=== PATIENT | female | born 1960 | race Hispanic/Latino ===

== ENCOUNTER 2017-04-14 15:58 | Emergency (ER) | payer BC ==
[2017-04-14] MEDS ORDERED: Gabapentin 300 MG CAP PO SCH (17:00)
[2017-04-14] MEDS ORDERED: HYDROcodone/Acetaminophen 10/325 mg Tablet ONE (17:00)
--- NOTE | 2017-04-14 17:23 | ULT ---
RIGHT LOWER EXTREMITY VENOUS DUPLEX SONOGRAM: History: Right leg pain and edema. FINDINGS: The right common femoral vein and greater saphenous junction were evaluated along with the femoral, d eep femoral, popliteal and posterior tibial veins. There is good color and spectral doppler flow, com pression, and augmentation. IMPRESSION: 1. No sonographic evidence of DVT within the right lower extremity. POS: [facility]
--- NOTE | 2017-04-14 17:25 | RAD ---
RIGHT FOOT THREE VIEWS: History: Right foot pain. FINDINGS: Extensive post-operative changes are present including surgical absence of the lateral third of the f oot, including the 4th and 5th rays. Soft tissue ulceration and edema are apparent. No aggressive oss eous destruction is apparent. There are degenerative changes throughout the remainder of the foot. IMPRESSION: Chronic type findings and extensive post-operative changes. Soft tissue ulceration is apparent. No ag gressive osseous destruction is visible. POS: [facility]
== END 2017-04-14 19:35 | disposition home or self-care (01) ==
LOC: ERS 15:58
DX: M79.89 Other specified soft tissue disorders (principal); E78.5 Hyperlipidemia, unspecified; E11.9 Type 2 diabetes mellitus without complications; Z79.4 Long term (current) use of insulin; I10 Essential (primary) hypertension; J45.909 Unspecified asthma, uncomplicated
CPT/HCPCS: 36416

== ENCOUNTER 2017-09-08 09:05 | Emergency (ER) | payer BC, SELFPAY ==
[2017-09-08] MEDS ORDERED: Ketorolac Tromethamine 30 MG/ML VIAL ONE (10:40)
== END 2017-09-08 10:48 | disposition home or self-care (01) ==
LOC: ERS 09:05
DX: H60.91 Unspecified otitis externa, right ear (principal); E78.5 Hyperlipidemia, unspecified; E11.9 Type 2 diabetes mellitus without complications; I10 Essential (primary) hypertension; J45.909 Unspecified asthma, uncomplicated; Z79.4 Long term (current) use of insulin
CPT/HCPCS: 96372; J1885

== ENCOUNTER 2017-10-09 12:53 | Inpatient (IN) | payer OTHER, SELFPAY ==
[~2017-10-09 12:53] MED LIST: ISOVUE-370 76%-LOCM 1 ML ONE
[2017-10-09 13:44] LABS: Bilirubin Negative (Negative); Blood, Urine Trace (Negative); Clarity CLEAR (Clear); Glucose, Urine (Dipstick) >=1000 mg/dL (Negative); Leukocyte Negative (Negative); Nitrite Negative (Negative); Protein, Urine (Dipstick) 100 mg/dL (Neg-Trace); Urobilinogen 0.2 mg/dL (0.2-1.0); pH, Urine 6.5 (5.0-9.0)
[2017-10-09 13:47] LABS: Bacteria/HPF None Seen HPF (None Seen); Hyaline Casts/LPF 0-3 HYALINE CAST LPF (0-3 Hyaline); Pathc Cast-AUWi Flag 0.43 (0-2.49); RBC/HPF 0-3 HPF (0-3); Squamous Epithelial 0-3 HPF (0-3); WBC/HPF 0-3 HPF (0-3)
[2017-10-09 13:50] LABS: Yeast-AUWi Flag 38.8 (0-25.0)
[2017-10-09 13:51] LABS: #Eosinphils 0.4 thou/uL (0.0-0.7); #Lymphocytes 1.3 thou/uL (1.20-3.40); #Monocytes 0.3 thou/uL (0.11-0.59); #Neutrophils 4.7 thou/uL (1.40-6.50); %Basophils 0.4 % (0.0-1.0); %Eosinophils 5.4 % (0.0-10.0); %Lymphocytes 19.2 % (21.0-51.0); %Monocytes 4.6 % (0.0-10.0); %Neutrophils 70.4 % (42.0-75.0); Hemoglobin 8.9 g/dL (12.0-16.0); Mean Corpuscular Hemoglobin 28.2 pg (27.0-31.0); Mean Corpuscular Volume 85.3 fl (81.0-99.0); Platelet Count 234 thou/uL (130-400); RBC Distribution Width 13.8 % (11.5-14.5); Red Blood Cell (RBC) Count 3.17 mill/uL (4.20-5.40); White Blood Cell (WBC) Count 6.7 thou/uL (4.8-10.8)
[2017-10-09 13:59] LABS: Yeast-All Forms 1+ HPF (None Seen)
[2017-10-09 14:12] LABS: ALT (SGPT) 12 U/L (8-55); AST (SGOT) 14 U/L (5-34); Albumin 3.5 g/dL (3.5-5.0); Alkaline Phosphatase 131 U/L (40-150); Anion Gap 10 mmol/L (10-20); BUN (Urea Nitrogen) 15 mg/dL (9.8-20.1); Bilirubin, Total 0.4 mg/dL (0.2-1.2); Calc. Creatinine Clearance 0 mL/min (70-130); Carbon Dioxide 24 mmol/L (22-29); Chloride 104 mmol/L (98-107); Estimated GFR-MDRD 41; Globulin 4.1 g/dL (2.4-3.5); Glucose 491 mg/dL (70-105); Lipase 10 U/L (8-78); Potassium 4.6 mmol/L (3.5-5.1); Protein, Total 7.6 g/dL (6.0-8.3); Sodium 133 mmol/L (136-145)
[2017-10-09] MEDS ORDERED: Morphine 4 MG/ML VIAL ONE (16:03)
[2017-10-09] MEDS ORDERED: Ondansetron ODT 4 MG TAB ONE (16:07)
--- NOTE | 2017-10-09 16:21 | ULT ---
RIGHT LOWER EXTREMITY VENOUS DUPLEX EXAM: Date: 10/09/17 HISTORY: Right lower extremity pain and swelling. FINDINGS: Real-time color Doppler evaluation of the right lower extremity was performed from groin to calf. Thi s includes evaluation of the common femoral, superficial and profunda femoral, saphenous, and poplite al veins. This shows an extensive deep venous thrombosis which is near occlusive in nature. It extends from the common femoral vein to the mid-calf. IMPRESSION: Extensive deep venous thrombosis of the right lower extremity. Findings relayed by the technologist to Dr. Gonzales. CODE CR. POS: [facility]
[2017-10-09 16:42] LABS: CKMB 0.7 ng/mL (0-6.6); Troponin I Less than 0.010 ng/mL (< 0.028)
[2017-10-09] MEDS ORDERED: Enoxaparin Sodium 80 MG/0.8 ML SYRINGE ONE (16:49)
[2017-10-09] MEDS ORDERED: Enoxaparin Sodium 40 MG/0.4 ML SYRINGE ONE (16:49)
--- NOTE | 2017-10-09 17:01 | CT ---
CT OF ABDOMEN AND PELVIS PERFORMED WITH CONTRAST ENHANCEMENT: Date: 10/09/17 HISTORY: Abdominal pain. History of hernia surgery in June. COMPARISON: 07/02/16 exam. FINDINGS: The lung bases are clear. The liver, spleen, and pancreas regions appear unremarkable. The gallbladder has been removed. Right and left adrenal glands are normal in appearance. Parapelvic cysts are again noted involving chin th kidneys. Small periaortic lymph nodes and aortocaval nodes are seen. These were present on the konrad or exam and not definitively changed. There is a single focus of some mesenteric nodes associated wit h some fat stranding. This is associated with the proximal to mid ileal bowel loop. This is seen on c oronal image 89, and axial image 58. I do not see any adjacent bowel wall abnormality. There is a sec ond inflammatory focus involving the mid descending colon. There are also some slightly prominent lym ph nodes along the medial border of the colon in this region. There is suggestion of some slight wall thickening. However, I do not see any definitive diverticular disease and there is no true diverticu lar disease elsewhere within the colon. CT of pelvis was performed with contrast enhancement. Patient has undergone anterior wall hernia repa ir. The appendix region is unremarkable. No free fluid. There is a mild amount of stool present within the colon, particularly the sigmoid region. IMPRESSION: 1. Focal area of slight wall thickening to the mid descending colon with pericolonic inflammatory ch julio and some mildly prominent nodes in this region which are probably inflammatory in nature. I do n ot see definite diverticular disease associated with this, although an isolated diverticulum could ce rtainly explain this as diverticulitis type symptoms, but other type of infectious or inflammatory pr ocess in this region, even neoplasm, would have to be considered as a possibility. I would suggest co lonoscopy for further investigation. 2. Isolated focus of some slightly enlarged mesenteric lymph nodes associated with a mid ileal bowel loop. There is some surrounding slight inflammatory change within the fat adjacent to this area. I d o not see any adjacent bowel abnormality. The significance of this is unclear. Some of these changes could be some type of postoperative sequelae to the hernia repair, although this seems somewhat unlik fei given the time frame of the repair. It would probably be advisable to obtain a follow-up CT for i nvestigation of these slightly enlarged nodes. POS: [facility]
[2017-10-09] MEDS ORDERED: Insulin Regular 300 UNITS/3 ML VIAL SC PRN (17:46)
[2017-10-09] MEDS ORDERED: Senokot 8.6 MG TAB PO PRN (17:46)
[2017-10-09] MEDS ORDERED: Ondansetron HCl/PF 4 MG/2 ML Vial IVP PRN (17:46)
[2017-10-09] MEDS ORDERED: Dextrose 50% Abboject 50 ML SYRINGE SLOW IVP PRN (17:46)
[2017-10-09] MEDS ORDERED: Dextrose 5% in Water 1,000 ML IV PRN (17:46)
[2017-10-09] MEDS: Sodium Chloride 0.9% 1,000 ML IV SCH (18:18)
[2017-10-09] MEDS: cefTRIAXone\\ROCEPHIN 2 GM in Sodium Chloride 0.9% 100 ML IVPB SCH (18:19)
[2017-10-09 19:19] LABS: Troponin I Less than 0.010 ng/mL (< 0.028)
[2017-10-09] MEDS: metroNIDAZOLE 500 MG in Premix Bag 1 BAG IVPB SCH (20:21)
[2017-10-09] MEDS: Enoxaparin Sodium 100 MG/ML SYRINGE SC SCH (20:22)
--- NOTE | 2017-10-09 21:54 | PDOC.PN ---
- Subjective Encounter Start Date: 10/09/17 Encounter Start Time: 18:00 Patient seen and examined. - Objective Resuscitation Status: Resuscitation Status FULL:Full Resuscitation MAR Reviewed: Yes Vital Signs & Weight: Vital Signs (12 hours) Temp Pulse Resp BP Pulse Ox 10/09/17 17:55 98.1 F 74 17 177/77 H 98 Result Diagrams: 10/10/17 04:55 10/10/17 04:55 Additional Labs: Accuchecks 10/09/17 10/09/17 21:40 18:12 POC Glucose 363 H 429 H Radiology Reviewed by me: Yes (CT abd - Colitis) EKG Reviewed by me: Yes (SR) Phys Exam - Physical Examination Constitutional: NAD HEENT: PERRLA, moist MMs Neck: no nodes, no JVD, supple, full ROM Respiratory: no wheezing, no rales, no rhonchi, clear to auscultation bilateral Cardiovascular: RRR, no rub no heaves/pulsations Gastrointestinal: soft, non-tender, no distention, positive bowel sounds Musculoskeletal: pulses present, edema present Neurological: non-focal, normal sensation, moves all 4 limbs Lymphatic: no nodes (neck) Psychiatric: normal affect, A&O x 3 Skin: no rash Dx/Plan - Plan DVT proph w/lovenox * Please see H&P Review of Systems - Review of Systems Respiratory: negative: Cough, Dry, Shortness of Breath, Hemoptysis, SOB with Excertion, Pleuritic Pain, Sputum, Wheezing Cardiovascular: negative: chest pain, palpitations, orthopnea, paroxysmal nocturnal dyspnea, edema, light headedness, other - Medications/Allergies Allergies/Adverse Reactions: Allergies Allergy/AdvReac Type Severity Reaction Status Date / Time acetaminophen [From Tylenol] Allergy Verified 01/23/13 17:16 ibuprofen Allergy Verified 01/23/13 17:16 Medications: Current Medications Dextrose/Water (Dextrose 50%) 25 gm SLOW IVP PRN PRN PRN Reason: Hypoglycemia Enoxaparin Sodium (Lovenox) 100 mg SC 0900,2100 [facility] Last Admin: 10/09/17 20:22 Dose: 100 mg Famotidine (Pepcid) 20 mg PO BID [facility] Glucagon (Glucagon) 1 mg IM PRN PRN PRN Reason: Hypoglycemia Hydralazine HCl (Apresoline) 10 mg SLOW IVP Q4H PRN PRN Reason: SBP Greater Than 180 Dextrose/Water (D5w) 1,000 mls @ 0 mls/hr IV .Q0M PRN; As Directed PRN Reason: Hypoglycemia Insulin Glargine 25 units/ (Miscellaneous Medication) 0.25 mls @ 0 mls/hr SC QAM [facility] Insulin Glargine 25 units/ (Miscellaneous Medication) 0.25 mls @ 0 mls/hr SC HS [facility] Sodium Chloride (Normal Saline 0.9%) 1,000 mls @ 125 mls/hr IV .Q8H [facility] Last Admin: 10/09/17 18:18 Dose: 1,000 mls Ceftriaxone Sodium 2 gm/ (Sodium Chloride) 100 mls @ 200 mls/hr IVPB 1830 [facility] Last Admin: 10/09/17 18:19 Dose: 100 mls Metronidazole 500 mg/ Device 100 mls @ 100 mls/hr IVPB 0400,1200,2000 [facility] Last Admin: 10/09/17 20:21 Dose: 100 mls Insulin Human Regular (Humulin R) 0 units SC .MODERATE SLIDING SC PRN PRN Reason: Moderate Correctional Scale Last Admin: 10/09/17 18:25 Dose: 10 unit Morphine Sulfate (Morphine) 2 mg IV Q4H PRN PRN Reason: Pain Nystatin (Mycostatin Powder) 0 gm TOP BID [facility] Ondansetron HCl (Zofran Odt) 4 mg PO Q6H PRN PRN Reason: Nausea/Vomiting Ondansetron HCl (Zofran) 4 mg IVP Q6H PRN PRN Reason: Nausea/Vomiting Saccharomyces Boulardii (Florastor) 250 mg PO DAILY [facility] Senna (Senokot) 2 tab PO HSPRN PRN PRN Reason: Constipation Sodium Chloride (Flush - Normal Saline) 10 ml IVF Q12HR [facility] Sodium Chloride (Flush - Normal Saline) 10 ml IVF PRN PRN PRN Reason: Saline Flush
[2017-10-09] MEDS: Famotidine 20 MG TAB PO SCH (22:13)
[2017-10-09] MEDS: Insulin Glargine 25 UNITS in Pre-Filled Syringe 1 EACH SC SCH (22:13)
[2017-10-09] MEDS: Nystatin Powder 15 GM BOT TOP SCH (22:21)
[2017-10-09 22:40] LABS: Troponin I Less than 0.010 ng/mL (< 0.028)
[2017-10-10] MEDS: Morphine 4 MG/ML VIAL IV PRN (01:28)
[2017-10-10] MEDS: Sodium Chloride 0.9% 1,000 ML IV SCH ×4 (02:00→23:30)
[2017-10-10] MEDS ORDERED: Insulin Regular 300 UNITS/3 ML VIAL SC SCH (03:45)
[2017-10-10] MEDS ORDERED: Enoxaparin Sodium 40 MG/0.4 ML SYRINGE SC SCH (04:00)
[2017-10-10] MEDS: metroNIDAZOLE 500 MG in Premix Bag 1 BAG IVPB SCH ×3 (04:03→21:10)
[2017-10-10 05:39] LABS: #Eosinphils 0.3 thou/uL (0.0-0.7); #Lymphocytes 1.4 thou/uL (1.20-3.40); #Monocytes 0.3 thou/uL (0.11-0.59); #Neutrophils 3.1 thou/uL (1.40-6.50); %Basophils 0.8 % (0.0-1.0); %Eosinophils 6.4 % (0.0-10.0); %Lymphocytes 26.4 % (21.0-51.0); %Monocytes 6.1 % (0.0-10.0); %Neutrophils 60.3 % (42.0-75.0); Hemoglobin 8.2 g/dL (12.0-16.0); Mean Corpuscular HGB CONC 33.6 g/dL (32.0-36.0); Mean Corpuscular Hemoglobin 28.9 pg (27.0-31.0); Mean Corpuscular Volume 86.1 fl (81.0-99.0); Mean Platelet Volume 8.3 fL (7.4-10.4); Platelet Count 209 thou/uL (130-400); RBC Distribution Width 13.7 % (11.5-14.5); Red Blood Cell (RBC) Count 2.84 mill/uL (4.20-5.40); White Blood Cell (WBC) Count 5.2 thou/uL (4.8-10.8)
[2017-10-10] MEDS: Ondansetron ODT 4 MG TAB PO PRN ×2 (05:57→11:44)
[2017-10-10 06:01] LABS: ALT (SGPT) 45 U/L (8-55); AST (SGOT) 101 U/L (5-34); Alkaline Phosphatase 144 U/L (40-150); Anion Gap 9 mmol/L (10-20); BUN (Urea Nitrogen) 12 mg/dL (9.8-20.1); Bilirubin, Total 0.3 mg/dL (0.2-1.2); Calc. Creatinine Clearance 129 mL/min (70-130); Calcium 8.1 mg/dL (7.8-10.44); Carbon Dioxide 23 mmol/L (22-29); Chloride 105 mmol/L (98-107); Estimated GFR-MDRD 52; Globulin 3.6 g/dL (2.4-3.5); Glucose 355 mg/dL (70-105); Magnesium 1.7 mg/dL (1.6-2.6); Potassium 4.1 mmol/L (3.5-5.1); Protein, Total 6.6 g/dL (6.0-8.3); Sodium 133 mmol/L (136-145)
--- NOTE | 2017-10-10 07:05 | HP ---
DATE OF ADMISSION: 10/09/2017 The patient was seen and examined on 10/09/2017. PRIMARY CARE PHYSICIAN: Dr. Silva CHIEF COMPLAINT: Abdominal discomfort as well as elevated blood sugars. HISTORY OF PRESENT ILLNESS: The patient is a 57-year-old -[place] female with morbid obesity with a BMI 48.6, diabetes mellitus type 2, and ventral hernia repair in 06/2016 by sepideh Veliz nted to the Emergency Room with abdominal discomfort that has been ongoing for a month or so. The ab dominal pain got worse, for which she presented to the emergency room. She felt nauseous without any fever, chills, or vomiting. The pain was more or less generalized, dull to crampy in nature without any aggravating or relieving factor. No diarrhea or constipation reported. Please note that asriah soni is a poor historian. She also was unable to keep her blood sugars down at home per patient report. In the emergency room, initial vital signs showed temperature 98.6, respirations 16, pulse rate of 90 with blood pressure of 173/64, O2 saturation 99% on room air. Due to significant right lower extrem ity swelling, she underwent a Doppler that showed extensive DVT in the right lower extremity. On fur ther questioning, she mentions having shortness of breath on [id number] exertion. No orthopnea , PND, or stroke-like symptoms reported. PAST MEDICAL HISTORY: 1. Diabetes mellitus type 2. 2. Morbid obesity. 3. Hypertension. 4. History of DVT in the left leg in 2011. 5. Chronic venous stasis. 6. Cholecystectomy. PAST SURGICAL HISTORY: 1. 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 2. D&C. 3. . 4. Cholecystectomy. 5. Cardiac catheterization in 2003. CURRENT HOME MEDICATIONS: The patient is unable to recall any of her home medications. ALLERGIES: Patient is allergic to IBUPROFEN and TYLENOL. FAMILY HISTORY: Positive for diabetes and hypertension. SOCIAL HISTORY: Patient currently lives at home. Denies any smoking, alcohol, or drug use. REVIEW OF SYSTEMS, PHYSICAL EXAMINATION, LABORATORY FINDINGS: Please refer to my progress note. IMPRESSION: 1. Abdominal discomfort of unclear etiology. Patient underwent a CT scan of the abdomen with IV con trast that showed focal area of wall thickening in the mild descending colon with some inflammatory c hanges. There was also some slightly enlarged mesenteric lymph node. The patient will be started on clear liquid diet. We will start her on empiric antibiotics for suspected colitis. GI will be cons ulted. Due to history of abdominal surgery last year, we will also consult Dr. Lowe per patient re quest. 2. Uncontrolled diabetes mellitus type 2. The patient will be started on Lantus with sliding scale. We will keep Accu-Cheks a.c. and at bedtime. 3. Morbid obesity with a BMI of 48.6. Lifestyle modification emphasized. 4. Extensive deep venous thrombosis in the right lower extremity. The patient will be started on Lo venox. Pulmonary embolism is a possibility. However, patient is not hypoxic or tachycardic. 5. Hypertension. We will resume her home medications once confirmed. 6. Chronic venous stasis. 7. Chronic kidney disease stage 3. 8. Plan of care was discussed with the patient in detail. She stated understanding.
[2017-10-10] MEDS: Nystatin Powder 15 GM BOT TOP SCH ×2 (09:29→21:10)
[2017-10-10] MEDS: Famotidine 20 MG TAB PO SCH ×2 (09:29→20:52)
[2017-10-10 09:44] LABS: Hemoglobin 8.9 g/dL (12.0-16.0); Platelet Count 238 thou/uL (130-400)
[2017-10-10 09:50] LABS: INR-International Normal Ratio 1.1; Prothrombin Time 14.6 SEC (12.0-14.7)
[2017-10-10] MEDS: Insulin Glargine 25 UNITS in Pre-Filled Syringe 1 EACH SC SCH ×2 (11:39→20:55)
[2017-10-10] MEDS: Enoxaparin Sodium 100 MG/ML SYRINGE SC SCH ×2 (11:40→20:52)
[2017-10-10] MEDS: Saccharomyces boulardii 250 MG CAP PO SCH (11:40)
[2017-10-10] MEDS ORDERED: Warfarin Sodium 7.5 MG TAB PO SCH (17:00)
[2017-10-10] MEDS: hydrALAZINE 20 MG/ML VIAL SLOW IVP PRN (17:18)
[2017-10-10] MEDS: cefTRIAXone\\ROCEPHIN 2 GM in Sodium Chloride 0.9% 100 ML IVPB SCH (17:24)
--- NOTE | 2017-10-10 17:55 | CON ---
DATE OF CONSULTATION: 10/10/2017 HISTORY OF PRESENT ILLNESS: The patient is a 57-year-old female who was in her normal state of health until July of this year when she developed abdominal pain. She reports this abdominal pa in was in the upper abdomen and on the left side of the abdomen and became progressively worse and th en got very bad within the last few days. She has had a hernia repair back in 06/2016 and had no pro blems after the surgery. She reports she recently had Hemoccult positivity to her stools and was ref erred to GI, but however, because of copay she could not afford it and did not go. She has had quite a bit of vomiting, but she denies any weight loss or is unaware of any weight loss. She has had pre vious DVT in the past and has been diagnosed with a DVT on this hospitalization. The patient did und ergo an upper and lower endoscopy by Dr. Rivas for anemia back in 2010, both of which were normal. PAST MEDICAL HISTORY: Significant for diabetes mellitus, morbid obesity, hypertension, history of DV T, cholecystectomy, amputation of the toes, cardiac catheterization. HOME MEDICATIONS: Include quinapril 5 mg p.o. daily, metoprolol 12.5 mg p.o. b.i.d., iron plus folic acid 1 p.o. b.i.d., insulin 50 units subcu q.a.m. and 50 units subcu q.p.m., Lasix 20 mg p.o. b.i.d. , Flexeril 10 mg p.o. b.i.d., Kenalog ointment, ibuprofen 1 p.o. t.i.d. p.r.n., acetaminophen with co deine 1 p.o. q.4 hours p.r.n. ALLERGIES: Include ACETAMINOPHEN and IBUPROFEN. SOCIAL HISTORY: She does not smoke or drink. FAMILY HISTORY: Negative for GI or liver disease. REVIEW OF SYSTEMS: Constitutional: No fever or chills. No weight loss. Eyes: No blurred vision o r double vision. ENT: No sore throat or earaches. Cardiovascular: No chest pain or palpitation. Pulmonary: No shortness of breath, cough or wheezing. Gastrointestinal: See above. Genitourinary: No hematuria or dysuria. Musculoskeletal: No joint pain. Skin: No rashes. Neurologic: No numb ness or seizure activity. PHYSICAL EXAMINATION: GENERAL: Shows a morbidly obese female, in no acute distress. VITAL SIGNS: Temperature 98.0, pulse 70, respiratory rate 20, blood pressure 143/66. HEENT: Unremarkable. NECK: Supple. CHEST: Clear. CARDIOVASCULAR: Regular rate and rhythm. ABDOMEN: Soft, nontender without organomegaly or masses. She has a well healed surgical scar. RECTAL: Deferred. EXTREMITIES: Shows stasis changes. LABORATORY DATA: Shows a white blood cell count of 6.7, hemoglobin 8.9, hematocrit 27.1 with MCV of 85.3. PT is 14.6 with an INR of 1.1. Laboratory shows a sodium of 133, creatinine 1.33, glucose 491 . Urinalysis shows greater than 1000 glucose, trace blood. CT abdomen and pelvis showed a focal are a of slight wall thickening in the mid descending colon with pericolonic inflammatory changes and elvia e mild prominent nodes in this region, which are probably inflammatory in nature. No diverticula wer e seen in this area. There is also an isolated focus of some slightly enlarged mesenteric lymph node , associated with mild ileal bowel loop. There is some surrounding slight inflammatory change within the fat adjacent to this area. There is no present bowel abnormality in this area. ASSESSMENT: 1. Left-sided abdominal pain. 2. Persistent nausea and vomiting. 3. Hemoccult positive stool found as an outpatient. 4. Diabetes mellitus. 5. Abnormal CT of the descending colon. 6. Deep vein thrombosis. 7. Anemia. RECOMMENDATIONS: 1. EGD and colonoscopy in a.m. 2. Hold a.m. Lovenox dose until the time of the procedure and then it can be given then. 3. PPI.
[2017-10-10] MEDS ORDERED: GoLYTELY 4,000 ml Bottle PO SCH (18:00)
--- NOTE | 2017-10-11 00:50 | PDOC.PN ---
- Subjective Encounter Start Date: 10/10/17 Encounter Start Time: 13:00 Patient seen and examined for Abd pain/DVT. Some nausea. No vomiting. No new complaints. No overnight events - Objective Resuscitation Status: Resuscitation Status FULL:Full Resuscitation MAR Reviewed: Yes Vital Signs & Weight: Vital Signs (12 hours) Temp Pulse Resp BP BP BP Pulse Ox 10/11/17 00:00 98.5 F 77 20 146/67 H 98 10/10/17 22:00 73 163/68 H 10/10/17 20:41 98.1 F 78 20 192/92 H 98 10/10/17 17:18 70 182/83 H 10/10/17 16:00 97.9 F 72 20 182/83 H Weight Admit Weight 310 lb 3.2 oz Weight 310 lb 3.2 oz I&O: 10/09/17 10/10/17 10/11/17 06:59 06:59 06:59 Intake Total 1375 2136 Output Total 700 1000 Balance 675 1136 Result Diagrams: 10/10/17 09:33 10/10/17 04:55 Additional Labs: Accuchecks 10/10/17 10/10/17 10/10/17 20:39 17:32 11:57 POC Glucose 335 H 265 H 291 H 10/10/17 02:51 POC Glucose 364 H Phys Exam - Physical Examination Constitutional: NAD Respiratory: no wheezing, no rhonchi Cardiovascular: RRR, no rub Gastrointestinal: soft, non-tender, positive bowel sounds Musculoskeletal: edema present Neurological: moves all 4 limbs Dx/Plan (1) Abdominal pain Code(s): R10.9 - UNSPECIFIED ABDOMINAL PAIN Status: Acute (2) Acute DVT (deep venous thrombosis) Code(s): I82.409 - ACUTE EMBOLISM AND THOMBOS UNSP DEEP VN UNSP LOWER EXTREMITY Status: Acute (3) Uncontrolled type 2 diabetes mellitus Code(s): E11.65 - TYPE 2 DIABETES MELLITUS WITH HYPERGLYCEMIA Status: Chronic Qualifiers: Chronic kidney disease stage: stage 3 (moderate) (4) HTN (hypertension) Code(s): I10 - ESSENTIAL (PRIMARY) HYPERTENSION Status: Chronic - Plan DVT proph w/lovenox Await GI/Surg input -: Cont Lovenox for DVT - Risk discussed - Patient stated understanding -: Cont Atbx -: AM labs Review of Systems - Review of Systems Respiratory: negative: Cough, Dry, Shortness of Breath, Hemoptysis, SOB with Excertion, Pleuritic Pain, Sputum, Wheezing Cardiovascular: negative: chest pain, palpitations, orthopnea, paroxysmal nocturnal dyspnea, edema, light headedness, other Gastrointestinal: negative: Nausea, Vomiting, Abdominal Pain, Diarrhea, Constipation, Melena, Hematochezia, Other - Medications/Allergies Allergies/Adverse Reactions: Allergies Allergy/AdvReac Type Severity Reaction Status Date / Time acetaminophen [From Tylenol] Allergy Verified 01/23/13 17:16 ibuprofen Allergy Verified 01/23/13 17:16 Medications: Current Medications Cyclobenzaprine HCl (Flexeril) 10 mg PO TID PRN PRN Reason: Muscle Spasm Dextrose/Water (Dextrose 50%) 25 gm SLOW IVP PRN PRN PRN Reason: Hypoglycemia Enoxaparin Sodium (Lovenox) 100 mg SC 0900,2100 [facility] Famotidine (Pepcid) 20 mg PO BID [facility] Last Admin: 10/10/17 20:52 Dose: 20 mg Glucagon (Glucagon) 1 mg IM PRN PRN PRN Reason: Hypoglycemia Hydralazine HCl (Apresoline) 10 mg SLOW IVP Q4H PRN PRN Reason: SBP Greater Than 180 Last Admin: 10/10/17 17:18 Dose: 10 mg Dextrose/Water (D5w) 1,000 mls @ 0 mls/hr IV .Q0M PRN; As Directed PRN Reason: Hypoglycemia Insulin Glargine 25 units/ (Miscellaneous Medication) 0.25 mls @ 0 mls/hr SC QAM [facility] Last Admin: 10/10/17 11:39 Dose: 0.25 mls Insulin Glargine 25 units/ (Miscellaneous Medication) 0.25 mls @ 0 mls/hr SC HS [facility] Last Admin: 10/10/17 20:55 Dose: 0.25 mls Sodium Chloride (Normal Saline 0.9%) 1,000 mls @ 125 mls/hr IV .Q8H [facility] Last Admin: 10/10/17 22:34 Dose: 1,000 mls Ceftriaxone Sodium 2 gm/ (Sodium Chloride) 100 mls @ 200 mls/hr IVPB 1830 [facility] Last Admin: 10/10/17 17:24 Dose: 100 mls Metronidazole 500 mg/ Device 100 mls @ 100 mls/hr IVPB 0400,1200,2000 [facility] Last Admin: 10/10/17 21:10 Dose: 100 mls Insulin Human Regular (Humulin R) 0 units SC .AGGRESSIVE SLIDING PRN PRN Reason: Aggressive Sliding Scale Insulin Human Regular (Humulin R) 0 units SC .BEDTIME SLIDING SC PRN PRN Reason: Bedtime Correctional Scale Metoprolol Tartrate (Lopressor) 12.5 mg PO BID [facility] Morphine Sulfate (Morphine) 2 mg IV Q4H PRN PRN Reason: Pain Stop: 10/11/17 07:00 Last Admin: 10/10/17 01:28 Dose: 2 mg Nystatin (Mycostatin Powder) 0 gm TOP BID [facility] Last Admin: 10/10/17 21:10 Dose: 1 applic Ondansetron HCl (Zofran Odt) 4 mg PO Q6H PRN PRN Reason: Nausea/Vomiting Last Admin: 10/10/17 11:44 Dose: 4 mg Ondansetron HCl (Zofran) 4 mg IVP Q6H PRN PRN Reason: Nausea/Vomiting Last Admin: 10/10/17 20:52 Dose: 4 mg Saccharomyces Boulardii (Florastor) 250 mg PO DAILY [facility] Last Admin: 10/10/17 11:40 Dose: Not Given Senna (Senokot) 2 tab PO HSPRN PRN PRN Reason: Constipation Sodium Chloride (Flush - Normal Saline) 10 ml IVF Q12HR [facility] Last Admin: 10/10/17 21:11 Dose: 10 ml Sodium Chloride (Flush - Normal Saline) 10 ml IVF PRN PRN PRN Reason: Saline Flush Warfarin Sodium (Coumadin) 7.5 mg PO 1700 [facility] Last Admin: 10/10/17 17:25 Dose: Not Given
[2017-10-11] MEDS: Morphine 4 MG/ML VIAL IV PRN (01:39)
[2017-10-11] MEDS: Insulin Regular 300 UNITS/3 ML VIAL SC PRN ×2 (03:05→16:36)
[2017-10-11] MEDS: metroNIDAZOLE 500 MG in Premix Bag 1 BAG IVPB SCH ×3 (03:05→22:32)
[2017-10-11] MEDS: Ondansetron ODT 4 MG TAB PO PRN (04:47)
--- NOTE | 2017-10-11 04:49 | HP ---
HISTORY OF PRESENT ILLNESS: Nayana Lockhart is a 57-year-old female who is well known to me. Mandy avilez presented with an incarcerated umbilical hernia incarcerated with fat that repaired using mesh on 0 07/02/2016. She is morbidly obese, 5 feet 7 inches, 310 pounds, 48 BMI. She reports this hospitaliza tion to the emergency room, admitted by the hospitalist service on 10/10/2017 after being evaluated o n 10/09/2017 for complaining of abdominal pain. The patient reports that she has pain in her left pa nnus, left lateral lower, this is bothersome to her. She asked me if this fact can be removed, she i s interested in bariatric surgery. She, on admission, was evaluated with CAT scan demonstrating some thickening of the colonic wall. Dr. Zaidi has seen her and colonoscopy planned for tomorrow. The patient also found to have a deep venous thrombosis, has a history of deep venous thrombosis in t he left leg. She has been admitted for management of that. I have talked to her about bariatric surgery. She states she is interested. I suggest she attend a bariatric seminar in the days can be given her to attend that seminar that is the first step. I am n ot sure if her insurance will cover such a thing. She states she has insurance, but she is listed as uninsured. She denies any pain in her abdomen except for that in her abdominal wall. ALLERGIES: IBUPROFEN, ACETAMINOPHEN. TOBACCO: None. ALCOHOL: None. PAST SURGICAL HISTORY: Amputation of toes that I performed D&C. , cholecystectomy, cardiac catheterization in 2003. Umbilical hernia incarcerated omentum mesh repair earlier this year. PAST MEDICAL HISTORY: Morbid obesity, metabolic syndrome, diabetes mellitus type 2, hypertension. S he has a history of DVT left leg in 2011, current right leg DVT. HOME MEDICATIONS: Quinapril, metoprolol, iron, insulin, furosemide, Flexeril, ibuprofen and acetamin ophen. PHYSICAL EXAMINATION: VITAL SIGNS: Height 5 feet 7 inches, weight 310 pounds, BMI 48, temperature 98.1, pulse 78, blood pr essure 192/92. LUNGS: Clear to auscultation. CARDIAC: Regular rate and rhythm without murmur, rub, or gallop. ABDOMEN: Soft, nontender, obese. She has a large pannus. Umbilical hernia repair intact. No wound problems. She has indurated fat left lateral lower pannus. No cellulitis, no induration, no ulcera tion. ASSESSMENT AND PLAN: 1. Panniculitis. Would recommend symptomatic relief with heating pad, warm compresses. 2. Metabolic syndrome, morbid obesity, insulin-dependent diabetes mellitus and hypertension. She is ambulatory. We would recommend that she attend a bariatric seminar. She is truly inspected and radha t would be the first step and then follow up in our office. 3. Right leg deep venous thrombosis. Therapy per medical. 4. Colonoscopy per Dr. Zaidi.
[2017-10-11 05:22] LABS: Hemoglobin 8.7 g/dL (12.0-16.0); Platelet Count 210 thou/uL (130-400)
[2017-10-11 05:32] LABS: Anion Gap 7 mmol/L (10-20); BUN (Urea Nitrogen) 7 mg/dL (9.8-20.1); Calc. Creatinine Clearance 152 mL/min (70-130); Calcium 7.9 mg/dL (7.8-10.44); Carbon Dioxide 25 mmol/L (22-29); Chloride 108 mmol/L (98-107); Estimated GFR-MDRD 63; Glucose 269 mg/dL (70-105); Magnesium 1.5 mg/dL (1.6-2.6); Potassium 3.8 mmol/L (3.5-5.1); Sodium 136 mmol/L (136-145)
[2017-10-11] MEDS: Saccharomyces boulardii 250 MG CAP PO SCH (10:19)
[2017-10-11] MEDS: Famotidine 20 MG TAB PO SCH ×2 (10:19→22:40)
[2017-10-11] MEDS: Metoprolol Tartrate 25 MG TAB PO SCH ×2 (10:20→22:40)
[2017-10-11] MEDS: Sodium Chloride 0.9% 1,000 ML IV SCH ×2 (10:21→18:39)
[2017-10-11] MEDS: Nystatin Powder 15 GM BOT TOP SCH ×2 (10:22→22:42)
--- NOTE | 2017-10-11 13:52 | PDOC.PN ---
- Subjective Encounter Start Date: 10/11/17 Encounter Start Time: 13:50 Subjective: feels better.could not drink [place] as it makes her throw up -: Otherwise she does not feel nauseated any more. AP is much better -: no fever/chills/diarrhea - Objective Resuscitation Status: Resuscitation Status FULL:Full Resuscitation MAR Reviewed: Yes Vital Signs & Weight: Vital Signs (12 hours) Temp Pulse Resp BP BP Pulse Ox 10/11/17 12:00 97.8 F 65 18 191/74 H 95 10/11/17 08:00 97.4 F L 66 14 150/69 H 97 10/11/17 04:43 98 10/11/17 04:00 98.9 F 66 20 144/65 H 96 Weight Admit Weight 310 lb 3.2 oz Weight 310 lb 11.2 oz I&O: 10/10/17 10/11/17 10/12/17 06:59 06:59 06:59 Intake Total 1375 5492.5 Output Total 700 3300 Balance 675 2192.5 Result Diagrams: 10/11/17 04:32 10/11/17 04:32 Additional Labs: Accuchecks 10/11/17 10/11/17 10/11/17 12:01 06:19 01:59 POC Glucose 250 H 250 H 316 H 10/10/17 10/10/17 20:39 17:32 POC Glucose 335 H 265 H LABS REVIEWED Phys Exam - Physical Examination Constitutional: NAD WEAK LOOKING BUT NON TOXIC HEENT: PERRLA, moist MMs, sclera anicteric, oral pharynx no lesions Neck: no nodes, no JVD, supple, full ROM Respiratory: no wheezing, no rales, no rhonchi, clear to auscultation bilateral Cardiovascular: RRR, no significant murmur, no rub Gastrointestinal: soft, non-tender, no distention, positive bowel sounds obese Musculoskeletal: no edema, pulses present Neurological: non-focal, normal sensation, moves all 4 limbs Psychiatric: normal affect, A&O x 3 Skin: no rash Dx/Plan (1) Abdominal pain Code(s): R10.9 - UNSPECIFIED ABDOMINAL PAIN Status: Acute (2) Acute DVT (deep venous thrombosis) Code(s): I82.409 - ACUTE EMBOLISM AND THOMBOS UNSP DEEP VN UNSP LOWER EXTREMITY Status: Acute Qualifiers: DVT location: lower extremity Laterality: right (3) Colitis presumed infectious Code(s): K52.9 - NONINFECTIVE GASTROENTERITIS AND COLITIS, UNSPECIFIED Status : Acute Comment: Per CT scan-descending colon inlammation (4) Hypomagnesemia Code(s): E83.42 - HYPOMAGNESEMIA Status: Acute (5) HTN (hypertension) Code(s): I10 - ESSENTIAL (PRIMARY) HYPERTENSION Status: Chronic (6) Uncontrolled type 2 diabetes mellitus Code(s): E11.65 - TYPE 2 DIABETES MELLITUS WITH HYPERGLYCEMIA Status: Chronic Qualifiers: Chronic kidney disease stage: stage 3 (moderate) (7) Morbid obesity with BMI of 50.0-59.9, adult Code(s): E66.01 - MORBID (SEVERE) OBESITY DUE TO EXCESS CALORIES; Z68.43 - BODY MASS INDEX (BMI) 50-59.9 , ADULT Status: Chronic (8) Normochromic normocytic anemia Code(s): D64.9 - ANEMIA, UNSPECIFIED Status: Chronic - Plan continue antibiotics, PT/OT, incentive spirometry, out of bed/ambulate, DVT proph w/lovenox, DVT proph w/SCDs cont empiric antibiotic. checo studies pending as no sample yet collected -: GI folowing.Colonoscopy can't be done as prep not complete -: If no colonoscopy,will restart lovenox w Couamdin for DVT R leg -: cont gentle IVF.replace magnesium -: appreciate GI and GS input. * . Review of Systems - Review of Systems Constitutional: weakness, malaise. negative: fever, chills, sweats, other ENT: negative: Ear Pain, Ear Discharge, Nose Pain, Nose Discharge, Nose Congestion, Mouth Pain, Mouth Swelling, Throat Pain, Throat Swelling, Other Respiratory: negative: Cough, Dry, Shortness of Breath, Hemoptysis, SOB with Excertion, Pleuritic Pain, Sputum, Wheezing Cardiovascular: negative: chest pain, palpitations, orthopnea, paroxysmal nocturnal dyspnea, edema, light headedness, other Gastrointestinal: Nausea, Vomiting, Abdominal Pain Genitourinary: negative: Dysuria, Frequency, Incontinence, Hematuria, Retention , Other Musculoskeletal: negative: Neck Pain, Shoulder Pain, Arm Pain, Back Pain, Hand Pain, Leg Pain, Foot Pain, Other Skin: negative: Rash, Lesions, Denny, Bruising, Other Neurological: negative: Weakness, Numbness, Incoordination, Change in Speech, Confusion, Seizures, Other - Medications/Allergies Allergies/Adverse Reactions: Allergies Allergy/AdvReac Type Severity Reaction Status Date / Time acetaminophen [From Tylenol] Allergy Verified 01/23/13 17:16 ibuprofen Allergy Verified 01/23/13 17:16 Medications: Current Medications Cyclobenzaprine HCl (Flexeril) 10 mg PO TID PRN PRN Reason: Muscle Spasm Dextrose/Water (Dextrose 50%) 25 gm SLOW IVP PRN PRN PRN Reason: Hypoglycemia Enoxaparin Sodium (Lovenox) 100 mg SC 0900,2100 [facility] Famotidine (Pepcid) 20 mg PO BID [facility] Last Admin: 10/11/17 10:19 Dose: 20 mg Glucagon (Glucagon) 1 mg IM PRN PRN PRN Reason: Hypoglycemia Hydralazine HCl (Apresoline) 10 mg SLOW IVP Q4H PRN PRN Reason: SBP Greater Than 180 Last Admin: 10/10/17 17:18 Dose: 10 mg Dextrose/Water (D5w) 1,000 mls @ 0 mls/hr IV .Q0M PRN; As Directed PRN Reason: Hypoglycemia Insulin Glargine 25 units/ (Miscellaneous Medication) 0.25 mls @ 0 mls/hr SC QAM [facility] Last Admin: 10/10/17 11:39 Dose: 0.25 mls Insulin Glargine 25 units/ (Miscellaneous Medication) 0.25 mls @ 0 mls/hr SC HS [facility] Last Admin: 10/10/17 20:55 Dose: 0.25 mls Sodium Chloride (Normal Saline 0.9%) 1,000 mls @ 125 mls/hr IV .Q8H [facility] Last Admin: 10/11/17 10:21 Dose: 1,000 mls Ceftriaxone Sodium 2 gm/ (Sodium Chloride) 100 mls @ 200 mls/hr IVPB 1830 [facility] Last Admin: 10/10/17 17:24 Dose: 100 mls Metronidazole 500 mg/ Device 100 mls @ 100 mls/hr IVPB 0400,1200,2000 [facility] Last Admin: 10/11/17 11:28 Dose: 100 mls Insulin Human Regular (Humulin R) 0 units SC .AGGRESSIVE SLIDING PRN PRN Reason: Aggressive Sliding Scale Insulin Human Regular (Humulin R) 0 units SC .BEDTIME SLIDING SC PRN PRN Reason: Bedtime Correctional Scale Last Admin: 10/11/17 03:05 Dose: 4 unit Metoprolol Tartrate (Lopressor) 12.5 mg PO BID [facility] Last Admin: 10/11/17 10:20 Dose: 12.5 mg Nystatin (Mycostatin Powder) 0 gm TOP BID [facility] Last Admin: 10/11/17 10:22 Dose: 1 applic Ondansetron HCl (Zofran Odt) 4 mg PO Q6H PRN PRN Reason: Nausea/Vomiting Last Admin: 10/11/17 04:47 Dose: 4 mg Ondansetron HCl (Zofran) 4 mg IVP Q6H PRN PRN Reason: Nausea/Vomiting Last Admin: 10/10/17 20:52 Dose: 4 mg Promethazine HCl (Phenergan) 12.5 mg IM/IV Q6H PRN PRN Reason: Nausea/Vomiting Quinapril HCl (Accupril) 5 mg PO NOW [facility] Stop: 10/11/17 15:00 Quinapril HCl (Accupril) 5 mg PO DAILY [facility] Saccharomyces Boulardii (Florastor) 250 mg PO DAILY [facility] Last Admin: 10/11/17 10:19 Dose: 250 mg Senna (Senokot) 2 tab PO HSPRN PRN PRN Reason: Constipation Sodium Chloride (Flush - Normal Saline) 10 ml IVF Q12HR [facility] Last Admin: 10/11/17 10:21 Dose: Not Given Sodium Chloride (Flush - Normal Saline) 10 ml IVF PRN PRN PRN Reason: Saline Flush
[2017-10-11] MEDS: Insulin Glargine 25 UNITS in Pre-Filled Syringe 1 EACH SC SCH ×2 (15:09→22:42)
[2017-10-11] MEDS: Promethazine HCl 25 MG/ML VIAL IM/IV PRN (15:11)
--- NOTE | 2017-10-11 17:30 | PRG ---
DATE OF SERVICE: 10/11/2017 SUBJECTIVE: The patient overnight was unable to tolerate the GoLYTELY prep due to increased nausea and vomiting and inability to swallow the GoLYTELY due to taste. She states that she continues to have some mild nausea and vomiting today, but otherwise is doing well other than the left-sided abdominal pain. I spoke with her at length about the procedures planned for her today and the need for adequate colonic preparation prior to these procedures and I gave her the following options: 1. Proceed with the upper endoscopy and hold off on the colonoscopy. 2. Placement of NG tube today with instillation of GoLYTELY prep tonight in preparation for both EGD and colonoscopy tomorrow. 3. She try to drink as much of the GoLYTELY as she could tonight in preparation for the scheduled EGD and colonoscopy tomorrow or for not proceed with any invasive modalities at this time. After talking with her at length, she decided that she would like some additional time to think about these options prior to proceeding with invasive procedures. ASSESSMENT AND PLAN: 1. Persistent nausea and vomiting. 2. Hemoccult positive stool found as an outpatient. 3. Abnormal CT showing thickening of the descending colon. RECOMMENDATIONS: 1. The patient to decide whether or not she wants invasive endoscopic evaluation with both upper and lower endoscopy for evaluation of her nausea and vomiting and abnormal findings on her CT scan respectively. 2. The patient can be placed on a clear liquid diet until such time. 3. We will confer with nursing staff about her decision regarding endoscopic therapy. We will continue to follow. Please call with any questions. JOS
[2017-10-11] MEDS: cefTRIAXone\\ROCEPHIN 2 GM in Sodium Chloride 0.9% 100 ML IVPB SCH (18:39)
[2017-10-11] MEDS: Enoxaparin Sodium 100 MG/ML SYRINGE SC SCH (22:36)
[2017-10-12] MEDS: Sodium Chloride 0.9% 1,000 ML IV SCH ×2 (05:28→12:52)
[2017-10-12] MEDS: metroNIDAZOLE 500 MG in Premix Bag 1 BAG IVPB SCH ×3 (05:28→20:26)
[2017-10-12] MEDS: Famotidine 20 MG TAB PO SCH ×2 (08:50→20:26)
[2017-10-12] MEDS: Enoxaparin Sodium 100 MG/ML SYRINGE SC SCH ×2 (08:50→20:26)
[2017-10-12] MEDS: Saccharomyces boulardii 250 MG CAP PO SCH (08:50)
[2017-10-12] MEDS: Insulin Glargine 25 UNITS in Pre-Filled Syringe 1 EACH SC SCH ×2 (08:51→20:31)
[2017-10-12] MEDS: Metoprolol Tartrate 25 MG TAB PO SCH ×2 (08:51→20:26)
[2017-10-12] MEDS: Nystatin Powder 15 GM BOT TOP SCH ×2 (08:52→20:27)
--- NOTE | 2017-10-12 13:34 | PDOC.PN ---
- Subjective Encounter Start Date: 10/12/17 Encounter Start Time: 13:32 Subjective: no more Ap,nausea or vomiting -: not desiring EGD/Colonoscopy this admission -: small BMs - Objective Resuscitation Status: Resuscitation Status FULL:Full Resuscitation MAR Reviewed: Yes Vital Signs & Weight: Vital Signs (12 hours) Temp Pulse Resp BP BP Pulse Ox 10/12/17 12:00 97.2 F L 67 19 164/68 H 96 10/12/17 08:00 98.2 F 72 18 180/72 H 97 10/12/17 04:00 98.7 F 67 20 134/60 98 Weight Admit Weight 310 lb 3.2 oz Weight 314 lb 12.8 oz I&O: 10/11/17 10/12/17 10/13/17 06:59 06:59 06:59 Intake Total 5492.5 3130 Output Total 3300 2200 Balance 2192.5 930 Result Diagrams: 10/11/17 04:32 10/12/17 03:57 Additional Labs: Accuchecks 10/12/17 10/12/17 10/11/17 11:10 05:40 20:38 POC Glucose 206 H 220 H 249 H 10/11/17 16:33 POC Glucose 261 H Laboratory Tests 04/28/15 07/02/16 07/03/16 16:40 09:50 03:45 Hgb 8.8 L 9.8 L 8.9 L Magnesium 10/09/17 10/10/17 10/10/17 13:43 04:55 09:33 Hgb 8.9 L 8.2 L 8.9 L Magnesium 10/11/17 10/11/17 04:32 04:32 Hgb 8.7 L Magnesium 1.5 L LABS REVIEWED Phys Exam - Physical Examination Constitutional: NAD HEENT: PERRLA, moist MMs, sclera anicteric, oral pharynx no lesions Neck: no nodes, no JVD, supple, full ROM Respiratory: no wheezing, no rales, no rhonchi, wheezing present, clear to auscultation bilateral Cardiovascular: RRR, no significant murmur, no rub Gastrointestinal: soft, non-tender, no distention, positive bowel sounds Musculoskeletal: no edema, pulses present Neurological: non-focal, normal sensation, moves all 4 limbs Psychiatric: normal affect, A&O x 3 Skin: no rash Dx/Plan (1) Abdominal pain Code(s): R10.9 - UNSPECIFIED ABDOMINAL PAIN Status: Acute (2) Acute DVT (deep venous thrombosis) Code(s): I82.409 - ACUTE EMBOLISM AND THOMBOS UNSP DEEP VN UNSP LOWER EXTREMITY Status: Acute Qualifiers: DVT location: lower extremity Laterality: right (3) Colitis presumed infectious Code(s): K52.9 - NONINFECTIVE GASTROENTERITIS AND COLITIS, UNSPECIFIED Status : Acute Comment: Per CT scan-descending colon inlammation (4) Hypomagnesemia Code(s): E83.42 - HYPOMAGNESEMIA Status: Acute (5) HTN (hypertension) Code(s): I10 - ESSENTIAL (PRIMARY) HYPERTENSION Status: Chronic (6) Uncontrolled type 2 diabetes mellitus Code(s): E11.65 - TYPE 2 DIABETES MELLITUS WITH HYPERGLYCEMIA Status: Chronic Qualifiers: Chronic kidney disease stage: stage 3 (moderate) (7) Morbid obesity with BMI of 50.0-59.9, adult Code(s): E66.01 - MORBID (SEVERE) OBESITY DUE TO EXCESS CALORIES; Z68.43 - BODY MASS INDEX (BMI) 50-59.9 , ADULT Status: Chronic (8) Normochromic normocytic anemia Code(s): D64.9 - ANEMIA, UNSPECIFIED Status: Chronic - Plan continue antibiotics, PT/OT, respiratory therapy, incentive spirometry, out of bed/ambulate, DVT proph w/SCDs cont antibiotics .cancel egd/colonoscopy.advance diet as tolerated -: restart lovenox BID for DVT. -: OK to transfer to medical. -: start Coumadin tonight an dmonitor INR. -: cont home meds as below.HD stable * . Review of Systems - Review of Systems Constitutional: weakness Respiratory: negative: Cough, Dry, Shortness of Breath, Hemoptysis, SOB with Excertion, Pleuritic Pain, Sputum, Wheezing Cardiovascular: negative: chest pain, palpitations, orthopnea, paroxysmal nocturnal dyspnea, edema, light headedness, other Gastrointestinal: negative: Nausea, Vomiting, Abdominal Pain, Diarrhea, Constipation, Melena, Hematochezia, Other Genitourinary: negative: Dysuria, Frequency, Incontinence, Hematuria, Retention , Other Musculoskeletal: negative: Neck Pain, Shoulder Pain, Arm Pain, Back Pain, Hand Pain, Leg Pain, Foot Pain, Other Skin: negative: Rash, Lesions, Denny, Bruising, Other Neurological: negative: Weakness, Numbness, Incoordination, Change in Speech, Confusion, Seizures, Other - Medications/Allergies Allergies/Adverse Reactions: Allergies Allergy/AdvReac Type Severity Reaction Status Date / Time acetaminophen [From Tylenol] Allergy Verified 01/23/13 17:16 ibuprofen Allergy Verified 01/23/13 17:16 Medications: Current Medications Cyclobenzaprine HCl (Flexeril) 10 mg PO TID PRN PRN Reason: Muscle Spasm Dextrose/Water (Dextrose 50%) 25 gm SLOW IVP PRN PRN PRN Reason: Hypoglycemia Enoxaparin Sodium (Lovenox) 100 mg SC 0900,2100 [facility] Last Admin: 10/12/17 08:50 Dose: 100 mg Famotidine (Pepcid) 20 mg PO BID [facility] Last Admin: 10/12/17 08:50 Dose: 20 mg Glucagon (Glucagon) 1 mg IM PRN PRN PRN Reason: Hypoglycemia Hydralazine HCl (Apresoline) 10 mg SLOW IVP Q4H PRN PRN Reason: SBP Greater Than 180 Last Admin: 10/10/17 17:18 Dose: 10 mg Dextrose/Water (D5w) 1,000 mls @ 0 mls/hr IV .Q0M PRN; As Directed PRN Reason: Hypoglycemia Insulin Glargine 25 units/ (Miscellaneous Medication) 0.25 mls @ 0 mls/hr SC QAM [facility] Last Admin: 10/12/17 08:51 Dose: Not Given Insulin Glargine 25 units/ (Miscellaneous Medication) 0.25 mls @ 0 mls/hr SC HS [facility] Last Admin: 10/11/17 22:42 Dose: 0.25 mls Sodium Chloride (Normal Saline 0.9%) 1,000 mls @ 125 mls/hr IV .Q8H [facility] Last Admin: 10/12/17 12:52 Dose: 1,000 mls Ceftriaxone Sodium 2 gm/ (Sodium Chloride) 100 mls @ 200 mls/hr IVPB 1830 [facility] Last Admin: 10/11/17 18:39 Dose: 100 mls Metronidazole 500 mg/ Device 100 mls @ 100 mls/hr IVPB 0400,1200,2000 [facility] Last Admin: 10/12/17 12:52 Dose: 100 mls Insulin Human Regular (Humulin R) 0 units SC .AGGRESSIVE SLIDING PRN PRN Reason: Aggressive Sliding Scale Last Admin: 10/11/17 16:36 Dose: 9 unit Insulin Human Regular (Humulin R) 0 units SC .BEDTIME SLIDING SC PRN PRN Reason: Bedtime Correctional Scale Last Admin: 10/11/17 03:05 Dose: 4 unit Metoprolol Tartrate (Lopressor) 12.5 mg PO BID [facility] Last Admin: 10/12/17 08:51 Dose: 12.5 mg Nystatin (Mycostatin Powder) 0 gm TOP BID [facility] Last Admin: 10/12/17 08:52 Dose: 1 applic Ondansetron HCl (Zofran Odt) 4 mg PO Q6H PRN PRN Reason: Nausea/Vomiting Last Admin: 10/11/17 04:47 Dose: 4 mg Ondansetron HCl (Zofran) 4 mg IVP Q6H PRN PRN Reason: Nausea/Vomiting Last Admin: 10/10/17 20:52 Dose: 4 mg Promethazine HCl (Phenergan) 12.5 mg IM/IV Q6H PRN PRN Reason: Nausea/Vomiting Last Admin: 10/11/17 15:11 Dose: 12.5 mg Quinapril HCl (Accupril) 5 mg PO DAILY [facility] Last Admin: 10/12/17 08:59 Dose: 5 mg Saccharomyces Boulardii (Florastor) 250 mg PO DAILY [facility] Last Admin: 10/12/17 08:50 Dose: 250 mg Senna (Senokot) 2 tab PO HSPRN PRN PRN Reason: Constipation Sodium Chloride (Flush - Normal Saline) 10 ml IVF Q12HR [facility] Last Admin: 10/12/17 08:52 Dose: 10 ml Sodium Chloride (Flush - Normal Saline) 10 ml IVF PRN PRN PRN Reason: Saline Flush
[2017-10-12] MEDS: cefTRIAXone\\ROCEPHIN 2 GM in Sodium Chloride 0.9% 100 ML IVPB SCH (17:23)
[2017-10-12] MEDS: Insulin Regular 300 UNITS/3 ML VIAL SC PRN (17:26)
[2017-10-13] MEDS: metroNIDAZOLE 500 MG in Premix Bag 1 BAG IVPB SCH (05:23)
[2017-10-13] MEDS: Cyclobenzaprine 10 MG TAB PO PRN ×2 (05:23→21:08)
[2017-10-13] MEDS: hydrALAZINE 20 MG/ML VIAL SLOW IVP PRN (05:24)
[2017-10-13 05:44] LABS: Hemoglobin 8.8 g/dL (12.0-16.0); Platelet Count 230 thou/uL (130-400)
[2017-10-13] MEDS: Insulin Regular 300 UNITS/3 ML VIAL SC PRN ×4 (05:59→21:22)
[2017-10-13] MEDS ORDERED: Cipro 250 MG TAB PO SCH (08:15)
[2017-10-13] MEDS: Insulin Glargine 25 UNITS in Pre-Filled Syringe 1 EACH SC SCH ×2 (09:26→21:21)
[2017-10-13] MEDS: Metoprolol Tartrate 25 MG TAB PO SCH ×2 (09:27→21:08)
[2017-10-13] MEDS: metroNIDAZOLE 500 MG TAB PO SCH ×3 (09:27→21:09)
[2017-10-13] MEDS: Saccharomyces boulardii 250 MG CAP PO SCH (09:27)
[2017-10-13] MEDS: Famotidine 20 MG TAB PO SCH ×2 (09:27→21:09)
[2017-10-13] MEDS: Nystatin Powder 15 GM BOT TOP SCH ×2 (09:30→21:09)
[2017-10-13] MEDS: Morphine 4 MG/ML VIAL SLOW IVP PRN ×3 (11:34→21:07)
--- NOTE | 2017-10-13 13:28 | PDOC.PN ---
- Subjective Encounter Start Date: 10/13/17 Encounter Start Time: 13:26 Subjective: reports that her AP is more today.BM have stopped -: no vomiting but some nausea - Objective Resuscitation Status: Resuscitation Status FULL:Full Resuscitation MAR Reviewed: Yes Vital Signs & Weight: Vital Signs (12 hours) Temp Pulse Resp BP BP BP Pulse Ox 10/13/17 11:01 98.4 F 67 20 125/61 95 10/13/17 08:43 98.0 F 83 20 154/73 H 98 10/13/17 08:00 98.0 F 83 20 98 10/13/17 05:24 78 181/76 H 10/13/17 05:12 98.3 F 78 18 181/76 H 99 Weight Admit Weight 310 lb 3.2 oz Weight 314 lb 12.8 oz I&O: 10/12/17 10/13/17 10/14/17 06:59 06:59 06:59 Intake Total 3130 2140 Output Total 2200 1500 Balance 930 640 Result Diagrams: 10/13/17 05:31 10/12/17 03:57 Additional Labs: Accuchecks 10/13/17 10/13/17 10/12/17 11:07 05:12 20:32 POC Glucose 248 H 232 H 282 H 10/12/17 16:38 POC Glucose 266 H labs reviewed Phys Exam - Physical Examination Constitutional: NAD HEENT: PERRLA, moist MMs, sclera anicteric, oral pharynx no lesions Neck: no nodes, no JVD, supple, full ROM Respiratory: no wheezing, no rales, no rhonchi, clear to auscultation bilateral Cardiovascular: RRR, no significant murmur, no rub Gastrointestinal: soft, no distention, positive bowel sounds morbidly obese,mild TTP lower pannus Musculoskeletal: no edema, pulses present Neurological: non-focal, normal sensation, moves all 4 limbs Psychiatric: normal affect, A&O x 3 Dx/Plan (1) Abdominal pain Code(s): R10.9 - UNSPECIFIED ABDOMINAL PAIN Status: Acute (2) Acute DVT (deep venous thrombosis) Code(s): I82.409 - ACUTE EMBOLISM AND THOMBOS UNSP DEEP VN UNSP LOWER EXTREMITY Status: Acute Qualifiers: DVT location: lower extremity Laterality: right (3) Colitis presumed infectious Code(s): K52.9 - NONINFECTIVE GASTROENTERITIS AND COLITIS, UNSPECIFIED Status : Acute Comment: Per CT scan-descending colon inlammation (4) HTN (hypertension) Code(s): I10 - ESSENTIAL (PRIMARY) HYPERTENSION Status: Chronic (5) Uncontrolled type 2 diabetes mellitus Code(s): E11.65 - TYPE 2 DIABETES MELLITUS WITH HYPERGLYCEMIA Status: Chronic Qualifiers: Chronic kidney disease stage: stage 3 (moderate) (6) Morbid obesity with BMI of 50.0-59.9, adult Code(s): E66.01 - MORBID (SEVERE) OBESITY DUE TO EXCESS CALORIES; Z68.43 - BODY MASS INDEX (BMI) 50-59.9 , ADULT Status: Chronic (7) Normochromic normocytic anemia Code(s): D64.9 - ANEMIA, UNSPECIFIED Status: Chronic (8) Hypomagnesemia Code(s): E83.42 - HYPOMAGNESEMIA Status: Resolved - Plan continue antibiotics, DVT proph w/SCDs no plans for EGD/Colonoscopy,so will start oral AC.DC Lovenox BID. -: will start eliquis 10 BID X7 then 5 po bid -: change IV abx to PO.no stool sample obtained so no Cx results. -: will reconsult GI as symptoms are persistant. -: ivf stopped yesterday as pt is on advanced diet * . am labs. home meds as below. BP controlled. prn pain meds Review of Systems - Review of Systems Constitutional: weakness, malaise. negative: fever, chills, sweats, other Respiratory: negative: Cough, Dry, Shortness of Breath, Hemoptysis, SOB with Excertion, Pleuritic Pain, Sputum, Wheezing Cardiovascular: negative: chest pain, palpitations, orthopnea, paroxysmal nocturnal dyspnea, edema, light headedness, other Gastrointestinal: Nausea, Abdominal Pain. negative: Vomiting, Diarrhea, Constipation, Melena, Hematochezia, Other Genitourinary: negative: Dysuria, Frequency, Incontinence, Hematuria, Retention , Other Musculoskeletal: negative: Neck Pain, Shoulder Pain, Arm Pain, Back Pain, Hand Pain, Leg Pain, Foot Pain, Other Skin: negative: Rash, Lesions, Denny, Bruising, Other Neurological: negative: Weakness, Numbness, Incoordination, Change in Speech, Confusion, Seizures, Other - Medications/Allergies Allergies/Adverse Reactions: Allergies Allergy/AdvReac Type Severity Reaction Status Date / Time acetaminophen [From Tylenol] Allergy Verified 01/23/13 17:16 ibuprofen Allergy Verified 01/23/13 17:16 Medications: Current Medications Apixaban (Eliquis) 5 mg PO BID [facility] Cyclobenzaprine HCl (Flexeril) 10 mg PO TID PRN PRN Reason: Muscle Spasm Last Admin: 10/13/17 05:23 Dose: 10 mg Dextrose/Water (Dextrose 50%) 25 gm SLOW IVP PRN PRN PRN Reason: Hypoglycemia Famotidine (Pepcid) 20 mg PO BID [facility] Last Admin: 10/13/17 09:27 Dose: 20 mg Glucagon (Glucagon) 1 mg IM PRN PRN PRN Reason: Hypoglycemia Hydralazine HCl (Apresoline) 10 mg SLOW IVP Q4H PRN PRN Reason: SBP Greater Than 180 Last Admin: 10/13/17 05:24 Dose: 10 mg Dextrose/Water (D5w) 1,000 mls @ 0 mls/hr IV .Q0M PRN; As Directed PRN Reason: Hypoglycemia Insulin Glargine 25 units/ (Miscellaneous Medication) 0.25 mls @ 0 mls/[facility] [place] Last Admin: 10/13/17 09:26 Dose: 0.25 mls Insulin Glargine 25 units/ (Miscellaneous Medication) 0.25 mls @ 0 mls/hr SC [facility] Last Admin: 10/12/17 20:31 Dose: 0.25 mls Insulin Human Regular (Humulin R) 0 units SC .AGGRESSIVE SLIDING PRN PRN Reason: Aggressive Sliding Scale Last Admin: 10/13/17 11:34 Dose: 6 unit Insulin Human Regular (Humulin R) 0 units SC .BEDTIME SLIDING SC PRN PRN Reason: Bedtime Correctional Scale Last Admin: 10/11/17 03:05 Dose: 4 unit Metoprolol Tartrate (Lopressor) 12.5 mg PO BID [facility] Last Admin: 10/13/17 09:27 Dose: 12.5 mg Metronidazole (Flagyl) 500 mg PO TID [facility] Last Admin: 10/13/17 09:27 Dose: 500 mg Morphine Sulfate (Morphine) 2 mg SLOW IVP Q4H PRN PRN Reason: Severe Pain (7-10) Last Admin: 10/13/17 11:34 Dose: 2 mg Nystatin (Mycostatin Powder) 0 gm TOP BID [facility] Last Admin: 10/13/17 09:30 Dose: 1 applic Ondansetron HCl (Zofran Odt) 4 mg PO Q6H PRN PRN Reason: Nausea/Vomiting Last Admin: 10/11/17 04:47 Dose: 4 mg Ondansetron HCl (Zofran) 4 mg IVP Q6H PRN PRN Reason: Nausea/Vomiting Last Admin: 10/10/17 20:52 Dose: 4 mg Promethazine HCl (Phenergan) 12.5 mg IM/IV Q6H PRN PRN Reason: Nausea/Vomiting Last Admin: 10/11/17 15:11 Dose: 12.5 mg Quinapril HCl (Accupril) 5 mg PO DAILY [facility] Last Admin: 10/13/17 09:26 Dose: 5 mg Saccharomyces Boulardii (Florastor) 250 mg PO DAILY [facility] Last Admin: 10/13/17 09:27 Dose: 250 mg Senna (Senokot) 2 tab PO HSPRN PRN PRN Reason: Constipation Sodium Chloride (Flush - Normal Saline) 10 ml IVF Q12HR [facility] Last Admin: 10/13/17 09:27 Dose: 10 ml Sodium Chloride (Flush - Normal Saline) 10 ml IVF PRN PRN PRN Reason: Saline Flush
[2017-10-13] MEDS ORDERED: Warfarin Sodium 10 MG TAB PO SCH (17:00)
--- NOTE | 2017-10-13 20:59 | PRG ---
DATE OF SERVICE: 10/14/2017 SUBJECTIVE: Patient reports she is still having abdominal pain without any other new complaints. Mandy avilez is eating okay. She is still having bowel movements. OBJECTIVE: VITAL SIGNS: Temperature 97.7, pulse 71, respirations 20, blood pressure 167/74. CHEST: Clear. CARDIOVASCULAR: Regular rate and rhythm. ABDOMEN: Soft, nontender without organomegaly or masses. Obese. EXTREMITIES: Unchanged. LABORATORY DATA: Shows hemoglobin 8.8, hematocrit 26.9. No new chemistries except for glucose 199. ASSESSMENT: 1. Left-sided abdominal pain - patient could not tolerate prep. 2. Persistent nausea and vomiting. 3. Abnormal CT scan. RECOMMENDATIONS: 1. We will try again for EGD, colonoscopy on Tuesday. 2. Clear liquids tomorrow. 3. We will use MiraLax and Gatorade prep.
[2017-10-14] MEDS: Morphine 4 MG/ML VIAL SLOW IVP PRN ×2 (04:34→12:27)
[2017-10-14 05:58] LABS: Anion Gap 6 mmol/L (10-20); BUN (Urea Nitrogen) 8 mg/dL (9.8-20.1); Calc. Creatinine Clearance 142 mL/min (70-130); Calcium 8.6 mg/dL (7.8-10.44); Carbon Dioxide 27 mmol/L (22-29); Chloride 109 mmol/L (98-107); Estimated GFR-MDRD 57; Glucose 265 mg/dL (70-105); Potassium 3.9 mmol/L (3.5-5.1); Sodium 138 mmol/L (136-145)
[2017-10-14] MEDS: Insulin Regular 300 UNITS/3 ML VIAL SC PRN ×2 (06:21→12:27)
[2017-10-14] MEDS: metroNIDAZOLE 500 MG TAB PO SCH ×3 (08:28→20:10)
[2017-10-14] MEDS: Famotidine 20 MG TAB PO SCH ×2 (08:28→20:10)
[2017-10-14] MEDS: Saccharomyces boulardii 250 MG CAP PO SCH (08:28)
[2017-10-14] MEDS: Metoprolol Tartrate 25 MG TAB PO SCH ×2 (08:28→20:10)
[2017-10-14] MEDS: Nystatin Powder 15 GM BOT TOP SCH ×2 (08:29→20:13)
--- NOTE | 2017-10-14 08:39 | PDOC.PN ---
- Subjective Encounter Start Date: 10/14/17 Encounter Start Time: 11:30 Subjective: Patient reports some upset stomach. Right leg pain improved. States -: she is not certain if she can do the prep tonight but will try. - Objective Resuscitation Status: Resuscitation Status FULL:Full Resuscitation MAR Reviewed: Yes Vital Signs & Weight: Vital Signs (12 hours) Temp Pulse Resp BP Pulse Ox 10/14/17 08:30 204/85 H 10/14/17 08:00 98.1 F 73 18 98 10/14/17 05:37 98.1 F 70 18 157/64 H 97 10/14/17 00:00 98.2 F 66 18 154/65 H 100 Weight Admit Weight 310 lb 3.2 oz Weight 314 lb 12.8 oz I&O: 10/13/17 10/14/17 10/15/17 06:59 06:59 06:59 Intake Total 2140 350 Output Total 1500 Balance 640 350 Result Diagrams: 10/13/17 05:31 10/14/17 04:57 Additional Labs: Accuchecks 10/14/17 10/13/17 10/13/17 05:40 21:21 16:32 POC Glucose 264 H 269 H 199 H 10/13/17 11:07 POC Glucose 248 H Phys Exam - Physical Examination Constitutional: NAD morbid obesity HEENT: moist MMs Respiratory: no wheezing, no rales, no rhonchi Cardiovascular: RRR, no significant murmur Gastrointestinal: soft, non-tender, positive bowel sounds obese Neurological: non-focal Psychiatric: normal affect, A&O x 3 Dx/Plan (1) Abdominal pain Code(s): R10.9 - UNSPECIFIED ABDOMINAL PAIN Status: Acute (2) Acute DVT (deep venous thrombosis) Code(s): I82.409 - ACUTE EMBOLISM AND THOMBOS UNSP DEEP VN UNSP LOWER EXTREMITY Status: Acute Qualifiers: DVT location: lower extremity Laterality: right Comment: transitioning to oral anticoagulant (3) Colitis presumed infectious Code(s): K52.9 - NONINFECTIVE GASTROENTERITIS AND COLITIS, UNSPECIFIED Status : Acute Comment: Per CT scan-descending colon inlammation, plan for reattempt EGD/Colonoscopy tomorrow (4) HTN (hypertension) Code(s): I10 - ESSENTIAL (PRIMARY) HYPERTENSION Status: Chronic (5) Normochromic normocytic anemia Code(s): D64.9 - ANEMIA, UNSPECIFIED Status: Chronic (6) Uncontrolled type 2 diabetes mellitus Code(s): E11.65 - TYPE 2 DIABETES MELLITUS WITH HYPERGLYCEMIA Status: Chronic Qualifiers: Chronic kidney disease stage: stage 3 (moderate) (7) Hypomagnesemia Code(s): E83.42 - HYPOMAGNESEMIA Status: Resolved - Plan cont current plan of care, continue antibiotics, out of bed/ambulate * . - Discharge Day Encounter end time: 11:45
[2017-10-14] MEDS: Insulin Glargine 25 UNITS in Pre-Filled Syringe 1 EACH SC SCH ×2 (09:30→20:17)
[2017-10-14] MEDS ORDERED: Bisacodyl 5 MG TAB PO SCH (12:00)
--- NOTE | 2017-10-14 16:44 | PRG ---
DATE OF SERVICE: 10/14/2017 SUBJECTIVE: The patient complains of some nausea and abdominal pain, unchanged from previous. OBJECTIVE: VITAL SIGNS: Temperature 98.2, pulse 70, respiratory rate 16, and blood pressure 174/70. HEENT: Unremarkable. NECK: Supple. CHEST: Clear. CARDIOVASCULAR: Regular rate and rhythm. ABDOMEN: Soft, tender in the left side. No organomegaly or masses are noted. Her abdomen is obese. LABORATORY DATA: Significant for chloride 109, BUN 8, and glucose 265. ASSESSMENT: 1. Left-sided abdominal pain. 2. Abnormal CT scan, descending colon. 3. Persistent nausea, vomiting. RECOMMENDATIONS: 1. EGD and colonoscopy tomorrow. 2. MiraLax and Gatorade prep. 3. The patient started on Eliquis and we may have to stopped canceled the procedure because of this, I will check with nursing personnel.
[2017-10-14] MEDS ORDERED: Enoxaparin Sodium 100 MG/ML SYRINGE SC SCH (17:00)
[2017-10-14] MEDS ORDERED: Enoxaparin Sodium 40 MG/0.4 ML SYRINGE SC SCH (17:15)
[2017-10-14] MEDS ORDERED: GoLYTELY 4,000 ml Bottle PO SCH (18:00)
[2017-10-14] MEDS ORDERED: Polyethylene Glycol 3350 17 GM Packet PO SCH (18:00)
[2017-10-15] MEDS: Metoprolol Tartrate 25 MG TAB PO SCH ×2 (06:52→21:23)
[2017-10-15 07:10] LABS: Hemoglobin 9.8 g/dL (12.0-16.0); Platelet Count 293 thou/uL (130-400)
--- NOTE | 2017-10-15 07:40 | PDOC.PN ---
- Subjective Encounter Start Date: 10/15/17 Encounter Start Time: 14:10 Subjective: Patient had colonoscopy today, found large colonic mass likely cancer. -: Mild upset stomach right now without pain. - Objective Resuscitation Status: Resuscitation Status FULL:Full Resuscitation MAR Reviewed: Yes Vital Signs & Weight: Vital Signs (12 hours) Temp Pulse Resp BP BP Pulse Ox 10/15/17 07:17 98.3 F 75 18 196/90 H 95 10/15/17 03:28 98 F 70 17 159/75 H 96 10/15/17 00:28 97.5 F L 68 16 150/76 H 99 10/14/17 20:48 97.6 F 80 16 161/90 H 100 10/14/17 19:51 98.2 F 70 16 98 Weight Admit Weight 310 lb 3.2 oz Weight 314 lb 12.8 oz I&O: 10/14/17 10/15/17 10/16/17 06:59 06:59 06:59 Intake Total 350 1999 Balance 350 1999 Result Diagrams: 10/15/17 06:44 10/14/17 04:57 Additional Labs: Accuchecks 10/15/17 10/14/17 10/14/17 05:36 20:18 15:25 POC Glucose 211 H 266 H 143 H 10/14/17 12:13 POC Glucose 178 H Phys Exam - Physical Examination Constitutional: NAD Obese HEENT: moist MMs Respiratory: no wheezing, no rales, no rhonchi Cardiovascular: RRR, no significant murmur Gastrointestinal: soft, non-tender, positive bowel sounds Neurological: non-focal, moves all 4 limbs Psychiatric: normal affect, A&O x 3 Dx/Plan (1) Colonic mass Code(s): K63.9 - DISEASE OF INTESTINE, UNSPECIFIED Status: Acute Comment: Likely colon cancer, surgery consultation. Will hold on Elliquis for now. Continue Lovenox. (2) Acute DVT (deep venous thrombosis) Code(s): I82.409 - ACUTE EMBOLISM AND THOMBOS UNSP DEEP VN UNSP LOWER EXTREMITY Status: Acute Qualifiers: DVT location: lower extremity Laterality: right Comment: transitioning to oral anticoagulant after all surgeries complete (3) Colitis presumed infectious Code(s): K52.9 - NONINFECTIVE GASTROENTERITIS AND COLITIS, UNSPECIFIED Status : Acute Comment: Per CT scan-descending colon inlammation, likely related to colonic mass (4) HTN (hypertension) Code(s): I10 - ESSENTIAL (PRIMARY) HYPERTENSION Status: Chronic (5) Normochromic normocytic anemia Code(s): D64.9 - ANEMIA, UNSPECIFIED Status: Chronic (6) Uncontrolled type 2 diabetes mellitus Code(s): E11.65 - TYPE 2 DIABETES MELLITUS WITH HYPERGLYCEMIA Status: Chronic Qualifiers: Chronic kidney disease stage: stage 3 (moderate) (7) Hypomagnesemia Code(s): E83.42 - HYPOMAGNESEMIA Status: Resolved - Plan cont current plan of care, continue antibiotics, out of bed/ambulate, DVT proph w/SCDs General surgery consultation, will likely need resection * . - Discharge Day Encounter end time: 14:20
[2017-10-15] MEDS ORDERED: Promethazine HCl 25 MG/ML VIAL SLOW IVP PRN (11:51)
[2017-10-15] MEDS ORDERED: Ondansetron HCl/PF 4 MG/2 ML Vial IVP PRN (11:51)
[2017-10-15] MEDS: Famotidine 20 MG TAB PO SCH ×2 (11:51→21:24)
[2017-10-15] MEDS: Nystatin Powder 15 GM BOT TOP SCH ×2 (11:52→21:31)
[2017-10-15] MEDS: metroNIDAZOLE 500 MG TAB PO SCH ×3 (11:52→21:23)
[2017-10-15] MEDS: Insulin Glargine 25 UNITS in Pre-Filled Syringe 1 EACH SC SCH ×2 (12:54→21:24)
[2017-10-15] MEDS: Ondansetron ODT 4 MG TAB PO PRN (12:55)
[2017-10-15] MEDS: Saccharomyces boulardii 250 MG CAP PO SCH (12:57)
[2017-10-15] MEDS: hydrALAZINE 20 MG/ML VIAL SLOW IVP PRN (13:00)
[2017-10-15] MEDS ORDERED: Lidocaine 1% PF 5 ML VIAL ONE (14:01)
[2017-10-15] MEDS ORDERED: PROPOFOL 200 MG/20 ML VIAL ONE (14:01)
[2017-10-15] MEDS: Promethazine HCl 25 MG/ML VIAL IM/IV PRN (15:02)
--- NOTE | 2017-10-15 16:36 | OP ---
PREOPERATIVE DIAGNOSES: 1. Persistent nausea and vomiting. 2. Abnormal CT scan of the colon. ENDOSCOPY: PROCEDURE IN DETAIL: After informed consent was obtained, the patient placed in the left lateral dec ubitus position. Anesthesia was administered per the Anesthesia Department. Forward-viewing endosco pe was inserted into esophagus under direct visualization with ease and passed to the second portion of the duodenum with ease. Second portion of the duodenum and duodenal bulb were normal. The pyloru s, antrum, body, fundus, and cardia were normal. Retroflexion in the stomach was normal. Esophagus was normal throughout. ASSESSMENT: Normal esophagogastroduodenoscopy. RECOMMENDATIONS: Proceed with colonoscopy. COLONOSCOPY: PROCEDURE: After informed consent was obtained, the patient placed in the left lateral decubitus pos ition. Anesthesia was administered per the Anesthesia Department. Forward-viewing endoscope was ins erted into the rectum after perianal inspection and rectal exam were normal and passed to the cecum w ith ease. The cecum, ileocecal valve, and appendiceal orifice were normal. The prep was excellent. In the ascending colon, a small polyp was seen and removed with snare electrocautery. Also, in the transverse, a small polyp was seen and removed with snare electrocautery. In the descending colon, t here was a circumferential mass. These biopsies were taken from several areas of the mass. The mass was very hard. It extended approximately 4 cm and was circumferential remainder of the descending, sigmoid, and rectum was normal. Retroflexion in rectum was normal. ASSESSMENT: 1. Descending colon mass - likely malignant; status post biopsy. 2. Two small colon polyps - status post hot polypectomy snare. 3. Otherwise, normal colonoscopy. RECOMMENDATIONS: 1. CEA. 2. Surgical consult.
[2017-10-15] MEDS: Insulin Regular 300 UNITS/3 ML VIAL SC PRN (17:53)
--- NOTE | 2017-10-15 20:24 | PDOC.GSPN ---
Surgery Progress Note: Subj - Subjective Narrative: Patient nauseated after scope. Left sided abd pain persists. Abd soft, obese, TTP LLQ and left mid abdomen. 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 Patient of Dr. Lowe, who plans left colectomy Tuesday. Diagnosis and recommended treatment d/w pt, who wants to proceed. Will re-prep Tuesday. Surgery Progress Note: Obj - Vital signs Vital signs: Vital Signs - Most Recent Temp Pulse Resp BP Pulse Ox 97.9 F 76 20 137/73 98 10/15/17 16:43 10/15/17 16:43 10/15/17 16:43 10/15/17 16:43 10/15/17 16:43 Surgery Progress Note: Results - Labs Result Diagrams: 10/15/17 06:44 10/14/17 04:57 Lab results: Laboratory Results - last 24 hr 10/15/17 10/15/17 12:53 16:30 POC Glucose 165 H 186 H
[2017-10-15] MEDS ORDERED: Apixaban 5 MG TAB PO SCH (21:00)
[2017-10-15] MEDS: Enoxaparin Sodium 100 MG/ML SYRINGE SC SCH (21:24)
[2017-10-15] MEDS: Morphine 4 MG/ML VIAL SLOW IVP PRN (21:26)
[2017-10-16] MEDS: metroNIDAZOLE 500 MG TAB PO SCH ×3 (08:09→21:43)
[2017-10-16] MEDS: Metoprolol Tartrate 25 MG TAB PO SCH ×2 (08:09→21:43)
[2017-10-16] MEDS: Famotidine 20 MG TAB PO SCH ×2 (08:09→21:44)
[2017-10-16] MEDS: Saccharomyces boulardii 250 MG CAP PO SCH (08:09)
[2017-10-16] MEDS: Nystatin Powder 15 GM BOT TOP SCH ×2 (08:10→21:47)
[2017-10-16] MEDS: Enoxaparin Sodium 100 MG/ML SYRINGE SC SCH ×2 (08:10→21:47)
[2017-10-16] MEDS: Insulin Glargine 25 UNITS in Pre-Filled Syringe 1 EACH SC SCH ×2 (08:17→21:46)
--- NOTE | 2017-10-16 11:26 | PDOC.PN ---
- Subjective Encounter Start Date: 10/16/17 Encounter Start Time: 08:30 -: old records requested/rev Patient seen and examined for colon mass. No new complaints. No overnight events - Objective Resuscitation Status: Resuscitation Status FULL:Full Resuscitation MAR Reviewed: Yes Vital Signs & Weight: Vital Signs (12 hours) Temp Pulse Resp BP Pulse Ox 10/16/17 08:00 98.1 F 89 20 98 10/16/17 07:29 98.1 F 89 20 153/75 H 96 10/16/17 05:00 98.4 F 67 18 118/67 96 10/16/17 00:00 98.6 F 80 18 114/67 97 Weight Admit Weight 310 lb 3.2 oz Weight 314 lb 12.8 oz I&O: 10/15/17 10/16/17 10/17/17 06:59 06:59 06:59 Intake Total 1999 480 360 Balance 1999 480 360 Result Diagrams: 10/15/17 06:44 10/16/17 04:09 Additional Labs: Accuchecks 10/16/17 10/15/17 10/15/17 05:35 21:14 16:30 POC Glucose 174 H 166 H 186 H 10/15/17 12:53 POC Glucose 165 H Phys Exam - Physical Examination Constitutional: NAD HEENT: PERRLA, moist MMs, sclera anicteric Neck: no JVD, supple Respiratory: no wheezing, no rales, no rhonchi Cardiovascular: RRR, no significant murmur, no rub Gastrointestinal: soft, non-tender, no distention, positive bowel sounds Musculoskeletal: no edema, pulses present Neurological: non-focal, normal sensation, moves all 4 limbs Lymphatic: no nodes Psychiatric: normal affect, A&O x 3 Skin: no rash, normal turgor Dx/Plan (1) Abdominal pain Code(s): R10.9 - UNSPECIFIED ABDOMINAL PAIN Status: Resolved (2) Acute DVT (deep venous thrombosis) Code(s): I82.409 - ACUTE EMBOLISM AND THOMBOS UNSP DEEP VN UNSP LOWER EXTREMITY Status: Acute Qualifiers: DVT location: lower extremity Laterality: right Comment: transitioning to oral anticoagulant after all surgeries complete (3) Colonic mass Code(s): K63.9 - DISEASE OF INTESTINE, UNSPECIFIED Status: Acute Comment: Likely colon cancer, surgery consultation. Will hold on Elliquis for now. Continue Lovenox. (4) Diabetes type 2, controlled Code(s): E11.9 - TYPE 2 DIABETES MELLITUS WITHOUT COMPLICATIONS Status: Chronic (5) HTN (hypertension) Code(s): I10 - ESSENTIAL (PRIMARY) HYPERTENSION Status: Chronic (6) Hypertension Code(s): I10 - ESSENTIAL (PRIMARY) HYPERTENSION Status: Chronic (7) Morbid obesity with BMI of 45.0-49.9, adult Code(s): E66.01 - MORBID (SEVERE) OBESITY DUE TO EXCESS CALORIES; Z68.42 - BODY MASS INDEX (BMI) 45.0-49.9, ADULT Status: Chronic (8) Normochromic normocytic anemia Code(s): D64.9 - ANEMIA, UNSPECIFIED Status: Chronic (9) Hypomagnesemia Code(s): E83.42 - HYPOMAGNESEMIA Status: Resolved - Plan cont current plan of care, continue antibiotics * plan for surgery early next week * medication reviewed as below * symptomatic treatment * overall stable medically for now * continue lovenox until surgery done. Review of Systems - Review of Systems Eyes: negative: Pain, Vision Change, Conjunctivae Inflammation, Eyelid Inflammation, Redness, Other ENT: negative: Ear Pain, Ear Discharge, Nose Pain, Nose Discharge, Nose Congestion, Mouth Pain, Mouth Swelling, Throat Pain, Throat Swelling, Other Respiratory: negative: Cough, Dry, Shortness of Breath, Hemoptysis, SOB with Excertion, Pleuritic Pain, Sputum, Wheezing Cardiovascular: negative: chest pain, palpitations, orthopnea, paroxysmal nocturnal dyspnea, edema, light headedness, other Gastrointestinal: negative: Nausea, Vomiting, Abdominal Pain, Diarrhea, Constipation, Melena, Hematochezia, Other Genitourinary: negative: Dysuria, Frequency, Incontinence, Hematuria, Retention , Other Musculoskeletal: negative: Neck Pain, Shoulder Pain, Arm Pain, Back Pain, Hand Pain, Leg Pain, Foot Pain, Other Skin: negative: Rash, Lesions, Denny, Bruising, Other - Medications/Allergies Allergies/Adverse Reactions: Allergies Allergy/AdvReac Type Severity Reaction Status Date / Time acetaminophen [From Tylenol] Allergy Verified 01/23/13 17:16 ibuprofen Allergy Verified 01/23/13 17:16 Medications: Current Medications Cyclobenzaprine HCl (Flexeril) 10 mg PO TID PRN PRN Reason: Muscle Spasm Last Admin: 05/24/18 21:08 Dose: 10 mg Dextrose/Water (Dextrose 50%) 25 gm SLOW IVP PRN PRN PRN Reason: Hypoglycemia Enoxaparin Sodium (Lovenox) 100 mg SC 0900,2100 [facility] Stop: 10/17/17 08:00 Last Admin: 10/16/17 08:10 Dose: 100 mg Erythromycin (Erythromycin Base) 250 mg PO Q12H DEVAN Famotidine (Pepcid) 20 mg PO BID [facility] Last Admin: 10/16/17 08:09 Dose: 20 mg Glucagon (Glucagon) 1 mg IM PRN PRN PRN Reason: Hypoglycemia Hydralazine HCl (Apresoline) 10 mg SLOW IVP Q4H PRN PRN Reason: SBP Greater Than 180 Last Admin: 10/15/17 13:00 Dose: 10 mg Dextrose/Water (D5w) 1,000 mls @ 0 mls/hr IV .Q0M PRN; As Directed PRN Reason: Hypoglycemia Insulin Glargine 25 units/ (Miscellaneous Medication) 0.25 mls @ 0 mls/hr SC QAM [facility] Last Admin: 10/16/17 08:17 Dose: 0.25 mls Insulin Glargine 25 units/ (Miscellaneous Medication) 0.25 mls @ 0 mls/hr SC HS [facility] Last Admin: 10/15/17 21:24 Dose: 0.25 mls Cefoxitin Sodium 2 gm/ Sodium (Chloride) 100 mls @ 100 mls/hr IVPB ONCALL-OR ONE Stop: 10/18/17 09:08 Insulin Human Regular (Humulin R) 0 units SC .AGGRESSIVE SLIDING PRN PRN Reason: Aggressive Sliding Scale Last Admin: 10/15/17 17:53 Dose: 3 unit Insulin Human Regular (Humulin R) 0 units SC .BEDTIME SLIDING SC PRN PRN Reason: Bedtime Correctional Scale Last Admin: 10/13/17 21:22 Dose: 3 unit Metoprolol Tartrate (Lopressor) 12.5 mg PO BID [facility] Last Admin: 10/16/17 08:09 Dose: 12.5 mg Metronidazole (Flagyl) 500 mg PO TID [facility] Last Admin: 10/16/17 08:09 Dose: 500 mg Morphine Sulfate (Morphine) 2 mg SLOW IVP Q4H PRN PRN Reason: Severe Pain (7-10) Last Admin: 10/15/17 21:26 Dose: 2 mg Nystatin (Mycostatin Powder) 0 gm TOP BID [facility] Last Admin: 10/16/17 08:10 Dose: 1 applic Ondansetron HCl (Zofran Odt) 4 mg PO Q6H PRN PRN Reason: Nausea/Vomiting Last Admin: 10/15/17 12:55 Dose: 4 mg Ondansetron HCl (Zofran) 4 mg IVP Q6H PRN PRN Reason: Nausea/Vomiting Last Admin: 10/10/17 20:52 Dose: 4 mg Polyethylene Glycol/Electrolytes (Golytely) 4,000 ml PO ONE [facility] Stop: 10/17/17 21:00 Promethazine HCl (Phenergan) 12.5 mg IM/IV Q6H PRN PRN Reason: Nausea/Vomiting Last Admin: 10/15/17 15:02 Dose: 12.5 mg Quinapril HCl (Accupril) 5 mg PO DAILY [facility] Last Admin: 10/16/17 08:09 Dose: 5 mg Saccharomyces Boulardii (Florastor) 250 mg PO DAILY [facility] Last Admin: 10/16/17 08:09 Dose: 250 mg Senna (Senokot) 2 tab PO HSPRN PRN PRN Reason: Constipation Sodium Chloride (Flush - Normal Saline) 10 ml IVF Q12HR [facility] Last Admin: 10/16/17 08:10 Dose: 10 ml Sodium Chloride (Flush - Normal Saline) 10 ml IVF PRN PRN PRN Reason: Saline Flush
--- NOTE | 2017-10-16 11:37 | PRG ---
DATE OF SERVICE: 10/16/2017 SUBJECTIVE: The patient is without complaints. OBJECTIVE: VITAL SIGNS: Temperature 98.1, pulse 89, respiratory rate 20, blood pressure 153/75. CHEST: Clear. CARDIOVASCULAR: Regular rate and rhythm. ABDOMEN: Benign. LABORATORY DATA: Her CEA was 1.56 and hemoglobin of 9.8. ASSESSMENT: Descending colon cancer. RECOMMENDATIONS: Patient is to have a colon resection on Tuesday according to the General Surgery co nsultation.
[2017-10-16] MEDS: Insulin Regular 300 UNITS/3 ML VIAL SC PRN ×2 (16:52→21:46)
[2017-10-16] MEDS ORDERED: Scopolamine 1.5 mg/72 hour Patch TOP SCH (18:00)
[2017-10-16] MEDS: Morphine 4 MG/ML VIAL SLOW IVP PRN (19:08)
--- NOTE | 2017-10-16 21:38 | PDOC.GSPN ---
Surgery Progress Note: Subj - Subjective Narrative: Patient is feeling better today. Her nausea resolved as anticipated. This was likely due to anesthetic. She is still having some discomfort in her left side but it is not severe. Assessment/plan: Descending colon cancer scheduled for left colectomy by Dr. Lowe on Tuesday. She'll go on a clear liquid diet and do a bowel prep tomorrow and then be nothing by mouth at midnight. I discussed her anticoagulation for DVT with Dr. Montano and he feels that this can be safely held for 24 hours before her operation and resumed the following day. He feels that DVT is chronic and that IV heparin bridging is not necessary. Surgery Progress Note: Obj - Vital signs Vital signs: Vital Signs - Most Recent Temp Pulse Resp BP Pulse Ox 98.1 F 89 20 153/75 H 98 10/16/17 08:00 10/16/17 08:00 10/16/17 08:00 10/16/17 07:29 10/16/17 08:00 Surgery Progress Note: Results - Labs Result Diagrams: 10/15/17 06:44 10/16/17 04:09 Lab results: Laboratory Results - last 24 hr 10/16/17 10/16/17 09:00 11:11 POC Glucose 208 H Blood Type O POSITIVE Antibody Screen NEGATIVE Crossmatch See Detail
[2017-10-17 05:10] LABS: Hemoglobin 8.5 g/dL (12.0-16.0); Platelet Count 225 thou/uL (130-400)
[2017-10-17 05:14] LABS: #Eosinphils 0.4 thou/uL (0.0-0.7); #Lymphocytes 2.1 thou/uL (1.20-3.40); #Monocytes 0.5 thou/uL (0.11-0.59); #Neutrophils 3.3 thou/uL (1.40-6.50); %Basophils 0.4 % (0.0-1.0); %Eosinophils 7.1 % (0.0-10.0); %Lymphocytes 33.4 % (21.0-51.0); %Monocytes 7.4 % (0.0-10.0); %Neutrophils 51.7 % (42.0-75.0); Hemoglobin 8.5 g/dL (12.0-16.0); Mean Corpuscular HGB CONC 32.6 g/dL (32.0-36.0); Mean Corpuscular Hemoglobin 28.9 pg (27.0-31.0); Mean Corpuscular Volume 88.6 fl (81.0-99.0); Mean Platelet Volume 8.2 fL (7.4-10.4); Platelet Count 222 thou/uL (130-400); RBC Distribution Width 14.5 % (11.5-14.5); Red Blood Cell (RBC) Count 2.95 mill/uL (4.20-5.40); White Blood Cell (WBC) Count 6.3 thou/uL (4.8-10.8)
[2017-10-17 05:31] LABS: Anion Gap 8 mmol/L (10-20); BUN (Urea Nitrogen) 11 mg/dL (9.8-20.1); Calc. Creatinine Clearance 151 mL/min (70-130); Calcium 8.4 mg/dL (7.8-10.44); Carbon Dioxide 27 mmol/L (22-29); Chloride 109 mmol/L (98-107); Estimated GFR-MDRD 62; Glucose 136 mg/dL (70-105); Potassium 3.7 mmol/L (3.5-5.1); Sodium 140 mmol/L (136-145)
[2017-10-17] MEDS: Metoprolol Tartrate 25 MG TAB PO SCH ×2 (07:41→21:15)
[2017-10-17] MEDS: Famotidine 20 MG TAB PO SCH ×2 (07:41→21:14)
[2017-10-17] MEDS: metroNIDAZOLE 500 MG TAB PO SCH ×3 (07:41→21:15)
[2017-10-17] MEDS: Erythromycin Base 250 MG TAB PO SCH ×2 (07:41→21:14)
[2017-10-17] MEDS: Saccharomyces boulardii 250 MG CAP PO SCH (07:41)
[2017-10-17] MEDS: Nystatin Powder 15 GM BOT TOP SCH ×2 (07:42→21:17)
--- NOTE | 2017-10-17 08:43 | PRG ---
DATE OF SERVICE: 10/17/2017 SUBJECTIVE: The patient is doing well, no new complaints. OBJECTIVE: VITAL SIGNS: Temperature 97.5, pulse 98, respiratory rate 20, blood pressure 113/76. CHEST: Clear. CARDIOVASCULAR: Regular rate and rhythm. ABDOMEN: Benign. LABORATORY DATA: Hemoglobin 8.5, hematocrit 26.1. ASSESSMENT: Descending colon cancer. RECOMMENDATIONS: The patient to have resection tomorrow.
[2017-10-17] MEDS: Insulin Glargine 25 UNITS in Pre-Filled Syringe 1 EACH SC SCH ×2 (08:48→21:18)
--- NOTE | 2017-10-17 10:14 | PDOC.PN ---
- Subjective Encounter Start Date: 10/17/17 Encounter Start Time: 09:00 Patient seen and examined for DVT and colon mass. No new complaints. No overnight events - Objective Resuscitation Status: Resuscitation Status FULL:Full Resuscitation MAR Reviewed: Yes Vital Signs & Weight: Vital Signs (12 hours) Temp Pulse Resp BP Pulse Ox 10/17/17 08:08 97.5 F L 98 20 113/76 97 Weight Admit Weight 310 lb 3.2 oz Weight 314 lb 12.8 oz I&O: 10/16/17 10/17/17 10/18/17 06:59 06:59 06:59 Intake Total 480 1080 Output Total 1100 Balance 480 -20 Result Diagrams: 10/17/17 03:36 10/17/17 03:36 Additional Labs: Accuchecks 10/17/17 10/16/17 10/16/17 04:41 21:45 11:11 POC Glucose 166 H 225 H 208 H Phys Exam - Physical Examination Constitutional: NAD HEENT: PERRLA, moist MMs, sclera anicteric Neck: no JVD, supple Respiratory: no wheezing, no rales, no rhonchi Cardiovascular: RRR, no significant murmur, no rub Gastrointestinal: soft, non-tender, no distention, positive bowel sounds morbid obesity Musculoskeletal: no edema, pulses present Neurological: non-focal, normal sensation, moves all 4 limbs Psychiatric: normal affect, A&O x 3 Skin: no rash, normal turgor Dx/Plan (1) Abdominal pain Code(s): R10.9 - UNSPECIFIED ABDOMINAL PAIN Status: Resolved (2) Acute DVT (deep venous thrombosis) Code(s): I82.409 - ACUTE EMBOLISM AND THOMBOS UNSP DEEP VN UNSP LOWER EXTREMITY Status: Acute Qualifiers: DVT location: lower extremity Laterality: right Comment: transitioning to oral anticoagulant after all surgeries complete (3) Colonic mass Code(s): K63.9 - DISEASE OF INTESTINE, UNSPECIFIED Status: Acute Comment: Likely colon cancer, surgery consultation. Will hold on Elliquis for now. Continue Lovenox. (4) Diabetes type 2, controlled Code(s): E11.9 - TYPE 2 DIABETES MELLITUS WITHOUT COMPLICATIONS Status: Chronic (5) HTN (hypertension) Code(s): I10 - ESSENTIAL (PRIMARY) HYPERTENSION Status: Chronic (6) Hypertension Code(s): I10 - ESSENTIAL (PRIMARY) HYPERTENSION Status: Chronic (7) Morbid obesity with BMI of 45.0-49.9, adult Code(s): E66.01 - MORBID (SEVERE) OBESITY DUE TO EXCESS CALORIES; Z68.42 - BODY MASS INDEX (BMI) 45.0-49.9, ADULT Status: Chronic (8) Normochromic normocytic anemia Code(s): D64.9 - ANEMIA, UNSPECIFIED Status: Chronic (9) Hypomagnesemia Code(s): E83.42 - HYPOMAGNESEMIA Status: Resolved - Plan cont current plan of care * will hold lovenox tonight and tomorrow morning, as she is planned for surgery tomorrow * will resume lovenox after surgery * today clear liquid and tonight colon preparation. * medication reviewed as below * symptomatic treatment * stable for now Review of Systems - Review of Systems Constitutional: negative: fever, chills, sweats, weakness, malaise, other Eyes: negative: Pain, Vision Change, Conjunctivae Inflammation, Eyelid Inflammation, Redness, Other ENT: negative: Ear Pain, Ear Discharge, Nose Pain, Nose Discharge, Nose Congestion, Mouth Pain, Mouth Swelling, Throat Pain, Throat Swelling, Other Respiratory: negative: Cough, Dry, Shortness of Breath, Hemoptysis, SOB with Excertion, Pleuritic Pain, Sputum, Wheezing Cardiovascular: negative: chest pain, palpitations, orthopnea, paroxysmal nocturnal dyspnea, edema, light headedness, other Gastrointestinal: Abdominal Pain. negative: Nausea, Vomiting, Diarrhea, Constipation, Melena, Hematochezia, Other Genitourinary: negative: Dysuria, Frequency, Incontinence, Hematuria, Retention , Other Musculoskeletal: negative: Neck Pain, Shoulder Pain, Arm Pain, Back Pain, Hand Pain, Leg Pain, Foot Pain, Other Skin: negative: Rash, Lesions, Denny, Bruising, Other - Medications/Allergies Allergies/Adverse Reactions: Allergies Allergy/AdvReac Type Severity Reaction Status Date / Time acetaminophen [From Tylenol] Allergy Verified 01/23/13 17:16 ibuprofen Allergy Verified 01/23/13 17:16 Medications: Current Medications Cyclobenzaprine HCl (Flexeril) 10 mg PO TID PRN PRN Reason: Muscle Spasm Last Admin: 10/13/17 21:08 Dose: 10 mg Dextrose/Water (Dextrose 50%) 25 gm SLOW IVP PRN PRN PRN Reason: Hypoglycemia Erythromycin (Erythromycin Base) 250 mg PO Q12H [facility] Last Admin: 10/17/17 07:41 Dose: 250 mg Famotidine (Pepcid) 20 mg PO BID [facility] Last Admin: 10/17/17 07:41 Dose: 20 mg Glucagon (Glucagon) 1 mg IM PRN PRN PRN Reason: Hypoglycemia Hydralazine HCl (Apresoline) 10 mg SLOW IVP Q4H PRN PRN Reason: SBP Greater Than 180 Last Admin: 10/15/17 13:00 Dose: 10 mg Dextrose/Water (D5w) 1,000 mls @ 0 mls/hr IV .Q0M PRN; As Directed PRN Reason: Hypoglycemia Insulin Glargine 25 units/ (Miscellaneous Medication) 0.25 mls @ 0 mls/hr SC QAM [facility] Last Admin: 10/17/17 08:48 Dose: 0.25 mls Insulin Glargine 25 units/ (Miscellaneous Medication) 0.25 mls @ 0 mls/hr SC [facility] Last Admin: 10/16/17 21:46 Dose: 0.25 mls Cefoxitin Sodium 2 gm/ Sodium (Chloride) 100 mls @ 100 mls/hr IVPB ONCALL-OR ONE Stop: 10/18/17 09:08 Insulin Human Regular (Humulin R) 0 units SC .AGGRESSIVE SLIDING PRN PRN Reason: Aggressive Sliding Scale Last Admin: 10/16/17 21:46 Dose: 6 unit Insulin Human Regular (Humulin R) 0 units SC .BEDTIME SLIDING SC PRN PRN Reason: Bedtime Correctional Scale Last Admin: 10/13/17 21:22 Dose: 3 unit Metoprolol Tartrate (Lopressor) 12.5 mg PO BID [facility] Last Admin: 10/17/17 07:41 Dose: 12.5 mg Metronidazole (Flagyl) 500 mg PO TID [facility] Last Admin: 10/17/17 07:41 Dose: 500 mg Morphine Sulfate (Morphine) 2 mg SLOW IVP Q4H PRN PRN Reason: Severe Pain (7-10) Last Admin: 10/16/17 19:08 Dose: 2 mg Nystatin (Mycostatin Powder) 0 gm TOP BID [facility] Last Admin: 10/17/17 07:42 Dose: 1 applic Ondansetron HCl (Zofran Odt) 4 mg PO Q6H PRN PRN Reason: Nausea/Vomiting Last Admin: 10/15/17 12:55 Dose: 4 mg Ondansetron HCl (Zofran) 4 mg IVP Q6H PRN PRN Reason: Nausea/Vomiting Last Admin: 10/10/17 20:52 Dose: 4 mg Polyethylene Glycol/Electrolytes (Golytely) 4,000 ml PO ONE [facility] Stop: 10/17/17 21:00 Promethazine HCl (Phenergan) 12.5 mg IM/IV Q6H PRN PRN Reason: Nausea/Vomiting Last Admin: 10/15/17 15:02 Dose: 12.5 mg Quinapril HCl (Accupril) 5 mg PO DAILY [facility] Last Admin: 10/17/17 07:41 Dose: 5 mg Saccharomyces Boulardii (Florastor) 250 mg PO DAILY [facility] Last Admin: 10/17/17 07:41 Dose: 250 mg Scopolamine (Transderm Scop) 1.5 mg TOP Q3D [facility] Stop: 10/20/17 18:01 Senna (Senokot) 2 tab PO HSPRN PRN PRN Reason: Constipation Sodium Chloride (Flush - Normal Saline) 10 ml IVF Q12HR [facility] Last Admin: 10/17/17 07:42 Dose: 10 ml Sodium Chloride (Flush - Normal Saline) 10 ml IVF PRN PRN PRN Reason: Saline Flush
--- NOTE | 2017-10-17 10:58 | PDOC.GSPN ---
Surgery Progress Note: Subj - Subjective Narrative: Feel that he still having left-sided abdominal pain but no different. No nausea or vomiting. Clear liquids and bowel prep today for left colectomy tomorrow. All questions answered. Surgery Progress Note: Obj - Vital signs Vital signs: Vital Signs - Most Recent Temp Pulse Resp BP Pulse Ox 97.5 F L 98 20 113/76 97 10/17/17 08:08 10/17/17 08:08 10/17/17 08:08 10/17/17 08:08 10/17/17 08:08 Surgery Progress Note: Results - Labs Result Diagrams: 10/17/17 03:36 10/17/17 03:36 Lab results: Laboratory Results - last 24 hr 10/17/17 10/17/17 10/17/17 03:36 03:36 03:36 WBC 6.3 RBC 2.95 L Hgb 8.5 L 8.5 L Hct 26.9 L 26.1 L MCV 88.6 MCH 28.9 MCHC 32.6 RDW 14.5 Plt Count 225 222 MPV 8.2 Neutrophils % 51.7 Lymphocytes % 33.4 Monocytes % 7.4 Eosinophils % 7.1 Basophils % 0.4 Neutrophils # 3.3 Lymphocytes # 2.1 Monocytes # 0.5 Eosinophils # 0.4 Basophils # 0.0 Sodium 140 Potassium 3.7 Chloride 109 H Carbon Dioxide 27 Anion Gap 8 L BUN 11 Creatinine 0.94 Estimated GFR (MDRD) 62 Glucose 136 H POC Glucose Calcium 8.4 10/17/17 04:41 WBC RBC Hgb Hct MCV MCH MCHC RDW Plt Count MPV Neutrophils % Lymphocytes % Monocytes % Eosinophils % Basophils % Neutrophils # Lymphocytes # Monocytes # Eosinophils # Basophils # Sodium Potassium Chloride Carbon Dioxide Anion Gap BUN Creatinine Estimated GFR (MDRD) Glucose POC Glucose 166 H Calcium
[2017-10-17] MEDS: Morphine 4 MG/ML VIAL SLOW IVP PRN (11:06)
[2017-10-17] MEDS ORDERED: GoLYTELY 4,000 ml Bottle PO SCH (14:00)
[2017-10-17] MEDS: Scopolamine 1.5 mg/72 hour Patch TOP SCH (16:53)
[2017-10-18 05:41] LABS: #Eosinphils 0.5 thou/uL (0.0-0.7); #Lymphocytes 1.7 thou/uL (1.20-3.40); #Monocytes 0.5 thou/uL (0.11-0.59); #Neutrophils 3.9 thou/uL (1.40-6.50); %Basophils 0.5 % (0.0-1.0); %Lymphocytes 26.1 % (21.0-51.0); %Monocytes 7.3 % (0.0-10.0); %Neutrophils 58.1 % (42.0-75.0); Hemoglobin 8.7 g/dL (12.0-16.0); Mean Corpuscular HGB CONC 32.5 g/dL (32.0-36.0); Mean Corpuscular Hemoglobin 28.6 pg (27.0-31.0); Platelet Count 241 thou/uL (130-400); RBC Distribution Width 14.5 % (11.5-14.5); Red Blood Cell (RBC) Count 3.05 mill/uL (4.20-5.40); White Blood Cell (WBC) Count 6.7 thou/uL (4.8-10.8)
[2017-10-18 05:54] LABS: Anion Gap 11 mmol/L (10-20); BUN (Urea Nitrogen) 9 mg/dL (9.8-20.1); Calc. Creatinine Clearance 156 mL/min (70-130); Calcium 8.1 mg/dL (7.8-10.44); Carbon Dioxide 26 mmol/L (22-29); Chloride 106 mmol/L (98-107); Estimated GFR-MDRD 64; Glucose 152 mg/dL (70-105); Potassium 4.2 mmol/L (3.5-5.1); Sodium 139 mmol/L (136-145)
[2017-10-18] MEDS ORDERED: cefOXitin 2 GM in Sodium Chloride 0.9% 100 ML IVPB ONE ×2 (08:09→11:15)
[2017-10-18] MEDS: metroNIDAZOLE 500 MG TAB PO SCH ×2 (09:11→15:39)
[2017-10-18] MEDS: Erythromycin Base 250 MG TAB PO SCH (09:11)
[2017-10-18] MEDS: Metoprolol Tartrate 25 MG TAB PO SCH ×2 (09:11→21:01)
[2017-10-18] MEDS: Saccharomyces boulardii 250 MG CAP PO SCH (09:11)
[2017-10-18] MEDS: Famotidine 20 MG TAB PO SCH (09:11)
[2017-10-18] MEDS: Insulin Glargine 25 UNITS in Pre-Filled Syringe 1 EACH SC SCH ×2 (09:15→21:34)
[2017-10-18] MEDS: Sodium Chloride 0.9% 1,000 ML IV SCH ×2 (09:16→17:31)
[2017-10-18] MEDS: Nystatin Powder 15 GM BOT TOP SCH ×2 (09:16→21:25)
--- NOTE | 2017-10-18 09:45 | PDOC.PN ---
- Subjective Encounter Start Date: 10/18/17 Encounter Start Time: 08:50 -: old records requested/rev Patient seen and examined for colon mass. No new complaints. No overnight events - Objective Resuscitation Status: Resuscitation Status FULL:Full Resuscitation MAR Reviewed: Yes Vital Signs & Weight: Vital Signs (12 hours) Temp Pulse Resp BP BP Pulse Ox 10/18/17 07:42 98.1 F 77 16 148/60 H 98 10/18/17 04:00 98.2 F 69 20 120/68 99 10/18/17 00:00 98.0 F 77 20 166/79 H 97 Weight Admit Weight 310 lb 3.2 oz Weight 314 lb 12.8 oz I&O: 10/17/17 10/18/17 10/19/17 06:59 06:59 06:59 Intake Total 1080 3200 Output Total 1100 1200 Balance -20 1999 Result Diagrams: 10/18/17 05:15 10/18/17 05:15 Additional Labs: Accuchecks 10/18/17 10/18/17 10/17/17 06:39 02:23 20:42 POC Glucose 142 H 207 H 153 H 10/17/17 10/17/17 10/16/17 17:21 11:24 16:45 POC Glucose 150 H 191 H 242 H Phys Exam - Physical Examination Constitutional: NAD HEENT: PERRLA, moist MMs, sclera anicteric Neck: no JVD, supple Respiratory: no wheezing, no rales, no rhonchi Cardiovascular: RRR, no significant murmur, no rub Gastrointestinal: soft, non-tender, no distention, positive bowel sounds Musculoskeletal: no edema, pulses present Neurological: non-focal, normal sensation, moves all 4 limbs Psychiatric: normal affect, A&O x 3 Skin: no rash, normal turgor Dx/Plan (1) Abdominal pain Code(s): R10.9 - UNSPECIFIED ABDOMINAL PAIN Status: Resolved (2) Acute DVT (deep venous thrombosis) Code(s): I82.409 - ACUTE EMBOLISM AND THOMBOS UNSP DEEP VN UNSP LOWER EXTREMITY Status: Acute Qualifiers: DVT location: lower extremity Laterality: right Comment: transitioning to oral anticoagulant after all surgeries complete (3) Colonic mass Code(s): K63.9 - DISEASE OF INTESTINE, UNSPECIFIED Status: Acute Comment: Likely colon cancer, surgery consultation. Will hold on Elliquis for now. Continue Lovenox. (4) Diabetes type 2, controlled Code(s): E11.9 - TYPE 2 DIABETES MELLITUS WITHOUT COMPLICATIONS Status: Chronic (5) HTN (hypertension) Code(s): I10 - ESSENTIAL (PRIMARY) HYPERTENSION Status: Chronic (6) Hypertension Code(s): I10 - ESSENTIAL (PRIMARY) HYPERTENSION Status: Chronic (7) Morbid obesity with BMI of 45.0-49.9, adult Code(s): E66.01 - MORBID (SEVERE) OBESITY DUE TO EXCESS CALORIES; Z68.42 - BODY MASS INDEX (BMI) 45.0-49.9, ADULT Status: Chronic (8) Normochromic normocytic anemia Code(s): D64.9 - ANEMIA, UNSPECIFIED Status: Chronic (9) Hypomagnesemia Code(s): E83.42 - HYPOMAGNESEMIA Status: Resolved - Plan cont current plan of care * today plan for surgery * after surgery will resume lovenox * medication reviewed as below * symptomatic treatment * post surgery, management as per surgeon. Review of Systems - Review of Systems Eyes: negative: Pain, Vision Change, Conjunctivae Inflammation, Eyelid Inflammation, Redness, Other ENT: negative: Ear Pain, Ear Discharge, Nose Pain, Nose Discharge, Nose Congestion, Mouth Pain, Mouth Swelling, Throat Pain, Throat Swelling, Other Respiratory: negative: Cough, Dry, Shortness of Breath, Hemoptysis, SOB with Excertion, Pleuritic Pain, Sputum, Wheezing Cardiovascular: negative: chest pain, palpitations, orthopnea, paroxysmal nocturnal dyspnea, edema, light headedness, other Gastrointestinal: negative: Nausea, Vomiting, Abdominal Pain, Diarrhea, Constipation, Melena, Hematochezia, Other Genitourinary: negative: Dysuria, Frequency, Incontinence, Hematuria, Retention , Other Musculoskeletal: negative: Neck Pain, Shoulder Pain, Arm Pain, Back Pain, Hand Pain, Leg Pain, Foot Pain, Other Skin: negative: Rash, Lesions, Denny, Bruising, Other - Medications/Allergies Allergies/Adverse Reactions: Allergies Allergy/AdvReac Type Severity Reaction Status Date / Time acetaminophen [From Tylenol] Allergy Verified 01/23/13 17:16 ibuprofen Allergy Verified 01/23/13 17:16 Medications: Current Medications Cyclobenzaprine HCl (Flexeril) 10 mg PO TID PRN PRN Reason: Muscle Spasm Last Admin: 10/13/17 21:08 Dose: 10 mg Dextrose/Water (Dextrose 50%) 25 gm SLOW IVP PRN PRN PRN Reason: Hypoglycemia Erythromycin (Erythromycin Base) 250 mg PO Q12H [facility] Last Admin: 10/17/17 21:14 Dose: 250 mg Famotidine (Pepcid) 20 mg PO BID [facility] Last Admin: 10/17/17 21:14 Dose: 20 mg Glucagon (Glucagon) 1 mg IM PRN PRN PRN Reason: Hypoglycemia Hydralazine HCl (Apresoline) 10 mg SLOW IVP Q4H PRN PRN Reason: SBP Greater Than 180 Last Admin: 10/15/17 13:00 Dose: 10 mg Dextrose/Water (D5w) 1,000 mls @ 0 mls/hr IV .Q0M PRN; As Directed PRN Reason: Hypoglycemia Insulin Glargine 25 units/ (Miscellaneous Medication) 0.25 mls @ 0 mls/hr SC QAM [facility] Last Admin: 10/17/17 08:48 Dose: 0.25 mls Insulin Glargine 25 units/ (Miscellaneous Medication) 0.25 mls @ 0 mls/hr SC HS [facility] Last Admin: 10/17/17 21:18 Dose: Not Given Sodium Chloride (Normal Saline 0.9%) 1,000 mls @ 100 mls/hr IV .Q10H [facility] Insulin Human Regular (Humulin R) 0 units SC .AGGRESSIVE SLIDING PRN PRN Reason: Aggressive Sliding Scale Last Admin: 10/16/17 21:46 Dose: 6 unit Insulin Human Regular (Humulin R) 0 units SC .BEDTIME SLIDING SC PRN PRN Reason: Bedtime Correctional Scale Last Admin: 10/13/17 21:22 Dose: 3 unit Metoprolol Tartrate (Lopressor) 12.5 mg PO BID [facility] Last Admin: 10/17/17 21:15 Dose: 12.5 mg Metronidazole (Flagyl) 500 mg PO TID [facility] Last Admin: 10/17/17 21:15 Dose: 500 mg Morphine Sulfate (Morphine) 2 mg SLOW IVP Q4H PRN PRN Reason: Severe Pain (7-10) Last Admin: 10/17/17 11:06 Dose: 2 mg Nystatin (Mycostatin Powder) 0 gm TOP BID [facility] Last Admin: 10/17/17 21:17 Dose: 1 applic Ondansetron HCl (Zofran Odt) 4 mg PO Q6H PRN PRN Reason: Nausea/Vomiting Last Admin: 10/15/17 12:55 Dose: 4 mg Ondansetron HCl (Zofran) 4 mg IVP Q6H PRN PRN Reason: Nausea/Vomiting Last Admin: 10/10/17 20:52 Dose: 4 mg Promethazine HCl (Phenergan) 12.5 mg IM/IV Q6H PRN PRN Reason: Nausea/Vomiting Last Admin: 10/15/17 15:02 Dose: 12.5 mg Quinapril HCl (Accupril) 5 mg PO DAILY [facility] Last Admin: 10/17/17 07:41 Dose: 5 mg Saccharomyces Boulardii (Florastor) 250 mg PO DAILY [facility] Last Admin: 10/17/17 07:41 Dose: 250 mg Scopolamine (Transderm Scop) 1.5 mg TOP Q3D [facility] Stop: 10/20/17 18:01 Last Admin: 10/17/17 16:53 Dose: 1.5 mg Senna (Senokot) 2 tab PO HSPRN PRN PRN Reason: Constipation Sodium Chloride (Flush - Normal Saline) 10 ml IVF Q12HR [facility] Last Admin: 10/17/17 21:17 Dose: 10 ml Sodium Chloride (Flush - Normal Saline) 10 ml IVF PRN PRN PRN Reason: Saline Flush
--- NOTE | 2017-10-18 10:27 | PRG ---
DATE OF SERVICE: 10/18/2017 Mr. Lockhart over the weekend underwent a colonoscopy, found to have a descending colon circumferentia l cancer, biopsy pending. CEA level is normal. CT scan of the abdomen is normal without signs of me tastasis. The patient has anemia, hemoglobin 8.5. She has been typed and crossed for 2 units of blo od. She resumed her diet and underwent a bowel prep yesterday and plan is for a laparoscopic left co greg resection. General anesthesia and tap block is planned. She understands risks of infection, ble eding, reoperation, anastomotic leakage, etc., and consents. Of note is that she underwent 01/2013 c ardiac stress test, nuclear, negative for ischemia with normal cardiac ejection fraction. She is asy mptomatic from a cardiac standpoint. PHYSICAL EXAMINATION: GENERAL: Height 5 feet 7, 314 pounds, 49 BMI. LUNGS: Clear to auscultation. CARDIAC: Regular rate and rhythm without murmur or gallop. ABDOMEN: Soft, obese, nontender. She has a dependent pannus and has some inflammatory changes in he r left lower quadrant pannus, but no abdominal tenderness. ASSESSMENT AND PLAN: Left colon cancer without signs of metastasis, normal CEA level, normal cardiac nuclear stress test 2012. PLAN: Laparoscopic left colon resection.
--- NOTE | 2017-10-18 10:48 | PRG ---
DATE OF SERVICE: 10/18/2017 SUBJECTIVE: The patient is without change. OBJECTIVE: VITAL SIGNS: Temperature 98.1, pulse 77, respiratory rate 16, blood pressure 148/60. CHEST: Clear. CARDIOVASCULAR: Regular rate and rhythm. ABDOMEN: Benign. LABORATORY DATA: Shows hemoglobin 8.7, hematocrit is 26.8. ASSESSMENT: Descending colon cancer. RECOMMENDATIONS: For surgery today.
[2017-10-18] MEDS ORDERED: Fentanyl 100 MCG/2 ML VIAL ONE ×3 (11:44→19:01)
[2017-10-18] MEDS ORDERED: Midazolam HCl 2 mg/2 ml Vial ONE (11:44)
[2017-10-18] MEDS ORDERED: Bupivacaine HCl 0.5%/Epinephrine 1:200,000/PF 30 ml Vial ONE (11:53)
[2017-10-18] MEDS ORDERED: Scopolamine 1.5 mg/72 hour Patch ONE (12:05)
[2017-10-18] MEDS ORDERED: Fentanyl 250 MCG/5 ML VIAL ONE ×2 (12:06→16:41)
[2017-10-18] MEDS ORDERED: Bupivacaine/Epinephrine 0.25% 30 ML VIAL ONE (12:22)
[2017-10-18] MEDS ORDERED: Glycopyrrolate 0.2 MG/ML 5 ML SYRINGE ONE (13:26)
[2017-10-18] MEDS ORDERED: PROPOFOL 200 MG/20 ML VIAL ONE (13:26)
[2017-10-18] MEDS ORDERED: diphenhydrAMINE 50 MG/ML VIAL ONE (13:26)
[2017-10-18] MEDS ORDERED: PHENYLEPHRINE-NS 100 MCG/ML 10 ML SYRINGE ONE (13:26)
[2017-10-18] MEDS ORDERED: ePHEDrine/0.9% NaCl/PF SYRINGE 50 mg/10 ml ONE (13:26)
[2017-10-18] MEDS ORDERED: Lidocaine 1% PF 5 ML VIAL ONE (13:26)
[2017-10-18] MEDS ORDERED: Dexamethasone 20 MG/5 ML VIAL ONE (13:26)
[2017-10-18] MEDS ORDERED: Ondansetron HCl/PF 4 MG/2 ML Vial ONE (13:26)
[2017-10-18] MEDS ORDERED: Sodium Chloride 0.9% 20 ML ONE (13:37)
[2017-10-18] MEDS ORDERED: Metoclopramide HCl 10 MG/2 ML VIAL IVP PRN (18:06)
[2017-10-18] MEDS ORDERED: Ondansetron ORAL SOLN. 4 MG/5 ML UDCUP PO PRN ×2 (18:06)
[2017-10-18] MEDS ORDERED: Ondansetron ODT 8 MG TAB PO PRN (18:06)
[2017-10-18] MEDS ORDERED: Ondansetron ODT 8 MG TAB SL PRN (18:06)
[2017-10-18] MEDS ORDERED: SUGAMMADEX SODIUM 500 MG/5 ML VIAL ONE (18:08)
[2017-10-18] MEDS ORDERED: Promethazine HCl 25 MG/ML VIAL IM PRN (18:18)
[2017-10-18] MEDS ORDERED: Ondansetron HCl/PF 4 MG/2 ML Vial IVP PRN (18:18)
[2017-10-18] MEDS ORDERED: Promethazine HCl 25 MG/ML VIAL SLOW IVP PRN (18:18)
[2017-10-18] MEDS: Morphine 4 MG/ML VIAL SLOW IVP PRN (20:18)
--- NOTE | 2017-10-18 20:19 | RAD ---
SINGLE VIEW OF THE CHEST: 10/18/17 COMPARISON: 07/02/16 HISTORY: Central line placement in PACU. FINDINGS: Single view of the chest shows a normal sized cardiomediastinal silhouette. There is a left subclavia n central venous catheter with its tip in the superior vena cava. No pneumothorax is seen. There is a telectasis in the left lung base. IMPRESSION: Status post central line placement without evidence of complication. POS: YASSINE
[2017-10-18 20:34] LABS: #Eosinphils 0.1 thou/uL (0.0-0.7); #Monocytes 0.3 thou/uL (0.11-0.59); #Neutrophils 8.2 thou/uL (1.40-6.50); %Basophils 0.2 % (0.0-1.0); %Eosinophils 0.7 % (0.0-10.0); %Lymphocytes 10.1 % (21.0-51.0); %Monocytes 3.5 % (0.0-10.0); %Neutrophils 85.6 % (42.0-75.0); Hemoglobin 9.8 g/dL (12.0-16.0); Mean Corpuscular HGB CONC 32.6 g/dL (32.0-36.0); Mean Corpuscular Hemoglobin 28.4 pg (27.0-31.0); Mean Platelet Volume 7.2 fL (7.4-10.4); Platelet Count 223 thou/uL (130-400); RBC Distribution Width 14.6 % (11.5-14.5); Red Blood Cell (RBC) Count 3.44 mill/uL (4.20-5.40); White Blood Cell (WBC) Count 9.5 thou/uL (4.8-10.8)
[2017-10-18] MEDS: Acetaminophen 1,000 MG in Premix Bag 1 BAG IVPB SCH (20:51)
[2017-10-18] MEDS: Ketorolac Tromethamine 30 MG/ML VIAL IVP SCH (20:51)
[2017-10-18] MEDS: Lactated Ringer's 1,000 ML IV SCH (20:56)
[2017-10-18] MEDS: Enoxaparin Sodium 40 MG/0.4 ML SYRINGE SC SCH (21:00)
[2017-10-18] MEDS: Insulin Regular 300 UNITS/3 ML VIAL SC PRN (21:39)
--- NOTE | 2017-10-18 23:54 | EKG ---
Test Reason : PREOP Blood Pressure : / mmHG Vent. Rate : 070 BPM Atrial Rate : 070 BPM P-R Int : 146 ms QRS Dur : 096 ms QT Int : 438 ms P-R-T Axes : 037 -17 026 degrees QTc Int : 473 ms Normal sinus rhythm Normal ECG When compared with ECG of 09-OCT-2017 13:43, (Unconfirmed) No significant change was found Confirmed by Franklin ANDERSON ([id number]) on 10/18/2017 11:53:29 PM Referred By: GUERA Confirmed By:Franklin ANDERSON
[2017-10-18] MEDS ORDERED: Ketorolac Tromethamine 30 MG/ML VIAL IVP SCH (23:59)
[2017-10-18] MEDS ORDERED: Acetaminophen 1,000 MG in Premix Bag 1 BAG IVPB SCH (23:59)
--- NOTE | 2017-10-19 00:14 | OP ---
DATE OF PROCEDURE: 10/18/2017 PREOPERATIVE DIAGNOSES: Mid descending colon cancer, morbid obesity. POSTOPERATIVE DIAGNOSIS: Mid descending colon cancer, morbid obesity. PROCEDURE PERFORMED: Laparoscopic mobilization of splenic flexure, transverse colon and descending c olon. Conversion to open operation due to extreme obesity with midline incision supraumbilical to th e pubis and the ascending and sigmoid colon resection with primary anastomosis, colorectal, distal tr ansverse colon to the rectum with 33 EEA stapler. SURGEON: William Lowe M.D. ANESTHESIA: General, TAP block. ESTIMATED BLOOD LOSS: 400 mL. BLOOD TRANSFUSED: One unit of blood. Note, preoperative hemoglobin 8.7. PROCEDURE IN DETAIL: The patient was taken to the operating room where in the dorsal lithotomy posit ion under general anesthesia and TAP block, Saul catheter was placed and the abdomen, perineum, and buttocks prepared with ChloraPrep and Betadine. Right lateral subcostal incision made. Pneumoperito neum to 15 mmHg obtained with the Veress needle, replacing it with a 5-port and laparoscope inserted. . There were adhesions to the previously placed mesh in the midline from previous incarcerated herni a. This was carefully taken out laparoscopically after placing another port in the right lateral abd omen, 5-port. These adhesions taken down from the mesh taking about an hour and a half. Once these were taken down, the omentum mobilized from the mid transverse colon distally to the splenic flexure using the LigaSure and avascular plane adjacent to the transverse colon. Descending colon mobilized, the colon cancer identified. The patient extreme obesity despite made it very difficult and impossi ble to visualize the sigmoid mesentery. For this reason, incision was made in the lower abdomen and carried down through the skin and subcutaneous tissue, midline fascia. Careful dissection mobilized the colon. The mesentery divided between clamps and ligated with 2-0 silk ties. The iliac artery wa s so deep and covered by fat. Search was made for the ureter, but it was so deep, it was impossible to see and dissection carried out more superficially above the ovarian pedicles, which were visualize d. The splenic flexure divided with a CISCO blue load stapler. The lower sigmoid divided with CISCO sta pler and a pursestring suture of 2-[address] a 33-mm anvil in the proximal colon and it was closed around the anvil. The anus and rectum dilated and EEA stapler placed and colorectal anas tomosis formed, removing the stapler after proper firing and an anastomosis checked under water and t here was no leak. Good hemostasis noted. Both ends of the colon were viable. Anastomosis reinforce d with interrupted Lembert suture of 2-0 silk in several areas and good hemostasis noted. The sponge , needle and instrument counts were correct. Seprafilm was placed. Irrigant evacuated. Midline fas layne closed with continuous suture of #1 PDS. Skin and subcutaneous tissues irrigated. Subcutaneous tissues loosely approximated with interrupted suture of 2-0 Prolene and skin approximated with staple s and Prevena dressing applied. At the beginning of the procedure, Seldinger technique was used to place a left subclavian triple lum en catheter. The patient tolerated the procedure well.
[2017-10-19] MEDS: Acetaminophen 1,000 MG in Premix Bag 1 BAG IVPB SCH ×4 (02:34→22:04)
[2017-10-19] MEDS: Lactated Ringer's 1,000 ML IV SCH ×4 (02:35→23:44)
[2017-10-19] MEDS: Ketorolac Tromethamine 30 MG/ML VIAL IVP SCH ×4 (02:35→22:01)
[2017-10-19 04:19] LABS: #Lymphocytes 0.6 thou/uL (1.20-3.40); #Monocytes 0.4 thou/uL (0.11-0.59); #Neutrophils 5.4 thou/uL (1.40-6.50); %Basophils 0.1 % (0.0-1.0); %Eosinophils 0.3 % (0.0-10.0); %Lymphocytes 9.1 % (21.0-51.0); %Monocytes 5.6 % (0.0-10.0); %Neutrophils 84.9 % (42.0-75.0); Hemoglobin 8.6 g/dL (12.0-16.0); Mean Corpuscular HGB CONC 32.8 g/dL (32.0-36.0); Mean Corpuscular Hemoglobin 28.5 pg (27.0-31.0); Mean Corpuscular Volume 86.8 fl (81.0-99.0); Platelet Count 222 thou/uL (130-400); RBC Distribution Width 14.4 % (11.5-14.5); Red Blood Cell (RBC) Count 3.01 mill/uL (4.20-5.40); White Blood Cell (WBC) Count 6.4 thou/uL (4.8-10.8)
[2017-10-19 04:37] LABS: Anion Gap 7 mmol/L (10-20); BUN (Urea Nitrogen) 10 mg/dL (9.8-20.1); Calc. Creatinine Clearance 161 mL/min (70-130); Calcium 7.9 mg/dL (7.8-10.44); Carbon Dioxide 28 mmol/L (22-29); Chloride 107 mmol/L (98-107); Estimated GFR-MDRD 66; Glucose 246 mg/dL (70-105); Potassium 4.4 mmol/L (3.5-5.1); Sodium 138 mmol/L (136-145)
[2017-10-19] MEDS: Insulin Regular 300 UNITS/3 ML VIAL SC PRN ×2 (06:08→12:29)
[2017-10-19] MEDS ORDERED: Apixaban 5 MG TAB PO SCH (09:00)
[2017-10-19] MEDS: Enoxaparin Sodium 40 MG/0.4 ML SYRINGE SC SCH ×2 (09:53→22:04)
[2017-10-19] MEDS: Insulin Glargine 25 UNITS in Pre-Filled Syringe 1 EACH SC SCH ×2 (09:54→22:54)
[2017-10-19] MEDS: Metoprolol Tartrate 25 MG TAB PO SCH ×2 (09:59→22:03)
[2017-10-19] MEDS: Pantoprazole 40 MG VIAL IVP SCH (10:00)
[2017-10-19] MEDS: Nystatin Powder 15 GM BOT TOP SCH ×2 (10:00→22:58)
[2017-10-19] MEDS: Saccharomyces boulardii 250 MG CAP PO SCH (10:01)
--- NOTE | 2017-10-19 10:03 | PRG ---
DATE OF SERVICE: 10/19/2017 SUBJECTIVE: Nayana Lockhart is postop day 1 left colon resection for descending colon cancer. The patient was managed in the ICU overnight, because of her obesity. Postoperatively, she has done well this morning. She is sitting up in a chair. She is conversive, mentating normally. OBJECTIVE: VITAL SIGNS: Heart rate 71-83, blood pressure 150/52, respiratory rate 18. GENERAL: She reports adequate pain control with nonnarcotic analgesic, namely Toradol and Ofirmev IV . LUNGS: Clear to auscultation. CARDIAC: Regular rate and rhythm. ABDOMEN: Soft, occasional bowel sounds heard. EXTREMITIES: Unremarkable. Incisional VAC (Prevena) intact. LABORATORY DATA: Morning white count 6.4, hemoglobin 8.6. Basic metabolic profile was normal. Accu -Cheks 230-226. Urine output adequate overnight, recorded in a Saul catheter 645 mL, approximately 12-14 hours postoperative. ASSESSMENT AND PLAN: 1. Chronic anemia, hemoglobin stable. We will check that again on Tuesday. 2. Status post left colon resection. Pathology pending. I suspect that she will need oncology cons ultation, but we will defer that until an outpatient and we have definitive pathology report back, as there is nothing to be assessed at this time until that pathology report is available. 3. Diabetes mellitus. Accu-Chek and diabetes control. 4. Starting clear liquids today. If she tolerates this well, we will start full liquids later today . We will discontinue her Saul catheter. 5. Deep venous thrombosis, right leg. Continue Lovenox twice a day. Monitor hemoglobin daily. 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 Anticipate discharge home on Tuesday. 6. Mobility. Up in a chair and ambulate in the hallways as frequent as possible.
--- NOTE | 2017-10-19 11:11 | PDOC.PN ---
- Subjective Encounter Start Date: 10/19/17 Encounter Start Time: 09:30 -: old records requested/rev Patient seen and examined. No new complaints. No overnight events s/p surgery, currently seated in chair, has nugent, has wound vac in place - Objective Resuscitation Status: Resuscitation Status FULL:Full Resuscitation MAR Reviewed: Yes Vital Signs & Weight: Vital Signs (12 hours) Temp Pulse Ox 10/19/17 04:00 96.7 F L 10/19/17 00:00 100 Weight Admit Weight 310 lb 3.2 oz Weight 314 lb 12.8 oz Most Recent Monitor Data Heart Rate from ECG 82 NIBP 118/48 NIBP BP-Mean 81 Respiration from ECG 25 SpO2 98 I&O: 10/18/17 10/19/17 10/20/17 06:59 06:59 06:59 Intake Total 3200 1366 600 Output Total 1200 645 Balance 2000 721 600 Result Diagrams: 10/19/17 03:30 10/19/17 03:30 Additional Labs: Accuchecks 10/19/17 10/18/17 10/18/17 06:08 21:36 18:50 POC Glucose 226 H 233 H 170 H 10/18/17 12:00 POC Glucose 110 EKG Reviewed by me: Yes (nsr) Phys Exam - Physical Examination Constitutional: NAD HEENT: PERRLA, moist MMs, sclera anicteric Neck: no JVD, supple Respiratory: no wheezing, no rales, no rhonchi Cardiovascular: RRR, no significant murmur, no rub Gastrointestinal: soft, no distention wound vac in place Musculoskeletal: no edema, pulses present Neurological: non-focal, normal sensation, moves all 4 limbs Psychiatric: normal affect, A&O x 3 Skin: no rash, normal turgor Dx/Plan (1) Abdominal pain Code(s): R10.9 - UNSPECIFIED ABDOMINAL PAIN Status: Resolved (2) Acute DVT (deep venous thrombosis) Code(s): I82.409 - ACUTE EMBOLISM AND THOMBOS UNSP DEEP VN UNSP LOWER EXTREMITY Status: Acute Qualifiers: DVT location: lower extremity Laterality: right Comment: transitioning to oral anticoagulant after all surgeries complete (3) Colonic mass Code(s): K63.9 - DISEASE OF INTESTINE, UNSPECIFIED Status: Acute Comment: Likely colon cancer, surgery consultation. Will hold on Elliquis for now. Continue Lovenox. (4) Diabetes type 2, controlled Code(s): E11.9 - TYPE 2 DIABETES MELLITUS WITHOUT COMPLICATIONS Status: Chronic (5) HTN (hypertension) Code(s): I10 - ESSENTIAL (PRIMARY) HYPERTENSION Status: Chronic (6) Hypertension Code(s): I10 - ESSENTIAL (PRIMARY) HYPERTENSION Status: Chronic (7) Morbid obesity with BMI of 45.0-49.9, adult Code(s): E66.01 - MORBID (SEVERE) OBESITY DUE TO EXCESS CALORIES; Z68.42 - BODY MASS INDEX (BMI) 45.0-49.9, ADULT Status: Chronic (8) Normochromic normocytic anemia Code(s): D64.9 - ANEMIA, UNSPECIFIED Status: Chronic (9) Hypomagnesemia Code(s): E83.42 - HYPOMAGNESEMIA Status: Resolved (10) S/P colon resection Status: Acute - Plan cont current plan of care * will resume lovenox if surgeon OK * continue wound vac at surgical site * diet advancement will defer to surgeon * medication reviewed as below * symptomatic treatment. * if stable next day or tow, then will start oral elliquis for anticoagulation Review of Systems - Review of Systems Eyes: negative: Pain, Vision Change, Conjunctivae Inflammation, Eyelid Inflammation, Redness, Other ENT: negative: Ear Pain, Ear Discharge, Nose Pain, Nose Discharge, Nose Congestion, Mouth Pain, Mouth Swelling, Throat Pain, Throat Swelling, Other Respiratory: negative: Cough, Dry, Shortness of Breath, Hemoptysis, SOB with Excertion, Pleuritic Pain, Sputum, Wheezing Cardiovascular: negative: chest pain, palpitations, orthopnea, paroxysmal nocturnal dyspnea, edema, light headedness, other Gastrointestinal: negative: Nausea, Vomiting, Abdominal Pain, Diarrhea, Constipation, Melena, Hematochezia, Other Genitourinary: negative: Dysuria, Frequency, Incontinence, Hematuria, Retention , Other Musculoskeletal: negative: Neck Pain, Shoulder Pain, Arm Pain, Back Pain, Hand Pain, Leg Pain, Foot Pain, Other Skin: negative: Rash, Lesions, Denny, Bruising, Other - Medications/Allergies Allergies/Adverse Reactions: Allergies Allergy/AdvReac Type Severity Reaction Status Date / Time acetaminophen [From Tylenol] Allergy Verified 01/23/13 17:16 ibuprofen Allergy Verified 01/23/13 17:16 Medications: Current Medications Dextrose/Water (Dextrose 50%) 25 gm SLOW IVP PRN PRN PRN Reason: Hypoglycemia Enoxaparin Sodium (Lovenox) 40 mg SC 0900,2100 [facility] Last Admin: 10/19/17 09:53 Dose: 40 mg Glucagon (Glucagon) 1 mg IM PRN PRN PRN Reason: Hypoglycemia Hydralazine HCl (Apresoline) 10 mg SLOW IVP Q4H PRN PRN Reason: SBP Greater Than 180 Last Admin: 10/15/17 13:00 Dose: 10 mg Dextrose/Water (D5w) 1,000 mls @ 0 mls/hr IV .Q0M PRN; As Directed PRN Reason: Hypoglycemia Insulin Glargine 25 units/ (Miscellaneous Medication) 0.25 mls @ 0 mls/hr SC QAM [facility] Last Admin: 10/19/17 09:54 Dose: 0.25 mls Insulin Glargine 25 units/ (Miscellaneous Medication) 0.25 mls @ 0 mls/hr SC [facility] Last Admin: 10/18/17 21:34 Dose: 0.25 mls Acetaminophen 1,000 mg/ Device 100 mls @ 400 mls/hr IVPB 0300,0900,1500,2100 [facility] Stop: 10/19/17 21:01 Last Admin: 10/19/17 09:51 Dose: 100 mls Lactated Ringer's (Lactated Ringer's) 1,000 mls @ 100 mls/hr IV .Q10H [facility] Last Admin: 10/19/17 09:53 Dose: Not Given Insulin Human Regular (Humulin R) 0 units SC .AGGRESSIVE SLIDING PRN PRN Reason: Aggressive Sliding Scale Last Admin: 10/19/17 06:08 Dose: 6 unit Insulin Human Regular (Humulin R) 0 units SC .BEDTIME SLIDING SC PRN PRN Reason: Bedtime Correctional Scale Last Admin: 10/18/17 21:39 Dose: 2 unit Ketorolac Tromethamine (Toradol) 30 mg IVP 0300,0900,1500,2100 [facility] Stop: 10/23/17 21:01 Last Admin: 10/19/17 09:56 Dose: 30 mg Metoclopramide HCl (Reglan) 10 mg IVP Q6H PRN PRN Reason: Nausea/Vomiting Metoprolol Tartrate (Lopressor) 12.5 mg PO BID [facility] Last Admin: 10/19/17 09:59 Dose: 12.5 mg Morphine Sulfate (Morphine) 2 mg SLOW IVP Q4H PRN PRN Reason: Severe Pain (7-10) Last Admin: 10/18/17 20:18 Dose: 2 mg Nystatin (Mycostatin Powder) 0 gm TOP BID [facility] Last Admin: 10/19/17 10:00 Dose: 1 applic Ondansetron HCl (Zofran Odt) 4 mg PO Q6H PRN PRN Reason: Nausea/Vomiting Last Admin: 10/15/17 12:55 Dose: 4 mg Ondansetron HCl (Zofran) 4 mg IVP Q6H PRN PRN Reason: Nausea/Vomiting Last Admin: 10/10/17 20:52 Dose: 4 mg Ondansetron HCl (Zofran Odt) 8 mg SL BIDPRN PRN PRN Reason: Nausea/Vomiting Pantoprazole Sodium (Protonix) 40 mg IVP DAILY [facility] Last Admin: 10/19/17 10:00 Dose: 40 mg Quinapril HCl (Accupril) 5 mg PO DAILY [facility] Last Admin: 10/19/17 10:02 Dose: 5 mg Saccharomyces Boulardii (Florastor) 250 mg PO DAILY [facility] Last Admin: 10/19/17 10:01 Dose: 250 mg Scopolamine (Transderm Scop) 1.5 mg TOP Q3D [facility] Stop: 10/20/17 18:01 Last Admin: 10/17/17 16:53 Dose: 1.5 mg Sodium Chloride (Flush - Normal Saline) 10 ml IVF Q12HR [facility] Last Admin: 10/19/17 10:02 Dose: 10 ml Sodium Chloride (Flush - Normal Saline) 10 ml IVF PRN PRN PRN Reason: Saline Flush Sodium Chloride (Flush - Normal Saline) 10 ml IV DAILY [facility] Last Admin: 10/19/17 10:02 Dose: 10 ml
[2017-10-19 18:29] LABS: Bilirubin Small (Negative); Blood, Urine Trace (Negative); Clarity CLOUDY (Clear); Glucose, Urine (Dipstick) Negative (Negative); Leukocyte Trace (Negative); Nitrite Negative (Negative); Protein, Urine (Dipstick) Negative (Neg-Trace); Specific Gravity, Urine 1.027 (1.002-1.036); Urobilinogen 0.2 mg/dL (0.2-1.0)
[2017-10-19] MEDS ORDERED: Sodium Chloride 0.9% 500 ML IV SCH (18:30)
[2017-10-19 18:32] LABS: Bacteria/HPF None Seen HPF (None Seen); RBC/HPF 0-3 HPF (0-3)
[2017-10-19 18:33] LABS: Pathc Cast-AUWi Flag 5.96 (0-2.49); Yeast-AUWi Flag 49.7 (0-25.0)
[2017-10-19 18:39] LABS: Crystals/HPF 2+ AMORPH URATES HPF (Negative); Hyaline Casts/LPF 0-3 HYALINE CAST LPF (0-3 Hyaline); Other Casts/LPF None Seen LPF (0-3 Hyaline); Yeast-All Forms None Seen HPF (None Seen)
[2017-10-20] MEDS: Ketorolac Tromethamine 30 MG/ML VIAL IVP SCH ×2 (02:31→23:18)
[2017-10-20 06:00] LABS: #Eosinphils 0.5 thou/uL (0.0-0.7); #Lymphocytes 1.9 thou/uL (1.20-3.40); #Monocytes 0.4 thou/uL (0.11-0.59); %Eosinophils 4.7 % (0.0-10.0); %Lymphocytes 19.2 % (21.0-51.0); %Neutrophils 72.2 % (42.0-75.0); Hemoglobin 8.2 g/dL (12.0-16.0); Mean Corpuscular HGB CONC 32.3 g/dL (32.0-36.0); Mean Corpuscular Hemoglobin 28.3 pg (27.0-31.0); Mean Corpuscular Volume 87.7 fl (81.0-99.0); Mean Platelet Volume 7.6 fL (7.4-10.4); Platelet Count 249 thou/uL (130-400); RBC Distribution Width 14.8 % (11.5-14.5); Red Blood Cell (RBC) Count 2.89 mill/uL (4.20-5.40); White Blood Cell (WBC) Count 9.7 thou/uL (4.8-10.8)
[2017-10-20 06:21] LABS: Anion Gap 11 mmol/L (10-20); BUN (Urea Nitrogen) 14 mg/dL (9.8-20.1); Calc. Creatinine Clearance 86 mL/min (70-130); Calcium 7.5 mg/dL (7.8-10.44); Carbon Dioxide 26 mmol/L (22-29); Chloride 107 mmol/L (98-107); Estimated GFR-MDRD 32; Glucose 136 mg/dL (70-105); Potassium 3.9 mmol/L (3.5-5.1); Sodium 140 mmol/L (136-145)
[2017-10-20] MEDS: Morphine 4 MG/ML VIAL SLOW IVP PRN (06:58)
[2017-10-20] MEDS: Lactated Ringer's 1,000 ML IV SCH ×2 (08:47→18:30)
[2017-10-20] MEDS: Enoxaparin Sodium 40 MG/0.4 ML SYRINGE SC SCH (08:48)
[2017-10-20] MEDS: Saccharomyces boulardii 250 MG CAP PO SCH (08:48)
[2017-10-20] MEDS: Pantoprazole 40 MG VIAL IVP SCH (08:48)
[2017-10-20] MEDS: Metoprolol Tartrate 25 MG TAB PO SCH ×2 (08:48→23:10)
[2017-10-20] MEDS: Insulin Glargine 25 UNITS in Pre-Filled Syringe 1 EACH SC SCH ×2 (08:49→22:05)
[2017-10-20] MEDS: Nystatin Powder 15 GM BOT TOP SCH ×2 (08:49→23:10)
--- NOTE | 2017-10-20 10:34 | PDOC.PN ---
- Subjective Encounter Start Date: 10/20/17 Encounter Start Time: 08:20 Patient seen and examined. No new complaints. No overnight events - Objective Resuscitation Status: Resuscitation Status FULL:Full Resuscitation MAR Reviewed: Yes Vital Signs & Weight: Vital Signs (12 hours) Temp Pulse Resp BP Pulse Ox 10/20/17 07:20 97.7 F 75 18 143/68 H 98 10/20/17 04:09 97.9 F 79 20 98/54 L 91 L 10/20/17 00:00 97.6 F 73 20 151/77 H 98 Weight Admit Weight 310 lb 3.2 oz Weight 314 lb 12.8 oz Most Recent Monitor Data Heart Rate from ECG 82 NIBP 118/48 NIBP BP-Mean 81 Respiration from ECG 25 SpO2 98 I&O: 10/19/17 10/20/17 10/21/17 06:59 06:59 06:59 Intake Total 1366 4912 Output Total 645 725 Balance 721 4187 Result Diagrams: 10/20/17 05:46 10/20/17 05:46 Additional Labs: Accuchecks 10/20/17 10/19/17 10/19/17 06:16 20:35 16:05 POC Glucose 144 H 95 142 H 10/19/17 12:24 POC Glucose 211 H Phys Exam - Physical Examination Constitutional: NAD HEENT: PERRLA, moist MMs, sclera anicteric Neck: no JVD, supple Respiratory: no wheezing, no rales, no rhonchi Cardiovascular: RRR, no significant murmur, no rub Gastrointestinal: soft, non-tender, no distention, positive bowel sounds wound vac in place Musculoskeletal: no edema, pulses present Neurological: non-focal, normal sensation, moves all 4 limbs Lymphatic: no nodes Psychiatric: normal affect, A&O x 3 Skin: no rash, normal turgor Dx/Plan (1) Abdominal pain Code(s): R10.9 - UNSPECIFIED ABDOMINAL PAIN Status: Resolved (2) Acute DVT (deep venous thrombosis) Code(s): I82.409 - ACUTE EMBOLISM AND THOMBOS UNSP DEEP VN UNSP LOWER EXTREMITY Status: Acute Qualifiers: DVT location: lower extremity Laterality: right Comment: transitioning to oral anticoagulant after all surgeries complete (3) Colonic mass Code(s): K63.9 - DISEASE OF INTESTINE, UNSPECIFIED Status: Acute Comment: Likely colon cancer, surgery consultation. Will hold on Elliquis for now. Continue Lovenox. (4) Diabetes type 2, controlled Code(s): E11.9 - TYPE 2 DIABETES MELLITUS WITHOUT COMPLICATIONS Status: Chronic (5) HTN (hypertension) Code(s): I10 - ESSENTIAL (PRIMARY) HYPERTENSION Status: Chronic (6) Hypertension Code(s): I10 - ESSENTIAL (PRIMARY) HYPERTENSION Status: Chronic (7) Morbid obesity with BMI of 45.0-49.9, adult Code(s): E66.01 - MORBID (SEVERE) OBESITY DUE TO EXCESS CALORIES; Z68.42 - BODY MASS INDEX (BMI) 45.0-49.9, ADULT Status: Chronic (8) Normochromic normocytic anemia Code(s): D64.9 - ANEMIA, UNSPECIFIED Status: Chronic (9) Hypomagnesemia Code(s): E83.42 - HYPOMAGNESEMIA Status: Resolved (10) S/P colon resection Status: Acute (11) Acute kidney injury Code(s): N17.9 - ACUTE KIDNEY FAILURE, UNSPECIFIED Status: Acute - Plan cont current plan of care, social work coordinator * DC toradol * continue lovenox * will add warfarin * monitor INR daily * tolerating full liquid diet and had BM today * wound care with wound vac * ambulate as tolerated * will consider discharge when surgeon clear and INR therapeutic * medication reviewed as below * symptomatic treatment * pain controlled. Review of Systems - Review of Systems Eyes: negative: Pain, Vision Change, Conjunctivae Inflammation, Eyelid Inflammation, Redness, Other ENT: negative: Ear Pain, Ear Discharge, Nose Pain, Nose Discharge, Nose Congestion, Mouth Pain, Mouth Swelling, Throat Pain, Throat Swelling, Other Respiratory: negative: Cough, Dry, Shortness of Breath, Hemoptysis, SOB with Excertion, Pleuritic Pain, Sputum, Wheezing Cardiovascular: negative: chest pain, palpitations, orthopnea, paroxysmal nocturnal dyspnea, edema, light headedness, other Gastrointestinal: negative: Nausea, Vomiting, Abdominal Pain, Diarrhea, Constipation, Melena, Hematochezia, Other Genitourinary: negative: Dysuria, Frequency, Incontinence, Hematuria, Retention , Other Musculoskeletal: negative: Neck Pain, Shoulder Pain, Arm Pain, Back Pain, Hand Pain, Leg Pain, Foot Pain, Other Skin: negative: Rash, Lesions, Denny, Bruising, Other - Medications/Allergies Allergies/Adverse Reactions: Allergies Allergy/AdvReac Type Severity Reaction Status Date / Time No Known Allergies Allergy Unverified 10/19/17 11:18 Medications: Current Medications Dextrose/Water (Dextrose 50%) 25 gm SLOW IVP PRN PRN PRN Reason: Hypoglycemia Enoxaparin Sodium (Lovenox) 40 mg SC 0900,2100 [facility] Last Admin: 10/20/17 08:48 Dose: 40 mg Glucagon (Glucagon) 1 mg IM PRN PRN PRN Reason: Hypoglycemia Hydralazine HCl (Apresoline) 10 mg SLOW IVP Q4H PRN PRN Reason: SBP Greater Than 180 Last Admin: 10/15/17 13:00 Dose: 10 mg Dextrose/Water (D5w) 1,000 mls @ 0 mls/hr IV .Q0M PRN; As Directed PRN Reason: Hypoglycemia Insulin Glargine 25 units/ (Miscellaneous Medication) 0.25 mls @ 0 mls/hr SC [facility] Last Admin: 10/20/17 08:49 Dose: 0.25 mls Insulin Glargine 25 units/ (Miscellaneous Medication) 0.25 mls @ 0 mls/hr SC HS [facility] Last Admin: 10/19/17 22:54 Dose: Not Given Lactated Ringer's (Lactated Ringer's) 1,000 mls @ 125 mls/hr IV .Q8H [facility] Last Admin: 10/20/17 08:47 Dose: 1,000 mls Insulin Human Regular (Humulin R) 0 units SC .AGGRESSIVE SLIDING PRN PRN Reason: Aggressive Sliding Scale Last Admin: 10/19/17 12:29 Dose: 6 unit Insulin Human Regular (Humulin R) 0 units SC .BEDTIME SLIDING SC PRN PRN Reason: Bedtime Correctional Scale Last Admin: 10/18/17 21:39 Dose: 2 unit Metoclopramide HCl (Reglan) 10 mg IVP Q6H PRN PRN Reason: Nausea/Vomiting Metoprolol Tartrate (Lopressor) 12.5 mg PO BID [facility] Last Admin: 10/20/17 08:48 Dose: 12.5 mg Morphine Sulfate (Morphine) 2 mg SLOW IVP Q4H PRN PRN Reason: Severe Pain (7-10) Last Admin: 10/20/17 06:58 Dose: 2 mg Nystatin (Mycostatin Powder) 0 gm TOP BID [facility] Last Admin: 10/20/17 08:49 Dose: 1 applic Ondansetron HCl (Zofran Odt) 4 mg PO Q6H PRN PRN Reason: Nausea/Vomiting Last Admin: 10/15/17 12:55 Dose: 4 mg Ondansetron HCl (Zofran) 4 mg IVP Q6H PRN PRN Reason: Nausea/Vomiting Last Admin: 10/10/17 20:52 Dose: 4 mg Ondansetron HCl (Zofran Odt) 8 mg SL BIDPRN PRN PRN Reason: Nausea/Vomiting Pantoprazole Sodium (Protonix) 40 mg IVP DAILY [facility] Last Admin: 10/20/17 08:48 Dose: 40 mg Saccharomyces Boulardii (Florastor) 250 mg PO DAILY [facility] Last Admin: 10/20/17 08:48 Dose: 250 mg Scopolamine (Transderm Scop) 1.5 mg TOP Q3D [facility] Stop: 10/20/17 18:01 Last Admin: 10/17/17 16:53 Dose: 1.5 mg Sodium Chloride (Flush - Normal Saline) 10 ml IVF Q12HR [facility] Last Admin: 10/20/17 08:48 Dose: 10 ml Sodium Chloride (Flush - Normal Saline) 10 ml IVF PRN PRN PRN Reason: Saline Flush Sodium Chloride (Flush - Normal Saline) 10 ml IV DAILY [facility] Last Admin: 10/20/17 08:50 Dose: 10 ml Warfarin Sodium (Coumadin) 5 mg PO 1700 [facility]
[2017-10-20] MEDS ORDERED: Ibuprofen 600 MG TAB PO PRN (10:35)
[2017-10-20] MEDS ORDERED: Acetaminophen 500 MG TAB PO PRN (10:35)
[2017-10-20] MEDS ORDERED: traMADol HCl 50 MG TAB PO PRN ×2 (10:35)
[2017-10-20] MEDS ORDERED: Ketorolac Tromethamine 30 MG/ML VIAL IVP PRN (10:35)
[2017-10-20] MEDS ORDERED: Ibuprofen 800 MG TAB PO PRN (10:39)
[2017-10-20] MEDS: Insulin Regular 300 UNITS/3 ML VIAL SC PRN ×2 (12:30→18:31)
--- NOTE | 2017-10-20 13:01 | PRG ---
DATE OF SERVICE: 10/20/2017 Nayana Lockhart is doing well today. She is tolerating her diet. She has had a bowel movement. Sh e is not having any nausea or vomiting. PHYSICAL EXAMINATION: VITAL SIGNS: Temperature 97.8 degrees, 74, 18, 168/63. LUNGS: Clear to auscultation. CARDIAC: Regular rate and rhythm without murmur or gallop. ABDOMEN: Soft, nontender, obese. Wound VAC incisional in place. Skin closed with snow. This morning her white count is 9.7, hemoglobin 8.2, which is stable. Her basic metabolic profile re veals a creatinine of 1.64, sodium 140, potassium 3.9. Accu-Cheks are 95-144. The patient overall assessed and doing well status post colon cancer resection, pathology pending. A wait results. 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 pylo ri. CA level normal. Preoperative CAT scan images negative for metastasis. Chest x-ray normal. ASSESSMENT AND PLAN: 1. Overall, the patient is doing well, increase her to a diabetic diet. I have discussed with Dr. Ashkan copeland and it is safe to resume her anticoagulation tonight. We will change her Coumadin to Eliquis. 2. Deep venous thrombosis right leg. Initiate Eliquis anticoagulation tonight, discontinue Lovenox tonight. 3. Obesity. 4. Colon cancer. Pathology pending. We will plan outpatient Oncology consultation, but not inpatient. Anticipate discharge home tomorrow .
[2017-10-20] MEDS ORDERED: Warfarin Sodium 5 MG TAB PO SCH (17:00)
[2017-10-20] MEDS: Scopolamine 1.5 mg/72 hour Patch TOP SCH (18:30)
[2017-10-20] MEDS ORDERED: Triamcinolone 0.5 % Ointment 15 Gram Tube TOP SCH (21:00)
[2017-10-20] MEDS ORDERED: Insulin NPH/Reg Insulin Hm 300 UNITS/3 ML VIAL SC SCH (21:00)
[2017-10-20] MEDS: Apixaban 5 MG TAB PO SCH (23:08)
[2017-10-20] MEDS: Betamethasone Val 0.1% OINT 15 GM TUBE TOP SCH (23:08)
[2017-10-21] MEDS: Lactated Ringer's 1,000 ML IV SCH ×2 (02:50→10:38)
[2017-10-21 06:10] LABS: #Eosinphils 0.5 thou/uL (0.0-0.7); #Lymphocytes 1.6 thou/uL (1.20-3.40); #Monocytes 0.4 thou/uL (0.11-0.59); #Neutrophils 5.4 thou/uL (1.40-6.50); %Eosinophils 6.7 % (0.0-10.0); %Lymphocytes 19.9 % (21.0-51.0); %Monocytes 5.1 % (0.0-10.0); %Neutrophils 68.3 % (42.0-75.0); Mean Corpuscular HGB CONC 32.4 g/dL (32.0-36.0); Mean Corpuscular Hemoglobin 28.6 pg (27.0-31.0); Mean Corpuscular Volume 88.1 fl (81.0-99.0); Mean Platelet Volume 7.9 fL (7.4-10.4); Platelet Count 201 thou/uL (130-400); RBC Distribution Width 14.7 % (11.5-14.5); Red Blood Cell (RBC) Count 2.45 mill/uL (4.20-5.40); White Blood Cell (WBC) Count 7.9 thou/uL (4.8-10.8)
[2017-10-21 06:22] LABS: Anion Gap 9 mmol/L (10-20); BUN (Urea Nitrogen) 14 mg/dL (9.8-20.1); Calc. Creatinine Clearance 110 mL/min (70-130); Calcium 7.3 mg/dL (7.8-10.44); Carbon Dioxide 27 mmol/L (22-29); Chloride 108 mmol/L (98-107); Estimated GFR-MDRD 43; Glucose 87 mg/dL (70-105); Magnesium 1.3 mg/dL (1.6-2.6); Phosphorus 2.8 mg/dL (2.3-4.7); Potassium 3.6 mmol/L (3.5-5.1); Sodium 140 mmol/L (136-145)
[2017-10-21 06:45] LABS: INR-International Normal Ratio 1.2; Prothrombin Time 15.8 SEC (12.0-14.7)
[2017-10-21] MEDS ORDERED: Magnesium Sulfate 3 GM in Sodium Chloride 0.9% 100 ML IVPB SCH (07:45)
[2017-10-21] MEDS ORDERED: Insulin NPH/Reg Insulin Hm 300 UNITS/3 ML VIAL SC SCH (09:00)
[2017-10-21] MEDS ORDERED: Multivitamin W/ Minerals 1 TAB PO SCH (09:00)
[2017-10-21] MEDS ORDERED: Polyethylene Glycol 3350 17 GM Packet PO SCH (09:00)
[2017-10-21] MEDS: Betamethasone Val 0.1% OINT 15 GM TUBE TOP SCH (09:37)
[2017-10-21] MEDS: Apixaban 5 MG TAB PO SCH (09:37)
[2017-10-21] MEDS: Metoprolol Tartrate 25 MG TAB PO SCH (09:37)
[2017-10-21] MEDS: Saccharomyces boulardii 250 MG CAP PO SCH (09:37)
[2017-10-21] MEDS: Insulin Glargine 25 UNITS in Pre-Filled Syringe 1 EACH SC SCH (09:38)
[2017-10-21] MEDS: Nystatin Powder 15 GM BOT TOP SCH (09:38)
[2017-10-21] MEDS: Pantoprazole 40 MG VIAL IVP SCH (09:38)
[2017-10-21 10:00] VITALS: TEMP 97.9
--- NOTE | 2017-10-21 10:50 | PRG ---
DATE OF SERVICE: 10/21/2017 Nayana Lockhart is doing well postoperatively. PHYSICAL EXAMINATION: VITAL SIGNS: Temperature 97.9, 18, 171/76. She has tolerated her diet. She is having bowel movements. She has good pain control with Tylenol, Motrin and Ultram. A Prevena wound VAC was removed and her wound looks good today. LUNGS: Clear to auscultation. CARDIAC: Regular rate and rhythm without murmur or gallop. ABDOMEN: Soft, nontender. LABORATORY: This morning her white count is 7, hemoglobin 7. Basic metabolic profile was normal ex cept for chronic kidney disease, creatinine 1.28, improved from yesterday 1.64 with hydration. At this point the plan is to discharge her home. She should follow up in my office in about 10 days and an appointment was left on the discharge plan. Pathology is pending. I will review this in the office. We will plan on Oncology consultation as an outpatient. I will arrange that as an outpatient. The patient is ready to be discharged home today . She can resume her Eliquis 5 mg b.i.d.
--- NOTE | 2017-10-21 11:00 | DIS ---
PRIMARY CARE PHYSICIAN: Dr. Josy Silva DATE OF ADMISSION: 10/09/2017 DATE OF DISCHARGE 10/21/2017 DISCHARGE DISPOSITION: Home. PRIMARY DISCHARGE DIAGNOSES: 1. Acute deep vein thrombosis. 2. Acute kidney failure, resolved. 3. Colon mass, status post colon resection. 4. Hypomagnesemia, replaced. 5. Abdominal pain, resolved. 6. Anemia due to blood loss, status post transfusion. SECONDARY DISCHARGE DIAGNOSES: Chronic normocytic normochromic anemia, morbid obesity with BMI 49, h ypertension, dyslipidemia, diabetes type 2. PRIMARY PROCEDURE/OPERATION: Colonoscopy was performed by Dr. Zaidi, laparotomy and colon resection w as performed by Dr. Lowe. RADIOLOGICAL INVESTIGATION: Abdomen and pelvis CT scan, ultrasound of the lower extremity was positi ve for DVT. Chest x-ray. SIGNIFICANT LABORATORY DATA: WBC 7.9, hemoglobin 7.0, platelet 201. INR 1.2, sodium 140, potassium 3.6, BUN 14, creatinine 1.28, calcium 7.3, phosphorus 2.8, magnesium 1.3. Urinalysis unremarkable. Urine culture is negative. DISCHARGE MEDICATIONS: Tylenol #3 one tablet q.4 hours p.r.n., Eliquis 5 mg p.o. b.i.d., Flexeril 10 mg t.i.d. p.r.n., ferrous sulfate 325 mg p.o. daily, Lasix 20 mg p.o. b.i.d., insulin 70/30 50 units in evening and 50 units in morning, multivitamin 1 tablet p.o. b.i.d., metoprolol tartrate 12.5 mg p .o. b.i.d., quinapril 5 mg p.o. daily. CONTRAINDICATIONS: None. CODE STATUS: FULL CODE. INPATIENT CONSULTANTS: Dr. Archibald and Dr. Lowe was consulted while in hospital for colon mass. Soraya Zaidi was consulted for finding suggestive of colitis and he did colonoscopy. TEST RESULTS PENDING ON DISCHARGE: None. ALLERGIES: No known drug allergy. DISCHARGE PLAN: Post hospital, the patient will follow up with Dr. Lowe, Dr. Zaidi and Dr. Josy mercer as instructed. HOSPITAL COURSE: The patient is a 57-year-old female who was admitted by Dr. Aj Rich on 10/11/19 18. Please see his H&P for further detail. The patient mainly presented to emergency room with abdo mechelle pain and she was having hyperglycemia. In the emergency room, CT of the abdomen and pelvis showed some findings suggestive of colitis. The patient was started on empirically antibiotic therapy. GI was consulted. GI did a colonoscopy and p atient was found with a colon mass. Subsequently, General Surgery was consulted. In the emergency room, the patient also had a right lower extremity deep vein thrombosis which was in itially treated with Lovenox. Subsequently after colon surgery, we changed to Eliquis therapy. The patient is given medication assistance for Eliquis upon discharge. While in hospital, after surgery, she had blood loss to hemoglobin 7.0 and we transfused 1 unit of blood before discharge. Her electr olytes were also corrected before discharge. Initially after surgery the patient's wound at surgical site was treated with a wound VAC, but subseq uently it was sutured. I have seen this patient personally at bedside and examined as well as plan of care discussed with th e patient and discharge medication discussed with the patient. Dr. Lowe cleared her for discharge as well. exchange floor manager assisted her with the Eliquis therapy. After blood transfusion later on today we will consider discharging her home.
[2017-10-21] MEDS: hydrALAZINE 20 MG/ML VIAL SLOW IVP PRN (13:09)
[2017-10-21 13:32] VITALS: BMI 49.1
[2017-10-21 14:28] LABS: Hemoglobin 8.8 g/dL (12.0-16.0)
[2017-10-21 14:32] VITALS: BP 188/73
[2017-10-23] MEDS ORDERED: Apixaban 5 MG TAB PO SCH (09:00)
== END 2017-10-21 16:00 | disposition home or self-care (01) | DRG 264 ==
LOC: ERS 12:53 → 2NO 15:43 → T4-B 10-12 22:33 → CCU 10-18 19:07 → SURG B 10-19 11:40
PROVIDERS: ADMIT Internal Medicine; ATTEND Internal Medicine
PROC: 0DBK8ZX Excision of Ascending Colon, Via Natural or Artificial Opening Endoscopic, Diagnostic (ICD-10-PCS; 2017-10-15)
PROC: 0DBL8ZX Excision of Transverse Colon, Via Natural or Artificial Opening Endoscopic, Diagnostic (ICD-10-PCS; 2017-10-15)
PROC: 0DBM8ZX Excision of Descending Colon, Via Natural or Artificial Opening Endoscopic, Diagnostic (ICD-10-PCS; 2017-10-15)
PROC: 0DJ08ZZ Inspection of Upper Intestinal Tract, Via Natural or Artificial Opening Endoscopic (ICD-10-PCS; principal; 2017-10-18)
PROC: 30233N1 Transfusion of Nonautologous Red Blood Cells into Peripheral Vein, Percutaneous Approach (ICD-10-PCS; 2017-10-18)
PROC: 0DBL0ZZ Excision of Transverse Colon, Open Approach (ICD-10-PCS; 2017-10-18)
PROC: 0DBM0ZZ Excision of Descending Colon, Open Approach (ICD-10-PCS; 2017-10-18)
DX: I82.4Z1 Acute embolism and thrombosis of unspecified deep veins of right distal lower extremity (principal); N17.9 Acute kidney failure, unspecified; C18.6 Malignant neoplasm of descending colon; Z68.42 Body mass index [BMI] 45.0-49.9, adult; E66.01 Morbid (severe) obesity due to excess calories; K63.9 Disease of intestine, unspecified; E83.42 Hypomagnesemia; K52.9 Noninfective gastroenteritis and colitis, unspecified; I12.9 Hypertensive chronic kidney disease with stage 1 through stage 4 chronic kidney disease, or unspecified chronic kidney disease; E11.22 Type 2 diabetes mellitus with diabetic chronic kidney disease; E11.65 Type 2 diabetes mellitus with hyperglycemia; N18.3 Chronic kidney disease, stage 3 (moderate); D63.1 Anemia in chronic kidney disease; Z86.718 Personal history of other venous thrombosis and embolism; E78.5 Hyperlipidemia, unspecified; Z79.4 Long term (current) use of insulin; Z89.421 Acquired absence of other right toe(s); Z90.49 Acquired absence of other specified parts of digestive tract; Z98.51 Tubal ligation status; M79.3 Panniculitis, unspecified; E88.81 Metabolic syndrome and other insulin resistance; I87.8 Other specified disorders of veins; D12.2 Benign neoplasm of ascending colon; D13.1 Benign neoplasm of stomach; D50.0 Iron deficiency anemia secondary to blood loss (chronic)
CPT/HCPCS: 36415; 36416; 36430; 71045; 74177; 80048; 80053; 81003; 81015; 82378; 82553; 82565; 83690; 83735; 83880; 84100; 84484; 85014; 85018; 85025; 85049; 85610; 86850; 86900; 86901; 87077; 87086; 87186; 88305; 88309; 88312; 93005; 93010; 96372; 96374; A4216; C9113; J0131; J0360; J0670; J0694; J0696; J1100; J1200; J1650; J1815; J1885; J2001; J2250; J2270; J2405; J2550; J2704; J3010; J3475; J7050; P9016; Q0162

== ENCOUNTER 2017-10-25 12:50 | Inpatient (IN) | payer OTHER ==
[2017-10-25 14:24] LABS: #Eosinphils 1.1 thou/uL (0.0-0.7); #Lymphocytes 1.3 thou/uL (1.20-3.40); #Monocytes 0.7 thou/uL (0.11-0.59); #Neutrophils 5.5 thou/uL (1.40-6.50); %Basophils 0.5 % (0.0-1.0); %Eosinophils 12.4 % (0.0-10.0); %Lymphocytes 15.7 % (21.0-51.0); %Monocytes 7.7 % (0.0-10.0); %Neutrophils 63.7 % (42.0-75.0); Hemoglobin 7.5 g/dL (12.0-16.0); Mean Corpuscular HGB CONC 32.2 g/dL (32.0-36.0); Mean Corpuscular Hemoglobin 28.4 pg (27.0-31.0); Mean Corpuscular Volume 88.3 fl (81.0-99.0); Mean Platelet Volume 7.4 fL (7.4-10.4); Platelet Count 329 thou/uL (130-400); RBC Distribution Width 14.2 % (11.5-14.5); Red Blood Cell (RBC) Count 2.64 mill/uL (4.20-5.40); White Blood Cell (WBC) Count 8.6 thou/uL (4.8-10.8)
[2017-10-25] MEDS ORDERED: Enoxaparin Sodium 100 MG/ML SYRINGE ONE (14:24)
[2017-10-25] MEDS ORDERED: Enoxaparin Sodium 60 MG/0.6 ML SYRINGE ONE ×2 (14:24→14:26)
[2017-10-25 14:31] LABS: INR-International Normal Ratio 1.2; PTT 34.1 SEC (22.9-36.1); Prothrombin Time 15.7 SEC (12.0-14.7)
[2017-10-25] MEDS ORDERED: Nitroglycerin 2% Ointment 1 INCH/1 GM Packet ONE (14:41)
[2017-10-25 14:49] LABS: ALT (SGPT) Less than 7 U/L (8-55); AST (SGOT) 11 U/L (5-34); Albumin 2.7 g/dL (3.5-5.0); Alkaline Phosphatase 94 U/L (40-150); Anion Gap 10 mmol/L (10-20); BUN (Urea Nitrogen) 18 mg/dL (9.8-20.1); Bilirubin, Total 0.4 mg/dL (0.2-1.2); Calc. Creatinine Clearance 0 mL/min (70-130); Calcium 7.8 mg/dL (7.8-10.44); Carbon Dioxide 25 mmol/L (22-29); Chloride 105 mmol/L (98-107); Estimated GFR-MDRD 36; Globulin 3.4 g/dL (2.4-3.5); Glucose 283 mg/dL (70-105); Potassium 3.8 mmol/L (3.5-5.1); Protein, Total 6.1 g/dL (6.0-8.3); Sodium 136 mmol/L (136-145)
--- NOTE | 2017-10-25 15:20 | ULT ---
RIGHT LOWER EXTREMITY VENOUS DOPPLER: 10/25/2017 HISTORY: Pain. Swelling. Edema. Assess for DVT. COMPARISON: 10/09/2017 TECHNIQUE: Multiplanar langston-scale sonographic imaging of the venous structures of the right lower extremity obta ined with color-flow and spectral analysis. FINDINGS: There is a nonspecific enlarged right inguinal node, measuring 1.7 cm in short axis dimension. The common femoral vein on the right is noncompressible. The right greater saphenous vein is patent. The right profunda femoral vein appears patent. The entirety of the femoral vein is noncompressible. No blood flow could be documented within the mi d and distal aspects of the femoral vein, while there is slow blood flow in the proximal aspect of th e right femoral vein. The popliteal vein is noncompressible, as is the posterior tibial vein. IMPRESSION: Extensive deep venous thrombosis of the right lower extremity, including the right common femoral vei n, femoral vein, and popliteal vein, with extension into the posterior tibial vein. This extensive r ight-sided deep venous thrombosis is not significantly changed when compared to the 10/09/2017 exam. The deep venous thrombosis within the femoral vein in the mid and distal thigh appears occlusive. The results were called to Dr. Gonzalez at 2:05 p.m. on 10/25/2017. CODE CR POS: YASSINE
[2017-10-25 17:16] VITALS: BMI 50.9
[2017-10-25] MEDS ORDERED: Dextrose 5% in Water 1,000 ML IV PRN (18:02)
[2017-10-25] MEDS ORDERED: Milk Of Magnesia 30 ML UDCUP PO PRN (18:02)
[2017-10-25] MEDS ORDERED: traMADol HCl 50 MG TAB PO PRN (18:02)
[2017-10-25] MEDS ORDERED: Cyclobenzaprine 10 MG TAB PO PRN (18:02)
[2017-10-25] MEDS ORDERED: Mag-Al 1200 mg/1200 mg/30 ML UDCUP PO PRN (18:02)
[2017-10-25] MEDS ORDERED: HYDROcodone/Acetaminophen 5/325 mg Tablet PO PRN (18:02)
[2017-10-25] MEDS ORDERED: Dextrose 50% Abboject 50 ML SYRINGE SLOW IVP PRN (18:02)
[2017-10-25] MEDS ORDERED: Acetaminophen/Codeine 30-300mg Tablet PO PRN (18:02)
[2017-10-25] MEDS ORDERED: Warfarin Sodium 5 MG TAB PO SCH (18:30)
[2017-10-25] MEDS ORDERED: Famotidine 20 MG TAB PO SCH (21:00)
[2017-10-25 21:23] LABS: Hemoglobin 7.8 g/dL (12.0-16.0); Platelet Count 295 thou/uL (130-400)
[2017-10-25] MEDS: Docusate 100 MG CAP PO SCH (21:43)
[2017-10-25] MEDS: Furosemide 20 MG TAB PO SCH (21:43)
[2017-10-25] MEDS: Metoprolol Tartrate 25 MG TAB PO SCH (21:43)
[2017-10-25] MEDS: Insulin NPH/Reg Insulin Hm 300 UNITS/3 ML VIAL SC SCH (21:44)
--- NOTE | 2017-10-26 00:21 | HP ---
PRIMARY CARE PHYSICIAN: Dr. Silva. CHIEF COMPLAINT: Right lower extremity swelling. HISTORY OF PRESENT ILLNESS: Ms. Lockhart is a pleasant 57-year-old female that has a history of diabe jose mellitus and also history of previous DVT. She was also recently evaluated for microcytic anemia and found to have a right colon mass. This was discovered to be a poorly differentiated adenocarcin marbin and she has had a partial colectomy about 2 weeks ago due to this. The patient was treated for a deep vein thrombosis and was discharged on Eliquis. However, the medication was over 400 dollars pe r the month, and she was unable to afford this. She does have medical insurance, but it did not cove r this medication and therefore she never got the Eliquis. Overnight, she developed some swelling in the right lower extremity, which was more intense than it had been before and she was instructed to come to the hospital for evaluation in which it was found that she had more extensive deep vein throm bosis, this time it was extending into the posterior tibial vein and she is being admitted for treatm ent with Coumadin, which she will likely be able to afford. She denies having any chest pain or shor tness of breath, no palpitations, no dizziness, or feeling lightheaded. REVIEW OF SYSTEMS: Constitutional: No fevers, chills, no night sweats, no weight loss. HEENT: No headaches, no dizziness, no visual changes, no sore throat, rhinorrhea, neck pain, no adenopathy. Pu lmonary: No hemoptysis, no cough, no wheezing. Cardiovascular: She denies any chest pain. There i s no shortness of breath, no PND, no orthopnea. Gastrointestinal: No abdominal pain except for what is expected postoperatively. No nausea, no vomiting, no change in bowels. Genitourinary: No urina ry frequency, hematuria, no hesitancy. Neurologic: No focal weakness, numbness, no seizures. Psych iatric: No symptoms of anxiety or depression. Skin and Integument: No skin changes. No rash. She did notice the lower extremity edema in the right leg as previously mentioned. She also has a chron ic ulcer on the right foot. PAST MEDICAL HISTORY: Significant for diabetes mellitus type 2, hypertension, previous DVT x2, colon cancer. PAST SURGICAL HISTORY: She has had a partial colectomy, hernia repair as well as cholecystectomy. ALLERGIES: She says no known drug allergies. SOCIAL HISTORY: She is a nonsmoker, nondrinker. She is , has two sons. She wishes to be a [employer]. FAMILY HISTORY: Unknown. She thinks it could be heart disease. CURRENT MEDICATIONS: Include metoprolol 12.5 mg twice a day, Eliquis 5 mg twice daily, Tylenol 1000 mg every 6 hours, quinapril 5 mg daily, Flexeril 10 mg t.i.d. as needed, Tylenol No. 3 every 4 hours as needed, tramadol 50 mg q.6, Lasix 20 mg twice daily, MiraLax 17 grams daily, insulin 70/30 of 50 u nits twice a day, and iron sulfate 325 mg daily. PHYSICAL EXAMINATION: GENERAL: She is alert and oriented. She appears to be in no acute distress. VITAL SIGNS: Blood pressure was 193/86, heart rate 87, respiratory rate of 18, temperature is 98.1, O2 sat was 99% on room air. HEENT: Pupils are equal, round, and reactive. Extraocular muscles are intact. Her sclerae anicteri c. Throat: There is no erythema, no exudates. NECK: No adenopathy, no bruits. LUNGS: Clear. She did have some mild expiratory wheezing, but no rhonchi or rales. CARDIOVASCULAR: She has a normal S1, S2. There is no S3 or S4. No murmurs, clicks, no rubs. ABDOMEN: Obese, it is soft. She has several snow in place. There was some mild induration in th e mid upper abdomen. She did have a very large pannus and some macerations in the skin folds. Her l ower extremities, she has got significant swelling in the right lower extremity as well as chronic ve nous stasis changes. She has got toe amputations on the right with only two remaining toes, the firs t and second toe, has got hammer toe deformities, and decreasing dorsalis pedis pulses but they are p alpable. NEUROLOGICALLY: The exam is nonfocal. LABORATORY RESULTS: Sodium is 136, potassium 3.8, chloride is 105, CO2 is 25, BUN of 18, creatinine 1.5, glucose is 283. White blood cell count is 8.6, hemoglobin 7.5, hematocrit is 23.3, platelet cou nt is 329. INR is 1.2. ASSESSMENT AND PLAN: This is a pleasant 57-year-old female who has failed outpatient treatment for d eep venous thrombosis primarily due to noncompliance due to inability to afford the medications. She will be admitted and started on Lovenox as well as Coumadin. The pros and cons were discussed with the patient in detail and Coumadin does appear to be the best choice for her. She had an appointment scheduled. 1. Colon cancer. The patient had an appointment scheduled to see Dr. Jeong in the cancer center. Therefore, we will consult Dr. Jeong to see if any additional workup is needed regarding her col on cancer. 2. Diabetes mellitus, type 2. We will continue her usual home medications as well as sliding scale insulin. 3. Hypertension. Again, we will continue her home medications as well as a sliding scale.
[2017-10-26 05:34] LABS: INR-International Normal Ratio 1.2; Prothrombin Time 15.6 SEC (12.0-14.7)
[2017-10-26 05:51] LABS: Anion Gap 12 mmol/L (10-20); BUN (Urea Nitrogen) 17 mg/dL (9.8-20.1); Calc. Creatinine Clearance 118 mL/min (70-130); Calcium 7.8 mg/dL (7.8-10.44); Carbon Dioxide 23 mmol/L (22-29); Chloride 106 mmol/L (98-107); Estimated GFR-MDRD 45; Glucose 191 mg/dL (70-105); Potassium 3.7 mmol/L (3.5-5.1); Sodium 137 mmol/L (136-145)
[2017-10-26 06:20] LABS: #Eosinphils 1.1 thou/uL (0.0-0.7); #Lymphocytes 1.3 thou/uL (1.20-3.40); #Monocytes 0.7 thou/uL (0.11-0.59); #Neutrophils 6.2 thou/uL (1.40-6.50); %Basophils 0.4 % (0.0-1.0); %Eosinophils 11.8 % (0.0-10.0); %Lymphocytes 13.8 % (21.0-51.0); %Monocytes 7.2 % (0.0-10.0); %Neutrophils 66.8 % (42.0-75.0); Hemoglobin 7.5 g/dL (12.0-16.0); Mean Corpuscular HGB CONC 32.1 g/dL (32.0-36.0); Mean Corpuscular Hemoglobin 28.5 pg (27.0-31.0); Mean Corpuscular Volume 88.7 fl (81.0-99.0); Platelet Count 335 thou/uL (130-400); RBC Distribution Width 14.3 % (11.5-14.5); Red Blood Cell (RBC) Count 2.62 mill/uL (4.20-5.40); White Blood Cell (WBC) Count 9.2 thou/uL (4.8-10.8)
[2017-10-26] MEDS: Furosemide 20 MG TAB PO SCH ×2 (08:54→22:32)
[2017-10-26] MEDS: Famotidine 20 MG TAB PO SCH (08:55)
[2017-10-26] MEDS: Metoprolol Tartrate 25 MG TAB PO SCH ×2 (08:55→22:32)
[2017-10-26] MEDS: Insulin NPH/Reg Insulin Hm 300 UNITS/3 ML VIAL SC SCH ×2 (08:55→22:35)
[2017-10-26] MEDS: Docusate 100 MG CAP PO SCH ×2 (08:59→22:31)
[2017-10-26] MEDS: Polyethylene Glycol 3350 17 GM Packet PO SCH (08:59)
[2017-10-26] MEDS ORDERED: Ferrous Sulfate 325 MG TAB PO SCH (09:00)
--- NOTE | 2017-10-26 11:26 | PDOC.PN ---
- Subjective Encounter Start Date: 10/26/17 Encounter Start Time: 11:24 Ms. Lockhart was seen today in follow-up of DVT. She does not have complaints except for some abdominal discomfort. She denies any chest pain or shortness of breath. - Objective Resuscitation Status: Resuscitation Status FULL:Full Resuscitation MAR Reviewed: Yes Vital Signs & Weight: Vital Signs (12 hours) Temp Pulse Resp BP Pulse Ox 10/26/17 08:55 98.4 F 79 20 129/61 98 10/26/17 04:00 98 F 75 16 122/60 95 Weight Admit Weight 325 lb 0.087 oz Weight 325 lb 0.087 oz Result Diagrams: 10/26/17 04:55 10/26/17 04:55 Additional Labs: Accuchecks 10/26/17 10/25/17 06:01 20:23 POC Glucose 197 H 275 H Phys Exam - Physical Examination HEENT: PERRLA Respiratory: no wheezing, no rales, no rhonchi, clear to auscultation bilateral Cardiovascular: RRR, no significant murmur, no rub Gastrointestinal: soft, positive bowel sounds Musculoskeletal: no edema Dx/Plan (1) Acute DVT (deep venous thrombosis) Code(s): I82.409 - ACUTE EMBOLISM AND THOMBOS UNSP DEEP VN UNSP LOWER EXTREMITY Status: Acute Qualifiers: DVT location: lower extremity Laterality: right Comment: transitioning to oral anticoagulant after all surgeries complete (2) Colonic mass Code(s): K63.9 - DISEASE OF INTESTINE, UNSPECIFIED Status: Acute Comment: Likely colon cancer, surgery consultation. Will hold on Elliquis for now. Continue Lovenox. (3) S/P colon resection Status: Acute (4) Diabetes type 2, controlled Code(s): E11.9 - TYPE 2 DIABETES MELLITUS WITHOUT COMPLICATIONS Status: Chronic (5) Hypertension Code(s): I10 - ESSENTIAL (PRIMARY) HYPERTENSION Status: Chronic (6) Morbid obesity with BMI of 45.0-49.9, adult Code(s): E66.01 - MORBID (SEVERE) OBESITY DUE TO EXCESS CALORIES; Z68.42 - BODY MASS INDEX (BMI) 45.0-49.9, ADULT Status: Chronic - Plan * DVT- she has been started of coumadin and Lovenox- monitor PT/INR * Recent colon cancer surgery- clinically stable * DM- blood glucose is slightly elevated- will continue the current regimen, and monitor the trend * Chronic anemia- will continue iron therapy, and monitor * She can be moved off Telemetry.
[2017-10-26] MEDS ORDERED: Ibuprofen 600 MG TAB PO PRN (13:26)
[2017-10-26] MEDS ORDERED: Acetaminophen 500 MG TAB PO PRN (13:26)
--- NOTE | 2017-10-26 13:44 | CON ---
DATE OF CONSULTATION: 10/26/2017 HISTORY OF PRESENT ILLNESS: Nayana Lockhart is a 57-year-old female recently discharged from the hospital after undergoing 10/18/2017 laparoscopic conversion to open left colon resection, 33 mm EEA stapler for colon cancer. Pathology revealed an invasive moderately to poorly differentiated adenoc arcinoma with mucinous features with transmural invasion with 6 out of 17 lymph nodes involved, yenny ns free, tumor 6 cm in diameter T3 N2A M0. Preoperative CEA level negative. Chest x-ray negative an d CT scan of abdomen and pelvis negative for hepatic metastasis. The patient had an appointment to [facility] [place] [facility] in the near future. She presented to the hospital because she was discharged with Sparkle rojas and she did not acquire this as she could not afford it. During her hospitalization recently she w as diagnosed with a right leg DVT. She is now being readmitted and started on Coumadin. She has had some drainage from her lower wound. She has had good bowel function and tolerating her diet otherwi se. Hemoglobin is 7. PHYSICAL EXAMINATION: LUNGS: Clear to auscultation. CARDIAC: Regular rate and rhythm without murmur or gallop. ABDOMEN: Soft, obese. Well healed incisions except dependently her pannus has some drainage, the lo wer snow removed. Subcutaneous sutures removed and gauze dressings packed the wound. ASSESSMENT AND PLAN: Morbid obesity, metabolic syndrome with wound healing problems. There is no in fection. Antibiotics are not necessary. I did not culture the wound as there was no purulent draina ge. This is a wound breakdown due to her obesity. I will ask Wound Care to see her regarding abdomi nal wound VAC. We will ask continuous pillowcase cutter to arrange outpatient wound VAC care 2-3 times a week. Home Health nursing versus outpatient appointments with [facility] depending on her transportation ab danya. She should follow up in my office in approximately 3 weeks. She is currently on Coumadin. W ould recommend Lovenox therapy to be started until Coumadin is therapeutic. Patient has a T3 N2 M0 c olon cancer and Oncology has been consulted. At this point, there is no oncology treatment to be akil dered at this time. The patient will probably need a MediPort in the future for chemotherapy. I wou ld recommend continuing with anticoagulation and in the next eight weeks or so plan a MediPort with a Coumadin window. At this point, I would leave her snow and she should see me in the office next week for staple removal. Her wound broke down despite using an incisional wound VAC. I would reliev e the remainder of her snow present until I see her next week.
[2017-10-26] MEDS ORDERED: Warfarin Sodium 5 MG TAB PO SCH (17:00)
[2017-10-26] MEDS: traMADol HCl 50 MG TAB PO PRN (17:16)
[2017-10-26] MEDS: Acetaminophen 325 MG TAB PO PRN (17:17)
[2017-10-26] MEDS: Ferrous Sulfate 325 MG TAB PO SCH (21:00)
--- NOTE | 2017-10-27 | CON ---
DATE OF CONSULTATION: 10/26/2017 REASON FOR CONSULTATION: Colon cancer. HISTORY: This patient apparently presented with microcytic anemia and was found to have right colon carcinoma. She underwent laparoscopic mobilization of a splenic flexure, transverse colon, and desce nding colon and had to be converted to open operation due to extreme obesity. She underwent colon re section on 10/18/2017. The tumor measured 6 cm in size. Histologically, it was invasive moderately to poorly differentiated adenocarcinoma with mucinous features invading through muscularis propria in to the pericolonic tissue. Lymphovascular invasion was noted. Resection margins were free of tumor. However, 6 out of 17 lymph nodes showed metastasis, 7 tumor deposits were identified. The patient had at least 2 DVTs in the past. She was discharged home on Eliquis, which she could not afford. Mandy avilez was readmitted on 10/25 and was found to have DVT of the right lower extremity and is currently on Lovenox, transitioning to Coumadin. Earlier she had DVT, extensive of left lower extremity in 2. The patient also has a history of chronic right foot ulcer, I believe on the basis of peripheral vascular disease. The patient has gross obesity. She has been using a walker for quite some time at home. Following discharge, the patient suffered a wound dehiscence and is currently on wound VAC. PAST MEDICAL HISTORY: Positive for type 2 diabetes, hypertension, and DVT. PAST SURGICAL HISTORY: Include hernia repair and cholecystectomy. DRUGS WITH ADVERSE EFFECT: None. PERSONAL FAMILY AND SOCIAL HISTORY: The patient is . She lives with two sons. She does not smoke and does not drink. REVIEW OF SYSTEMS: As above. She does admit of pain in the abdomen. She denies headache, diplopia, and blood in urine. PHYSICAL EXAMINATION: GENERAL: The patient is morbidly obese. VITAL SIGNS: Height 5 feet 7 inches, weight 325 pounds, body surface area 2.64. HEENT: Unremarkable. LYMPHATIC: Grossly there is no peripheral lymphadenopathy. CHEST: Clear to percussion and auscultation. HEART: Regular rhythm. S1 and S2. ABDOMEN: Bowel sounds present. Wound VAC in place. EXTREMITIES: No gross pedal edema. LABORATORY AND DIAGNOSTIC DATA: CBC shows WBC of 9200, hemoglobin 7.5, MCV 88.7, platelet 335,000. Differential shows 66.8% neutrophils, 13.8% lymphocytes, and 11.8% eosinophils. Chemistry profile re markable for serum creatinine, today is 1.24; glucose 191. AST, ALT and alkaline phosphatase are nor mal. Albumin 2.7, globulin 3.4. CEA on 10/16/2017 was 1.56. This was the preoperative CEA, B12 of 524. CT scan of the abdomen and pelvis on 10/09/2017, showed focal area of slight wall thickening in the mid-descending colon. Liver was normal. Chest x-ray on 10/18/2017 is reported normal. ASSESSMENT AND RECOMMENDATIONS: This patient has [id number] invasive to poorly differentiated descend ing colon carcinoma, status post left hemicolectomy. She should receive adjuvant chemotherapy with F OLFOX regimen. The patient has number of comorbidities including diabetes, gross obesity, DVT, and a lso has social issues and rather a questionable family support. Currently, she has a wound dehiscenc e, which needs to heal before she could be started on chemotherapy. I am also concerned about the ch ronic ulcer in her right foot. A family friend was present in the office. I have asked them to see me in about 4 weeks. Chemotherapy will not start until the abdominal wound has closed completely. I am not sure how the anticoagulation will be handled. It is possible that she might have to be treat ed with a different chemotherapy regimen such as Xeloda alone, Xeloda with oxaliplatin. If she is go ing to get oxaliplatin, she will need venous access also. I would like to see her back in about 4 we eks and at that time, I will be able to make a more definitive recommendation regarding adjuvant chem otherapy. Thanks very much for asking me to participate in this patient's care.
[2017-10-27 05:32] LABS: INR-International Normal Ratio 1.2; Prothrombin Time 15.3 SEC (12.0-14.7)
[2017-10-27] MEDS ORDERED: CEFAZOLIN/Water 2 GM/20 ML SYRINGE SLOW IVP SCH (07:45)
[2017-10-27] MEDS ORDERED: Acetaminophen/Codeine 30-300mg Tablet PO PRN (08:00)
[2017-10-27] MEDS: Furosemide 20 MG TAB PO SCH ×2 (08:42→20:52)
[2017-10-27] MEDS: Ferrous Sulfate 325 MG TAB PO SCH ×3 (08:42→20:52)
[2017-10-27] MEDS: Docusate 100 MG CAP PO SCH ×2 (08:42→20:52)
[2017-10-27] MEDS: Metoprolol Tartrate 25 MG TAB PO SCH ×2 (08:43→20:52)
[2017-10-27] MEDS: Famotidine 20 MG TAB PO SCH (08:43)
[2017-10-27] MEDS: Multivit, Therapeutic 1 TAB PO SCH (08:44)
[2017-10-27] MEDS: Polyethylene Glycol 3350 17 GM Packet PO SCH (08:45)
[2017-10-27] MEDS: Insulin NPH/Reg Insulin Hm 300 UNITS/3 ML VIAL SC SCH ×2 (08:48→20:53)
[2017-10-27] MEDS ORDERED: Enoxaparin Sodium 120 MG/0.8 ML SYRINGE SC SCH (09:00)
[2017-10-27] MEDS: Zinc Sulfate 220 MG CAP PO SCH (10:50)
[2017-10-27] MEDS: Enoxaparin Sodium 100 MG/ML SYRINGE SC SCH ×2 (11:48→20:55)
[2017-10-27] MEDS: Enoxaparin Sodium 40 MG/0.4 ML SYRINGE SC SCH ×2 (11:49→20:55)
--- NOTE | 2017-10-27 12:23 | PDOC.PN ---
- Subjective Encounter Start Date: 10/27/17 Encounter Start Time: 12:21 Ms. Lockhart was seen today in follow-up of DVT. She is a bit concerned about treatment for cancer. - Objective Resuscitation Status: Resuscitation Status FULL:Full Resuscitation MAR Reviewed: Yes Vital Signs & Weight: Vital Signs (12 hours) Temp Pulse Resp BP Pulse Ox 10/27/17 08:15 98.1 F 83 16 162/94 H 100 10/27/17 08:00 98.1 F 83 16 Weight Admit Weight 325 lb 0.087 oz Weight 325 lb 0.087 oz Result Diagrams: 10/26/17 04:55 10/26/17 04:55 Additional Labs: Accuchecks 10/27/17 10/27/17 10/26/17 11:34 04:56 20:21 POC Glucose 234 H 125 H 96 10/26/17 10/26/17 16:25 12:29 POC Glucose 99 83 Phys Exam - Physical Examination HEENT: PERRLA Respiratory: no wheezing, no rales, no rhonchi, clear to auscultation bilateral Cardiovascular: RRR, no significant murmur, no rub Gastrointestinal: soft, non-tender, positive bowel sounds Musculoskeletal: edema present + tense edema of the right lower extremity Neurological: non-focal Dx/Plan (1) Acute DVT (deep venous thrombosis) Code(s): I82.409 - ACUTE EMBOLISM AND THOMBOS UNSP DEEP VN UNSP LOWER EXTREMITY Status: Acute Qualifiers: DVT location: lower extremity Laterality: right Comment: transitioning to oral anticoagulant after all surgeries complete (2) Colonic mass Code(s): K63.9 - DISEASE OF INTESTINE, UNSPECIFIED Status: Acute Comment: Likely colon cancer, surgery consultation. Will hold on Elliquis for now. Continue Lovenox. (3) S/P colon resection Status: Acute (4) Diabetes type 2, controlled Code(s): E11.9 - TYPE 2 DIABETES MELLITUS WITHOUT COMPLICATIONS Status: Chronic (5) Hypertension Code(s): I10 - ESSENTIAL (PRIMARY) HYPERTENSION Status: Chronic (6) Morbid obesity with BMI of 45.0-49.9, adult Code(s): E66.01 - MORBID (SEVERE) OBESITY DUE TO EXCESS CALORIES; Z68.42 - BODY MASS INDEX (BMI) 45.0-49.9, ADULT Status: Chronic - Plan * DVT- continue Coumadin and Lovenox * Colon cancer- poorly differentiated adenocarcinoma- Oncology recommendations noted- she will require chemotherapy, but after her abdominal wound has healed * DM- blood glucose is stable * HTN- blood pressure was a bit elevated this morning- will monitor and add medication as needed * Agree with proceeding with Mediport placement.
[2017-10-27] MEDS ORDERED: hydrALAZINE 20 MG/ML VIAL SLOW IVP PRN (12:24)
[2017-10-27] MEDS ORDERED: hydrALAZINE 25 MG TAB PO PRN (12:24)
--- NOTE | 2017-10-27 21:45 | PRG ---
DATE OF SERVICE: 10/27/2017 Nayana Lockhart has a wound VAC on her lower incision. It is not infected. She has just separation of obese pannus, skin and fatty tissue. She will be sent home with a wound VAC and I will follow he r as an outpatient. She has a T3 N2 M0 left colon cancer, seen by Dr. Jeong. In the future, she will need chemotherapy. She has a right leg DVT. She is on anticoagulation. She could not afford t he Eliquis and thus returned to the emergency room, was admitted for Coumadin. We will plan placement of a MediPort tomorrow before she is anticoagulated. She is on therapeutic Lo venox today and that will be held tomorrow. She will have her MediPort tomorrow and then can resume Coumadin after that, and then continue therapeutic Lovenox over the weekend. In fact, could be disch arged home with therapeutic Lovenox, oral Coumadin. Follow up in the Coumadin Clinic next week.
[2017-10-28 04:29] LABS: INR-International Normal Ratio 1.3; Prothrombin Time 16.3 SEC (12.0-14.7)
[2017-10-28] MEDS: Metoprolol Tartrate 25 MG TAB PO SCH ×2 (05:50→21:00)
[2017-10-28] MEDS: Famotidine 20 MG TAB PO SCH (08:02)
[2017-10-28] MEDS: Docusate 100 MG CAP PO SCH ×2 (08:02→21:00)
[2017-10-28] MEDS ORDERED: Propofol 500 MG/50 ML VIAL ONE (10:12)
[2017-10-28] MEDS ORDERED: Fentanyl 100 MCG/2 ML VIAL ONE (10:12)
[2017-10-28] MEDS ORDERED: Midazolam HCl 2 mg/2 ml Vial ONE (10:12)
[2017-10-28] MEDS ORDERED: Bupivacaine HCl 0.5%/Epinephrine 1:200,000/PF 30 ml Vial ONE (10:16)
[2017-10-28] MEDS ORDERED: Lidocaine 2% 10 ML INJ ONE (10:16)
[2017-10-28] MEDS ORDERED: CEFAZOLIN/Water 2 GM/20 ML SYRINGE ONE (10:19)
--- NOTE | 2017-10-28 11:57 | OP ---
DATE OF PROCEDURE: 10/28/2017 PREOPERATIVE DIAGNOSES: T3 N2 M0 left colon cancer in need of antineoplastic chemotherapy access and poor IV access, morbid obesity. POSTOPERATIVE DIAGNOSIS: T3 N2 M0 left colon cancer in need of antineoplastic chemotherapy access an d poor IV access, morbid obesity. PROCEDURE: Left subclavian vein MediPort standard. Fluoroscopy used. SURGEON: Dr. William Lowe ANESTHESIA: Intravenous sedation, local 0.5% Marcaine with epinephrine, 30 mL, mixed with 2% Xylocai ne, 10 mL. PROCEDURE: The patient was taken to the operating room where under intravenous sedation, her neck an d chest were prepared with ChloraPrep, draped in routine fashion. Local anesthetic mixture infiltrat ing in skin and subcutaneous tissue about the operative site. Infraclavicular approach used and troc ar catheter directed infraclavicular into the subclavian vein. J-wire threaded. Trocar catheter rem asael. Skin incised and sharply, carried down through the skin, subcutaneous tissue, creating a pocke t to accommodate the MediPort. Dilator and pull-away sheath placed over the J-wire in superior vena cava verified fluoroscopically removing the J wire and dilator placed within the pull-away sheath. P ull-away sheath removed and under fluoroscopic visualization, the catheter tip placed in optimal posi tion in the superior vena cava and catheter tailored to length and connected to the MediPort. MediPo rt placed in subcutaneous pocket and secured with 2 interrupted sutures of 3-0 Prolene. Subcutaneous tissues approximated with 3-0 Monocryl, skin with subdermal 4-0 Monocryl and DermaGlue applied. Med iPort was then accessed with a Del Angel needle and aspirated blood and flushed with heparinized saline s olution and final fluoroscopic images revealed good line placement.
[2017-10-28] MEDS: Ferrous Sulfate 325 MG TAB PO SCH ×3 (12:00→21:01)
[2017-10-28] MEDS: Zinc Sulfate 220 MG CAP PO SCH (12:01)
[2017-10-28] MEDS: Multivit, Therapeutic 1 TAB PO SCH (12:01)
[2017-10-28] MEDS: Polyethylene Glycol 3350 17 GM Packet PO SCH (12:01)
--- NOTE | 2017-10-28 12:31 | PDOC.PN ---
- Subjective Encounter Start Date: 10/28/17 Encounter Start Time: 12:29 Ms. Lockhart was seen today in follow-up. She notes some soreness on the left upper chest where she had the Mediport. No other new complaints. - Objective Resuscitation Status: Resuscitation Status FULL:Full Resuscitation MAR Reviewed: Yes Vital Signs & Weight: Vital Signs (12 hours) Temp Pulse Resp BP Pulse Ox 10/28/17 08:30 98.6 F 80 22 H 126/73 95 10/28/17 08:00 98.6 F 80 22 H 10/28/17 05:35 98.1 F 83 20 153/69 H 96 Weight Admit Weight 325 lb 0.087 oz Weight 325 lb 0.087 oz I&O: 10/27/17 10/28/17 10/29/17 06:59 06:59 06:59 Intake Total 2360 50 Balance 2360 50 Result Diagrams: 10/26/17 04:55 10/26/17 04:55 Additional Labs: Accuchecks 10/28/17 10/28/17 10/27/17 12:21 04:45 20:28 POC Glucose 237 H 206 H 260 H 10/27/17 16:31 POC Glucose 189 H Phys Exam - Physical Examination HEENT: PERRLA Respiratory: no wheezing, no rales, no rhonchi, clear to auscultation bilateral Cardiovascular: RRR, no significant murmur, no rub Gastrointestinal: soft, positive bowel sounds Musculoskeletal: edema present + tense edema of both legs, R>L Dx/Plan (1) Acute DVT (deep venous thrombosis) Code(s): I82.409 - ACUTE EMBOLISM AND THOMBOS UNSP DEEP VN UNSP LOWER EXTREMITY Status: Acute Qualifiers: DVT location: lower extremity Laterality: right Comment: transitioning to oral anticoagulant after all surgeries complete (2) Colonic mass Code(s): K63.9 - DISEASE OF INTESTINE, UNSPECIFIED Status: Acute Comment: Likely colon cancer, surgery consultation. Will hold on Elliquis for now. Continue Lovenox. (3) S/P colon resection Status: Acute (4) Diabetes type 2, controlled Code(s): E11.9 - TYPE 2 DIABETES MELLITUS WITHOUT COMPLICATIONS Status: Chronic (5) Hypertension Code(s): I10 - ESSENTIAL (PRIMARY) HYPERTENSION Status: Chronic (6) Morbid obesity with BMI of 45.0-49.9, adult Code(s): E66.01 - MORBID (SEVERE) OBESITY DUE TO EXCESS CALORIES; Z68.42 - BODY MASS INDEX (BMI) 45.0-49.9, ADULT Status: Chronic - Plan * DVT- continue coumadin and Lovenox, until PT/INR therapeutic * Colon cancer- treatment with chemotherapy will have to be delayed until her wound heals from surgery * DM- blood glucose is slightly elevated- will monitor trend and continue SSI * HTN- blood pressure is better today.
--- NOTE | 2017-10-28 13:40 | RAD ---
PORTABLE AP CHEST: Date: 10/28/17 HISTORY: Central line placement. COMPARISON: 10/17/17. FINDINGS: There has been interval placement of a left subclavian MediPort catheter with tip overlying the SVC. No pneumothorax is seen. There is bibasilar atelectasis. Cardiac silhouette and pulmonary vasculature are magnified by projection. There is an area of increased density overlying the right mid lung zone . This could be related to overlying artifact. IMPRESSION: 1. Interval placement of a left subclavian MediPort catheter without evidence of a pneumothorax. 2. Bibasilar atelectasis. 3. Band-like area of increased density overlying the right mid lung zone, which is thought to be art ifactual. However, parenchymal air space opacity cannot be entirely excluded, and follow-up chest x-r ay is recommended. POS: YASSINE
[2017-10-28] MEDS: HumaLOG 300 UNITS/3 ML VIAL SC PRN (14:31)
[2017-10-28] MEDS: Furosemide 20 MG TAB PO SCH ×2 (14:36→21:01)
[2017-10-28] MEDS: Insulin NPH/Reg Insulin Hm 300 UNITS/3 ML VIAL SC SCH ×2 (14:38→21:02)
[2017-10-28] MEDS: Warfarin Sodium 10 MG TAB PO SCH (16:38)
[2017-10-28] MEDS ORDERED: Lidocaine 1% PF 5 ML VIAL ONE (18:00)
[2017-10-28] MEDS ORDERED: PROPOFOL 200 MG/20 ML VIAL ONE (18:00)
[2017-10-28] MEDS: Acetaminophen 325 MG TAB PO PRN (21:19)
[2017-10-29 04:44] LABS: INR-International Normal Ratio 1.3; Prothrombin Time 16.1 SEC (12.0-14.7)
[2017-10-29 04:46] LABS: Hemoglobin 7.2 g/dL (12.0-16.0); Platelet Count 375 thou/uL (130-400)
[2017-10-29] MEDS: Famotidine 20 MG TAB PO SCH (09:12)
[2017-10-29] MEDS: Metoprolol Tartrate 25 MG TAB PO SCH ×2 (09:13→20:08)
[2017-10-29] MEDS: Furosemide 20 MG TAB PO SCH ×2 (09:13→20:08)
[2017-10-29] MEDS: Zinc Sulfate 220 MG CAP PO SCH (09:13)
[2017-10-29] MEDS: Ferrous Sulfate 325 MG TAB PO SCH ×3 (09:13→20:07)
[2017-10-29] MEDS: Multivit, Therapeutic 1 TAB PO SCH (09:13)
[2017-10-29] MEDS: Docusate 100 MG CAP PO SCH ×2 (09:14→20:07)
[2017-10-29] MEDS: Polyethylene Glycol 3350 17 GM Packet PO SCH (09:14)
[2017-10-29] MEDS: Insulin NPH/Reg Insulin Hm 300 UNITS/3 ML VIAL SC SCH ×2 (09:15→20:09)
[2017-10-29] MEDS: traMADol HCl 50 MG TAB PO PRN ×2 (11:20→23:41)
--- NOTE | 2017-10-29 12:53 | PDOC.PN ---
- Subjective Encounter Start Date: 10/29/17 Encounter Start Time: 12:49 Ms. Lockhart was seen today in follow-up. She complains of pain in the left abdomen, on the "fatty tissue". - Objective Resuscitation Status: Resuscitation Status FULL:Full Resuscitation MAR Reviewed: Yes Vital Signs & Weight: Vital Signs (12 hours) Temp Pulse Resp BP Pulse Ox 10/29/17 11:00 97.6 F 67 18 138/77 98 10/29/17 08:00 97.9 F 68 16 98 10/29/17 07:56 97.9 F 68 16 142/78 H 98 10/29/17 04:00 97.9 F 69 20 126/74 97 Weight Admit Weight 325 lb 0.087 oz Weight 325 lb 0.087 oz I&O: 10/28/17 10/29/17 10/30/17 06:59 06:59 06:59 Intake Total 2360 1400 Balance 2360 1400 Result Diagrams: 10/29/17 03:39 10/26/17 04:55 Additional Labs: Accuchecks 10/29/17 10/29/17 10/28/17 11:22 05:19 20:17 POC Glucose 123 H 154 H 310 H 10/28/17 16:46 POC Glucose 247 H Phys Exam - Physical Examination HEENT: PERRLA Respiratory: no wheezing, no rales, no rhonchi, clear to auscultation bilateral Cardiovascular: RRR, no significant murmur, no rub Gastrointestinal: soft, non-tender, positive bowel sounds Musculoskeletal: edema present Mediport site looks good, no drainage Dx/Plan (1) Acute DVT (deep venous thrombosis) Code(s): I82.409 - ACUTE EMBOLISM AND THOMBOS UNSP DEEP VN UNSP LOWER EXTREMITY Status: Acute Qualifiers: DVT location: lower extremity Laterality: right Comment: transitioning to oral anticoagulant after all surgeries complete (2) Colonic mass Code(s): K63.9 - DISEASE OF INTESTINE, UNSPECIFIED Status: Acute Comment: Likely colon cancer, surgery consultation. Will hold on Elliquis for now. Continue Lovenox. (3) S/P colon resection Status: Acute (4) Diabetes type 2, controlled Code(s): E11.9 - TYPE 2 DIABETES MELLITUS WITHOUT COMPLICATIONS Status: Chronic (5) Hypertension Code(s): I10 - ESSENTIAL (PRIMARY) HYPERTENSION Status: Chronic (6) Morbid obesity with BMI of 45.0-49.9, adult Code(s): E66.01 - MORBID (SEVERE) OBESITY DUE TO EXCESS CALORIES; Z68.42 - BODY MASS INDEX (BMI) 45.0-49.9, ADULT Status: Chronic - Plan * DVT- continue Lovenox until INR therapeutic- continue coumadin * Colon cancer- chemotherapy to be deferred until wound from hemicolectomy has healed * Patient had wound dehiscence- she now has a wound vac in place- she may need to go home with home health, and have a wound vac arranged * DM- blood glucose is stable * Abdominal pain- this is likely due to stretching pressure from the large abdominal pannus- will try to find an abdominal binder, or girdle for support * HTN- blood pressure is stable.
--- NOTE | 2017-10-29 13:00 | PDOC.EVN ---
Event Note - Event Note Event Note: I spoke with the patient two son's over the phone, ([phone]) with the patient in the room. They put the phone on speaker so I could talk with both Justin - the oldest, and Matt the youngest simultaneously. I discussed the patient's current medical condition. I explained to them she will need frequent office visits for the care of her DVT- initially weekly and then possibly bi- monthly after that, for monitoring of the PT/INR. I also explained that she will need surgery follow-up as well, and that chemotherapy for colon cancer will be delayed until after the wound has completely healed. I told them the names of her doctors and what they will be treating. I also discussed considering designating an official surrogate decision maker, and they can discuss who this should be among the three of them. She is to continue as FULL code. ACP time 20 minutes outside the regular encounter.
[2017-10-29] MEDS: Warfarin Sodium 10 MG TAB PO SCH (17:01)
[2017-10-29] MEDS: Enoxaparin Sodium 40 MG/0.4 ML SYRINGE SC SCH (20:11)
[2017-10-29] MEDS: Enoxaparin Sodium 100 MG/ML SYRINGE SC SCH (20:13)
[2017-10-30 04:50] LABS: INR-International Normal Ratio 1.8; Prothrombin Time 21.2 SEC (12.0-14.7)
[2017-10-30] MEDS: Enoxaparin Sodium 100 MG/ML SYRINGE SC SCH ×2 (09:53→21:33)
[2017-10-30] MEDS: Enoxaparin Sodium 40 MG/0.4 ML SYRINGE SC SCH ×2 (09:53→21:33)
[2017-10-30] MEDS: Famotidine 20 MG TAB PO SCH (09:53)
[2017-10-30] MEDS: Ferrous Sulfate 325 MG TAB PO SCH ×3 (09:55→21:32)
[2017-10-30] MEDS: Metoprolol Tartrate 25 MG TAB PO SCH ×2 (09:55→21:32)
[2017-10-30] MEDS: Multivit, Therapeutic 1 TAB PO SCH (09:56)
[2017-10-30] MEDS: Furosemide 20 MG TAB PO SCH ×2 (09:56→21:32)
[2017-10-30] MEDS: Polyethylene Glycol 3350 17 GM Packet PO SCH (09:57)
[2017-10-30] MEDS: Docusate 100 MG CAP PO SCH ×2 (09:57→21:32)
[2017-10-30] MEDS: Zinc Sulfate 220 MG CAP PO SCH (10:02)
[2017-10-30] MEDS: Insulin NPH/Reg Insulin Hm 300 UNITS/3 ML VIAL SC SCH ×2 (10:06→21:55)
[2017-10-30] MEDS: HumaLOG 300 UNITS/3 ML VIAL SC PRN (13:14)
[2017-10-30] MEDS: Warfarin Sodium 10 MG TAB PO SCH (16:34)
--- NOTE | 2017-10-31 06:29 | PDOC.PN ---
- Subjective Encounter Start Date: 10/30/17 Encounter Start Time: 11:00 Subjective: pt up in chair no complains - Objective Resuscitation Status: Resuscitation Status FULL:Full Resuscitation Vital Signs & Weight: Vital Signs (12 hours) Temp Pulse Resp BP Pulse Ox 10/30/17 20:23 97.9 F 91 20 130/70 94 L 10/30/17 20:00 97.9 F 91 20 94 L Weight Admit Weight 325 lb 0.087 oz Weight 325 lb 0.087 oz I&O: 10/29/17 10/30/17 10/31/17 06:59 06:59 06:59 Intake Total 1400 400 Balance 1400 400 Result Diagrams: 10/31/17 09:37 10/31/17 09:37 Additional Labs: Accuchecks 10/31/17 10/30/17 10/30/17 04:44 19:54 16:10 POC Glucose 291 H 159 H 77 10/30/17 10/30/17 11:23 10:07 POC Glucose 212 H 312 H Phys Exam - Physical Examination HEENT: PERRLA, moist MMs, sclera anicteric, TM's clear, oral pharynx no lesions , 2+ tonsils Neck: no nodes, no JVD, supple, full ROM Respiratory: no wheezing, no rales, no rhonchi, wheezing present, clear to auscultation bilateral Cardiovascular: RRR, no significant murmur, no rub, gallop, irregular Gastrointestinal: soft pt has a wound vac Dx/Plan (1) Acute DVT (deep venous thrombosis) Code(s): I82.409 - ACUTE EMBOLISM AND THOMBOS UNSP DEEP VN UNSP LOWER EXTREMITY Status: Acute Qualifiers: DVT location: lower extremity Laterality: right Comment: transitioning to oral anticoagulant after all surgeries complete (2) Acute kidney injury Code(s): N17.9 - ACUTE KIDNEY FAILURE, UNSPECIFIED Status: Acute (3) Diabetes type 2, controlled Code(s): E11.9 - TYPE 2 DIABETES MELLITUS WITHOUT COMPLICATIONS Status: Chronic (4) Morbid obesity with BMI of 45.0-49.9, adult Code(s): E66.01 - MORBID (SEVERE) OBESITY DUE TO EXCESS CALORIES; Z68.42 - BODY MASS INDEX (BMI) 45.0-49.9, ADULT Status: Chronic (5) Colonic mass Code(s): K63.9 - DISEASE OF INTESTINE, UNSPECIFIED Status: Acute Comment: Likely colon cancer, surgery consultation. Will hold on Elliquis for now. Continue Lovenox. (6) S/P colon resection Status: Acute - Plan * . continue lovonox since inr is subtheraputic. possible discharge in the next 24- 48hr. HH low stable. Review of Systems - Review of Systems ENT: negative: Ear Pain, Ear Discharge, Nose Pain, Nose Discharge, Nose Congestion, Mouth Pain, Mouth Swelling, Throat Pain, Throat Swelling, Other Respiratory: negative: Cough, Dry, Shortness of Breath, Hemoptysis, SOB with Excertion, Pleuritic Pain, Sputum, Wheezing Cardiovascular: negative: chest pain, palpitations, orthopnea, paroxysmal nocturnal dyspnea, edema, light headedness, other Gastrointestinal: negative: Nausea, Vomiting, Abdominal Pain, Diarrhea, Constipation, Melena, Hematochezia, Other Genitourinary: negative: Dysuria, Frequency, Incontinence, Hematuria, Retention , Other - Medications/Allergies Allergies/Adverse Reactions: Allergies Allergy/AdvReac Type Severity Reaction Status Date / Time No Known Allergies Allergy Unverified 10/19/17 11:18 Medications: Current Medications Acetaminophen (Tylenol) 650 mg PO Q4H PRN PRN Reason: Headache/Fever or MILD Pain Last Admin: 10/28/17 21:19 Dose: 650 mg Acetaminophen/Codeine Phosphate (Tylenol #3) 1 tab PO Q4H PRN PRN Reason: Moderate Pain (6-7) Hydrocodone Bitart/Acetaminophen ([place] 5/325) 1 tab PO Q4H PRN PRN Reason: BREAKTHRU Severe Pain (8-10) Last Admin: 10/26/17 14:20 Dose: 1 tab Al Hydroxide/Mg Hydroxide (Maalox) 30 ml PO Q6H PRN PRN Reason: Heartburn or Indigestion Cefazolin Sodium (Ancef) 2 gm SLOW IVP ONCALL-OR DEVAN Citalopram Hydrobromide (Celexa) 20 mg PO DAILY [facility] Cyclobenzaprine HCl (Flexeril) 10 mg PO TID PRN PRN Reason: Muscle Spasm Dextrose/Water (Dextrose 50%) 25 gm SLOW IVP PRN PRN PRN Reason: Hypoglycemia Docusate Sodium (Colace) 100 mg PO BID [facility] Last Admin: 10/31/17 08:28 Dose: Not Given Famotidine (Pepcid) 20 mg PO DAILY [facility] Last Admin: 10/31/17 08:26 Dose: 20 mg Ferrous Sulfate (Feosol) 325 mg PO TID [facility] Last Admin: 10/31/17 14:18 Dose: 325 mg Furosemide (Lasix) 20 mg PO BID [facility] Last Admin: 10/31/17 08:28 Dose: 20 mg Glucagon (Glucagon) 1 mg IM PRN PRN PRN Reason: Hypoglycemia Hydralazine HCl (Apresoline) 10 mg SLOW IVP Q4H PRN PRN Reason: Systolic BP > 180 Hydralazine HCl (Apresoline) 25 mg PO TID PRN PRN Reason: SBP Greater Than 170 Dextrose/Water (D5w) 1,000 mls @ 0 mls/hr IV .Q0M PRN; As Directed PRN Reason: Hypoglycemia Ibuprofen (Motrin) 600 mg PO Q6H PRN PRN Reason: Pain 1-5 Last Admin: 10/29/17 02:40 Dose: 600 mg Insulin Human Isoph/Insulin Regular (Humulin 70/30) 50 units SC BID [facility] Last Admin: 10/31/17 09:38 Dose: 50 unit Insulin Human Lispro (Humalog) 0 units SC .MODERATE SLIDING SC PRN PRN Reason: Moderate Correctional Scale Last Admin: 10/31/17 14:14 Dose: 2 unit Magnesium Hydroxide (Milk Of Magnesium) 30 ml PO DAILYPRN PRN PRN Reason: Constipation Metoprolol Tartrate (Lopressor) 12.5 mg PO BID [facility] Last Admin: 10/31/17 08:26 Dose: 12.5 mg Miscellaneous Medication (Pharmacy To Dose) 1 each PO PRN PRN PRN Reason: Pharmacy to dose Multivitamins (Theragran) 1 tab PO DAILY [facility] Last Admin: 10/31/17 08:26 Dose: 1 tab Polyethylene Glycol (Miralax) 17 gm PO DAILY [facility] Last Admin: 10/31/17 08:29 Dose: Not Given Quinapril HCl (Accupril) 5 mg PO DAILY [facility] Last Admin: 10/31/17 08:29 Dose: 5 mg Tramadol HCl (Ultram) 100 mg PO Q6H PRN PRN Reason: SEVERE Pain Last Admin: 06/11/18 10:06 Dose: 100 mg Warfarin Sodium (Coumadin) 10 mg PO 1700 [facility] Last Admin: 10/30/17 16:34 Dose: 10 mg Zinc Sulfate (Zinc Sulfate) 220 mg PO DAILY [facility] Last Admin: 10/31/17 08:29 Dose: 220 mg
[2017-10-31] MEDS: Metoprolol Tartrate 25 MG TAB PO SCH ×2 (08:26→21:51)
[2017-10-31] MEDS: Multivit, Therapeutic 1 TAB PO SCH (08:26)
[2017-10-31] MEDS: Famotidine 20 MG TAB PO SCH (08:26)
[2017-10-31] MEDS: Furosemide 20 MG TAB PO SCH ×2 (08:28→21:51)
[2017-10-31] MEDS: Ferrous Sulfate 325 MG TAB PO SCH ×3 (08:28→21:51)
[2017-10-31] MEDS: Docusate 100 MG CAP PO SCH ×2 (08:28→21:52)
[2017-10-31] MEDS: Zinc Sulfate 220 MG CAP PO SCH (08:29)
[2017-10-31] MEDS: Polyethylene Glycol 3350 17 GM Packet PO SCH (08:29)
[2017-10-31] MEDS: Enoxaparin Sodium 100 MG/ML SYRINGE SC SCH (08:30)
[2017-10-31] MEDS: Enoxaparin Sodium 40 MG/0.4 ML SYRINGE SC SCH (08:30)
[2017-10-31] MEDS: Insulin NPH/Reg Insulin Hm 300 UNITS/3 ML VIAL SC SCH ×2 (09:38→21:52)
[2017-10-31] MEDS: traMADol HCl 50 MG TAB PO PRN (10:06)
[2017-10-31 10:07] LABS: INR-International Normal Ratio 2.6; Prothrombin Time 29.2 SEC (12.0-14.7)
[2017-10-31 10:12] LABS: Anion Gap 12 mmol/L (10-20); BUN (Urea Nitrogen) 9 mg/dL (9.8-20.1); Calc. Creatinine Clearance 156 mL/min (70-130); Calcium 7.7 mg/dL (7.8-10.44); Carbon Dioxide 27 mmol/L (22-29); Chloride 105 mmol/L (98-107); Estimated GFR-MDRD 62; Glucose 138 mg/dL (70-105); Potassium 3.2 mmol/L (3.5-5.1); Sodium 141 mmol/L (136-145)
[2017-10-31 11:28] LABS: Band 11 % (5-11); Eosinophils 6 % (0-10); Hemoglobin 7.4 g/dL (12.0-16.0); Hypochromia SLIGHT = 6-15 cells (100X) (0-5/hpf); Lymphocytes 24 % (21-51); MDiff Complete? YES; Mean Corpuscular HGB CONC 32.4 g/dL (32.0-36.0); Mean Corpuscular Hemoglobin 28.2 pg (27.0-31.0); Mean Corpuscular Volume 86.9 fl (81.0-99.0); Mean Platelet Volume 7.4 fL (7.4-10.4); Monocytes 7 % (0-10); Neutrophil 52 % (42-75); Nucleated RBC 1 % (0); Ovalocytes SLIGHT = 2-5 cells (100X) (0-1/hpf); PLT Morphology Comment Appears Adequate; Platelet Count 376 thou/uL (130-400); Polychromasia SLIGHT = 2-3 cells (100X) (0-2/hpf); RBC Distribution Width 14.1 % (11.5-14.5); Red Blood Cell (RBC) Count 2.62 mill/uL (4.20-5.40)
[2017-10-31] MEDS: HumaLOG 300 UNITS/3 ML VIAL SC PRN (14:14)
--- NOTE | 2017-10-31 14:34 | PDOC.PN ---
- Subjective Encounter Start Date: 10/31/17 Encounter Start Time: 09:30 Subjective: pt up in bed appears depressed. - Objective Resuscitation Status: Resuscitation Status FULL:Full Resuscitation Vital Signs & Weight: Vital Signs (12 hours) Temp Pulse Resp BP Pulse Ox 10/31/17 08:20 98.5 F 79 20 79 L 10/31/17 07:55 98.5 F 79 20 119/66 97 Weight Admit Weight 325 lb 0.087 oz Weight 325 lb 0.087 oz I&O: 10/30/17 10/31/17 11/01/17 06:59 06:59 06:59 Intake Total 400 Balance 400 Result Diagrams: 10/31/17 09:37 10/31/17 09:37 Additional Labs: Accuchecks 10/31/17 10/30/17 10/30/17 04:44 19:54 16:10 POC Glucose 291 H 159 H 77 Phys Exam - Physical Examination HEENT: PERRLA, moist MMs, sclera anicteric, TM's clear, oral pharynx no lesions , 2+ tonsils Neck: no nodes, no JVD, supple, full ROM Respiratory: no wheezing, no rales, no rhonchi, wheezing present, clear to auscultation bilateral Cardiovascular: RRR, no significant murmur, no rub, gallop, irregular Gastrointestinal: soft wound vac intact Dx/Plan (1) Acute DVT (deep venous thrombosis) Code(s): I82.409 - ACUTE EMBOLISM AND THOMBOS UNSP DEEP VN UNSP LOWER EXTREMITY Status: Acute Qualifiers: DVT location: lower extremity Laterality: right Comment: transitioning to oral anticoagulant after all surgeries complete (2) Acute kidney injury Code(s): N17.9 - ACUTE KIDNEY FAILURE, UNSPECIFIED Status: Acute (3) Diabetes type 2, controlled Code(s): E11.9 - TYPE 2 DIABETES MELLITUS WITHOUT COMPLICATIONS Status: Chronic (4) Morbid obesity with BMI of 45.0-49.9, adult Code(s): E66.01 - MORBID (SEVERE) OBESITY DUE TO EXCESS CALORIES; Z68.42 - BODY MASS INDEX (BMI) 45.0-49.9, ADULT Status: Chronic (5) Colonic mass Code(s): K63.9 - DISEASE OF INTESTINE, UNSPECIFIED Status: Acute Comment: Likely colon cancer, surgery consultation. Will hold on Elliquis for now. Continue Lovenox. (6) S/P colon resection Status: Acute - Plan * . pt's inr is therapeutic. will discontinue lovonox and continue couamdin. will get pharmacy to help with dosing. Spoke with case management in regards to getting wound vac upon discharge. Pt's hh is low stable. will start her on citalopram since she is currently depressed and was crying. Review of Systems - Review of Systems ENT: negative: Ear Pain, Ear Discharge, Nose Pain, Nose Discharge, Nose Congestion, Mouth Pain, Mouth Swelling, Throat Pain, Throat Swelling, Other Respiratory: negative: Cough, Dry, Shortness of Breath, Hemoptysis, SOB with Excertion, Pleuritic Pain, Sputum, Wheezing Cardiovascular: negative: chest pain, palpitations, orthopnea, paroxysmal nocturnal dyspnea, edema, light headedness, other Gastrointestinal: negative: Nausea, Vomiting, Abdominal Pain, Diarrhea, Constipation, Melena, Hematochezia, Other - Medications/Allergies Allergies/Adverse Reactions: Allergies Allergy/AdvReac Type Severity Reaction Status Date / Time No Known Allergies Allergy Unverified 10/19/17 11:18 Medications: Current Medications Acetaminophen (Tylenol) 650 mg PO Q4H PRN PRN Reason: Headache/Fever or MILD Pain Last Admin: 10/28/17 21:19 Dose: 650 mg Acetaminophen/Codeine Phosphate (Tylenol #3) 1 tab PO Q4H PRN PRN Reason: Moderate Pain (6-7) Hydrocodone Bitart/Acetaminophen ([place] 5/325) 1 tab PO Q4H PRN PRN Reason: BREAKTHRU Severe Pain (8-10) Last Admin: 10/26/17 14:20 Dose: 1 tab Al Hydroxide/Mg Hydroxide (Maalox) 30 ml PO Q6H PRN PRN Reason: Heartburn or Indigestion Cefazolin Sodium (Ancef) 2 gm SLOW IVP ONCALL-OR DEVAN Cyclobenzaprine HCl (Flexeril) 10 mg PO TID PRN PRN Reason: Muscle Spasm Dextrose/Water (Dextrose 50%) 25 gm SLOW IVP PRN PRN PRN Reason: Hypoglycemia Docusate Sodium (Colace) 100 mg PO BID [facility] Last Admin: 10/31/17 08:28 Dose: Not Given Enoxaparin Sodium (Lovenox) 100 mg SC 0900,2099 [facility] Last Admin: 10/31/17 08:30 Dose: 100 mg Enoxaparin Sodium (Lovenox) 40 mg SC 899,2099 [facility] Last Admin: 10/31/17 08:30 Dose: 40 mg Famotidine (Pepcid) 20 mg PO DAILY [facility] Last Admin: 10/31/17 08:26 Dose: 20 mg Ferrous Sulfate (Feosol) 325 mg PO TID [facility] Last Admin: 10/31/17 14:18 Dose: 325 mg Furosemide (Lasix) 20 mg PO BID [facility] Last Admin: 10/31/17 08:28 Dose: 20 mg Glucagon (Glucagon) 1 mg IM PRN PRN PRN Reason: Hypoglycemia Hydralazine HCl (Apresoline) 10 mg SLOW IVP Q4H PRN PRN Reason: Systolic BP > 180 Hydralazine HCl (Apresoline) 25 mg PO TID PRN PRN Reason: SBP Greater Than 170 Dextrose/Water (D5w) 1,000 mls @ 0 mls/hr IV .Q0M PRN; As Directed PRN Reason: Hypoglycemia Ibuprofen (Motrin) 600 mg PO Q6H PRN PRN Reason: Pain 1-5 Last Admin: 10/29/17 02:40 Dose: 600 mg Insulin Human Isoph/Insulin Regular (Humulin 70/30) 50 units SC BID [facility] Last Admin: 10/31/17 09:38 Dose: 50 unit Insulin Human Lispro (Humalog) 0 units SC .MODERATE SLIDING SC PRN PRN Reason: Moderate Correctional Scale Last Admin: 10/31/17 14:14 Dose: 2 unit Magnesium Hydroxide (Milk Of Magnesium) 30 ml PO DAILYPRN PRN PRN Reason: Constipation Metoprolol Tartrate (Lopressor) 12.5 mg PO BID [facility] Last Admin: 10/31/17 08:26 Dose: 12.5 mg Multivitamins (Theragran) 1 tab PO DAILY [facility] Last Admin: 10/31/17 08:26 Dose: 1 tab Polyethylene Glycol (Miralax) 17 gm PO DAILY [facility] Last Admin: 10/31/17 08:29 Dose: Not Given Quinapril HCl (Accupril) 5 mg PO DAILY [facility] Last Admin: 10/31/17 08:29 Dose: 5 mg Tramadol HCl (Ultram) 100 mg PO Q6H PRN PRN Reason: SEVERE Pain Last Admin: 10/31/17 10:06 Dose: 100 mg Warfarin Sodium (Coumadin) 10 mg PO 1700 [facility] Last Admin: 10/30/17 16:34 Dose: 10 mg Zinc Sulfate (Zinc Sulfate) 220 mg PO DAILY [facility] Last Admin: 10/31/17 08:29 Dose: 220 mg
[2017-10-31] MEDS ORDERED: Citalopram 20 MG TAB PO SCH (14:45)
[2017-10-31] MEDS: Warfarin Sodium 5 MG TAB PO SCH (17:06)
[2017-11-01 08:30] LABS: Hemoglobin 8.1 g/dL (12.0-16.0)
[2017-11-01] MEDS: Citalopram 20 MG TAB PO SCH (08:33)
[2017-11-01] MEDS: Ferrous Sulfate 325 MG TAB PO SCH ×3 (08:33→22:28)
[2017-11-01] MEDS: Multivit, Therapeutic 1 TAB PO SCH (08:33)
[2017-11-01] MEDS: Metoprolol Tartrate 25 MG TAB PO SCH ×2 (08:33→22:28)
[2017-11-01] MEDS: Famotidine 20 MG TAB PO SCH (08:33)
[2017-11-01] MEDS: Docusate 100 MG CAP PO SCH ×2 (08:34→22:29)
[2017-11-01] MEDS: Zinc Sulfate 220 MG CAP PO SCH (08:35)
[2017-11-01] MEDS: Furosemide 20 MG TAB PO SCH ×2 (08:35→22:28)
[2017-11-01] MEDS: Polyethylene Glycol 3350 17 GM Packet PO SCH (08:35)
[2017-11-01 08:36] LABS: INR-International Normal Ratio 3.1; Prothrombin Time 33.6 SEC (12.0-14.7)
[2017-11-01] MEDS: Insulin NPH/Reg Insulin Hm 300 UNITS/3 ML VIAL SC SCH ×3 (08:36→22:37)
[2017-11-01] MEDS ORDERED: Ondansetron HCl/PF 4 MG/2 ML Vial IVP PRN (12:38)
[2017-11-01] MEDS: Warfarin Sodium 5 MG TAB PO SCH (16:53)
[2017-11-01] MEDS: HumaLOG 300 UNITS/3 ML VIAL SC PRN (16:54)
[2017-11-02] MEDS: traMADol HCl 50 MG TAB PO PRN ×2 (04:13→10:45)
[2017-11-02 05:37] LABS: INR-International Normal Ratio 3.5; Prothrombin Time 37.1 SEC (12.0-14.7)
--- NOTE | 2017-11-02 07:11 | PDOC.PN ---
- Subjective Encounter Start Date: 11/01/17 Encounter Start Time: 11:30 Subjective: pt up in bed no complains - Objective Resuscitation Status: Resuscitation Status FULL:Full Resuscitation Vital Signs & Weight: Vital Signs (12 hours) Temp Pulse Resp BP Pulse Ox 11/01/17 20:00 98.0 F 67 18 94 L 11/01/17 19:20 98.0 F 67 18 118/69 94 L Weight Admit Weight 325 lb 0.087 oz Weight 325 lb 0.087 oz I&O: 11/01/17 11/02/17 11/03/17 06:59 06:59 06:59 Intake Total 1680 1300 Output Total 1200 Balance 1680 100 Result Diagrams: 11/01/17 08:18 10/31/17 09:37 Additional Labs: Accuchecks 11/02/17 11/01/17 11/01/17 05:23 22:38 16:52 POC Glucose 219 H 111 H 202 H 11/01/17 11/01/17 11/01/17 12:43 11:11 08:32 POC Glucose 81 78 118 H Phys Exam - Physical Examination HEENT: PERRLA, moist MMs, sclera anicteric, TM's clear, oral pharynx no lesions , 2+ tonsils Neck: no nodes, no JVD, supple, full ROM Respiratory: no wheezing, no rales, no rhonchi, wheezing present, clear to auscultation bilateral Cardiovascular: RRR, no significant murmur, no rub, gallop, irregular Gastrointestinal: soft, positive bowel sounds wound vac intact Musculoskeletal: edema present lower ext Neurological: non-focal, normal sensation, moves all 4 limbs Dx/Plan (1) Acute DVT (deep venous thrombosis) Code(s): I82.409 - ACUTE EMBOLISM AND THOMBOS UNSP DEEP VN UNSP LOWER EXTREMITY Status: Acute Qualifiers: DVT location: lower extremity Laterality: right Comment: transitioning to oral anticoagulant after all surgeries complete (2) Acute kidney injury Code(s): N17.9 - ACUTE KIDNEY FAILURE, UNSPECIFIED Status: Acute (3) Diabetes type 2, controlled Code(s): E11.9 - TYPE 2 DIABETES MELLITUS WITHOUT COMPLICATIONS Status: Chronic (4) Morbid obesity with BMI of 45.0-49.9, adult Code(s): E66.01 - MORBID (SEVERE) OBESITY DUE TO EXCESS CALORIES; Z68.42 - BODY MASS INDEX (BMI) 45.0-49.9, ADULT Status: Chronic (5) Colonic mass Code(s): K63.9 - DISEASE OF INTESTINE, UNSPECIFIED Status: Acute Comment: Likely colon cancer, surgery consultation. Will hold on Elliquis for now. Continue Lovenox. (6) S/P colon resection Status: Acute - Plan * possible discharge in am * INR theraputic * HH is low stable * working on getting wound vac Review of Systems - Review of Systems ENT: negative: Ear Pain, Ear Discharge, Nose Pain, Nose Discharge, Nose Congestion, Mouth Pain, Mouth Swelling, Throat Pain, Throat Swelling, Other Respiratory: negative: Cough, Dry, Shortness of Breath, Hemoptysis, SOB with Excertion, Pleuritic Pain, Sputum, Wheezing Gastrointestinal: Nausea Genitourinary: negative: Dysuria, Frequency, Incontinence, Hematuria, Retention , Other - Medications/Allergies Allergies/Adverse Reactions: Allergies Allergy/AdvReac Type Severity Reaction Status Date / Time No Known Allergies Allergy Unverified 10/19/17 11:18 Medications: Current Medications Acetaminophen (Tylenol) 650 mg PO Q4H PRN PRN Reason: Headache/Fever or MILD Pain Last Admin: 10/28/17 21:19 Dose: 650 mg Acetaminophen/Codeine Phosphate (Tylenol #3) 1 tab PO Q4H PRN PRN Reason: Moderate Pain (6-7) Hydrocodone Bitart/Acetaminophen ([place] 5/325) 1 tab PO Q4H PRN PRN Reason: BREAKTHRU Severe Pain (8-10) Last Admin: 10/26/17 14:20 Dose: 1 tab Al Hydroxide/Mg Hydroxide (Maalox) 30 ml PO Q6H PRN PRN Reason: Heartburn or Indigestion Cefazolin Sodium (Ancef) 2 gm SLOW IVP ONCALL-OR DEVAN Citalopram Hydrobromide (Celexa) 20 mg PO DAILY [facility] Last Admin: 11/01/17 08:33 Dose: 20 mg Cyclobenzaprine HCl (Flexeril) 10 mg PO TID PRN PRN Reason: Muscle Spasm Dextrose/Water (Dextrose 50%) 25 gm SLOW IVP PRN PRN PRN Reason: Hypoglycemia Docusate Sodium (Colace) 100 mg PO BID [facility] Last Admin: 11/01/17 22:29 Dose: Not Given Famotidine (Pepcid) 20 mg PO DAILY [facility] Last Admin: 11/01/17 08:33 Dose: 20 mg Ferrous Sulfate (Feosol) 325 mg PO TID [facility] Last Admin: 11/01/17 22:28 Dose: 325 mg Furosemide (Lasix) 20 mg PO BID [facility] Last Admin: 11/01/17 22:28 Dose: 20 mg Glucagon (Glucagon) 1 mg IM PRN PRN PRN Reason: Hypoglycemia Hydralazine HCl (Apresoline) 10 mg SLOW IVP Q4H PRN PRN Reason: Systolic BP > 180 Hydralazine HCl (Apresoline) 25 mg PO TID PRN PRN Reason: SBP Greater Than 170 Dextrose/Water (D5w) 1,000 mls @ 0 mls/hr IV .Q0M PRN; As Directed PRN Reason: Hypoglycemia Ibuprofen (Motrin) 600 mg PO Q6H PRN PRN Reason: Pain 1-5 Last Admin: 10/29/17 02:40 Dose: 600 mg Insulin Human Isoph/Insulin Regular (Humulin 70/30) 50 units SC BID [facility] Last Admin: 11/01/17 22:37 Dose: Not Given Insulin Human Lispro (Humalog) 0 units SC .MODERATE SLIDING SC PRN PRN Reason: Moderate Correctional Scale Last Admin: 11/01/17 16:54 Dose: 4 unit Magnesium Hydroxide (Milk Of Magnesium) 30 ml PO DAILYPRN PRN PRN Reason: Constipation Metoprolol Tartrate (Lopressor) 12.5 mg PO BID [facility] Last Admin: 11/01/17 22:28 Dose: 12.5 mg Miscellaneous Medication (Pharmacy To Dose) 1 each PO PRN PRN PRN Reason: Pharmacy to dose Multivitamins (Theragran) 1 tab PO DAILY [facility] Last Admin: 11/01/17 08:33 Dose: 1 tab Ondansetron HCl (Zofran) 4 mg IVP Q6H PRN PRN Reason: Nausea/Vomiting Last Admin: 11/01/17 13:29 Dose: 4 mg Polyethylene Glycol (Miralax) 17 gm PO DAILY [facility] Last Admin: 11/01/17 08:35 Dose: Not Given Quinapril HCl (Accupril) 5 mg PO DAILY [facility] Last Admin: 11/01/17 08:35 Dose: 5 mg Sodium Chloride (Flush - Normal Saline) 10 ml IVF Q12HR [facility] Last Admin: 11/01/17 22:29 Dose: 10 ml Sodium Chloride (Flush - Normal Saline) 10 ml IVF PRN PRN PRN Reason: Saline Flush Last Admin: 11/01/17 13:30 Dose: 10 ml Tramadol HCl (Ultram) 100 mg PO Q6H PRN PRN Reason: SEVERE Pain Last Admin: 11/02/17 04:13 Dose: 100 mg Warfarin Sodium (Coumadin) 5 mg PO 1700 [facility] Last Admin: 11/01/17 16:53 Dose: 5 mg Zinc Sulfate (Zinc Sulfate) 220 mg PO DAILY [facility] Last Admin: 11/01/17 08:35 Dose: 220 mg
[2017-11-02] MEDS: Metoprolol Tartrate 25 MG TAB PO SCH (08:58)
[2017-11-02] MEDS: Docusate 100 MG CAP PO SCH (08:59)
[2017-11-02] MEDS: Citalopram 20 MG TAB PO SCH (08:59)
[2017-11-02] MEDS: Ferrous Sulfate 325 MG TAB PO SCH ×2 (08:59→14:46)
[2017-11-02] MEDS: Famotidine 20 MG TAB PO SCH (09:00)
[2017-11-02] MEDS: Multivit, Therapeutic 1 TAB PO SCH (09:00)
[2017-11-02] MEDS: Furosemide 20 MG TAB PO SCH (09:00)
[2017-11-02] MEDS: Insulin NPH/Reg Insulin Hm 300 UNITS/3 ML VIAL SC SCH (09:00)
[2017-11-02] MEDS: HumaLOG 300 UNITS/3 ML VIAL SC PRN ×2 (09:02→12:43)
[2017-11-02] MEDS: Zinc Sulfate 220 MG CAP PO SCH (09:02)
[2017-11-02] MEDS: Polyethylene Glycol 3350 17 GM Packet PO SCH (09:05)
[2017-11-02] MEDS ORDERED: Warfarin Sodium 2.5 MG TAB PO SCH (17:00)
[2017-11-02 17:02] VITALS: BP 123/71; TEMP 97.6
--- NOTE | 2017-11-03 01:09 | DIS ---
DATE OF ADMISSION: 10/25/2017 DATE OF DISCHARGE: 11/02/2017 DISCHARGE DIAGNOSES: 1. Acute deep venous thrombosis. 2. Acute kidney injury. 3. Diabetes. 4. Morbid obesity. 5. Status post colon resection after colon mass with wound dehiscence. HOSPITAL COURSE: Patient is a very pleasant 57-year-old female who initially presented to the hospit al on 10/25/2017 with complaints of right lower extremity swelling. Patient had recently been diagno sed with a right colon mass after being evaluated for microcytic anemia. She has poorly differentiat ed adenocarcinoma and underwent a partial colectomy 2 weeks prior to her current presentation. Charan mooney at that time was discharged on Eliquis; however, since medication cost over $400, patient could no t afford it and did not take her medication. She came to the hospital with worsening right lower ext remity swelling. She was found to have extensive DVT at that time. She was at that time started on Lovenox and also transitioned to Coumadin, which would be more affordable. Patient was seen by aruna on and she had a wound VAC placed on her abdomen area since there were concerns for some dehiscence a nd due to her obese abdomen. Wound care has been seeing patient's routinely on this. Patient also h as been transitioned from Lovenox to Coumadin. Her INR has been therapeutic. She has been off of Lo venox. Patient during the hospital stay was very depressed. She was started on some antidepressant. I have talked with patient's sister in regards to overall medical issues and what she needs to foll ow up with and also patient's sons have been notified also. I feel patient has little bit cognitive impairment. HOME MEDICATIONS: The patient's home medications are as the following. She does tell me that she do es have some [place] at home, so I will not prescribe her any pain medications. She will take metoprol ol 12.5 twice a day, quinapril 5 mg daily, Flexeril 10 mg t.i.d. p.r.n. She has Tylenol #3 with code ine at home, Lasix 20 mg b.i.d., ferrous sulfate 325 daily, zinc 220 mg daily, warfarin 5 mg daily, m ultivitamin 1 daily, Colace 100 mg b.i.d. and Celexa 20 mg daily. Patient has been educated that if there is any issues with her unable to take her medications for her blood thinner, she needs to come into the hospital right away or call us. Patient's INR on discharge was 3.5. Patient also was start ed on some potassium 20 mEq, since she is on Lasix. PHYSICAL EXAMINATION: VITAL SIGNS: Temperature 98.8, pulse 67, respirations 18, pulse ox 97% on room air, blood pressure 1 28/70. GENERAL: She is awake, alert, oriented x3, does not appear in distress; however, appears a little de pressed today. ABDOMEN: Soft, nontender, obese. She has got a mid abdomen wound VAC. Dressing is intact. LUNGS: No rhonchi or wheezes noted. Clear to auscultation. EXTREMITIES: Mild lower extremity edema. HISTORY OF PRESENT ILLNESS AND HOSPITAL COURSE: I asked patient if she had any suicidal thoughts or ideations, she stated no. She just feels all went, but all the disease process has been going on. I did talk with her sister in regards to patient's medical issues and also that patient has been feeli ng a little bit depressed. The patient will again follow up with Surgery, Dr. Lowe also with Dayanara rogers and her primary care doctor. We will check an INR on her on Tuesday and her primary care doctor w ill be titrating or watching her INR.
== END 2017-11-02 17:10 | disposition home health service (06) | DRG 300 ==
LOC: ERS 12:50 → 2NO 16:41 → T4-A 10-26 13:32
PROVIDERS: ADMIT Internal Medicine; ATTEND Internal Medicine
PROC: 0JH63WZ Insertion of Totally Implantable Vascular Access Device into Chest Subcutaneous Tissue and Fascia, Percutaneous Approach (ICD-10-PCS; principal; 2017-10-28)
PROC: 02HV33Z Insertion of Infusion Device into Superior Vena Cava, Percutaneous Approach (ICD-10-PCS; 2017-10-28)
DX: I82.441 Acute embolism and thrombosis of right tibial vein (principal); C18.6 Malignant neoplasm of descending colon; Z68.43 Body mass index [BMI] 50.0-59.9, adult; N17.9 Acute kidney failure, unspecified; T81.31XA Disruption of external operation (surgical) wound, not elsewhere classified, initial encounter; C77.5 Secondary and unspecified malignant neoplasm of intrapelvic lymph nodes; E11.9 Type 2 diabetes mellitus without complications; I10 Essential (primary) hypertension; Z91.14 Patient's other noncompliance with medication regimen; E66.01 Morbid (severe) obesity due to excess calories; F32.9 Major depressive disorder, single episode, unspecified; Z86.718 Personal history of other venous thrombosis and embolism; Z79.899 Other long term (current) drug therapy; Z90.49 Acquired absence of other specified parts of digestive tract; Z89.421 Acquired absence of other right toe(s); Y83.6 Removal of other organ (partial) (total) as the cause of abnormal reaction of the patient, or of later complication, without mention of misadventure at the time of the procedure
CPT/HCPCS: 36415; 36416; 71045; 80048; 80053; 85007; 85014; 85018; 85025; 85027; 85049; 85610; 85730; 96372; A4216; C1788; G8978-GP-CI; G8979-GP-CI; G8980-GP-CI; J0670; J1642; J1650; J2001; J2250; J2405; J2704; J3010

== ENCOUNTER 2017-11-11 17:45 | Emergency (ER) | payer OTHER ==
[2017-11-11 18:46] LABS: INR-International Normal Ratio 3.3; PTT 54.3 SEC (22.9-36.1); Prothrombin Time 34.8 SEC (12.0-14.7)
[2017-11-11 18:49] LABS: #Eosinphils 0.9 thou/uL (0.0-0.7); #Lymphocytes 1.9 thou/uL (1.20-3.40); #Monocytes 0.6 thou/uL (0.11-0.59); #Neutrophils 4.2 thou/uL (1.40-6.50); %Basophils 0.1 % (0.0-1.0); %Eosinophils 11.4 % (0.0-10.0); %Lymphocytes 24.8 % (21.0-51.0); %Monocytes 7.5 % (0.0-10.0); %Neutrophils 56.1 % (42.0-75.0); Hemoglobin 7.7 g/dL (12.0-16.0); Mean Corpuscular HGB CONC 32.5 g/dL (32.0-36.0); Mean Corpuscular Volume 86.1 fL (78.0-98.0); Mean Platelet Volume 7.2 fL (7.4-10.4); Platelet Count 293 thou/uL (130-400); RBC Distribution Width 14.7 % (11.5-14.5); Red Blood Cell (RBC) Count 2.76 mill/uL (4.20-5.40); White Blood Cell (WBC) Count 7.5 thou/uL (4.8-10.8)
== END 2017-11-11 19:12 | disposition home or self-care (01) ==
LOC: ERS 17:45
DX: D64.9 Anemia, unspecified (principal); E78.5 Hyperlipidemia, unspecified; E11.9 Type 2 diabetes mellitus without complications; I10 Essential (primary) hypertension; J45.909 Unspecified asthma, uncomplicated; Z79.4 Long term (current) use of insulin; Z79.01 Long term (current) use of anticoagulants; Z79.899 Other long term (current) drug therapy
CPT/HCPCS: 36415; 85025; 85610; 85730; 99283

== ENCOUNTER 2017-12-28 12:08 | Day surgery (SDC) | payer OTHER, SELFPAY ==
[2017-12-28] MEDS ORDERED: Sodium Chloride 0.9% 20 ML ONE (12:26)
[2017-12-28] MEDS ORDERED: WATER IVPB SCH (12:45)
[2017-12-28] MEDS ORDERED: DEXTROSE 5% IVPB SCH (12:45)
[2017-12-28] MEDS ORDERED: Leucovorin Calcium 50 MG in Dextrose 5% in Water 50 ML IVPB SCH (12:45)
[2017-12-28] MEDS ORDERED: Oxaliplatin 200 MG in Dextrose 5% in Water 500 ML IVPB SCH (12:45)
[2017-12-28] MEDS ORDERED: Dexamethasone 10 MG, Ondansetron 2MG/ML MDV 10 MG in Sodium Chloride 0.9% 50 ML IVPB SCH (12:45)
[2017-12-28] MEDS ORDERED: FLUOROURACIL IVPB SCH (12:45)
[2017-12-28 13:25] VITALS: BP 133/61; TEMP 98.4
== END 2017-12-28 16:12 | disposition home or self-care (01) ==
LOC: ONC/OP 12:08
PROVIDERS: ATTEND Internal Medicine Medical Oncology
DX: Z51.11 Encounter for antineoplastic chemotherapy (principal); C18.6 Malignant neoplasm of descending colon; E11.9 Type 2 diabetes mellitus without complications; E66.01 Morbid (severe) obesity due to excess calories; I10 Essential (primary) hypertension; J45.909 Unspecified asthma, uncomplicated; F41.9 Anxiety disorder, unspecified; F32.9 Major depressive disorder, single episode, unspecified; D64.9 Anemia, unspecified; D69.6 Thrombocytopenia, unspecified; Z98.890 Other specified postprocedural states; Z79.899 Other long term (current) drug therapy; Z68.42 Body mass index [BMI] 45.0-49.9, adult
CPT/HCPCS: 36415; 80053; 82248; 82378; 83615; 84100; 84550; 86850; 86900; 86901; 96367; 96413; 96415; 96416; 96417; J0640; J1100; J1642; J2405; J7050; J7070; J9190; J9263

== ENCOUNTER 2017-12-30 13:12 | Day surgery (SDC) | payer SELFPAY ==
[2017-12-30] MEDS ORDERED: Sodium Chloride 0.9% 40 ML ONE (13:31)
[2017-12-30] MEDS ORDERED: diphenhydrAMINE 25 MG CAP PO SCH (14:00)
[2017-12-30] MEDS ORDERED: Acetaminophen 500 MG TAB PO SCH (14:00)
[2017-12-30] MEDS ORDERED: Sodium Chloride 0.9% 20 ML ONE (14:45)
[2017-12-30 16:55] VITALS: BP 159/67; TEMP 97.6
== END 2017-12-30 16:59 | disposition home or self-care (01) ==
LOC: ONC/OP 13:12
PROVIDERS: ATTEND Internal Medicine Medical Oncology
DX: D64.9 Anemia, unspecified (principal); D69.6 Thrombocytopenia, unspecified
CPT/HCPCS: 36430; 86850; 86900; 86901; A4216; J1642; P9016

== ENCOUNTER 2018-01-11 10:56 | Day surgery (SDC) | payer OTHER, SELFPAY ==
[2018-01-11] MEDS ORDERED: Sodium Chloride 0.9% 20 ML ONE (11:14)
[2018-01-11] MEDS ORDERED: Oxaliplatin 200 MG in Dextrose 5% in Water 500 ML IVPB SCH (11:30)
[2018-01-11] MEDS ORDERED: WATER IVPB SCH (11:30)
[2018-01-11] MEDS ORDERED: Leucovorin Calcium 50 MG in Dextrose 5% in Water 50 ML IVPB SCH (11:30)
[2018-01-11] MEDS ORDERED: Dexamethasone 10 MG, Ondansetron 2MG/ML MDV 10 MG in Sodium Chloride 0.9% 50 ML IVPB SCH (11:30)
[2018-01-11] MEDS ORDERED: DEXTROSE 5% IVPB SCH (11:30)
[2018-01-11] MEDS ORDERED: FLUOROURACIL IVPB SCH (11:30)
[2018-01-11 12:24] VITALS: BP 138/63; TEMP 98
== END 2018-01-11 16:28 | disposition home or self-care (01) ==
LOC: ONC/OP 10:56
PROVIDERS: ATTEND Internal Medicine Medical Oncology
DX: Z51.11 Encounter for antineoplastic chemotherapy (principal); C18.6 Malignant neoplasm of descending colon; E11.9 Type 2 diabetes mellitus without complications; E66.9 Obesity, unspecified; D64.9 Anemia, unspecified; Z79.4 Long term (current) use of insulin; Z79.899 Other long term (current) drug therapy
CPT/HCPCS: 96367; 96413; 96415; 96416; 96417; A4216; J0640; J1100; J2405; J7050; J7070; J9190; J9263

== ENCOUNTER 2018-01-25 10:27 | Day surgery (SDC) | payer OTHER, SELFPAY ==
[2018-01-25] MEDS ORDERED: Sodium Chloride 0.9% 20 ML ONE (10:37)
[2018-01-25 10:55] VITALS: BP 145/91; TEMP 98
[2018-01-25] MEDS ORDERED: WATER IVPB SCH (11:00)
[2018-01-25] MEDS ORDERED: Oxaliplatin 200 MG in Dextrose 5% in Water 500 ML IVPB SCH (11:00)
[2018-01-25] MEDS ORDERED: Leucovorin Calcium 50 MG in Dextrose 5% in Water 50 ML IVPB SCH (11:00)
[2018-01-25] MEDS ORDERED: FLUOROURACIL IVPB SCH (11:00)
[2018-01-25] MEDS ORDERED: [UNRECOGNIZED DRUG - OTHER] IVPB SCH (11:00)
[2018-01-25] MEDS ORDERED: DEXAMETHASONE IVPB SCH (11:00)
[2018-01-25] MEDS ORDERED: DEXTROSE 5% IVPB SCH (11:00)
[2018-01-25] MEDS ORDERED: ONDANSETRON IVPB SCH (11:00)
[2018-01-25] MEDS ORDERED: ADMIXTURE FEE IVPB SCH (11:00)
== END 2018-01-25 15:41 | disposition home or self-care (01) ==
LOC: ONC/OP 10:27
PROVIDERS: ATTEND Internal Medicine Medical Oncology
DX: Z51.11 Encounter for antineoplastic chemotherapy (principal); C18.6 Malignant neoplasm of descending colon; E66.9 Obesity, unspecified; E11.9 Type 2 diabetes mellitus without complications; I10 Essential (primary) hypertension; D64.9 Anemia, unspecified; Z79.4 Long term (current) use of insulin; Z79.899 Other long term (current) drug therapy; Z68.42 Body mass index [BMI] 45.0-49.9, adult
CPT/HCPCS: 96367; 96375; 96413; 96415; 96416; 96417; A4216; J0640; J1100; J2405; J7070; J9190; J9263

== ENCOUNTER 2018-02-08 10:41 | Day surgery (SDC) | payer OTHER ==
[2018-02-08] MEDS ORDERED: WATER IVPB SCH (11:15)
[2018-02-08] MEDS ORDERED: FLUOROURACIL IVPB SCH (11:15)
[2018-02-08] MEDS ORDERED: Oxaliplatin 200 MG in Dextrose 5% in Water 500 ML IVPB SCH (11:15)
[2018-02-08] MEDS ORDERED: Dexamethasone 10 MG, Ondansetron 2MG/ML MDV 10 MG, Admixture Fee 1 EACH in Sodium Chlor... IVPB SCH (11:15)
[2018-02-08] MEDS ORDERED: Leucovorin Calcium 50 MG, Admixture Fee 1 EACH in Dextrose 5% in Water 50 ML IVPB SCH (11:15)
[2018-02-08] MEDS ORDERED: DEXTROSE 5% IVPB SCH (11:15)
[2018-02-08 14:27] VITALS: BP 150/67; TEMP 98.1
== END 2018-02-08 14:59 | disposition home or self-care (01) ==
LOC: ONC/OP 10:41
PROVIDERS: ATTEND Internal Medicine Medical Oncology
DX: Z51.11 Encounter for antineoplastic chemotherapy (principal); C18.6 Malignant neoplasm of descending colon; E11.9 Type 2 diabetes mellitus without complications; E66.9 Obesity, unspecified; I10 Essential (primary) hypertension; J45.909 Unspecified asthma, uncomplicated; D64.9 Anemia, unspecified; Z79.01 Long term (current) use of anticoagulants; Z79.899 Other long term (current) drug therapy
CPT/HCPCS: 96367; 96375; 96413; 96415; 96416; 96417; J0640; J1100; J2405; J7050; J7070; J9190; J9263

== ENCOUNTER 2018-02-18 22:03 | Inpatient (IN) | payer OTHER, SELFPAY ==
[2018-02-18 22:52] LABS: #Eosinphils 0.1 thou/uL (0.0-0.7); #Lymphocytes 0.8 thou/uL (1.20-3.40); #Monocytes 0.5 thou/uL (0.11-0.59); #Neutrophils 6.6 thou/uL (1.40-6.50); %Basophils 0.3 % (0.0-1.0); %Eosinophils 1.7 % (0.0-10.0); %Lymphocytes 9.8 % (21.0-51.0); %Monocytes 6.5 % (0.0-10.0); %Neutrophils 81.7 % (42.0-75.0); Hemoglobin 8.2 g/dL (12.0-16.0); Mean Corpuscular Hemoglobin 27.9 pg (27.0-31.0); Mean Corpuscular Volume 84.5 fL (78.0-98.0); Mean Platelet Volume 7.8 fL (7.4-10.4); Platelet Count 212 thou/uL (130-400); Red Blood Cell (RBC) Count 2.93 mill/uL (4.20-5.40)
[2018-02-18 23:14] LABS: Bilirubin Negative (Negative); Blood, Urine Large (Negative); Clarity CLOUDY (Clear); Glucose, Urine (Dipstick) Negative (Negative); Leukocyte Moderate (Negative); Nitrite Positive (Negative); Protein, Urine (Dipstick) 300 mg/dL (Neg-Trace); Specific Gravity, Urine 1.018 (1.002-1.036); Urobilinogen 0.2 mg/dL (0.2-1.0); pH, Urine 5.5 (5.0-9.0)
[2018-02-18 23:15] LABS: ALT (SGPT) 9 U/L (8-55); AST (SGOT) 18 U/L (5-34); Albumin 3.3 g/dL (3.5-5.0); Alkaline Phosphatase 137 U/L (40-150); Anion Gap 11 mmol/L (10-20); BUN (Urea Nitrogen) 22 mg/dL (9.8-20.1); Bilirubin, Total 0.4 mg/dL (0.2-1.2); Calc. Creatinine Clearance 0 mL/min (70-130); Carbon Dioxide 23 mmol/L (22-29); Chloride 106 mmol/L (98-107); Estimated GFR-MDRD 40; Globulin 4.3 g/dL (2.4-3.5); Glucose 74 mg/dL (70-105); Magnesium 1.5 mg/dL (1.6-2.6); Potassium 3.4 mmol/L (3.5-5.1); Protein, Total 7.6 g/dL (6.0-8.3); Sodium 137 mmol/L (136-145)
--- NOTE | 2018-02-18 23:15 | RAD ---
RADIOGRAPH CHEST 1 VIEW: 02/18/18 HISTORY: 57-year-old female with fever. FINDINGS: There are no air space densities, pulmonary edema, pneumothorax, or cardiomegaly. The lateral costop hrenic angles are sharp. There is a left subclavian vascular access port with distal tip overlying th e region of the SVC. IMPRESSION: 1. No acute cardiopulmonary findings. 2. Left sided implantable vascular access port. arash [] POS: YASSINE
[2018-02-18 23:16] LABS: Bacteria/HPF Rare-Few HPF (None Seen); Pathc Cast-AUWi Flag 1.74 (0-2.49); Squamous Epithelial 0-3 HPF (0-3)
[2018-02-18 23:21] LABS: WBC/HPF 21-50 HPF (0-3)
[2018-02-18 23:22] LABS: Hyaline Casts/LPF 0-3 HYALINE CAST LPF (0-3 Hyaline); Other Casts/LPF 7-10 COARSE GRAN LPF (0-3 Hyaline)
[2018-02-18] MEDS ORDERED: Cefepime 2 GM in Sodium Chloride 0.9% 100 ML IVPB SCH (23:30)
[2018-02-19] MEDS ORDERED: Ondansetron HCl/PF 4 MG/2 ML Vial IVP PRN (03:19)
[2018-02-19] MEDS ORDERED: Acetaminophen 325 MG TAB PO PRN (03:19)
[2018-02-19 04:37] LABS: #Eosinphils 0.1 thou/uL (0.0-0.7); #Lymphocytes 1.3 thou/uL (1.20-3.40); #Monocytes 0.7 thou/uL (0.11-0.59); #Neutrophils 6.8 thou/uL (1.40-6.50); %Basophils 0.4 % (0.0-1.0); %Eosinophils 1.2 % (0.0-10.0); %Monocytes 7.6 % (0.0-10.0); %Neutrophils 75.7 % (42.0-75.0); Hemoglobin 8.1 g/dL (12.0-16.0); Mean Corpuscular HGB CONC 32.7 g/dL (32.0-36.0); Mean Corpuscular Hemoglobin 27.9 pg (27.0-31.0); Mean Corpuscular Volume 85.4 fL (78.0-98.0); Mean Platelet Volume 8.2 fL (7.4-10.4); Platelet Count 230 thou/uL (130-400); RBC Distribution Width 17.3 % (11.5-14.5); Red Blood Cell (RBC) Count 2.89 mill/uL (4.20-5.40); White Blood Cell (WBC) Count 8.9 thou/uL (4.8-10.8)
[2018-02-19 04:53] LABS: Prothrombin Time 91.9 SEC (12.0-14.7)
[2018-02-19 04:55] LABS: INR-International Normal Ratio 12.1
[2018-02-19] MEDS ORDERED: Magnesium 2 GM/NS 0.9% 100 ML 2 GM in Premix Bag 1 BAG IVPB SCH (05:00)
[2018-02-19 05:01] LABS: Anion Gap 10 mmol/L (10-20); BUN (Urea Nitrogen) 21 mg/dL (9.8-20.1); Calc. Creatinine Clearance 0 mL/min (70-130); Calcium 8.1 mg/dL (7.8-10.44); Carbon Dioxide 21 mmol/L (22-29); Chloride 109 mmol/L (98-107); Estimated GFR-MDRD 48; Glucose 72 mg/dL (70-105); Potassium 3.6 mmol/L (3.5-5.1); Sodium 136 mmol/L (136-145)
[2018-02-19 06:26] LABS: Prothrombin Time 96.3 SEC (12.0-14.7)
[2018-02-19 06:40] LABS: INR-International Normal Ratio 12.9
[2018-02-19] MEDS ORDERED: Prevnar 13-Val Conj/PF 0.5 ML SYRINGE IM ONE (07:30)
[2018-02-19] MEDS ORDERED: Phytonadione 5 MG in Sodium Chloride 0.9% 50 ML IVPB SCH (08:00)
--- NOTE | 2018-02-19 08:18 | CT ---
PRELIMINARY REPORT/[facility]/EMERGENCY AFTER HOURS PROCEDURE: EXAM: CT Abdomen and Pelvis With Intravenous Contrast CLINICAL HISTORY: 57 years old, female; Pain; Abdominal pain; Patient HX: F57 presents to ed with fever, 101.4. Pt has colon cancer, gets chemo every tuesday and has 4 months to go. Pt had blood clot in r leg earlier t his year and takes medication for it. Pt complaining of a rash under belly area. Pt has diabetes and high BP. Pt's last chemo was on and next chemo is 02/22. Pt denies: Cough, congestion, diarrhea, belly pain, dysuria. TECHNIQUE: Axial computed tomography images of the abdomen and pelvis with intravenous contrast. Coronal reforma tted images were created and reviewed. COMPARISON: No relevant prior studies available. FINDINGS: Lung bases: Unremarkable. No mass. No consolidation. ABDOMEN: Liver: There is mild hepatomegaly. Gallbladder and bile ducts: There are postoperative changes of cholecystectomy. No ductal dilation. Pancreas: Unremarkable. No mass. No ductal dilation. Spleen: Unremarkable. No splenomegaly. Adrenals: Unremarkable. No mass. Kidneys and ureters: There may be right renal peripelvic cysts. No hydronephrosis. Stomach and bowel: There are postoperative changes at the level of the sigmoid colon. No obstruction. No mucosal thickening. PELVIS: Appendix: No findings to suggest acute appendicitis. Bladder: Unremarkable. No mass. Reproductive: Unremarkable as visualized. ABDOMEN and PELVIS: Intraperitoneal space: Unremarkable. No free air. No significant fluid collection. Bones/joints: There is diffuse osteopenia and there are degenerative changes of the spine. No acute f racture. No dislocation. Soft tissues: There is fat stranding in the umbilical region in the subcutaneous fat layer. Likely ce llulitis with no visible discrete abscess. There are nodular soft tissue densities in the subcutaneou s fat layer of the ventral abdomen and pelvis, possibly the site of prior subcutaneous injections. Vasculature: Unremarkable. No abdominal aortic aneurysm. Lymph nodes: There is retroperitoneal lymphadenopathy with the largest left periaortic lymph node beatris suring 2.9 cm in short axis. Other findings: There are surgical clips in the left upper quadrant. IMPRESSION: 1. There is retroperitoneal lymphadenopathy with the largest left periaortic lymph node measuring 2.9 cm in short axis. 2. There is fat stranding in the umbilical region in the subcutaneous fat layer. Likely cellulitis wi th no visible discrete abscess. Thank you for allowing us to participate in the care of your patient. Dictated and Authenticated by: Manpreet Fuentes MD 02/19/2018 1:45 AM Central Time ([place] & [place]) FINAL REPORT CT ABDOMEN AND PELVIS WITH IV CONTRAST: Date: 02/18/18 FINDINGS/IMPRESSION: I agree with the preliminary report given by Verena. The retroperitoneal lymphadenopathy is new since 10/09/17. POS: YASSINE
[2018-02-19 10:26] LABS: Hemoglobin 7.7 g/dL (12.0-16.0); Platelet Count 176 thou/uL (130-400)
--- NOTE | 2018-02-19 10:28 | PDOC.PN ---
- Subjective Encounter Start Date: 02/19/18 Encounter Start Time: 07:40 Pt seen for followup re: sepsis. Denies fevers or chills. No nausea or vomiting. - Objective MAR Reviewed: Yes Vital Signs & Weight: Vital Signs (12 hours) Temp Pulse Resp BP Pulse Ox 02/19/18 07:48 97.5 F L 61 18 136/63 100 02/19/18 03:30 98.2 F 76 20 138/60 99 Weight Weight 291 lb 9.6 oz I&O: 02/18/18 02/19/18 02/20/18 06:59 06:59 06:59 Intake Total 340 Output Total 500 Balance -160 Result Diagrams: 02/19/18 04:15 02/19/18 04:15 Additional Labs: Accuchecks 02/19/18 05:49 POC Glucose 103 EKG Reviewed by me: Yes (Tele: NSR) Phys Exam - Physical Examination Morbid obesity HEENT: moist MMs, sclera anicteric, oral pharynx no lesions, 2+ tonsils Neck: no nodes, no JVD, supple, full ROM Respiratory: no wheezing, no rales, no rhonchi, clear to auscultation bilateral Cardiovascular: RRR, no rub S1, S2 Gastrointestinal: soft, non-tender, positive bowel sounds distention, abdominal dressing Neurological: moves all 4 limbs Psychiatric: normal affect, A&O x 3 Dx/Plan (1) Sepsis Code(s): A41.9 - SEPSIS, UNSPECIFIED ORGANISM Status: Acute Comment: due to UTI (2) UTI (urinary tract infection) Status: Acute Comment: continue cefepime, follow urine and blood cultures (3) Supratherapeutic INR Code(s): R79.1 - ABNORMAL COAGULATION PROFILE Status: Acute Comment: administer vit k 5 mg IV, follow INR (12.9 today) (4) Hypertension Code(s): I10 - ESSENTIAL (PRIMARY) HYPERTENSION Status: Chronic Comment: controlled (5) Morbid obesity with BMI of 45.0-49.9, adult Code(s): E66.01 - MORBID (SEVERE) OBESITY DUE TO EXCESS CALORIES; Z68.42 - BODY MASS INDEX (BMI) 45.0-49.9, ADULT Status: Chronic Comment: stable (6) Stage 3 chronic kidney disease Code(s): N18.3 - CHRONIC KIDNEY DISEASE, STAGE 3 (MODERATE) Status: Chronic Comment: creatinine improving - Plan * . Review of Systems - Review of Systems Constitutional: negative: fever, chills, sweats, weakness, malaise Respiratory: negative: Cough, Shortness of Breath, SOB with Excertion, Pleuritic Pain, Wheezing Cardiovascular: negative: chest pain, palpitations, orthopnea, paroxysmal nocturnal dyspnea, edema, light headedness Gastrointestinal: negative: Nausea, Vomiting, Abdominal Pain, Diarrhea, Constipation, Melena, Hematochezia Genitourinary: negative: Dysuria, Frequency, Incontinence, Hematuria, Retention Skin: negative: Rash, Lesions, Denny, Bruising - Medications/Allergies Allergies/Adverse Reactions: Allergies Allergy/AdvReac Type Severity Reaction Status Date / Time No Known Allergies Allergy Verified 02/19/18 06:43 Medications: Current Medications Acetaminophen (Tylenol) 650 mg PO Q4H PRN PRN Reason: Headache/Fever or Pain Cefepime HCl 1 gm/ Sodium (Chloride) 100 mls @ 200 mls/hr IVPB 1100,2300 [facility] Miscellaneous Medication (Pharmacy To Dose) 0 each PO ONE PRN PRN Reason: WARFARIN Stop: 03/21/18 03:31 Ondansetron HCl (Zofran) 4 mg IVP Q6H PRN PRN Reason: Nausea/Vomiting Sodium Chloride (Flush - Normal Saline) 10 ml IVF PRN PRN PRN Reason: Saline Flush
[2018-02-19] MEDS: Cefepime 1 GM in Sodium Chloride 0.9% 100 ML IVPB SCH ×2 (11:28→23:00)
[2018-02-19] MEDS ORDERED: Dextrose 5% in Water 1,000 ML IV PRN (12:09)
[2018-02-19] MEDS ORDERED: Dextrose 50% Abboject 50 ML SYRINGE SLOW IVP PRN (12:09)
[2018-02-19] MEDS: HumaLOG 300 UNITS/3 ML VIAL SC PRN ×2 (17:41→20:33)
[2018-02-19] MEDS ORDERED: VANCOMYCIN IVPB PRN (22:26)
[2018-02-20 05:32] LABS: INR-International Normal Ratio 1.7
[2018-02-20 05:37] LABS: #Eosinphils 0.2 thou/uL (0.0-0.7); #Lymphocytes 1.5 thou/uL (1.20-3.40); #Monocytes 0.6 thou/uL (0.11-0.59); %Basophils 0.5 % (0.0-1.0); %Eosinophils 4.2 % (0.0-10.0); %Monocytes 10.5 % (0.0-10.0); %Neutrophils 55.7 % (42.0-75.0); Hemoglobin 7.4 g/dL (12.0-16.0); Mean Corpuscular Hemoglobin 28.7 pg (27.0-31.0); Mean Corpuscular Volume 86.9 fL (78.0-98.0); Mean Platelet Volume 8.9 fL (7.4-10.4); Platelet Count 197 thou/uL (130-400); RBC Distribution Width 17.2 % (11.5-14.5); Red Blood Cell (RBC) Count 2.58 mill/uL (4.20-5.40); White Blood Cell (WBC) Count 5.3 thou/uL (4.8-10.8)
[2018-02-20 05:49] LABS: Anion Gap 8 mmol/L (10-20); BUN (Urea Nitrogen) 14 mg/dL (9.8-20.1); Calc. Creatinine Clearance 117 mL/min (70-130); Carbon Dioxide 21 mmol/L (22-29); Chloride 110 mmol/L (98-107); Estimated GFR-MDRD 50; Glucose 230 mg/dL (70-105); Potassium 3.9 mmol/L (3.5-5.1); Sodium 135 mmol/L (136-145)
[2018-02-20] MEDS: HumaLOG 300 UNITS/3 ML VIAL SC PRN ×3 (08:21→17:44)
[2018-02-20] MEDS ORDERED: Cyclobenzaprine 10 MG TAB PO PRN (10:37)
[2018-02-20] MEDS ORDERED: Nitroglycerin 0.4 MG TAB (25 Tab Bottle) SL PRN (10:37)
--- NOTE | 2018-02-20 10:49 | HP ---
PRIMARY CARE DOCTOR FOR THIS PATIENT: None reported. CODE STATUS: FULL CODE. TIME OF EVALUATION: 2:20 a.m. CHIEF COMPLAINT: Fever. HISTORY OF PRESENT ILLNESS: This is a 57-year-old female patient with past medical history of hyperl ipidemia, diabetes, hypertension, hypertension, VTE, colon cancer stage III. The patient has receive d chemo. The last one was on 02/08/2018, came to the hospital after having fever, associated with ch ills, 3 years, no alleviating factors. The patient's symptoms were moderate. She was found to have urinary tract infection. REVIEW OF SYSTEMS: Constitutional: The patient had fever, chills, generalized weakness. Respirator y: No cough, sputum production or shortness of breath. Cardiovascular: No chest pain, palpitation. Gastrointestinal: No nausea, vomiting, diarrhea or abdominal pain. Central Nervous System: No di zziness, headache or feeling lightheaded. Genitourinary: No burning with urination. Extremities: The patient has bilateral lower extremities, chronic changes. The patient also has abdominal wall fi stula that has been improving. All other systems were reviewed and are negative except for the findi ngs mentioned above. PAST MEDICAL HISTORY: Was mentioned in the HPI. PAST SURGICAL HISTORY: Cholecystectomy, tubal ligation, x2, amputation in the last two dig its of the right foot, hernia surgery, hemicolectomy. PSYCHIATRIC HISTORY: No previous history. SOCIAL HISTORY: Lives at home with family. No alcohol. FAMILY HISTORY: Coronary artery disease, malignancy. KNOWN ALLERGIES: No known drug allergies. REPORTED MEDICATIONS: Ferrous sulfate, Proventil, ondansetron, insulin 70/30, metoprolol, cyclobenza beti, tramadol, albuterol, hydrocodone, acetaminophen, nitroglycerin, Lasix. PHYSICAL EXAMINATION: VITAL SIGNS: Blood pressure 154/77 with heart rate 107, respiratory rate was 20, temperature 99.6. Pain 0/10, oxygen saturation 95 on room air. GENERAL APPEARANCE: The patient is alert, oriented, in mild distress due to symptoms. HEENT: Eyes, normal conjunctivae. Moist oral mucosa. Anicteric. NECK: No JVD. RESPIRATORY: Bilateral air entry. No rales, no wheezing. Symmetric expansion. CARDIOVASCULAR: Normal rate, regular rhythm. No murmurs, no gallop. No edema. ABDOMEN: Soft, normal bowel sounds. The patient does have an abdominal wall fistula that seems to b e healing. MUSCULOSKELETAL: Baseline range of motion and strength. No tenderness. SKIN: Warm and intact. No pallor, no rash, no redness. The patient has bilateral lower extremity c hronic changes. Peripheral pulses are present. Capillary refill seems to be intact. NEUROLOGIC: Baseline sensorium. No evidence of any new focal weakness. Baseline speech. Cranial n erves seem to be intact. PSYCHIATRIC: The patient is in a good mood. No anxiety, oriented, optimal judgment. IMAGING: EKG was reviewed. The patient has normal sinus rhythm, ventricular rate 98, KS 114, QRS 90 , QT corrected 459. RADIOLOGY: The patient has retroperitoneal lymphadenopathy on the CAT scan with largest left periaor tic lymph node measuring 2.9 in short axis. There is fat stranding in the umbilical region, subcutan eous fat layer, likely cellulitis with no visible discrete abscess. LABORATORY DATA: Labs were reviewed. The patient's white count 8.0, hemoglobin 8.2, MCV 84, platele t count 212. Chemistry: Sodium 137, potassium 3.4, chloride 106, carbon dioxide 23, anion gap 11, B UN 22. Creatinine 1.36, in previous admission was 1.42 that is about the same level. GFR is 40, glu cose 74. Magnesium 1.5, which is low. Urine was positive for white count 21 to 50. ASSESSMENT AND PLAN: The patient will be placed in the hospital with following medical problems: 1. Urinary tract infection. Urinalysis is positive. The patient has fever, also tachycardia, . 2. For sepsis, we will place the patient on antibiotic. We will reconcile as per culture results. 3. Normocytic anemia, this is chronic, likely secondary to underlying chronic kidney disease. 4. Chronic kidney disease stage 3. The patient has GFR of 40, creatinine 1.36 about the same level that she had before. 5. I will monitor levels of kidney function. We will consult Nephrology if needed. 6. Hypomagnesemia. The patient has magnesium 1.5. We will give magnesium. 7. Colon cancer stage III, patient follows with her oncologist as outpatient. Last chemo was in as per patient report. Therefore, the patient may be immunosuppressed and this makes her wea k to fight infection and puts her at high risk of complications from infection. 8. History of diabetes, controlled. Reconcile home medications, sliding scale for optimal control. 9. Uncontrolled hypertension on presentation with systolic blood pressure 154. We will reconcile ho ma medications. We will not treat very aggressively since patient is septic. 10. Deep venous thrombosis prophylaxis.
[2018-02-20] MEDS: Simethicone Chewable 80 MG TAB PO PRN (11:08)
[2018-02-20] MEDS: Cefepime 1 GM in Sodium Chloride 0.9% 100 ML IVPB SCH ×2 (11:08→23:24)
[2018-02-20 12:19] LABS: Hemoglobin 7.9 g/dL (12.0-16.0)
--- NOTE | 2018-02-20 14:05 | PDOC.PN ---
- Subjective Encounter Start Date: 02/20/18 Encounter Start Time: 07:20 Pt seen for followup re: sepsis. Feels better. No nausea or vomiting. c/o abdo bloating. - Objective MAR Reviewed: Yes Vital Signs & Weight: Vital Signs (12 hours) Temp Pulse Resp BP Pulse Ox 02/20/18 11:07 97.8 F 73 20 148/63 H 02/20/18 07:35 97.7 F 65 20 158/67 H 02/20/18 04:00 99.0 F 61 18 124/56 L 94 L Weight Admit Weight 291 lb 9.6 oz Weight 291 lb I&O: 02/19/18 02/20/18 02/21/18 06:59 06:59 06:59 Intake Total 340 1980 Output Total 500 2250 Balance -160 -270 Result Diagrams: 02/20/18 12:04 02/20/18 04:46 Additional Labs: Accuchecks 02/20/18 02/20/18 02/20/18 10:57 05:33 00:11 POC Glucose 330 H 263 H 253 H 02/19/18 02/19/18 20:20 17:08 POC Glucose 315 H 282 H EKG Reviewed by me: Yes (Tele: NSR) Phys Exam - Physical Examination Morbid obesity HEENT: moist MMs, sclera anicteric, oral pharynx no lesions, 2+ tonsils Neck: no nodes, no JVD, supple, full ROM Respiratory: no wheezing, no rales, no rhonchi, clear to auscultation bilateral Cardiovascular: RRR, no rub S1, S2 Gastrointestinal: soft, non-tender, no distention, positive bowel sounds Neurological: moves all 4 limbs Psychiatric: normal affect, A&O x 3 Dx/Plan (1) Sepsis Code(s): A41.9 - SEPSIS, UNSPECIFIED ORGANISM Status: Acute Comment: Improving, due to UTI (2) UTI (urinary tract infection) Status: Acute Comment: continue cefepime (3) Hypertension Code(s): I10 - ESSENTIAL (PRIMARY) HYPERTENSION Status: Chronic Comment: stable (4) Stage 3 chronic kidney disease Code(s): N18.3 - CHRONIC KIDNEY DISEASE, STAGE 3 (MODERATE) Status: Chronic Comment: creatinine improving (5) Morbid obesity with BMI of 45.0-49.9, adult Code(s): E66.01 - MORBID (SEVERE) OBESITY DUE TO EXCESS CALORIES; Z68.42 - BODY MASS INDEX (BMI) 45.0-49.9, ADULT Status: Chronic Comment: stable (6) Supratherapeutic INR Code(s): R79.1 - ABNORMAL COAGULATION PROFILE Status: Resolved Comment: INR improved today (1.7) - Plan * . Review of Systems - Review of Systems Respiratory: negative: Cough, Shortness of Breath, SOB with Excertion, Pleuritic Pain, Wheezing Cardiovascular: negative: chest pain, palpitations, orthopnea, paroxysmal nocturnal dyspnea, edema, light headedness Gastrointestinal: Other (bloating). negative: Nausea, Vomiting, Abdominal Pain , Diarrhea, Constipation, Melena, Hematochezia Genitourinary: negative: Dysuria, Frequency, Incontinence, Hematuria, Retention Skin: negative: Rash, Lesions, Denny, Bruising - Medications/Allergies Allergies/Adverse Reactions: Allergies Allergy/AdvReac Type Severity Reaction Status Date / Time No Known Allergies Allergy Verified 02/19/18 06:43 Medications: Current Medications Acetaminophen (Tylenol) 650 mg PO Q4H PRN PRN Reason: Headache/Fever or Pain Cholecalciferol (Vitamin D3) 10,000 units PO DAILY [facility] Cyclobenzaprine HCl (Flexeril) 10 mg PO TID PRN PRN Reason: Muscle Spasm Dextrose/Water (Dextrose 50%) 25 gm SLOW IVP PRN PRN PRN Reason: Hypoglycemia Famotidine (Pepcid) 20 mg PO DAILY [facility] Ferrous Sulfate (Feosol) 325 mg PO DAILY [facility] Furosemide (Lasix) 20 mg PO DAILY [facility] Glucagon (Glucagon) 1 mg IM PRN PRN PRN Reason: Hypoglycemia Cefepime HCl 1 gm/ Sodium (Chloride) 100 mls @ 200 mls/hr IVPB 1100,2300 [facility] Last Admin: 02/20/18 11:08 Dose: 100 mls Dextrose/Water (D5w) 1,000 mls @ 0 mls/hr IV .Q0M PRN PRN Reason: Hypoglycemia Vancomycin HCl 2 gm/ Sodium (Chloride) 500 mls @ 250 mls/hr IVPB 2300 [facility] Last Admin: 02/19/18 23:08 Dose: 500 mls Insulin Human Isoph/Insulin Regular (Humulin 70/30) 50 units SC BID [facility] Insulin Human Lispro (Humalog) 0 units SC .MILD SLIDING SCALE PRN PRN Reason: Mild Correctional Scale Last Admin: 02/20/18 11:08 Dose: 5 unit Metoprolol Tartrate (Lopressor) 12.5 mg PO BID [facility] Miscellaneous Medication (Pharmacy To Dose) 0 each PO ONE PRN PRN Reason: WARFARIN Stop: 03/21/18 03:31 Miscellaneous Medication (Pharmacy To Dose) 1 each IVPB PRN PRN PRN Reason: BACTEREMIA Nitroglycerin (Nitrostat) 0.4 mg SL PRN PRN PRN Reason: Chest Pain Ondansetron HCl (Zofran) 4 mg IVP Q6H PRN PRN Reason: Nausea/Vomiting Quinapril HCl (Accupril) 5 mg PO DAILY [facility] Simethicone (Mylicon Chewable) 80 mg PO BID PRN PRN Reason: Gas Pain Last Admin: 02/20/18 11:08 Dose: 80 mg Sodium Chloride (Flush - Normal Saline) 10 ml IVF PRN PRN PRN Reason: Saline Flush Last Admin: 02/20/18 08:21 Dose: 10 ml Tramadol HCl (Ultram) 50 mg PO Q6H PRN PRN Reason: Pain 4-6 Warfarin Sodium (Coumadin) 2.5 mg PO 1700 [facility]AN
[2018-02-20] MEDS: Warfarin Sodium 2.5 MG TAB PO SCH (17:45)
[2018-02-20] MEDS: Insulin NPH/Reg Insulin Hm 300 UNITS/3 ML VIAL SC SCH (21:09)
[2018-02-20] MEDS: Metoprolol Tartrate 25 MG TAB PO SCH (21:16)
--- NOTE | 2018-02-21 00:52 | CON ---
DATE OF CONSULTATION: 02/20/2018 REASON FOR CONSULTATION: Colon cancer. HISTORY OF PRESENT ILLNESS: Ms. 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 Her last treatment was 02/08/2018 . She also has a history of DVT, morbid obesity, and diabetes. She presented to the emergency room with complaints of fever and was diagnosed with a urinary tract infection. In the emergency room, a PT and INR rechecked, INR was 12.1. The patient has been on Coumadin. She was being [facility], but lost her insurance and has not had an INR apparently in several weeks. We were attempting to obtain Xarelto from the side splitter for her. Her Coumadin was stopped and she was ad mitted for further treatment. She was started on IV antibiotics and remains afebrile. She is due fo r her fifth cycle of FOLFOX on Tuesday. PAST MEDICAL HISTORY: 1. Stage IIIB adenocarcinoma of the colon. 2. DVT. 3. Chronic kidney disease. 4. Diabetes mellitus. 5. Obesity. 6. Hypertension. 7. Anxiety and depression. 8. Chronic anemia. PAST SURGICAL HISTORY: 1. x2. 2. Tubal ligation. 3. Laparoscopic cholecystectomy. 4. Hernia repair. 5. Toe amputation. ALLERGIES: No known drug allergies. HOME MEDICATIONS: 1. Citalopram 20 mg daily. 2. Compazine p.r.n. 3. Flexeril 10 mg p.r.n. 4. Docusate sodium 100 mg b.i.d. 5. Ferrous sulfate 325 daily. 6. Lasix 20 mg b.i.d. 7. Insulin b.i.d. 8. Metoprolol tartrate 12.5 mg b.i.d. 9. MiraLax daily. 10. Zofran p.r.n., 11. Quinapril 5 mg daily. 12. Tramadol p.r.n. 13. Coumadin 5 mg daily. FAMILY HISTORY: Noncontributory. SOCIAL HISTORY: . Has 2 children, lives with her child. No alcohol, tobacco or illicit drug use. REVIEW OF SYSTEMS: Constitutional: Denies fever, chills, night sweats. Eyes: No blurred or double vision. ENT: No pain, hoarseness, sore throat, or dysphagia. Cardiovascular: No chest pain, palp itations, or syncope. Respiratory: No shortness breath, dyspnea on exertion or orthopnea. Gastroin testinal: No nausea, vomiting, diarrhea, or constipation. Positive for abdominal pain. Genitourina ry: No dysuria or hematuria. Musculoskeletal: No joint or back pain. Skin: Positive for rash. H ematologic: No bleeding, bruising or clotting. Neurologic: Denies weakness, headache, numbness, ti ngling or seizure activity. PHYSICAL EXAMINATION: VITAL SIGNS: Temperature is 97.8, pulse is 73, respiratory rate 20, blood pressure is 148/63. GENERAL: This is an obese female, in no acute distress. HEENT: Normocephalic, atraumatic. Pupils are equal and reactive to light. NECK: Supple. CARDIOVASCULAR: Regular rate and rhythm. LUNGS: Clear anterior. ABDOMEN: Obese. Bowel sounds are positive. EXTREMITIES: She has 1+ bilateral lower extremity edema. SKIN: No rash. HEMATOLOGIC: No petechia or purpura. NEUROLOGIC: Nonfocal. PSYCHIATRIC: The patient is alert and oriented and appropriate. PERTINENT LABORATORY AND X-RAYS: Current WBCs 5.3, hemoglobin 7.9, hematocrit 24.3, platelet count 1 97,000, 55% neutrophils, 29% lymphocytes. PT is 20, INR is 1.7. Sodium is 135, potassium 3.9, chlor ivan 110, CO2 is 21, BUN is 14, creatinine 1.12, calcium is 8, magnesium is 1.5, total bilirubin is 0. 4, AST is 18, ALT is 9, alkaline phosphatase is 137, serum total protein is 7.6, albumin 3.3, globuli n 4.3. Urine was positive for leukocyte esterase and nitrites, rare bacteria. CT scan of the abdome n and pelvis showed retroperitoneal lymphadenopathy. ASSESSMENT: 1. Stage IIIB colon cancer with recent chemotherapy. 2. History of deep venous thrombosis with a supratherapeutic INR. 3. Urinary tract infection. 4. Anemia of chronic disease. DISCUSSION: The patient's Coumadin has been held, but is being resumed today as her INR is 1.7. Our office is attempting to obtain Xarelto for the patient from the side splitter. She is having difficu lty monitoring her INR and has no primary care physician, nor insurance. She will have to remain on Coumadin until Xarelto has been obtained. Her hemoglobin has stabilized and is now trending upwards, no transfusion at this time. She is due for chemotherapy on Tuesday. She received her chemothera py in this facility. I would assuming that she remains afebrile. We would plan to give the cycle pr ior to her discharge. Thank you for the consult. We will follow along closely.
[2018-02-21 05:18] LABS: #Basophils 0.1 thou/uL (0.0-0.2); #Eosinphils 0.3 thou/uL (0.0-0.7); #Lymphocytes 1.7 thou/uL (1.20-3.40); #Monocytes 0.4 thou/uL (0.11-0.59); #Neutrophils 2.4 thou/uL (1.40-6.50); %Basophils 1.3 % (0.0-1.0); %Eosinophils 6.3 % (0.0-10.0); %Lymphocytes 34.9 % (21.0-51.0); %Monocytes 7.8 % (0.0-10.0); %Neutrophils 49.7 % (42.0-75.0); Hemoglobin 7.6 g/dL (12.0-16.0); Mean Corpuscular HGB CONC 32.3 g/dL (32.0-36.0); Mean Corpuscular Volume 86.6 fL (78.0-98.0); Mean Platelet Volume 8.5 fL (7.4-10.4); Platelet Count 195 thou/uL (130-400); RBC Distribution Width 17.2 % (11.5-14.5); Red Blood Cell (RBC) Count 2.72 mill/uL (4.20-5.40); White Blood Cell (WBC) Count 4.9 thou/uL (4.8-10.8)
[2018-02-21 05:36] LABS: INR-International Normal Ratio 1.4; Prothrombin Time 17.2 SEC (12.0-14.7)
[2018-02-21 05:40] LABS: Anion Gap 10 mmol/L (10-20); BUN (Urea Nitrogen) 11 mg/dL (9.8-20.1); Calc. Creatinine Clearance 130 mL/min (70-130); Calcium 8.6 mg/dL (7.8-10.44); Carbon Dioxide 22 mmol/L (22-29); Chloride 110 mmol/L (98-107); Estimated GFR-MDRD 57; Glucose 177 mg/dL (70-105); Potassium 3.8 mmol/L (3.5-5.1); Sodium 138 mmol/L (136-145)
[2018-02-21] MEDS: Ferrous Sulfate 325 MG TAB PO SCH (09:51)
[2018-02-21] MEDS: Metoprolol Tartrate 25 MG TAB PO SCH ×2 (09:51→20:31)
[2018-02-21] MEDS: Famotidine 20 MG TAB PO SCH (09:51)
[2018-02-21] MEDS: Furosemide 20 MG TAB PO SCH (09:51)
[2018-02-21] MEDS: traMADol HCl 50 MG TAB PO PRN (09:53)
[2018-02-21] MEDS: HumaLOG 300 UNITS/3 ML VIAL SC PRN (09:54)
[2018-02-21] MEDS: Insulin NPH/Reg Insulin Hm 300 UNITS/3 ML VIAL SC SCH ×3 (09:56→20:32)
[2018-02-21] MEDS: Cefepime 1 GM in Sodium Chloride 0.9% 100 ML IVPB SCH (12:35)
--- NOTE | 2018-02-21 14:36 | PDOC.PN ---
- Subjective Encounter Start Date: 02/21/18 Encounter Start Time: 09:40 Pt seen for followup re; UTI. Denies chest pain, shortness of breath, fevers or chills. - Objective MAR Reviewed: Yes Vital Signs & Weight: Vital Signs (12 hours) Temp Pulse Resp BP Pulse Ox 02/21/18 12:00 97.8 F 69 20 169/70 H 100 02/21/18 07:22 97.8 F 64 16 162/72 H 98 02/21/18 03:20 98.3 F 62 18 123/60 98 Weight Admit Weight 291 lb 9.6 oz Weight 285 lb I&O: 02/20/18 02/21/18 02/22/18 06:59 06:59 06:59 Intake Total 1979 1930 Output Total 2250 3450 600 Balance -270 -1520 -600 Result Diagrams: 02/21/18 05:08 02/21/18 05:08 Additional Labs: Accuchecks 02/21/18 02/21/18 02/21/18 12:18 11:23 05:30 POC Glucose 162 H 187 H 188 H 02/20/18 02/20/18 21:09 16:47 POC Glucose 347 H 373 H EKG Reviewed by me: Yes (Tele: NSR) Phys Exam - Physical Examination morbid obesity HEENT: moist MMs, sclera anicteric, oral pharynx no lesions, 2+ tonsils Neck: no nodes, no JVD, supple, full ROM Respiratory: no wheezing, no rales, no rhonchi, clear to auscultation bilateral Cardiovascular: RRR, no rub S1, S2 Gastrointestinal: soft, non-tender, positive bowel sounds distention Neurological: moves all 4 limbs Psychiatric: normal affect, A&O x 3 Dx/Plan (1) UTI (urinary tract infection) Status: Acute Comment: discontinue cefepime, start nitrofurantoin for E. coli UTI. (2) Hypertension Code(s): I10 - ESSENTIAL (PRIMARY) HYPERTENSION Status: Chronic Comment: monitor vital signs, titrate antihypertensives as needed (3) Stage 3 chronic kidney disease Code(s): N18.3 - CHRONIC KIDNEY DISEASE, STAGE 3 (MODERATE) Status: Chronic Comment: stable (4) Morbid obesity with BMI of 45.0-49.9, adult Code(s): E66.01 - MORBID (SEVERE) OBESITY DUE TO EXCESS CALORIES; Z68.42 - BODY MASS INDEX (BMI) 45.0-49.9, ADULT Status: Chronic Comment: stable (5) Supratherapeutic INR Code(s): R79.1 - ABNORMAL COAGULATION PROFILE Status: Resolved Comment: INR 1.4 today (6) Sepsis Code(s): A41.9 - SEPSIS, UNSPECIFIED ORGANISM Status: Resolved - Plan * . Review of Systems - Review of Systems Constitutional: negative: fever, chills, sweats, weakness, malaise Respiratory: negative: Cough, Shortness of Breath, SOB with Excertion, Pleuritic Pain, Wheezing Cardiovascular: negative: chest pain, palpitations, orthopnea, paroxysmal nocturnal dyspnea, edema, light headedness Gastrointestinal: negative: Nausea, Vomiting, Abdominal Pain, Diarrhea, Constipation, Melena, Hematochezia Genitourinary: negative: Dysuria, Frequency, Incontinence, Hematuria, Retention Skin: negative: Rash, Lesions, Denny, Bruising - Medications/Allergies Allergies/Adverse Reactions: Allergies Allergy/AdvReac Type Severity Reaction Status Date / Time No Known Allergies Allergy Verified 02/19/18 06:43 Medications: Current Medications Acetaminophen (Tylenol) 650 mg PO Q4H PRN PRN Reason: Headache/Fever or Pain Cholecalciferol (Vitamin D3) 10,000 units PO DAILY [facility] Last Admin: 02/21/18 10:01 Dose: Not Given Cyclobenzaprine HCl (Flexeril) 10 mg PO TID PRN PRN Reason: Muscle Spasm Dextrose/Water (Dextrose 50%) 25 gm SLOW IVP PRN PRN PRN Reason: Hypoglycemia Famotidine (Pepcid) 20 mg PO DAILY [facility] Last Admin: 02/21/18 09:51 Dose: 20 mg Ferrous Sulfate (Feosol) 325 mg PO DAILY [facility] Last Admin: 02/21/18 09:51 Dose: 325 mg Furosemide (Lasix) 20 mg PO DAILY [facility] Last Admin: 02/21/18 09:51 Dose: 20 mg Glucagon (Glucagon) 1 mg IM PRN PRN PRN Reason: Hypoglycemia Cefepime HCl 1 gm/ Sodium (Chloride) 100 mls @ 200 mls/hr IVPB 1100,2300 [facility] Last Admin: 02/21/18 12:35 Dose: 100 mls Dextrose/Water (D5w) 1,000 mls @ 0 mls/hr IV .Q0M PRN PRN Reason: Hypoglycemia Vancomycin HCl 2 gm/ Sodium (Chloride) 500 mls @ 250 mls/hr IVPB 2300 [facility] Last Admin: 02/20/18 23:24 Dose: 500 mls Insulin Human Isoph/Insulin Regular (Humulin 70/30) 50 units SC BID [facility] Last Admin: 02/21/18 10:52 Dose: 50 unit Insulin Human Lispro (Humalog) 0 units SC .MILD SLIDING SCALE PRN PRN Reason: Mild Correctional Scale Last Admin: 02/21/18 09:54 Dose: 2 unit Metoprolol Tartrate (Lopressor) 12.5 mg PO BID [facility] Last Admin: 02/21/18 09:51 Dose: 12.5 mg Miscellaneous Medication (Pharmacy To Dose) 0 each PO ONE PRN PRN Reason: WARFARIN Stop: 03/21/18 03:31 Miscellaneous Medication (Pharmacy To Dose) 1 each IVPB PRN PRN PRN Reason: BACTEREMIA Nitroglycerin (Nitrostat) 0.4 mg SL PRN PRN PRN Reason: Chest Pain Ondansetron HCl (Zofran) 4 mg IVP Q6H PRN PRN Reason: Nausea/Vomiting Quinapril HCl (Accupril) 5 mg PO DAILY [facility] Last Admin: 02/21/18 09:54 Dose: 5 mg Simethicone (Mylicon Chewable) 80 mg PO BID PRN PRN Reason: Gas Pain Last Admin: 02/20/18 11:08 Dose: 80 mg Sodium Chloride (Flush - Normal Saline) 10 ml IVF PRN PRN PRN Reason: Saline Flush Last Admin: 02/21/18 09:56 Dose: 10 ml Tramadol HCl (Ultram) 50 mg PO Q6H PRN PRN Reason: Pain 4-6 Last Admin: 02/21/18 09:53 Dose: 50 mg Warfarin Sodium (Coumadin) 2.5 mg PO 1700 [facility] Last Admin: 02/20/18 17:45 Dose: 2.5 mg
[2018-02-21] MEDS ORDERED: hydrALAZINE 20 MG/ML VIAL SLOW IVP PRN (14:48)
[2018-02-21] MEDS: Warfarin Sodium 2.5 MG TAB PO SCH (18:12)
[2018-02-21] MEDS: Nitrofurantoin Monohyd/M-Cryst 100 MG CAP PO SCH (20:31)
[2018-02-22 04:19] LABS: #Eosinphils 0.3 thou/uL (0.0-0.7); #Lymphocytes 1.7 thou/uL (1.20-3.40); #Monocytes 0.5 thou/uL (0.11-0.59); #Neutrophils 2.9 thou/uL (1.40-6.50); %Basophils 0.7 % (0.0-1.0); %Eosinophils 5.3 % (0.0-10.0); %Lymphocytes 31.9 % (21.0-51.0); %Monocytes 8.9 % (0.0-10.0); %Neutrophils 53.1 % (42.0-75.0); Hemoglobin 7.6 g/dL (12.0-16.0); Mean Corpuscular HGB CONC 32.5 g/dL (32.0-36.0); Mean Corpuscular Hemoglobin 28.1 pg (27.0-31.0); Mean Corpuscular Volume 86.5 fL (78.0-98.0); Mean Platelet Volume 8.6 fL (7.4-10.4); Platelet Count 195 thou/uL (130-400); RBC Distribution Width 17.1 % (11.5-14.5); Red Blood Cell (RBC) Count 2.69 mill/uL (4.20-5.40); White Blood Cell (WBC) Count 5.4 thou/uL (4.8-10.8)
[2018-02-22 04:23] LABS: Anion Gap 9 mmol/L (10-20); BUN (Urea Nitrogen) 14 mg/dL (9.8-20.1); Calc. Creatinine Clearance 121 mL/min (70-130); Calcium 8.7 mg/dL (7.8-10.44); Carbon Dioxide 26 mmol/L (22-29); Chloride 109 mmol/L (98-107); Estimated GFR-MDRD 54; Glucose 117 mg/dL (70-105); Potassium 3.7 mmol/L (3.5-5.1); Sodium 140 mmol/L (136-145)
[2018-02-22 05:08] LABS: INR-International Normal Ratio 1.3; Prothrombin Time 16.5 SEC (12.0-14.7)
[2018-02-22] MEDS: Insulin NPH/Reg Insulin Hm 300 UNITS/3 ML VIAL SC SCH ×2 (09:21→20:42)
[2018-02-22] MEDS: Furosemide 20 MG TAB PO SCH (09:22)
[2018-02-22] MEDS: Metoprolol Tartrate 25 MG TAB PO SCH ×2 (09:22→20:46)
[2018-02-22] MEDS: Nitrofurantoin Monohyd/M-Cryst 100 MG CAP PO SCH ×2 (09:22→20:46)
[2018-02-22] MEDS: Ferrous Sulfate 325 MG TAB PO SCH (09:22)
[2018-02-22] MEDS: Famotidine 20 MG TAB PO SCH (09:23)
[2018-02-22] MEDS ORDERED: Nystatin Cream 30 GM TUBE TOP SCH (11:00)
[2018-02-22] MEDS ORDERED: Dexamethasone 10 MG, Ondansetron 2MG/ML MDV 10 MG in Sodium Chloride 0.9% 50 ML IVPB SCH (13:15)
[2018-02-22] MEDS ORDERED: FLUOROURACIL IVPB SCH (13:30)
[2018-02-22] MEDS ORDERED: Oxaliplatin 200 MG in Dextrose 5% in Water 500 ML IVPB SCH (13:30)
[2018-02-22] MEDS ORDERED: DEXTROSE 5% IVPB SCH (13:30)
[2018-02-22] MEDS ORDERED: Leucovorin Calcium 50 MG in Dextrose 5% in Water 50 ML IVPB SCH (13:30)
[2018-02-22] MEDS ORDERED: WATER IVPB SCH (13:30)
[2018-02-22] MEDS ORDERED: Dexamethasone Sod Phosphate 10 MG, Ondansetron 2MG/ML MDV 10 MG in Sodium Chloride 0.9%... IVPB SCH (13:45)
[2018-02-22] MEDS ORDERED: Warfarin Sodium 5 MG TAB PO SCH (17:00)
[2018-02-22] MEDS: Simethicone Chewable 80 MG TAB PO PRN (17:14)
--- NOTE | 2018-02-22 18:19 | PDOC.PN ---
- Subjective Encounter Start Date: 02/22/18 Encounter Start Time: 07:20 Pt seen for followup re: UTI. feels better. No fevers or chills. - Objective Vital Signs & Weight: Vital Signs (12 hours) Temp Pulse Resp BP BP Pulse Ox 02/22/18 15:30 97.8 F 64 20 125/57 L 97 02/22/18 08:00 98.2 F 74 20 144/65 H 98 Weight Admit Weight 291 lb 9.6 oz Weight 293 lb I&O: 02/21/18 02/22/18 02/23/18 06:59 06:59 06:59 Intake Total 1930 900 Output Total 3450 600 Balance -1520 300 Result Diagrams: 02/22/18 03:50 02/22/18 03:50 Additional Labs: Accuchecks 02/22/18 02/22/18 02/22/18 16:01 12:40 06:08 POC Glucose 146 H 109 122 H 02/21/18 20:31 POC Glucose 165 H Phys Exam - Physical Examination Morbid obesity HEENT: moist MMs, sclera anicteric, oral pharynx no lesions, 2+ tonsils Neck: no nodes, no JVD, supple, full ROM Respiratory: clear to auscultation bilateral Cardiovascular: RRR, no rub S1, s2 Gastrointestinal: soft, non-tender, positive bowel sounds distention Neurological: moves all 4 limbs Psychiatric: normal affect, A&O x 3 Dx/Plan (1) UTI (urinary tract infection) Status: Acute Comment: continue nitrofurantoin for E. coli UTI. (2) Hypertension Code(s): I10 - ESSENTIAL (PRIMARY) HYPERTENSION Status: Chronic Comment: controlled (3) Stage 3 chronic kidney disease Code(s): N18.3 - CHRONIC KIDNEY DISEASE, STAGE 3 (MODERATE) Status: Chronic Comment: stable (4) Morbid obesity with BMI of 45.0-49.9, adult Code(s): E66.01 - MORBID (SEVERE) OBESITY DUE TO EXCESS CALORIES; Z68.42 - BODY MASS INDEX (BMI) 45.0-49.9, ADULT Status: Chronic Comment: stable (5) Supratherapeutic INR Code(s): R79.1 - ABNORMAL COAGULATION PROFILE Status: Resolved (6) Sepsis Code(s): A41.9 - SEPSIS, UNSPECIFIED ORGANISM Status: Resolved Comment: INR 1.3 today, start Lovenox bridge - Plan * . Review of Systems - Review of Systems Respiratory: negative: Cough, Shortness of Breath, SOB with Excertion, Pleuritic Pain, Wheezing Cardiovascular: negative: chest pain, palpitations, orthopnea, paroxysmal nocturnal dyspnea, edema, light headedness Gastrointestinal: negative: Nausea, Vomiting, Abdominal Pain, Diarrhea, Constipation, Melena, Hematochezia Genitourinary: negative: Dysuria, Frequency, Incontinence, Hematuria, Retention Skin: negative: Rash, Lesions, Denny, Bruising Neurological: negative: Weakness, Numbness, Incoordination, Change in Speech, Confusion, Seizures - Medications/Allergies Allergies/Adverse Reactions: Allergies Allergy/AdvReac Type Severity Reaction Status Date / Time No Known Allergies Allergy Verified 02/19/18 06:43 Medications: Current Medications Acetaminophen (Tylenol) 650 mg PO Q4H PRN PRN Reason: Headache/Fever or Pain Cholecalciferol (Vitamin D3) 10,000 units PO DAILY [facility] Last Admin: 02/22/18 12:41 Dose: 10,000 units Cyclobenzaprine HCl (Flexeril) 10 mg PO TID PRN PRN Reason: Muscle Spasm Dextrose/Water (Dextrose 50%) 25 gm SLOW IVP PRN PRN PRN Reason: Hypoglycemia Enoxaparin Sodium (Lovenox) 100 mg SC 0900,2100 [facility] Enoxaparin Sodium (Lovenox) 30 mg SC 0900,2100 [facility] Famotidine (Pepcid) 20 mg PO DAILY [facility] Last Admin: 02/22/18 09:23 Dose: 20 mg Ferrous Sulfate (Feosol) 325 mg PO DAILY [facility] Last Admin: 02/22/18 09:22 Dose: 325 mg Furosemide (Lasix) 20 mg PO DAILY [facility] Last Admin: 02/22/18 09:22 Dose: 20 mg Glucagon (Glucagon) 1 mg IM PRN PRN PRN Reason: Hypoglycemia Hydralazine HCl (Apresoline) 10 mg SLOW IVP Q6H PRN PRN Reason: SBP Greater Than 170 Dextrose/Water (D5w) 1,000 mls @ 0 mls/hr IV .Q0M PRN PRN Reason: Hypoglycemia Oxaliplatin 200 mg/ Dextrose/ (Water) 540 mls @ 270 mls/hr IVPB WILLCALL [facility] Stop: 02/22/18 20:00 Last Admin: 02/22/18 15:26 Dose: 540 mls Fluorouracil 950 mg/ Dextrose/ (Water) 69 mls @ 138 mls/hr IVPB [facility] Stop: 02/22/18 20:00 Last Admin: 02/22/18 17:38 Dose: 69 mls Leucovorin Calcium 50 mg/ (Dextrose/Water) 50 mls @ 100 mls/hr IVPB [facility] Stop: 02/22/18 20:00 Last Admin: 02/22/18 17:38 Dose: 50 mls Dexamethasone Sodium Phosphate 10 mg/ Ondansetron HCl 10 mg/Sodium Chloride 56 mls @ 112 mls/hr IVPB [facility]CALL [facility] Stop: 02/22/18 23:59 Last Admin: 02/22/18 14:28 Dose: 56 mls Insulin Human Isoph/Insulin Regular (Humulin 70/30) 50 units SC BID [facility] Last Admin: 02/22/18 09:21 Dose: 50 unit Insulin Human Lispro (Humalog) 0 units SC .MILD SLIDING SCALE PRN PRN Reason: Mild Correctional Scale Last Admin: 02/21/18 09:54 Dose: 2 unit Metoprolol Tartrate (Lopressor) 12.5 mg PO BID [facility] Last Admin: 02/22/18 09:22 Dose: 12.5 mg Miscellaneous Medication (Pharmacy To Dose) 0 each PO ONE PRN PRN Reason: WARFARIN Stop: 03/21/18 03:31 Miscellaneous Medication (Pharmacy To Dose) 1 each IVPB PRN PRN PRN Reason: BACTEREMIA Nitrofurantoin Macrocrystals (Macrobid) 100 mg PO BID [facility] Last Admin: 02/22/18 09:22 Dose: 100 mg Nitroglycerin (Nitrostat) 0.4 mg SL PRN PRN PRN Reason: Chest Pain Nystatin (Mycostatin Cream) 0 gm TOP BID [facility] Ondansetron HCl (Zofran) 4 mg IVP Q6H PRN PRN Reason: Nausea/Vomiting Quinapril HCl (Accupril) 5 mg PO DAILY [facility] Last Admin: 02/22/18 09:22 Dose: 5 mg Simethicone (Mylicon Chewable) 80 mg PO BID PRN PRN Reason: Gas Pain Last Admin: 02/22/18 17:14 Dose: 80 mg Sodium Chloride (Flush - Normal Saline) 10 ml IVF PRN PRN PRN Reason: Saline Flush Last Admin: 02/22/18 09:21 Dose: 10 ml Tramadol HCl (Ultram) 50 mg PO Q6H PRN PRN Reason: Pain 4-6 Last Admin: 02/21/18 09:53 Dose: 50 mg Warfarin Sodium (Coumadin) 5 mg PO 1700 [facility] Last Admin: 02/22/18 17:13 Dose: 5 mg
[2018-02-22] MEDS: Enoxaparin Sodium 30 MG/0.3 ML SYRINGE SC SCH (20:43)
[2018-02-22] MEDS: Enoxaparin Sodium 100 MG/ML SYRINGE SC SCH (20:43)
[2018-02-22] MEDS: Nystatin Cream 30 GM TUBE TOP SCH (20:47)
[2018-02-22] MEDS: HumaLOG 300 UNITS/3 ML VIAL SC PRN (20:51)
[2018-02-23] MEDS: HumaLOG 300 UNITS/3 ML VIAL SC PRN ×4 (05:33→20:07)
[2018-02-23 05:38] LABS: INR-International Normal Ratio 1.3
[2018-02-23] MEDS: Insulin NPH/Reg Insulin Hm 300 UNITS/3 ML VIAL SC SCH ×2 (08:37→20:07)
[2018-02-23] MEDS: Nitrofurantoin Monohyd/M-Cryst 100 MG CAP PO SCH ×2 (08:38→20:08)
[2018-02-23] MEDS: Furosemide 20 MG TAB PO SCH (08:38)
[2018-02-23] MEDS: Metoprolol Tartrate 25 MG TAB PO SCH ×2 (08:38→20:08)
[2018-02-23] MEDS: Ferrous Sulfate 325 MG TAB PO SCH (08:39)
[2018-02-23] MEDS: Enoxaparin Sodium 100 MG/ML SYRINGE SC SCH ×2 (08:40→20:11)
[2018-02-23] MEDS: Famotidine 20 MG TAB PO SCH (08:40)
[2018-02-23] MEDS: Enoxaparin Sodium 30 MG/0.3 ML SYRINGE SC SCH ×2 (08:40→20:10)
[2018-02-23] MEDS: Nystatin Cream 30 GM TUBE TOP SCH ×2 (08:40→20:15)
[2018-02-23] MEDS: Warfarin Sodium 7.5 MG TAB PO SCH (17:29)
[2018-02-23] MEDS ORDERED: diphenhydrAMINE 25 MG CAP PO SCH (17:30)
--- NOTE | 2018-02-23 19:27 | PDOC.PN ---
- Subjective Encounter Start Date: 02/23/18 Encounter Start Time: 19:25 Pt seen for followup re: UTI. Feels well, no complaints. - Objective MAR Reviewed: Yes Vital Signs & Weight: Vital Signs (12 hours) Temp Pulse Resp BP BP Pulse Ox 02/23/18 15:39 98.1 F 65 18 143/65 H 100 02/23/18 08:00 97.7 F 56 L 20 131/60 96 Weight Admit Weight 291 lb 9.6 oz Weight 293 lb I&O: 02/22/18 02/23/18 02/24/18 06:59 06:59 06:59 Intake Total 900 1856 1029.76 Output Total 600 Balance 300 1856 1029.76 Result Diagrams: 02/22/18 03:50 02/22/18 03:50 Additional Labs: Accuchecks 02/23/18 02/23/18 02/23/18 16:21 11:09 05:29 POC Glucose 341 H 307 H 301 H 02/23/18 02/22/18 00:40 20:41 POC Glucose 401 H 391 H Labs reviewed by me Phys Exam - Physical Examination Morbid obesity HEENT: moist MMs Neck: supple Respiratory: clear to auscultation bilateral Cardiovascular: RRR Gastrointestinal: soft groin rash Neurological: moves all 4 limbs Psychiatric: normal affect Dx/Plan (1) UTI (urinary tract infection) Status: Acute Comment: continue nitrofurantoin (2) Hypertension Code(s): I10 - ESSENTIAL (PRIMARY) HYPERTENSION Status: Chronic Comment: controlled (3) Stage 3 chronic kidney disease Code(s): N18.3 - CHRONIC KIDNEY DISEASE, STAGE 3 (MODERATE) Status: Chronic Comment: stable (4) Morbid obesity with BMI of 45.0-49.9, adult Code(s): E66.01 - MORBID (SEVERE) OBESITY DUE TO EXCESS CALORIES; Z68.42 - BODY MASS INDEX (BMI) 45.0-49.9, ADULT Status: Chronic Comment: stable (5) Supratherapeutic INR Code(s): R79.1 - ABNORMAL COAGULATION PROFILE Status: Resolved (6) Sepsis Code(s): A41.9 - SEPSIS, UNSPECIFIED ORGANISM Status: Resolved Comment: INR still subtherapeutic, continue warfarin with Lovenox bridge. - Plan * . Review of Systems - Review of Systems Constitutional: negative: fever, chills, sweats, weakness, malaise Cardiovascular: negative: chest pain, palpitations, orthopnea, paroxysmal nocturnal dyspnea, edema, light headedness - Medications/Allergies Allergies/Adverse Reactions: Allergies Allergy/AdvReac Type Severity Reaction Status Date / Time No Known Allergies Allergy Verified 02/19/18 06:43 Medications: Current Medications Acetaminophen (Tylenol) 650 mg PO Q4H PRN PRN Reason: Headache/Fever or Pain Cholecalciferol (Vitamin D3) 10,000 units PO DAILY [facility] [place] Last Admin: 02/23/18 10:19 Dose: 10,000 units Cyclobenzaprine HCl (Flexeril) 10 mg PO TID PRN PRN Reason: Muscle Spasm Dextrose/Water (Dextrose 50%) 25 gm SLOW IVP PRN PRN PRN Reason: Hypoglycemia Enoxaparin Sodium (Lovenox) 100 mg SC 0900,2100 [facility] [place] Last Admin: 02/23/18 08:40 Dose: 100 mg Enoxaparin Sodium (Lovenox) 30 mg SC 0900,2100 [facility] [place] Last Admin: 02/23/18 08:40 Dose: 30 mg Famotidine (Pepcid) 20 mg PO DAILY [facility] [place] Last Admin: 02/23/18 08:40 Dose: 20 mg Ferrous Sulfate (Feosol) 325 mg PO DAILY [facility] [place] Last Admin: 02/23/18 08:39 Dose: 325 mg Furosemide (Lasix) 20 mg PO DAILY [facility] [place] Last Admin: 02/23/18 08:38 Dose: 20 mg Glucagon (Glucagon) 1 mg IM PRN PRN PRN Reason: Hypoglycemia Hydralazine HCl (Apresoline) 10 mg SLOW IVP Q6H PRN PRN Reason: SBP Greater Than 170 Dextrose/Water (D5w) 1,000 mls @ 0 mls/hr IV .Q0M PRN PRN Reason: Hypoglycemia Insulin Human Isoph/Insulin Regular (Humulin 70/30) 50 units SC BID [facility] [place] Last Admin: 02/23/18 08:37 Dose: 50 unit Insulin Human Lispro (Humalog) 0 units SC .MILD SLIDING SCALE PRN PRN Reason: Mild Correctional Scale Last Admin: 02/23/18 17:29 Dose: 5 unit Metoprolol Tartrate (Lopressor) 12.5 mg PO BID [facility] [place] Last Admin: 02/23/18 08:38 Dose: 12.5 mg Miscellaneous Medication (Pharmacy To Dose) 0 each PO ONE PRN PRN Reason: WARFARIN Stop: 03/21/18 03:31 Miscellaneous Medication (Pharmacy To Dose) 1 each IVPB PRN PRN PRN Reason: BACTEREMIA Nitrofurantoin Macrocrystals (Macrobid) 100 mg PO BID [facility] [place] Last Admin: 02/23/18 08:38 Dose: 100 mg Nitroglycerin (Nitrostat) 0.4 mg SL PRN PRN PRN Reason: Chest Pain Nystatin (Mycostatin Cream) 0 gm TOP BID [facility] [place] Last Admin: 02/23/18 08:40 Dose: 30 gm Ondansetron HCl (Zofran) 4 mg IVP Q6H PRN PRN Reason: Nausea/Vomiting Quinapril HCl (Accupril) 5 mg PO DAILY [facility] [place] Last Admin: 02/23/18 08:39 Dose: 5 mg Simethicone (Mylicon Chewable) 80 mg PO BID PRN PRN Reason: Gas Pain Last Admin: 02/22/18 17:14 Dose: 80 mg Sodium Chloride (Flush - Normal Saline) 10 ml IVF PRN PRN PRN Reason: Saline Flush Last Admin: 02/22/18 09:21 Dose: 10 ml Tramadol HCl (Ultram) 50 mg PO Q6H PRN PRN Reason: Pain 4-6 Last Admin: 02/21/18 09:53 Dose: 50 mg Warfarin Sodium (Coumadin) 7.5 mg PO 1700 [facility] [place] Last Admin: 02/23/18 17:29 Dose: 7.5 mg
[2018-02-23] MEDS: Nystatin Powder 15 GM BOT TOP SCH (21:10)
[2018-02-24] MEDS: traMADol HCl 50 MG TAB PO PRN ×2 (00:12→06:34)
[2018-02-24 04:43] LABS: Hemoglobin 8.2 g/dL (12.0-16.0); Platelet Count 205 thou/uL (130-400)
[2018-02-24 04:45] LABS: INR-International Normal Ratio 1.4; Prothrombin Time 17.4 SEC (12.0-14.7)
[2018-02-24] MEDS: HumaLOG 300 UNITS/3 ML VIAL SC PRN ×2 (05:15→16:21)
[2018-02-24] MEDS: Famotidine 20 MG TAB PO SCH (09:26)
[2018-02-24] MEDS: Metoprolol Tartrate 25 MG TAB PO SCH ×2 (09:26→21:03)
[2018-02-24] MEDS: Enoxaparin Sodium 100 MG/ML SYRINGE SC SCH ×2 (09:27→21:04)
[2018-02-24] MEDS: Ferrous Sulfate 325 MG TAB PO SCH (09:27)
[2018-02-24] MEDS: Nitrofurantoin Monohyd/M-Cryst 100 MG CAP PO SCH ×2 (09:27→21:04)
[2018-02-24] MEDS: Furosemide 20 MG TAB PO SCH (09:27)
[2018-02-24] MEDS: Enoxaparin Sodium 30 MG/0.3 ML SYRINGE SC SCH ×2 (09:28→21:05)
[2018-02-24] MEDS ORDERED: Fluconazole 100 MG TAB PO SCH (10:00)
[2018-02-24] MEDS: HYDROcodone/Acetaminophen 5/325 mg Tablet PO PRN ×3 (11:52→21:00)
[2018-02-24] MEDS: Nystatin Powder 15 GM BOT TOP SCH ×2 (11:54→20:39)
[2018-02-24] MEDS: Insulin NPH/Reg Insulin Hm 300 UNITS/3 ML VIAL SC SCH ×2 (11:56→21:09)
[2018-02-24] MEDS: Warfarin Sodium 7.5 MG TAB PO SCH (16:09)
--- NOTE | 2018-02-24 17:03 | PDOC.PN ---
- Subjective Encounter Start Date: 02/24/18 Encounter Start Time: 07:00 Pt seen for followup re: UTI. - Objective Vital Signs & Weight: Vital Signs (12 hours) Temp Pulse Resp BP BP Pulse Ox 02/24/18 12:00 68 130/60 02/24/18 08:00 97.6 F 69 16 125/57 L 100 Weight Admit Weight 291 lb 9.6 oz Weight 293 lb I&O: 02/23/18 02/24/18 02/25/18 06:59 06:59 06:59 Intake Total 1856 1389.76 Balance 1856 1389.76 Result Diagrams: 02/24/18 04:23 02/24/18 04:23 Additional Labs: Accuchecks 02/24/18 02/24/18 02/24/18 16:13 12:12 05:11 POC Glucose 209 H 145 H 163 H 02/23/18 19:53 POC Glucose 311 H Dx/Plan (1) UTI (urinary tract infection) Status: Acute Comment: continue nitrofurantoin (2) Hypertension Code(s): I10 - ESSENTIAL (PRIMARY) HYPERTENSION Status: Chronic Comment: controlled (3) Stage 3 chronic kidney disease Code(s): N18.3 - CHRONIC KIDNEY DISEASE, STAGE 3 (MODERATE) Status: Chronic Comment: stable (4) Morbid obesity with BMI of 45.0-49.9, adult Code(s): E66.01 - MORBID (SEVERE) OBESITY DUE TO EXCESS CALORIES; Z68.42 - BODY MASS INDEX (BMI) 45.0-49.9, ADULT Status: Chronic Comment: stable (5) Supratherapeutic INR Code(s): R79.1 - ABNORMAL COAGULATION PROFILE Status: Resolved (6) Sepsis Code(s): A41.9 - SEPSIS, UNSPECIFIED ORGANISM Status: Resolved Comment: INR still subtherapeutic, continue warfarin with Lovenox bridge. - Plan * .
--- NOTE | 2018-02-24 17:42 | PDOC.PN ---
- Subjective Encounter Start Date: 02/24/18 Encounter Start Time: 07:20 Pt seen for followup re: rash. c/o pubic rash, itching. Nystatin not helping. - Objective MAR Reviewed: Yes Vital Signs & Weight: Vital Signs (12 hours) Temp Pulse Resp BP BP Pulse Ox 02/24/18 12:00 68 130/60 02/24/18 08:00 97.6 F 69 16 125/57 L 100 Weight Admit Weight 291 lb 9.6 oz Weight 293 lb I&O: 02/23/18 02/24/18 02/25/18 06:59 06:59 06:59 Intake Total 1856 1389.76 Balance 1856 1389.76 Result Diagrams: 02/24/18 04:23 02/24/18 04:23 Additional Labs: Accuchecks 02/24/18 02/24/18 02/24/18 16:13 12:12 05:11 POC Glucose 209 H 145 H 163 H 02/23/18 19:53 POC Glucose 311 H Labs reviewed by me Phys Exam - Physical Examination Morbid obesity HEENT: moist MMs Neck: supple Respiratory: clear to auscultation bilateral Cardiovascular: RRR Gastrointestinal: soft Neurological: moves all 4 limbs Psychiatric: normal affect Deviation from normal: Pubic and vaginal rash Dx/Plan (1) Rash Code(s): R21 - RASH AND OTHER NONSPECIFIC SKIN ERUPTION Status: Acute Comment: etiology unclear, start fluconazole for possible fungal infection, consult ID for opinion (2) UTI (urinary tract infection) Status: Acute Comment: on nitrofurantoin (3) Hypertension Code(s): I10 - ESSENTIAL (PRIMARY) HYPERTENSION Status: Chronic Comment: controlled (4) Stage 3 chronic kidney disease Code(s): N18.3 - CHRONIC KIDNEY DISEASE, STAGE 3 (MODERATE) Status: Chronic Comment: stable (5) Morbid obesity with BMI of 45.0-49.9, adult Code(s): E66.01 - MORBID (SEVERE) OBESITY DUE TO EXCESS CALORIES; Z68.42 - BODY MASS INDEX (BMI) 45.0-49.9, ADULT Status: Chronic Comment: stable (6) Supratherapeutic INR Code(s): R79.1 - ABNORMAL COAGULATION PROFILE Status: Resolved (7) Sepsis Code(s): A41.9 - SEPSIS, UNSPECIFIED ORGANISM Status: Resolved - Plan * . INR still subtherapeutic, continue warfarin with Lovenox bridge. Review of Systems - Review of Systems Respiratory: negative: Cough, Shortness of Breath, SOB with Excertion, Pleuritic Pain, Wheezing Cardiovascular: negative: chest pain, palpitations, orthopnea, paroxysmal nocturnal dyspnea, edema, light headedness Skin: Rash - Medications/Allergies Allergies/Adverse Reactions: Allergies Allergy/AdvReac Type Severity Reaction Status Date / Time No Known Allergies Allergy Verified 02/19/18 06:43 Medications: Current Medications Acetaminophen (Tylenol) 650 mg PO Q4H PRN PRN Reason: Headache/Fever or Pain Hydrocodone Bitart/Acetaminophen ([place] 5/325) 1 tab PO Q4H PRN PRN Reason: Severe Pain (7-10) Last Admin: 02/24/18 16:09 Dose: 1 tab Cholecalciferol (Vitamin D3) 10,000 units PO DAILY [facility] Last Admin: 02/24/18 11:51 Dose: 10,000 units Cyclobenzaprine HCl (Flexeril) 10 mg PO TID PRN PRN Reason: Muscle Spasm Dextrose/Water (Dextrose 50%) 25 gm SLOW IVP PRN PRN PRN Reason: Hypoglycemia Enoxaparin Sodium (Lovenox) 100 mg SC 0900,2100 [facility] Last Admin: 02/24/18 09:27 Dose: 100 mg Enoxaparin Sodium (Lovenox) 30 mg SC 0900,2100 [facility] Last Admin: 02/24/18 09:28 Dose: 30 mg Famotidine (Pepcid) 20 mg PO DAILY [facility] Last Admin: 02/24/18 09:26 Dose: 20 mg Ferrous Sulfate (Feosol) 325 mg PO DAILY [facility] Last Admin: 02/24/18 09:27 Dose: 325 mg Fluconazole (Diflucan) 50 mg PO DAILY [facility] Furosemide (Lasix) 20 mg PO DAILY [facility] Last Admin: 02/24/18 09:27 Dose: 20 mg Glucagon (Glucagon) 1 mg IM PRN PRN PRN Reason: Hypoglycemia Hydralazine HCl (Apresoline) 10 mg SLOW IVP Q6H PRN PRN Reason: SBP Greater Than 170 Dextrose/Water (D5w) 1,000 mls @ 0 mls/hr IV .Q0M PRN PRN Reason: Hypoglycemia Insulin Human Isoph/Insulin Regular (Humulin 70/30) 50 units SC BID [facility] Last Admin: 02/24/18 11:56 Dose: 50 unit Insulin Human Lispro (Humalog) 0 units SC .MILD SLIDING SCALE PRN PRN Reason: Mild Correctional Scale Last Admin: 02/24/18 16:21 Dose: 3 unit Metoprolol Tartrate (Lopressor) 12.5 mg PO BID [facility] Last Admin: 02/24/18 09:26 Dose: 12.5 mg Miscellaneous Medication (Pharmacy To Dose) 0 each PO ONE PRN PRN Reason: WARFARIN Stop: 03/21/18 03:31 Miscellaneous Medication (Pharmacy To Dose) 1 each IVPB PRN PRN PRN Reason: BACTEREMIA Nitrofurantoin Macrocrystals (Macrobid) 100 mg PO BID [facility] Last Admin: 02/24/18 09:27 Dose: 100 mg Nitroglycerin (Nitrostat) 0.4 mg SL PRN PRN PRN Reason: Chest Pain Non-Formulary Medication (Cholecalciferol (Vitamin D3) [Vitamin D3]) 10,000 unit PO DAILY [facility] Nystatin (Mycostatin Powder) 0 gm TOP BID [facility] Last Admin: 02/24/18 11:54 Dose: Not Given Quinapril HCl (Accupril) 5 mg PO DAILY [facility] Last Admin: 02/24/18 09:26 Dose: 5 mg Simethicone (Mylicon Chewable) 80 mg PO BID PRN PRN Reason: Gas Pain Last Admin: 02/22/18 17:14 Dose: 80 mg Sodium Chloride (Flush - Normal Saline) 10 ml IVF PRN PRN PRN Reason: Saline Flush Last Admin: 02/22/18 09:21 Dose: 10 ml Tramadol HCl (Ultram) 50 mg PO Q6H PRN PRN Reason: Pain 4-6 Last Admin: 02/24/18 06:34 Dose: 50 mg Warfarin Sodium (Coumadin) 7.5 mg PO 1700 [facility] Last Admin: 02/24/18 16:09 Dose: 7.5 mg
[2018-02-25 05:28] LABS: INR-International Normal Ratio 1.6; Prothrombin Time 19.3 SEC (12.0-14.7)
[2018-02-25] MEDS ORDERED: Non-Formulary Item 1 EACH (Cholecalciferol (Vitamin D3) [Vitamin D3] 10,000 UNIT) PO SCH (09:00)
[2018-02-25] MEDS: Enoxaparin Sodium 100 MG/ML SYRINGE SC SCH ×2 (09:02→21:10)
[2018-02-25] MEDS: Furosemide 20 MG TAB PO SCH (09:03)
[2018-02-25] MEDS: Insulin NPH/Reg Insulin Hm 300 UNITS/3 ML VIAL SC SCH ×2 (09:03→21:11)
[2018-02-25] MEDS: Nitrofurantoin Monohyd/M-Cryst 100 MG CAP PO SCH (09:03)
[2018-02-25] MEDS: Ferrous Sulfate 325 MG TAB PO SCH (09:03)
[2018-02-25] MEDS: Metoprolol Tartrate 25 MG TAB PO SCH ×2 (09:03→21:12)
[2018-02-25] MEDS: Enoxaparin Sodium 30 MG/0.3 ML SYRINGE SC SCH ×2 (09:03→21:11)
[2018-02-25] MEDS: Famotidine 20 MG TAB PO SCH (09:04)
[2018-02-25] MEDS: Nystatin Powder 15 GM BOT TOP SCH ×2 (09:04→21:13)
[2018-02-25] MEDS: Fluconazole 100 MG TAB PO SCH (09:04)
[2018-02-25] MEDS ORDERED: diphenhydrAMINE 50 MG/ML VIAL IVP SCH (10:30)
[2018-02-25] MEDS: HYDROcodone/Acetaminophen 10/325 mg Tablet PO PRN ×2 (12:40→20:42)
--- NOTE | 2018-02-25 14:05 | PDOC.PN ---
- Subjective Encounter Start Date: 02/25/18 Encounter Start Time: 07:00 Pt seen for followup re: rash. Denies chest pain. Rash worse today. No nausea or vomiting. - Objective MAR Reviewed: Yes Vital Signs & Weight: Vital Signs (12 hours) Temp Pulse Resp BP Pulse Ox 02/25/18 08:00 98.4 F 71 20 118/54 L 98 Weight Admit Weight 291 lb 9.6 oz Weight 293 lb I&O: 02/24/18 02/25/18 02/26/18 06:59 06:59 06:59 Intake Total 1389.76 1200 Balance 1389.76 1200 Result Diagrams: 02/24/18 04:23 02/24/18 04:23 Additional Labs: Accuchecks 02/25/18 02/25/18 02/24/18 13:17 06:50 20:58 POC Glucose 152 H 81 157 H 02/24/18 16:13 POC Glucose 209 H Labs reviewed by me Phys Exam - Physical Examination Morbid obesity HEENT: moist MMs, sclera anicteric, oral pharynx no lesions, 2+ tonsils Neck: no nodes, no JVD, supple, full ROM Respiratory: no wheezing, no rales, no rhonchi, clear to auscultation bilateral Cardiovascular: RRR, no rub S1, S2 Gastrointestinal: soft, non-tender, no distention, positive bowel sounds Neurological: moves all 4 limbs Psychiatric: normal affect, A&O x 3 Deviation from normal: groin and pubic rash Dx/Plan (1) Rash Code(s): R21 - RASH AND OTHER NONSPECIFIC SKIN ERUPTION Status: Acute Comment: etiology unclear, discontinue Bactrim. (2) Hypertension Code(s): I10 - ESSENTIAL (PRIMARY) HYPERTENSION Status: Chronic Comment: stable (3) Stage 3 chronic kidney disease Code(s): N18.3 - CHRONIC KIDNEY DISEASE, STAGE 3 (MODERATE) Status: Chronic Comment: stable (4) Morbid obesity with BMI of 45.0-49.9, adult Code(s): E66.01 - MORBID (SEVERE) OBESITY DUE TO EXCESS CALORIES; Z68.42 - BODY MASS INDEX (BMI) 45.0-49.9, ADULT Status: Chronic Comment: stable (5) Supratherapeutic INR Code(s): R79.1 - ABNORMAL COAGULATION PROFILE Status: Resolved (6) Sepsis Code(s): A41.9 - SEPSIS, UNSPECIFIED ORGANISM Status: Resolved (7) UTI (urinary tract infection) Status: Resolved Comment: discontinue nitrofurantoin - Plan * . INR 1.6 today Review of Systems - Review of Systems Constitutional: negative: fever, chills, sweats, weakness, malaise Respiratory: negative: Cough, Shortness of Breath, SOB with Excertion, Pleuritic Pain, Wheezing Cardiovascular: negative: chest pain, palpitations, orthopnea, paroxysmal nocturnal dyspnea, edema, light headedness Gastrointestinal: negative: Nausea, Vomiting, Abdominal Pain, Diarrhea, Constipation, Melena, Hematochezia Genitourinary: negative: Dysuria, Frequency, Incontinence, Hematuria, Retention Skin: Rash - Medications/Allergies Allergies/Adverse Reactions: Allergies Allergy/AdvReac Type Severity Reaction Status Date / Time No Known Allergies Allergy Verified 02/19/18 06:43 Medications: Current Medications Acetaminophen (Tylenol) 650 mg PO Q4H PRN PRN Reason: Headache/Fever or Pain Hydrocodone Bitart/Acetaminophen ([place] 10/325) 1 tab PO Q6H PRN PRN Reason: Moderate Pain (4-6) Last Admin: 02/25/18 12:40 Dose: 1 tab Cholecalciferol (Vitamin D3) 10,000 units PO DAILY [facility] Last Admin: 02/24/18 11:51 Dose: 10,000 units Cyclobenzaprine HCl (Flexeril) 10 mg PO TID PRN PRN Reason: Muscle Spasm Dextrose/Water (Dextrose 50%) 25 gm SLOW IVP PRN PRN PRN Reason: Hypoglycemia Enoxaparin Sodium (Lovenox) 100 mg SC 899,2099 [facility] Last Admin: 02/25/18 09:02 Dose: 100 mg Enoxaparin Sodium (Lovenox) 30 mg SC 00,2099 [facility] Last Admin: 02/25/18 09:03 Dose: 30 mg Famotidine (Pepcid) 20 mg PO DAILY [facility] Last Admin: 02/25/18 09:04 Dose: 20 mg Ferrous Sulfate (Feosol) 325 mg PO DAILY [facility] Last Admin: 02/25/18 09:03 Dose: 325 mg Fluconazole (Diflucan) 50 mg PO DAILY [facility] Last Admin: 02/25/18 09:04 Dose: 50 mg Furosemide (Lasix) 20 mg PO DAILY [facility] Last Admin: 02/25/18 09:03 Dose: 20 mg Glucagon (Glucagon) 1 mg IM PRN PRN PRN Reason: Hypoglycemia Hydralazine HCl (Apresoline) 10 mg SLOW IVP Q6H PRN PRN Reason: SBP Greater Than 170 Dextrose/Water (D5w) 1,000 mls @ 0 mls/hr IV .Q0M PRN PRN Reason: Hypoglycemia Insulin Human Isoph/Insulin Regular (Humulin 70/30) 50 units SC BID [facility] Last Admin: 02/25/18 09:03 Dose: 50 unit Insulin Human Lispro (Humalog) 0 units SC .MILD SLIDING SCALE PRN PRN Reason: Mild Correctional Scale Last Admin: 02/24/18 16:21 Dose: 3 unit Metoprolol Tartrate (Lopressor) 12.5 mg PO BID [facility] Last Admin: 02/25/18 09:03 Dose: 12.5 mg Miscellaneous Medication (Pharmacy To Dose) 0 each PO ONE PRN PRN Reason: WARFARIN Stop: 03/21/18 03:31 Miscellaneous Medication (Pharmacy To Dose) 1 each IVPB PRN PRN PRN Reason: BACTEREMIA Nitroglycerin (Nitrostat) 0.4 mg SL PRN PRN PRN Reason: Chest Pain Nystatin (Mycostatin Powder) 0 gm TOP BID [facility] Last Admin: 02/25/18 09:04 Dose: Not Given Quinapril HCl (Accupril) 5 mg PO DAILY [facility] Last Admin: 02/25/18 09:04 Dose: 5 mg Simethicone (Mylicon Chewable) 80 mg PO BID PRN PRN Reason: Gas Pain Last Admin: 02/22/18 17:14 Dose: 80 mg Sodium Chloride (Flush - Normal Saline) 10 ml IVF PRN PRN PRN Reason: Saline Flush Last Admin: 02/25/18 09:05 Dose: 10 ml Tramadol HCl (Ultram) 50 mg PO Q6H PRN PRN Reason: Pain 4-6 Last Admin: 02/24/18 06:34 Dose: 50 mg Warfarin Sodium (Coumadin) 7.5 mg PO 1700 [facility] Last Admin: 02/24/18 16:09 Dose: 7.5 mg
--- NOTE | 2018-02-25 16:30 | EKG ---
Test Reason : Blood Pressure : / mmHG Vent. Rate : 098 BPM Atrial Rate : 098 BPM P-R Int : 114 ms QRS Dur : 090 ms QT Int : 360 ms P-R-T Axes : -05 -15 030 degrees QTc Int : 459 ms Normal sinus rhythm Normal ECG Confirmed by FIOR SANCHES ([id number]), medical transcription editor TACO GHOTRA ([id number]) on 02/25/2018 4:29:48 PM Referred By: Confirmed By:FIOR SANCHES
[2018-02-25] MEDS: Warfarin Sodium 7.5 MG TAB PO SCH (17:57)
--- NOTE | 2018-02-25 19:28 | CON ---
DATE OF CONSULTATION: 02/25/2018 REASON FOR CONSULTATION: Fever, intertriginous eruption. HISTORY OF PRESENT ILLNESS: A 57-year-old with a history of stage III colon cancer, status post partial colectomy and currently undergoing chemotherapy under Dr. Jeong's supervision. The last course was on 02/08/2018, but according to the nurse, she just got another treatment just a few days ago after this admission. She was brought in because of new onset of chills and fever. Initially, this started 1 or 2 days before admission. She proceeded to call EMS after recurrence of the symptoms after ibuprofen. She denied any headaches. No visual symptoms, no dysuria, no respiratory symptoms. no abdominal pain, no diarrhea, no joint symptoms. PAST MEDICAL HISTORY: Hyperlipidemia; diabetes mellitus type 2; hypertension; venous thromboembolism; and colon cancer stage III, on chemotherapy after partial colectomy. PAST SURGICAL HISTORY: Includes cholecystectomy, tubal ligation, , partial amputation of two digits in right foot, herniorrhaphy, and hemicolectomy. SOCIAL HISTORY: Never a smoker. No alcoholic beverage use. FAMILY HISTORY: Includes coronary disease. ALLERGIES: None. CURRENT MEDICATIONS: Tylenol, [place], vitamin D, Flexeril, Lovenox, Pepcid, Diflucan, Lasix, insulin, Lopressor, Accupril, warfarin, simethicone. She had been given nystatin topical, but has developed worsening of the intertriginous areas of maceration after nystatin was administered. PHYSICAL EXAMINATION: VITAL SIGNS: T-max 98.4, blood pressure 118/54, pulse 71, respirations 20, O2 sat 98%. SKIN: In some distress from the intertriginous eruption in the groin region. She also appears to have a chronic draining sinus tract in the mid abdominal area. The intertriginous eruption affects in a very symmetric distribution in the right and left side of her groin. The abdominal midline wound is a shallow opening and appears to be constantly draining a light yellow fluid. She has an ulcerated region in the dorsal aspect of the fifth toe in right foot with light yellow callus surrounding it, and slight erythema of the distal aspect of the right fifth toe. She has no lymphadenopathy. There is an accessed left subclavian port. HEENT: The ocular movements are conjugate. Sclerae are white. Pupils are equal. Conjunctivae are normal. Oral cavity with numerous missing teeth. Some gum resorption noted. Oral cavity mucosal surfaces otherwise appear normal. NECK: Supple. No jugular vein distention. No thyromegaly. LUNGS: With symmetric air entry. HEART: S1, S2 regular rate. No S3 or S4. ABDOMEN: Soft. There is mild tenderness in the left flank area. No ascites. No organomegaly noted. Intertriginous maceration, very symmetric distribution in the groin, right and left side with grayish green thin membrane covering the surface of the skin over the right eruption. The area is not indurated. There is a very flexible soft skin, so I do not think it is a deep process. EXTREMITIES: Pulses are 1+ in dorsalis pedis. She is able to move her extremities on command. Plantar responses are flexor. No edema. NEUROLOGIC: Cognitive function appears to be intact. She has good recollection of the events that led to admission. LABORATORY DATA: White cell count 5.3, on admission it was 8.0; hemoglobin 8.2 ; MCV 84; platelets 212 with 81% neutrophils. The neutrophil percentage has improved since admission. INR was 1.7 and now 1.6. Chemistry with a sodium 140 , creatinine 1.06, magnesium 1.5. Liver profile are normal. Albumin 3.3, globulin 4.3. Urinalysis with 21-50 wbc's. Microbiology: We have one set of urine cultures with E. coli and 75,000-100,000 CFUs per mL. This was collected from 02/18/2018 and a blood culture with 1/2 sets of blood culture showed bacillus species, most likely a contaminant. Imaging studies include an abdomen and pelvis CT scan from 02/18/2018, which showed retroperitoneal lymphadenopathy, the largest one measuring 2.9 cm in the left periaortic lymph node, some fat stranding in the umbilical region in the subcutaneous fat layer. ASSESSMENT: 1. Hypertension. 2. Diabetes mellitus type 2. 3. Obesity. 4. Colon cancer, stage 3 with partial colectomy and chemotherapy through a port in the left subclavian location. 5. Fever, which led to admission. 6. Intertriginous maceration of groin region, which has worsened since admission. DISCUSSION: The differential diagnosis includes fever associated with colonization of the port, which appears less likely in view of the negative blood cultures. The bacillus is most likely a contaminant of the sample. In view of the chronic drainage around the midline of the abdomen and the previous surgical site, the possibility of retained sutures or other type of focal inflammatory process, for example a sinus tract, might be considered. It does not appear to communicate with the deeper intraperitoneal segments of the wound and certainly does not have any evidence of intraabdominal abscess. Regarding the urinary tract findings, I do not think that there is evidence to suggest firmly that she has a urinary tract infection, although she might have a mild element of it. Most of her symptoms of dysuria are related to the skin changes associated with intertriginous inflammatory process. The most likely scenario is Maura species superficial infection, polymicrobial intertrigo is also possible. We will submit the cultures. Continue Diflucan. Discontinue topical nystatin since she may have developed a topical contact dermatitis from the nystatin. Nystatin has been infrequently associated with contact dermatitis with positive skin testing responses. I would recommend discontinuation of this topical cream. Consider alternate creams or even not apply any topical agent for the time being and just continue Diflucan. Wait on the results of the cultures of the surface of the groin region. KENNETHD
[2018-02-25] MEDS: diphenhydrAMINE 50 MG/ML VIAL IVP PRN (21:14)
[2018-02-26] MEDS: diphenhydrAMINE 50 MG/ML VIAL IVP PRN (02:23)
[2018-02-26] MEDS: HYDROcodone/Acetaminophen 10/325 mg Tablet PO PRN ×3 (02:24→20:33)
[2018-02-26 04:24] LABS: Platelet Count 241 thou/uL (130-400)
[2018-02-26 04:29] LABS: Prothrombin Time 22.7 SEC (12.0-14.7)
[2018-02-26] MEDS: Nystatin Powder 15 GM BOT TOP SCH ×2 (09:22→20:42)
[2018-02-26] MEDS: Enoxaparin Sodium 100 MG/ML SYRINGE SC SCH ×2 (09:28→20:37)
[2018-02-26] MEDS: Enoxaparin Sodium 30 MG/0.3 ML SYRINGE SC SCH ×2 (09:28→20:38)
[2018-02-26] MEDS: Famotidine 20 MG TAB PO SCH (09:29)
[2018-02-26] MEDS: Fluconazole 100 MG TAB PO SCH (09:29)
[2018-02-26] MEDS: Furosemide 20 MG TAB PO SCH (09:30)
[2018-02-26] MEDS: Metoprolol Tartrate 25 MG TAB PO SCH ×2 (09:30→20:42)
[2018-02-26] MEDS: Insulin NPH/Reg Insulin Hm 300 UNITS/3 ML VIAL SC SCH ×2 (09:30→21:22)
[2018-02-26] MEDS: Ferrous Sulfate 325 MG TAB PO SCH (09:34)
[2018-02-26] MEDS: diphenhydrAMINE 50 MG CAP PO PRN ×2 (10:30→20:33)
--- NOTE | 2018-02-26 15:21 | PDOC.PN ---
- Subjective Encounter Start Date: 02/26/18 Encounter Start Time: 07:20 Pt seen for followup re: rash. Feels better with [place]. No fevers or chills. - Objective Vital Signs & Weight: Vital Signs (12 hours) Temp Pulse Resp BP Pulse Ox 02/26/18 08:00 97.7 F 73 20 115/56 L 96 Weight Admit Weight 291 lb 9.6 oz Weight 293 lb I&O: 02/25/18 02/26/18 02/27/18 06:59 06:59 06:59 Intake Total 1200 1000 Balance 1200 1000 Result Diagrams: 02/26/18 04:15 02/26/18 04:15 Additional Labs: Accuchecks 02/26/18 02/26/18 02/25/18 11:22 09:24 21:21 POC Glucose 123 H 120 H 222 H 02/25/18 18:03 POC Glucose 147 H Phys Exam - Physical Examination Constitutional: NAD HEENT: moist MMs Neck: supple Respiratory: clear to auscultation bilateral Cardiovascular: RRR Gastrointestinal: soft Neurological: non-focal Psychiatric: normal affect Deviation from normal: rash + Dx/Plan (1) Rash Code(s): R21 - RASH AND OTHER NONSPECIFIC SKIN ERUPTION Status: Acute Comment: continue PRN Benadryl, fluconazolw (2) Hypertension Code(s): I10 - ESSENTIAL (PRIMARY) HYPERTENSION Status: Chronic Comment: stable (3) Stage 3 chronic kidney disease Code(s): N18.3 - CHRONIC KIDNEY DISEASE, STAGE 3 (MODERATE) Status: Chronic Comment: stable (4) Morbid obesity with BMI of 45.0-49.9, adult Code(s): E66.01 - MORBID (SEVERE) OBESITY DUE TO EXCESS CALORIES; Z68.42 - BODY MASS INDEX (BMI) 45.0-49.9, ADULT Status: Chronic Comment: stable (5) Supratherapeutic INR Code(s): R79.1 - ABNORMAL COAGULATION PROFILE Status: Resolved (6) Sepsis Code(s): A41.9 - SEPSIS, UNSPECIFIED ORGANISM Status: Resolved (7) UTI (urinary tract infection) Status: Resolved - Plan * . INR 2.0 today, likely home 24-48 h once arrangements made for followup Review of Systems - Review of Systems Respiratory: negative: Cough, Shortness of Breath, SOB with Excertion, Pleuritic Pain, Wheezing Cardiovascular: negative: chest pain, palpitations, orthopnea, paroxysmal nocturnal dyspnea, edema, light headedness Skin: Rash - Medications/Allergies Allergies/Adverse Reactions: Allergies Allergy/AdvReac Type Severity Reaction Status Date / Time No Known Allergies Allergy Verified 02/19/18 06:43 Medications: Current Medications Acetaminophen (Tylenol) 650 mg PO Q4H PRN PRN Reason: Headache/Fever or Pain Hydrocodone Bitart/Acetaminophen ([place] 10/325) 1 tab PO Q6H PRN PRN Reason: Moderate Pain (4-6) Last Admin: 02/26/18 10:09 Dose: 1 tab Cholecalciferol (Vitamin D3) 5,000 units PO DAILY [facility] Last Admin: 02/26/18 09:29 Dose: 5,000 units Cyclobenzaprine HCl (Flexeril) 10 mg PO TID PRN PRN Reason: Muscle Spasm Dextrose/Water (Dextrose 50%) 25 gm SLOW IVP PRN PRN PRN Reason: Hypoglycemia Diphenhydramine HCl (Benadryl) 25 mg IVP Q6H PRN PRN Reason: Itching & Insomnia Last Admin: 02/26/18 02:23 Dose: 25 mg Diphenhydramine HCl (Benadryl) 50 mg PO Q6HR PRN PRN Reason: Itching & Insomnia Last Admin: 02/26/18 10:30 Dose: 50 mg Enoxaparin Sodium (Lovenox) 100 mg SC 0900,2100 [facility] Last Admin: 02/26/18 09:28 Dose: 100 mg Enoxaparin Sodium (Lovenox) 30 mg SC 0900,2100 [facility] Last Admin: 02/26/18 09:28 Dose: 30 mg Famotidine (Pepcid) 20 mg PO DAILY [facility] Last Admin: 02/26/18 09:29 Dose: 20 mg Ferrous Sulfate (Feosol) 325 mg PO DAILY [facility] Last Admin: 02/26/18 09:34 Dose: 325 mg Fluconazole (Diflucan) 50 mg PO DAILY [facility] Last Admin: 02/26/18 09:29 Dose: 50 mg Furosemide (Lasix) 20 mg PO DAILY [facility] Last Admin: 02/26/18 09:30 Dose: 20 mg Glucagon (Glucagon) 1 mg IM PRN PRN PRN Reason: Hypoglycemia Hydralazine HCl (Apresoline) 10 mg SLOW IVP Q6H PRN PRN Reason: SBP Greater Than 170 Dextrose/Water (D5w) 1,000 mls @ 0 mls/hr IV .Q0M PRN PRN Reason: Hypoglycemia Insulin Human Isoph/Insulin Regular (Humulin 70/30) 50 units SC BID [facility] Last Admin: 02/26/18 09:30 Dose: 50 unit Insulin Human Lispro (Humalog) 0 units SC .MILD SLIDING SCALE PRN PRN Reason: Mild Correctional Scale Last Admin: 02/24/18 16:21 Dose: 3 unit Metoprolol Tartrate (Lopressor) 12.5 mg PO BID [facility] Last Admin: 02/26/18 09:30 Dose: 12.5 mg Miscellaneous Medication (Pharmacy To Dose) 0 each PO ONE PRN PRN Reason: WARFARIN Stop: 03/21/18 03:31 Miscellaneous Medication (Pharmacy To Dose) 1 each IVPB PRN PRN PRN Reason: BACTEREMIA Nitroglycerin (Nitrostat) 0.4 mg SL PRN PRN PRN Reason: Chest Pain Nystatin (Mycostatin Powder) 0 gm TOP BID [facility] Last Admin: 02/26/18 09:22 Dose: Not Given Quinapril HCl (Accupril) 5 mg PO DAILY [facility] Last Admin: 02/26/18 09:29 Dose: 5 mg Simethicone (Mylicon Chewable) 80 mg PO BID PRN PRN Reason: Gas Pain Last Admin: 02/22/18 17:14 Dose: 80 mg Sodium Chloride (Flush - Normal Saline) 10 ml IVF PRN PRN PRN Reason: Saline Flush Last Admin: 02/25/18 21:16 Dose: 10 ml Tramadol HCl (Ultram) 50 mg PO Q6H PRN PRN Reason: Pain 4-6 Last Admin: 02/24/18 06:34 Dose: 50 mg Warfarin Sodium (Coumadin) 7.5 mg PO 1700 [facility] Last Admin: 02/25/18 17:57 Dose: 7.5 mg
[2018-02-26] MEDS: Warfarin Sodium 7.5 MG TAB PO SCH (17:41)
[2018-02-26] MEDS: HumaLOG 300 UNITS/3 ML VIAL SC PRN ×2 (17:45→20:39)
[2018-02-27 04:21] LABS: INR-International Normal Ratio 2.5; Prothrombin Time 26.7 SEC (12.0-14.7)
[2018-02-27] MEDS ORDERED: Vancomycin HCl 1 GM in Premix Bag 1 BAG IVPB SCH (08:30)
[2018-02-27] MEDS: Enoxaparin Sodium 100 MG/ML SYRINGE SC SCH (10:30)
[2018-02-27 10:39] VITALS: BMI 45.8
[2018-02-27] MEDS: Famotidine 20 MG TAB PO SCH (10:40)
[2018-02-27] MEDS: Enoxaparin Sodium 30 MG/0.3 ML SYRINGE SC SCH (10:40)
[2018-02-27] MEDS: Furosemide 20 MG TAB PO SCH (10:40)
[2018-02-27] MEDS: Ferrous Sulfate 325 MG TAB PO SCH (10:40)
[2018-02-27] MEDS: Insulin NPH/Reg Insulin Hm 300 UNITS/3 ML VIAL SC SCH ×2 (10:40→20:37)
[2018-02-27] MEDS: Metoprolol Tartrate 25 MG TAB PO SCH ×2 (10:40→20:42)
[2018-02-27] MEDS: Fluconazole 100 MG TAB PO SCH (10:40)
[2018-02-27] MEDS: Vancomycin HCl 1.5 GM in Sodium Chloride 0.9% 250 ML 300 ML IVPB SCH ×2 (10:55→21:38)
[2018-02-27] MEDS: diphenhydrAMINE 50 MG CAP PO PRN ×2 (14:35→20:46)
[2018-02-27] MEDS: Nystatin Powder 15 GM BOT TOP SCH (14:35)
[2018-02-27] MEDS: HYDROcodone/Acetaminophen 10/325 mg Tablet PO PRN ×2 (14:36→20:40)
[2018-02-27] MEDS: Warfarin Sodium 7.5 MG TAB PO SCH (16:47)
--- NOTE | 2018-02-27 17:38 | PDOC.PN ---
- Subjective Encounter Start Date: 02/27/18 Encounter Start Time: 06:40 Pt seen for followup re: cellulitis. Denies chest pain, shortness of breath, fevers or chills. No nausea or vomiting. - Objective MAR Reviewed: Yes Vital Signs & Weight: Vital Signs (12 hours) Temp Pulse Resp BP Pulse Ox 02/27/18 08:00 98.2 F 76 20 119/56 L 97 Weight Admit Weight 291 lb 9.6 oz Weight 293 lb I&O: 02/26/18 02/27/18 02/28/18 06:59 06:59 06:59 Intake Total 1000 1550 Output Total 650 Balance 1000 900 Result Diagrams: 03/02/18 04:35 03/02/18 04:35 Additional Labs: Accuchecks 02/27/18 02/27/18 02/27/18 16:50 13:53 06:05 POC Glucose 135 H 170 H 166 H 02/26/18 02/26/18 20:21 17:43 POC Glucose 255 H 211 H EKG Reviewed by me: Yes Dx/Plan (1) Cellulitis due to Staphylococcus aureus Code(s): L03.90 - CELLULITIS, UNSPECIFIED; B95.61 - METHICILLIN SUSCEP STAPH INFCT CAUSING DIS CLASSD [id number] Status: Acute Comment: started on IV vancomycin today, await sensitivities (2) Rash Code(s): R21 - RASH AND OTHER NONSPECIFIC SKIN ERUPTION Status: Acute Comment: ? due to s. aureus cellulitis vs fungal infection. Continue fluconazole, add vancomycin (3) Hypertension Code(s): I10 - ESSENTIAL (PRIMARY) HYPERTENSION Status: Chronic Comment: controlled (4) Stage 3 chronic kidney disease Code(s): N18.3 - CHRONIC KIDNEY DISEASE, STAGE 3 (MODERATE) Status: Chronic Comment: stable (5) Morbid obesity with BMI of 45.0-49.9, adult Code(s): E66.01 - MORBID (SEVERE) OBESITY DUE TO EXCESS CALORIES; Z68.42 - BODY MASS INDEX (BMI) 45.0-49.9, ADULT Status: Chronic Comment: stable (6) Supratherapeutic INR Code(s): R79.1 - ABNORMAL COAGULATION PROFILE Status: Resolved (7) Sepsis Code(s): A41.9 - SEPSIS, UNSPECIFIED ORGANISM Status: Resolved (8) UTI (urinary tract infection) Status: Resolved - Plan * . INR therapeutic today Review of Systems - Review of Systems Cardiovascular: negative: chest pain, palpitations, orthopnea, paroxysmal nocturnal dyspnea, edema, light headedness Gastrointestinal: negative: Nausea, Vomiting, Abdominal Pain, Diarrhea, Constipation, Melena, Hematochezia Skin: Rash - Medications/Allergies Allergies/Adverse Reactions: Allergies Allergy/AdvReac Type Severity Reaction Status Date / Time nystatin Allergy Severe Rash Verified 02/27/18 20:46 Medications: Current Medications Acetaminophen (Tylenol) 650 mg PO Q4H PRN PRN Reason: Headache/Fever or Pain Hydrocodone Bitart/Acetaminophen ([place] 10/325) 1 tab PO Q6H PRN PRN Reason: Moderate Pain (4-6) Last Admin: 02/27/18 14:36 Dose: 1 tab Cholecalciferol (Vitamin D3) 5,000 units PO DAILY [facility] Last Admin: 02/27/18 17:07 Dose: 5,000 units Cyclobenzaprine HCl (Flexeril) 10 mg PO TID PRN PRN Reason: Muscle Spasm Dextrose/Water (Dextrose 50%) 25 gm SLOW IVP PRN PRN PRN Reason: Hypoglycemia Diphenhydramine HCl (Benadryl) 25 mg IVP Q6H PRN PRN Reason: Itching & Insomnia Last Admin: 02/26/18 02:23 Dose: 25 mg Diphenhydramine HCl (Benadryl) 50 mg PO Q6HR PRN PRN Reason: Itching & Insomnia Last Admin: 02/27/18 14:35 Dose: 50 mg Enoxaparin Sodium (Lovenox) 100 mg SC 0900,2100 [facility] Last Admin: 02/27/18 10:30 Dose: 100 mg Enoxaparin Sodium (Lovenox) 30 mg SC 0900,2100 [facility] Last Admin: 02/27/18 10:40 Dose: 30 mg Famotidine (Pepcid) 20 mg PO DAILY [facility] Last Admin: 02/27/18 10:40 Dose: 20 mg Ferrous Sulfate (Feosol) 325 mg PO DAILY [facility] Last Admin: 02/27/18 10:40 Dose: 325 mg Fluconazole (Diflucan) 50 mg PO DAILY [facility] Last Admin: 02/27/18 10:40 Dose: 50 mg Furosemide (Lasix) 20 mg PO DAILY [facility] Last Admin: 02/27/18 10:40 Dose: 20 mg Glucagon (Glucagon) 1 mg IM PRN PRN PRN Reason: Hypoglycemia Hydralazine HCl (Apresoline) 10 mg SLOW IVP Q6H PRN PRN Reason: SBP Greater Than 170 Dextrose/Water (D5w) 1,000 mls @ 0 mls/hr IV .Q0M PRN PRN Reason: Hypoglycemia Vancomycin HCl 1.5 gm/ Sodium (Chloride) 300 mls @ 200 mls/hr IVPB 1000,2200 [facility] Last Admin: 02/27/18 10:55 Dose: 300 mls Insulin Human Isoph/Insulin Regular (Humulin 70/30) 50 units SC BID [facility] Last Admin: 02/27/18 10:40 Dose: 50 unit Insulin Human Lispro (Humalog) 0 units SC .MILD SLIDING SCALE PRN PRN Reason: Mild Correctional Scale Last Admin: 02/26/18 20:39 Dose: 2 unit Metoprolol Tartrate (Lopressor) 12.5 mg PO BID [facility] Last Admin: 02/27/18 10:40 Dose: 12.5 mg Miscellaneous Medication (Pharmacy To Dose) 0 each PO ONE PRN PRN Reason: WARFARIN Stop: 03/21/18 03:31 Miscellaneous Medication (Pharmacy To Dose) 1 each IVPB PRN PRN PRN Reason: BACTEREMIA Nitroglycerin (Nitrostat) 0.4 mg SL PRN PRN PRN Reason: Chest Pain Nystatin (Mycostatin Powder) 0 gm TOP BID [facility] Last Admin: 02/27/18 14:35 Dose: Not Given Quinapril HCl (Accupril) 5 mg PO DAILY [facility] Last Admin: 02/27/18 10:40 Dose: 5 mg Simethicone (Mylicon Chewable) 80 mg PO BID PRN PRN Reason: Gas Pain Last Admin: 02/22/18 17:14 Dose: 80 mg Sodium Chloride (Flush - Normal Saline) 10 ml IVF PRN PRN PRN Reason: Saline Flush Last Admin: 02/25/18 21:16 Dose: 10 ml Tramadol HCl (Ultram) 50 mg PO Q6H PRN PRN Reason: Pain 4-6 Last Admin: 02/24/18 06:34 Dose: 50 mg Warfarin Sodium (Coumadin) 7.5 mg PO 1700 [facility] Last Admin: 02/27/18 16:47 Dose: 7.5 mg
--- NOTE | 2018-02-27 17:41 | PRG ---
DATE OF SERVICE: 02/27/2018 HISTORY: Ms. Lockhart continues to have quite prominent pain in the intertriginous areas of the groin , under the abdominal fold area. She has been started on vancomycin because of the culture results. She denies any headaches. No shortness of breath or chest pain. No abdominal pain outside the area of involvement. Some burning to urinate, probably related to the intertriginous eruption. OBJECTIVE: VITAL SIGNS: T-max 98.3, BP 115/56, pulse 73, respirations 20, O2 sat 96%. GENERAL: Appears in some distress whenever the area is touch, but otherwise not. LUNGS: Clear. CARDIOVASCULAR: S1, S2, regular rate. The left subclavian port is accessed. No suprapubic distenti on. SKIN: The areas of intertrigo now display peeling of the superficial layer of the skin with bleeding and blistering of those areas in a very symmetric distribution including the intertriginous areas of the groin and under the abdominal fold region. EXTREMITIES: The pulses in lower extremities are 1+. LABORATORY DATA: White cell count 5.4, hemoglobin 7.6, platelets 195,000. Creatinine 1.14. Microbi ology with the culture from the groin skin area with Staph aureus and bacilli identified. ASSESSMENT AND DISCUSSION: Hypertension, type 2 diabetes, obesity, colon cancer stage III, status po st partial colectomy, chemotherapy through a port in the left subclavian location. She had an episod e of fever, which led to admission and intertriginous maceration of groin region, which became exacer bated after application of nystatin cream to the area. The most likely scenario here is nystatin ass ociated skin dermatitis with blistering. Nystatin cream has been discontinued and Wound Care consult ed. At this point, options for management would include Silvadene or Burow solution. I do not belie ve she has an invasive skin infection there such as cellulitis and therefore, vancomycin is probably not necessary.
[2018-02-27] MEDS: HumaLOG 300 UNITS/3 ML VIAL SC PRN (20:38)
[2018-02-28] MEDS: diphenhydrAMINE 50 MG CAP PO PRN ×2 (02:45→08:54)
[2018-02-28] MEDS: HYDROcodone/Acetaminophen 10/325 mg Tablet PO PRN ×3 (02:45→17:34)
[2018-02-28] MEDS: HumaLOG 300 UNITS/3 ML VIAL SC PRN ×4 (05:08→21:23)
[2018-02-28 05:32] LABS: INR-International Normal Ratio 3.1; Prothrombin Time 32.2 SEC (12.0-14.7)
[2018-02-28 05:39] LABS: Anion Gap 8 mmol/L (10-20); BUN (Urea Nitrogen) 19 mg/dL (9.8-20.1); Calc. Creatinine Clearance 119 mL/min (70-130); Calcium 8.2 mg/dL (7.8-10.44); Carbon Dioxide 30 mmol/L (22-29); Chloride 104 mmol/L (98-107); Estimated GFR-MDRD 51; Glucose 148 mg/dL (70-105); Potassium 3.9 mmol/L (3.5-5.1); Sodium 138 mmol/L (136-145)
[2018-02-28 05:53] LABS: Eosinophils 2 % (0-10); Hemoglobin 7.1 g/dL (12.0-16.0); Hypochromia SLIGHT = 6-15 cells (100X) (0-5/hpf); Lymphocytes 54 % (21-51); MDiff Complete? YES; Mean Corpuscular HGB CONC 32.7 g/dL (32.0-36.0); Mean Corpuscular Volume 88.8 fL (78.0-98.0); Mean Platelet Volume 7.7 fL (7.4-10.4); Monocytes 4 % (0-10); Neutrophil 40 % (42-75); PLT Morphology Comment Appears Adequate; Platelet Count 198 thou/uL (130-400); RBC Distribution Width 17.3 % (11.5-14.5); Red Blood Cell (RBC) Count 2.43 mill/uL (4.20-5.40); White Blood Cell (WBC) Count 2.8 thou/uL (4.8-10.8)
[2018-02-28] MEDS: Famotidine 20 MG TAB PO SCH (08:52)
[2018-02-28] MEDS: Ferrous Sulfate 325 MG TAB PO SCH (08:52)
[2018-02-28] MEDS: Fluconazole 100 MG TAB PO SCH (08:53)
[2018-02-28] MEDS: Metoprolol Tartrate 25 MG TAB PO SCH ×2 (08:56→21:25)
[2018-02-28] MEDS: Furosemide 20 MG TAB PO SCH (08:56)
[2018-02-28] MEDS: Insulin NPH/Reg Insulin Hm 300 UNITS/3 ML VIAL SC SCH ×2 (09:06→21:24)
[2018-02-28] MEDS: Vancomycin HCl 1.5 GM in Sodium Chloride 0.9% 250 ML 300 ML IVPB SCH ×2 (09:57→21:51)
[2018-02-28] MEDS ORDERED: Vancomycin HCl 1.5 GM in Sodium Chloride 0.9% 250 ML 300 ML IVPB SCH (22:30)
--- NOTE | 2018-02-28 22:40 | PDOC.PN ---
- Subjective Encounter Start Date: 02/28/18 Encounter Start Time: 10:00 Subjective: nsg notes rev, rebel ovn, c/o pain and requesting IV pain medications - Objective Vital Signs & Weight: Vital Signs (12 hours) Temp Pulse Resp BP Pulse Ox 02/28/18 19:52 98.7 F 75 15 130/58 L 98 Weight Admit Weight 291 lb 9.6 oz Weight 293 lb I&O: 02/27/18 02/28/18 03/01/18 06:59 06:59 06:59 Intake Total 1550 1670 1070 Output Total 650 Balance 900 1670 1070 Result Diagrams: 03/01/18 04:40 03/01/18 04:40 Additional Labs: Accuchecks 02/28/18 02/28/18 02/28/18 21:20 16:57 11:15 POC Glucose 255 H 326 H 160 H 02/28/18 05:07 POC Glucose 164 H Phys Exam - Physical Examination Constitutional: NAD lying in hospital bed HEENT: moist MMs Respiratory: no wheezing, no rales, no rhonchi, clear to auscultation bilateral Cardiovascular: RRR, no significant murmur, no rub Gastrointestinal: soft, non-tender, positive bowel sounds skin lesions with erythema and dressing with blood Neurological: moves all 4 limbs Psychiatric: normal affect, A&O x 3 Dx/Plan - Plan (1) Cellulitis due to MRSA Code(s): L03.90 - CELLULITIS, UNSPECIFIED; B95.61 - METHICILLIN SUSCEP STAPH INFCT CAUSING DIS CLASSD ELSWHR while the patient likely doesn't have luda cellulitis in the skin area, concern for the fact that the culture has been positive for MRSA - unclear if treatment is needed in this scenario or perhaps symptomatic care and close follow up to determine if and when abx may be required (2) Rash - see above Code(s): R21 - RASH AND OTHER NONSPECIFIC SKIN ERUPTION Status: Acute Comment: ? due to s. aureus cellulitis vs fungal infection. Continue fluconazole, add vancomycin (3) Hypertension Code(s): I10 - ESSENTIAL (PRIMARY) HYPERTENSION Status: Chronic Comment: controlled episodic hypotension with low dose oral narcotic use d/w pt that in this setting , concern for escalation of narcotic/ opioid use may worsen hypotension (4) Stage 3 chronic kidney disease Code(s): N18.3 - CHRONIC KIDNEY DISEASE, STAGE 3 (MODERATE) Status: Chronic Comment: stable (5) Morbid obesity with BMI of 45.0-49.9, adult Code(s): E66.01 - MORBID (SEVERE) OBESITY DUE TO EXCESS CALORIES; Z68.42 - BODY MASS INDEX (BMI) 45.0-49.9, ADULT Status: Chronic Comment: stable (6) Supratherapeutic INR Code(s): R79.1 - ABNORMAL COAGULATION PROFILE Status: Resolved (7) Sepsis Code(s): A41.9 - SEPSIS, UNSPECIFIED ORGANISM Status: Resolved (8) UTI (urinary tract infection) Status: Resolved diet: as tolerated activity: as tolerated dvt ppx d/w pt, pt's bedside nsg, greater than 30 minutes spent on patient care Review of Systems - Medications/Allergies Allergies/Adverse Reactions: Allergies Allergy/AdvReac Type Severity Reaction Status Date / Time nystatin Allergy Severe Rash Verified 02/27/18 20:46 Medications: Current Medications Acetaminophen (Tylenol) 650 mg PO Q4H PRN PRN Reason: Headache/Fever or Pain Hydrocodone Bitart/Acetaminophen ([place] 10/325) 1 tab PO Q6H PRN PRN Reason: Moderate Pain (4-6) Last Admin: 03/01/18 20:13 Dose: 1 tab Cholecalciferol (Vitamin D3) 5,000 units PO DAILY [facility] Last Admin: 03/01/18 08:31 Dose: 5,000 units Cyclobenzaprine HCl (Flexeril) 10 mg PO TID PRN PRN Reason: Muscle Spasm Dextrose/Water (Dextrose 50%) 25 gm SLOW IVP PRN PRN PRN Reason: Hypoglycemia Diphenhydramine HCl (Benadryl) 25 mg IVP Q6H PRN PRN Reason: Itching & Insomnia Last Admin: 02/26/18 02:23 Dose: 25 mg Diphenhydramine HCl (Benadryl) 50 mg PO Q6HR PRN PRN Reason: Itching & Insomnia Last Admin: 03/01/18 20:13 Dose: 50 mg Famotidine (Pepcid) 20 mg PO DAILY [facility] Last Admin: 03/01/18 08:32 Dose: 20 mg Ferrous Sulfate (Feosol) 325 mg PO DAILY [facility] Last Admin: 03/01/18 08:32 Dose: 325 mg Furosemide (Lasix) 20 mg PO DAILY [facility] Last Admin: 03/01/18 09:35 Dose: Not Given Glucagon (Glucagon) 1 mg IM PRN PRN PRN Reason: Hypoglycemia Hydralazine HCl (Apresoline) 10 mg SLOW IVP Q6H PRN PRN Reason: SBP Greater Than 170 Dextrose/Water (D5w) 1,000 mls @ 0 mls/hr IV .Q0M PRN PRN Reason: Hypoglycemia Insulin Human Isoph/Insulin Regular (Humulin 70/30) 50 units SC BID [facility] Last Admin: 03/01/18 20:12 Dose: 50 unit Insulin Human Lispro (Humalog) 0 units SC .MILD SLIDING SCALE PRN PRN Reason: Mild Correctional Scale Last Admin: 02/28/18 21:23 Dose: 4 unit Metoprolol Tartrate (Lopressor) 12.5 mg PO BID [facility] Last Admin: 03/01/18 20:14 Dose: Not Given Miscellaneous Medication (Pharmacy To Dose) 0 each PO ONE PRN PRN Reason: WARFARIN Stop: 03/21/18 03:31 Miscellaneous Medication (Pharmacy To Dose) 1 each IVPB PRN PRN PRN Reason: BACTEREMIA Nitroglycerin (Nitrostat) 0.4 mg SL PRN PRN PRN Reason: Chest Pain Quinapril HCl (Accupril) 5 mg PO DAILY [facility] Last Admin: 03/01/18 09:35 Dose: Not Given Simethicone (Mylicon Chewable) 80 mg PO BID PRN PRN Reason: Gas Pain Last Admin: 02/22/18 17:14 Dose: 80 mg Sodium Chloride (Flush - Normal Saline) 10 ml IVF PRN PRN PRN Reason: Saline Flush Last Admin: 03/01/18 20:14 Dose: 10 ml Tramadol HCl (Ultram) 50 mg PO Q6H PRN PRN Reason: Pain 4-6 Last Admin: 02/24/18 06:34 Dose: 50 mg Warfarin Sodium (Coumadin) 6 mg PO 1700 [facility]
[2018-03-01] MEDS: diphenhydrAMINE 50 MG CAP PO PRN ×2 (00:01→20:13)
[2018-03-01 04:56] LABS: INR-International Normal Ratio 3.3; Prothrombin Time 33.5 SEC (12.0-14.7)
[2018-03-01 08:13] LABS: #Eosinphils 0.2 thou/uL (0.0-0.7); #Lymphocytes 1.6 thou/uL (1.20-3.40); #Monocytes 0.2 thou/uL (0.11-0.59); #Neutrophils 1.7 thou/uL (1.40-6.50); %Basophils 0.7 % (0.0-1.0); %Eosinophils 5.7 % (0.0-10.0); %Lymphocytes 42.8 % (21.0-51.0); %Monocytes 5.4 % (0.0-10.0); %Neutrophils 45.5 % (42.0-75.0); Mean Corpuscular HGB CONC 31.8 g/dL (32.0-36.0); Mean Corpuscular Hemoglobin 28.3 pg (27.0-31.0); Mean Corpuscular Volume 89.1 fL (78.0-98.0); Mean Platelet Volume 8.2 fL (7.4-10.4); Platelet Count 257 thou/uL (130-400); RBC Distribution Width 17.7 % (11.5-14.5); Red Blood Cell (RBC) Count 2.47 mill/uL (4.20-5.40); White Blood Cell (WBC) Count 3.7 thou/uL (4.8-10.8)
[2018-03-01 08:26] LABS: Anion Gap 10 mmol/L (10-20); BUN (Urea Nitrogen) 18 mg/dL (9.8-20.1); Calc. Creatinine Clearance 123 mL/min (70-130); Calcium 8.6 mg/dL (7.8-10.44); Carbon Dioxide 26 mmol/L (22-29); Chloride 105 mmol/L (98-107); Estimated GFR-MDRD 53; Glucose 97 mg/dL (70-105); Potassium 3.9 mmol/L (3.5-5.1); Sodium 137 mmol/L (136-145)
[2018-03-01] MEDS: Ferrous Sulfate 325 MG TAB PO SCH (08:32)
[2018-03-01] MEDS: Famotidine 20 MG TAB PO SCH (08:32)
[2018-03-01] MEDS: Fluconazole 100 MG TAB PO SCH (08:32)
[2018-03-01] MEDS: Insulin NPH/Reg Insulin Hm 300 UNITS/3 ML VIAL SC SCH ×2 (08:33→20:12)
[2018-03-01] MEDS: Metoprolol Tartrate 25 MG TAB PO SCH ×2 (09:34→20:14)
[2018-03-01] MEDS: Furosemide 20 MG TAB PO SCH (09:35)
[2018-03-01] MEDS: HYDROcodone/Acetaminophen 10/325 mg Tablet PO PRN ×3 (09:39→20:13)
[2018-03-01 10:07] LABS: Vancomycin, Random 23.3 ug/mL (See Comment)
--- NOTE | 2018-03-01 13:52 | PDOC.PN ---
- Subjective Encounter Start Date: 03/01/18 Encounter Start Time: 16:00 Subjective: nsg notes rev, rebel ovn, pt states that she slept poorly ovn due to pain -: however, she has received education regarding dressing change and care -: from the wound care team - Objective Vital Signs & Weight: Vital Signs (12 hours) Temp Pulse Resp BP Pulse Ox 03/01/18 08:00 98.0 F 67 18 109/51 L 99 Weight Admit Weight 291 lb 9.6 oz Weight 293 lb I&O: 02/28/18 03/01/18 03/02/18 06:59 06:59 06:59 Intake Total 1670 1430 Balance 1670 1430 Result Diagrams: 03/01/18 04:40 03/01/18 04:40 Additional Labs: Accuchecks 03/01/18 03/01/18 02/28/18 11:36 05:58 21:20 POC Glucose 110 85 255 H 02/28/18 16:57 POC Glucose 326 H Dx/Plan - Plan Constitutional: NAD lying in hospital bed HEENT: moist MMs Respiratory: no wheezing, no rales, no rhonchi, clear to auscultation bilateral Cardiovascular: RRR, no significant murmur, no rub Gastrointestinal: soft, non-tender, positive bowel sounds skin lesions with erythema and dressing with blood Neurological: moves all 4 limbs Psychiatric: normal affect, A&O x 3 Dx/Plan - Plan (1) Cellulitis due to MRSA Code(s): L03.90 - CELLULITIS, UNSPECIFIED; B95.61 - METHICILLIN SUSCEP STAPH INFCT CAUSING DIS CLASSD ELSWHR while the patient likely doesn't have luda cellulitis in the skin area, concern for the fact that the culture has been positive for MRSA - unclear if treatment is needed in this scenario or perhaps symptomatic care and close follow up to determine if and when abx may be required (2) Rash - see above Code(s): R21 - RASH AND OTHER NONSPECIFIC SKIN ERUPTION Status: Acute Comment: ? due to s. aureus cellulitis vs fungal infection. Continue fluconazole, add vancomycin clinically appears improved on the current regimen appreciate ID input on whether or not the MRSA cx will warrant abx use (3) Hypertension Code(s): I10 - ESSENTIAL (PRIMARY) HYPERTENSION Status: Chronic Comment: controlled episodic hypotension with low dose oral narcotic use d/w pt that in this setting , concern for escalation of narcotic/ opioid use may worsen hypotension (4) Stage 3 chronic kidney disease Code(s): N18.3 - CHRONIC KIDNEY DISEASE, STAGE 3 (MODERATE) Status: Chronic Comment: stable (5) Morbid obesity with BMI of 45.0-49.9, adult Code(s): E66.01 - MORBID (SEVERE) OBESITY DUE TO EXCESS CALORIES; Z68.42 - BODY MASS INDEX (BMI) 45.0-49.9, ADULT Status: Chronic Comment: stable (6) Supratherapeutic INR continue to monitor INR (7) Sepsis Code(s): A41.9 - SEPSIS, UNSPECIFIED ORGANISM Status: Resolved (8) UTI (urinary tract infection) Status: Resolved diet: as tolerated activity: as tolerated dvt ppx Review of Systems - Medications/Allergies Allergies/Adverse Reactions: Allergies Allergy/AdvReac Type Severity Reaction Status Date / Time nystatin Allergy Severe Rash Verified 02/27/18 20:46 Medications: Current Medications Acetaminophen (Tylenol) 650 mg PO Q4H PRN PRN Reason: Headache/Fever or Pain Hydrocodone Bitart/Acetaminophen ([place] 10/325) 1 tab PO Q6H PRN PRN Reason: Moderate Pain (4-6) Last Admin: 03/01/18 20:13 Dose: 1 tab Cholecalciferol (Vitamin D3) 5,000 units PO DAILY [facility] Last Admin: 03/01/18 08:31 Dose: 5,000 units Cyclobenzaprine HCl (Flexeril) 10 mg PO TID PRN PRN Reason: Muscle Spasm Dextrose/Water (Dextrose 50%) 25 gm SLOW IVP PRN PRN PRN Reason: Hypoglycemia Diphenhydramine HCl (Benadryl) 25 mg IVP Q6H PRN PRN Reason: Itching & Insomnia Last Admin: 02/26/18 02:23 Dose: 25 mg Diphenhydramine HCl (Benadryl) 50 mg PO Q6HR PRN PRN Reason: Itching & Insomnia Last Admin: 03/01/18 20:13 Dose: 50 mg Famotidine (Pepcid) 20 mg PO DAILY [facility] Last Admin: 03/01/18 08:32 Dose: 20 mg Ferrous Sulfate (Feosol) 325 mg PO DAILY [facility] Last Admin: 03/01/18 08:32 Dose: 325 mg Furosemide (Lasix) 20 mg PO DAILY [facility] Last Admin: 03/01/18 09:35 Dose: Not Given Glucagon (Glucagon) 1 mg IM PRN PRN PRN Reason: Hypoglycemia Hydralazine HCl (Apresoline) 10 mg SLOW IVP Q6H PRN PRN Reason: SBP Greater Than 170 Dextrose/Water (D5w) 1,000 mls @ 0 mls/hr IV .Q0M PRN PRN Reason: Hypoglycemia Insulin Human Isoph/Insulin Regular (Humulin 70/30) 50 units SC BID [facility] Last Admin: 03/01/18 20:12 Dose: 50 unit Insulin Human Lispro (Humalog) 0 units SC .MILD SLIDING SCALE PRN PRN Reason: Mild Correctional Scale Last Admin: 02/28/18 21:23 Dose: 4 unit Metoprolol Tartrate (Lopressor) 12.5 mg PO BID [facility] Last Admin: 03/01/18 20:14 Dose: Not Given Miscellaneous Medication (Pharmacy To Dose) 0 each PO ONE PRN PRN Reason: WARFARIN Stop: 03/21/18 03:31 Miscellaneous Medication (Pharmacy To Dose) 1 each IVPB PRN PRN PRN Reason: BACTEREMIA Nitroglycerin (Nitrostat) 0.4 mg SL PRN PRN PRN Reason: Chest Pain Quinapril HCl (Accupril) 5 mg PO DAILY [facility] Last Admin: 03/01/18 09:35 Dose: Not Given Simethicone (Mylicon Chewable) 80 mg PO BID PRN PRN Reason: Gas Pain Last Admin: 02/22/18 17:14 Dose: 80 mg Sodium Chloride (Flush - Normal Saline) 10 ml IVF PRN PRN PRN Reason: Saline Flush Last Admin: 03/01/18 20:14 Dose: 10 ml Tramadol HCl (Ultram) 50 mg PO Q6H PRN PRN Reason: Pain 4-6 Last Admin: 02/24/18 06:34 Dose: 50 mg Warfarin Sodium (Coumadin) 6 mg PO 1700 [facility]
--- NOTE | 2018-03-01 18:53 | PRG ---
DATE OF SERVICE: 03/01/2018 SUBJECTIVE: Ms. Lockhart continues with a burning sensation in the intertriginous area. Wound care has seen her and is applying topical silver impregnated dressing. No respiratory symptoms or abdominal pain, no diarrhea. PHYSICAL EXAMINATION: VITAL SIGNS: T-max 98.7, blood pressure 111/54, pulse 63, respirations 18. GENERAL APPEARANCE: Appears no distress except for when she moves her thighs when the dressings removed from her groin region. SKIN: Skin of the groin has the area of de-epithelialization following the blistering, but this appears to be quickly recovering the skin cover. LUNGS: Clear. HEART: S1, S2, regular rate. ABDOMEN: Soft, nondistended or tender. LABORATORY DATA: White cell count 3.7, hemoglobin 7.0, MCV 89, platelets 257. Chemistries normal. ASSESSMENT AND DISCUSSION: Hypertension, type 2 diabetes, obesity, colon cancer stage III, status post partial colectomy and chemotherapy and episode of fever which was transient, development of intertriginous maceration as blistering which worsened after administration of topical statins. Continue with management suggested by wound care. This could be either topical impregnated silver dressing or Desitin or something similar topical agent, Vielka's solution would be another option. Discontinue systemic antimicrobial therapy. MTDD
[2018-03-02] MEDS: diphenhydrAMINE 50 MG CAP PO PRN (03:21)
[2018-03-02] MEDS: HYDROcodone/Acetaminophen 10/325 mg Tablet PO PRN ×2 (03:21→18:42)
[2018-03-02 04:49] LABS: #Eosinphils 0.4 thou/uL (0.0-0.7); #Lymphocytes 1.6 thou/uL (1.20-3.40); #Monocytes 0.3 thou/uL (0.11-0.59); #Neutrophils 2.1 thou/uL (1.40-6.50); %Basophils 0.9 % (0.0-1.0); %Eosinophils 8.1 % (0.0-10.0); %Lymphocytes 36.4 % (21.0-51.0); %Monocytes 5.9 % (0.0-10.0); %Neutrophils 48.6 % (42.0-75.0); Hemoglobin 7.1 g/dL (12.0-16.0); Mean Corpuscular HGB CONC 32.4 g/dL (32.0-36.0); Mean Corpuscular Hemoglobin 28.9 pg (27.0-31.0); Mean Platelet Volume 7.4 fL (7.4-10.4); Platelet Count 228 thou/uL (130-400); RBC Distribution Width 17.7 % (11.5-14.5); Red Blood Cell (RBC) Count 2.45 mill/uL (4.20-5.40); White Blood Cell (WBC) Count 4.3 thou/uL (4.8-10.8)
[2018-03-02 04:59] LABS: INR-International Normal Ratio 2.7; Prothrombin Time 28.6 SEC (12.0-14.7)
[2018-03-02 05:10] LABS: Anion Gap 10 mmol/L (10-20); BUN (Urea Nitrogen) 17 mg/dL (9.8-20.1); Calc. Creatinine Clearance 119 mL/min (70-130); Calcium 8.6 mg/dL (7.8-10.44); Carbon Dioxide 28 mmol/L (22-29); Chloride 106 mmol/L (98-107); Estimated GFR-MDRD 51; Glucose 139 mg/dL (70-105); Potassium 4.1 mmol/L (3.5-5.1); Sodium 140 mmol/L (136-145)
[2018-03-02] MEDS: HumaLOG 300 UNITS/3 ML VIAL SC PRN (05:52)
[2018-03-02] MEDS: Famotidine 20 MG TAB PO SCH (08:32)
[2018-03-02] MEDS: Furosemide 20 MG TAB PO SCH (08:32)
[2018-03-02] MEDS: Metoprolol Tartrate 25 MG TAB PO SCH ×2 (08:32→22:13)
[2018-03-02] MEDS: Insulin NPH/Reg Insulin Hm 300 UNITS/3 ML VIAL SC SCH ×2 (08:34→22:15)
[2018-03-02] MEDS: Ferrous Sulfate 325 MG TAB PO SCH (08:35)
--- NOTE | 2018-03-02 15:18 | PDOC.PN ---
- Subjective Encounter Start Date: 03/02/18 Encounter Start Time: 07:20 Pt seen for followup re: rash. Denies chest pain, shortness of breath, fevers or chills. Groin rash + - Objective MAR Reviewed: Yes Vital Signs & Weight: Vital Signs (12 hours) Temp Pulse Resp BP Pulse Ox 03/02/18 08:00 98.2 F 66 18 132/62 98 Weight Admit Weight 291 lb 9.6 oz Weight 293 lb I&O: 03/01/18 03/02/18 03/03/18 06:59 06:59 06:59 Intake Total 1430 810 10 Output Total 400 Balance 1430 410 10 Result Diagrams: 03/02/18 04:35 03/02/18 04:35 Additional Labs: Accuchecks 03/02/18 03/02/18 03/01/18 12:20 05:52 20:09 POC Glucose 126 H 226 H 147 H 03/01/18 16:01 POC Glucose 107 Labs reviewed by me Phys Exam - Physical Examination Morbid obesity HEENT: moist MMs Neck: supple Respiratory: clear to auscultation bilateral Cardiovascular: RRR Gastrointestinal: soft Neurological: moves all 4 limbs Psychiatric: normal affect Deviation from normal: groin rash Dx/Plan (1) Rash Code(s): R21 - RASH AND OTHER NONSPECIFIC SKIN ERUPTION Status: Acute Comment: off of antibiotics, for dressings (2) Hypertension Code(s): I10 - ESSENTIAL (PRIMARY) HYPERTENSION Status: Chronic Comment: controlled (3) Stage 3 chronic kidney disease Code(s): N18.3 - CHRONIC KIDNEY DISEASE, STAGE 3 (MODERATE) Status: Chronic Comment: stable (4) Morbid obesity with BMI of 45.0-49.9, adult Code(s): E66.01 - MORBID (SEVERE) OBESITY DUE TO EXCESS CALORIES; Z68.42 - BODY MASS INDEX (BMI) 45.0-49.9, ADULT Status: Chronic Comment: stable (5) Supratherapeutic INR Code(s): R79.1 - ABNORMAL COAGULATION PROFILE Status: Resolved (6) Sepsis Code(s): A41.9 - SEPSIS, UNSPECIFIED ORGANISM Status: Resolved (7) UTI (urinary tract infection) Status: Resolved (8) Cellulitis due to Staphylococcus aureus Code(s): L03.90 - CELLULITIS, UNSPECIFIED; B95.61 - METHICILLIN SUSCEP STAPH INFCT CAUSING DIS CLASSD ELSWHR Status: Ruled-out Comment: Local dressings, off of antibiotics - Plan * . INR therapeutic today, likely home tomorrow Review of Systems - Review of Systems Cardiovascular: negative: chest pain, palpitations, orthopnea, paroxysmal nocturnal dyspnea, edema, light headedness Skin: Rash - Medications/Allergies Allergies/Adverse Reactions: Allergies Allergy/AdvReac Type Severity Reaction Status Date / Time nystatin Allergy Severe Rash Verified 02/27/18 20:46 Medications: Current Medications Acetaminophen (Tylenol) 650 mg PO Q4H PRN PRN Reason: Headache/Fever or Pain Hydrocodone Bitart/Acetaminophen ([place] 10) 1 tab PO Q6H PRN PRN Reason: Moderate Pain (4-6) Last Admin: 03/02/18 03:21 Dose: 1 tab Cholecalciferol (Vitamin D3) 5,000 units PO DAILY [facility] Last Admin: 03/02/18 08:30 Dose: 5,000 units Cyclobenzaprine HCl (Flexeril) 10 mg PO TID PRN PRN Reason: Muscle Spasm Dextrose/Water (Dextrose 50%) 25 gm SLOW IVP PRN PRN PRN Reason: Hypoglycemia Diphenhydramine HCl (Benadryl) 25 mg IVP Q6H PRN PRN Reason: Itching & Insomnia Last Admin: 02/26/18 02:23 Dose: 25 mg Diphenhydramine HCl (Benadryl) 50 mg PO Q6HR PRN PRN Reason: Itching & Insomnia Last Admin: 03/02/18 03:21 Dose: 50 mg Famotidine (Pepcid) 20 mg PO DAILY [facility] Last Admin: 03/02/18 08:32 Dose: 20 mg Ferrous Sulfate (Feosol) 325 mg PO DAILY [facility] Last Admin: 03/02/18 08:35 Dose: 325 mg Furosemide (Lasix) 20 mg PO DAILY [facility] Last Admin: 03/02/18 08:32 Dose: 20 mg Glucagon (Glucagon) 1 mg IM PRN PRN PRN Reason: Hypoglycemia Hydralazine HCl (Apresoline) 10 mg SLOW IVP Q6H PRN PRN Reason: SBP Greater Than 170 Dextrose/Water (D5w) 1,000 mls @ 0 mls/hr IV .Q0M PRN PRN Reason: Hypoglycemia Insulin Human Isoph/Insulin Regular (Humulin 70/30) 50 units SC BID [facility] Last Admin: 03/02/18 08:34 Dose: 50 unit Insulin Human Lispro (Humalog) 0 units SC .MILD SLIDING SCALE PRN PRN Reason: Mild Correctional Scale Last Admin: 03/02/18 05:52 Dose: 3 unit Metoprolol Tartrate (Lopressor) 12.5 mg PO BID [facility] Last Admin: 03/02/18 08:32 Dose: 12.5 mg Miscellaneous Medication (Pharmacy To Dose) 0 each PO ONE PRN PRN Reason: WARFARIN Stop: 03/21/18 03:31 Nitroglycerin (Nitrostat) 0.4 mg SL PRN PRN PRN Reason: Chest Pain Quinapril HCl (Accupril) 5 mg PO DAILY [facility] Last Admin: 03/02/18 08:30 Dose: 5 mg Simethicone (Mylicon Chewable) 80 mg PO BID PRN PRN Reason: Gas Pain Last Admin: 02/22/18 17:14 Dose: 80 mg Sodium Chloride (Flush - Normal Saline) 10 ml IVF PRN PRN PRN Reason: Saline Flush Last Admin: 03/01/18 20:14 Dose: 10 ml Warfarin Sodium (Coumadin) 4 mg PO 1700 [facility]
[2018-03-02] MEDS ORDERED: Warfarin Sodium 2 MG TAB PO SCH (17:00)
[2018-03-03] MEDS: Famotidine 20 MG TAB PO SCH (09:00)
[2018-03-03] MEDS: Ferrous Sulfate 325 MG TAB PO SCH (09:00)
[2018-03-03] MEDS: Furosemide 20 MG TAB PO SCH (09:00)
[2018-03-03] MEDS: Metoprolol Tartrate 25 MG TAB PO SCH (09:50)
[2018-03-03] MEDS: Insulin NPH/Reg Insulin Hm 300 UNITS/3 ML VIAL SC SCH (11:48)
[2018-03-03 12:40] LABS: INR-International Normal Ratio 2.3; Prothrombin Time 25.3 SEC (12.0-14.7)
[2018-03-03] MEDS ORDERED: Acetaminophen/Codeine 30-300mg Tablet PO PRN (12:41)
[2018-03-03 13:06] VITALS: BP 108/50; TEMP 98.7
--- NOTE | 2018-03-03 13:14 | DIS ---
DATE OF ADMISSION: 02/19/2018 DATE OF DISCHARGE: 03/03/2018 PRIMARY CARE PHYSICIAN: Josy Silva M.D. DISCHARGE DIAGNOSES: 1. Sepsis. 2. Urinary tract infection with Escherichia coli. 3. Intertriginous maceration. 4. Supratherapeutic INR. CONDITION OF PATIENT ON THE DAY OF DISCHARGE: Stable. I assessed Ms. Lockhart on the day of discharg e. She denies any chest pain or shortness of breath. Vital signs are stable. S1 and S2 are heard, regular. Lungs are clear to auscultation bilaterally. DISCHARGE MEDICATIONS: Tylenol #3 one tablet every 8 hours as needed, vitamin D3 10,000 units daily, Lasix 20 mg daily, Humulin 70/30 insulin 50 units 2 times a day, metoprolol tartrate 12.5 mg 2 times a day, Nitroglycerin 0.4 mg sublingually as needed, Zofran 8 mg every 8 hours as needed, quinapril 5 mg daily, famotidine 20 mg daily, ferrous sulfate 325 mg daily, warfarin 4 mg daily until she is see n by her primary care provider in 3 days, at which time Warfarin dosing to be based on her INR. CONSULTATIONS DURING THIS HOSPITALIZATION: Oncology, Ermelinda Butler APRN and Infectious Diseases, Dr. Garcia. HOSPITAL COURSE: Ms. Lockhart is a pleasant 57-year-old lady who was admitted to [facility] on 02/19/2018 for sepsis secondary to urinary tract infection. Please refer to Dr. Jonatan banks's history and physical note dated 02/19/2018 for further details. She was treated with broad s pectrum intravenous antibiotics. Urine cultures grew Escherichia coli that was resistant to ampicill in, ampicillin/sulbactam, cefoxitin, ceftazidime, ceftriaxone, sensitive to amikacin, cefepime, cipro floxacin, gentamicin, levofloxacin, meropenem, nitrofurantoin, piperacillin/tazobactam, tobramycin an d trimethoprim/sulfamethoxazole. The patient also grew bacillus species in 1 of 2 blood cultures, likely a contaminant. She had supratherapeutic INR of 12.1 at the time of admission. She received 5 mg intravenous vitamin K, and her INR became subtherapeutic. She was restarted on warfarin. She is being discharged home on 4 mg of warfarin. On the day of discharge, she has an INR of 2.3. She also had intertriginous rash. She was initially started on nystatin, which appeared to worsen th e rash. She was then started on oral fluconazole and Infectious Disease Service was consulted. Pricila fregoso, we recommended continuing with fluconazole and awaiting cultures. Vaginal cultures grew MRSA. Infectious Disease service felt that the lesions were secondary to intertriginous maceration, made worse after administration of topical statin. Wound care also saw the patient and made recommendatio ns for care of the intertriginous area. She is being discharged home in a stable condition. She will follow up with her primary care provide r in 3 days' time. She will need her INR checked and warfarin dosing adjusted as needed. On 03/02/2018, she had sodium 140, potassium 4.1, creatinine 1.11, white count 4300, hemoglobin 7.1, and platelet count 228,000. She will follow up with Oncology Service as outpatient for management of stage IIIB adenocarcinoma of the colon. She did receive chemotherapy while she was in the hospital. Many thanks for allowing me to participate in your patient's care. Please feel free to contact me wi th any questions or concerns. DISCHARGE DESTINATION: Home. TOTAL AMOUNT OF TIME SPENT COORDINATING THIS DISCHARGE: 33 minutes. Please note that I am giving her a prescription for 15 doses of Tylenol #3.
== END 2018-03-03 16:18 | disposition home or self-care (01) | DRG 872 ==
LOC: ERS 22:03 → 2NO 02-19 02:37 → ONC 02-21 12:00
PROVIDERS: ADMIT Hospitalist; ATTEND Hospitalist
DX: A41.51 Sepsis due to Escherichia coli [E. coli] (principal); N39.0 Urinary tract infection, site not specified; C18.9 Malignant neoplasm of colon, unspecified; L03.90 Cellulitis, unspecified; Z68.42 Body mass index [BMI] 45.0-49.9, adult; R79.1 Abnormal coagulation profile; L30.4 Erythema intertrigo; Z90.49 Acquired absence of other specified parts of digestive tract; Z86.718 Personal history of other venous thrombosis and embolism; E66.01 Morbid (severe) obesity due to excess calories; E11.9 Type 2 diabetes mellitus without complications; Z79.01 Long term (current) use of anticoagulants; F32.9 Major depressive disorder, single episode, unspecified; F41.9 Anxiety disorder, unspecified; D64.9 Anemia, unspecified; Z79.899 Other long term (current) drug therapy; Z79.4 Long term (current) use of insulin; R21 Rash and other nonspecific skin eruption; N18.3 Chronic kidney disease, stage 3 (moderate); B95.61 Methicillin susceptible Staphylococcus aureus infection as the cause of diseases classified elsewhere; I12.9 Hypertensive chronic kidney disease with stage 1 through stage 4 chronic kidney disease, or unspecified chronic kidney disease
CPT/HCPCS: 36415; 36416; 51701; 71045; 74177; 80048; 80053; 80202; 81003; 81015; 82565; 83605; 83735; 85014; 85018; 85025; 85049; 85610; 87040; 87070; 87077; 87086; 87186; 87205; 93005; 96365; 96367; A4353; J0640; J0692; J1100; J1200; J1650; J2405; J3370; J3430; J3475; J7050; J7070; J9190; J9263

== ENCOUNTER 2018-03-22 09:39 | Day surgery (SDC) | payer OTHER, SELFPAY ==
[2018-03-22] MEDS ORDERED: Sodium Chloride 0.9% 20 ML ONE (09:54)
[2018-03-22] MEDS ORDERED: FLUOROURACIL IVPB SCH (10:00)
[2018-03-22] MEDS ORDERED: Leucovorin Calcium 50 MG in Dextrose 5% in Water 50 ML IVPB SCH (10:00)
[2018-03-22] MEDS ORDERED: Dexamethasone 10 MG, Ondansetron 2MG/ML MDV 10 MG, Admixture Fee 1 EACH in Sodium Chlor... IVPB SCH (10:00)
[2018-03-22] MEDS ORDERED: Oxaliplatin 200 MG in Dextrose 5% in Water 500 ML IVPB SCH (10:00)
[2018-03-22] MEDS ORDERED: DEXTROSE 5% IVPB SCH (10:00)
[2018-03-22] MEDS ORDERED: WATER IVPB SCH (10:00)
[2018-03-22 10:13] VITALS: BP 115/55; TEMP 98.5
== END 2018-03-22 15:41 | disposition home or self-care (01) ==
LOC: ONC/OP 09:39
PROVIDERS: ATTEND Internal Medicine Medical Oncology
DX: Z51.11 Encounter for antineoplastic chemotherapy (principal); C18.6 Malignant neoplasm of descending colon
CPT/HCPCS: 96367; 96375; 96413; 96415; 96416; 96417; J0640; J1100; J1642; J2405; J7050; J7070; J9190; J9263

== ENCOUNTER 2018-04-05 09:21 | Day surgery (SDC) | payer OTHER, SELFPAY ==
[2018-04-05] MEDS ORDERED: Sodium Chloride 0.9% 20 ML ONE (09:31)
[2018-04-05] MEDS ORDERED: Leucovorin Calcium 50 MG in Dextrose 5% in Water 50 ML IVPB SCH (10:00)
[2018-04-05] MEDS ORDERED: DEXTROSE 5% IVPB SCH (10:00)
[2018-04-05] MEDS ORDERED: WATER IVPB SCH (10:00)
[2018-04-05] MEDS ORDERED: Ondansetron PF 4 MG/2 ML Vial SLOW IVP SCH (10:00)
[2018-04-05] MEDS ORDERED: Dexamethasone 4 mg/ml Vial SLOW IVP SCH (10:00)
[2018-04-05] MEDS ORDERED: Oxaliplatin 200 MG in Dextrose 5% in Water 500 ML IVPB SCH (10:00)
[2018-04-05] MEDS ORDERED: FLUOROURACIL IVPB SCH (10:00)
[2018-04-05 12:43] VITALS: BP 121/56; TEMP 97.9
== END 2018-04-05 15:14 | disposition home or self-care (01) ==
LOC: ONC/OP 09:21
PROVIDERS: ATTEND Internal Medicine Medical Oncology
DX: Z51.11 Encounter for antineoplastic chemotherapy (principal); C18.6 Malignant neoplasm of descending colon
CPT/HCPCS: 96367; 96375; 96413; 96415; 96416; 96417; J0640; J1100; J2405; J7070; J9190; J9263

== ENCOUNTER 2018-04-19 09:00 | Day surgery (SDC) | payer OTHER, SELFPAY ==
[2018-04-19] MEDS ORDERED: Sodium Chloride 0.9% 40 ML ONE (09:10)
[2018-04-19] MEDS ORDERED: Oxaliplatin 200 MG in Dextrose 5% in Water 500 ML IVPB SCH (09:45)
[2018-04-19] MEDS ORDERED: Leucovorin Calcium 50 MG in Dextrose 5% in Water 50 ML IVPB SCH (09:45)
[2018-04-19] MEDS ORDERED: FLUOROURACIL IVPB SCH (09:45)
[2018-04-19] MEDS ORDERED: Dexamethasone 4 mg/ml Vial SLOW IVP SCH (09:45)
[2018-04-19] MEDS ORDERED: WATER IVPB SCH (09:45)
[2018-04-19] MEDS ORDERED: DEXTROSE 5% IVPB SCH (09:45)
[2018-04-19] MEDS ORDERED: Ondansetron PF 4 MG/2 ML Vial SLOW IVP SCH (09:45)
== END 2018-04-19 16:07 | disposition home or self-care (01) ==
LOC: ONC/OP 09:00
PROVIDERS: ATTEND Internal Medicine Medical Oncology
DX: Z51.11 Encounter for antineoplastic chemotherapy (principal); C18.6 Malignant neoplasm of descending colon; E11.9 Type 2 diabetes mellitus without complications; E66.9 Obesity, unspecified; I10 Essential (primary) hypertension; J45.909 Unspecified asthma, uncomplicated; Z79.4 Long term (current) use of insulin; Z79.899 Other long term (current) drug therapy; Z79.01 Long term (current) use of anticoagulants
CPT/HCPCS: 96367; 96375; 96413; 96415; 96416; 96417; J0640; J1100; J2405; J7070; J9190; J9263

== ENCOUNTER 2018-05-03 09:11 | Day surgery (SDC) | payer OTHER ==
[2018-05-03 10:02] VITALS: BP 127/58; TEMP 98.5
[2018-05-03] MEDS ORDERED: FLUOROURACIL IVPB SCH (10:15)
[2018-05-03] MEDS ORDERED: DEXTROSE 5% IVPB SCH (10:15)
[2018-05-03] MEDS ORDERED: WATER IVPB SCH (10:15)
[2018-05-03] MEDS: Dexamethasone 10 MG, Ondansetron HCl/PF 10 MG in Sodium Chloride 0.9% 50 ML IVPB SCH (10:45)
[2018-05-03] MEDS: Leucovorin Calcium 50 MG in Dextrose 5% in Water 50 ML IVPB SCH (10:45)
[2018-05-03] MEDS: Sodium Chloride 0.9% 20 ML ONE (10:45)
[2018-05-03] MEDS: Oxaliplatin 200 MG in Dextrose 5% in Water 500 ML IVPB SCH (11:21)
== END 2018-05-03 14:50 | disposition home or self-care (01) ==
LOC: ONC/OP 09:11
PROVIDERS: ATTEND Internal Medicine Medical Oncology
DX: Z51.11 Encounter for antineoplastic chemotherapy (principal); C18.6 Malignant neoplasm of descending colon; E11.9 Type 2 diabetes mellitus without complications; I10 Essential (primary) hypertension; J45.909 Unspecified asthma, uncomplicated; F41.9 Anxiety disorder, unspecified; F32.9 Major depressive disorder, single episode, unspecified; E66.01 Morbid (severe) obesity due to excess calories; Z68.42 Body mass index [BMI] 45.0-49.9, adult; Z86.718 Personal history of other venous thrombosis and embolism; Z79.01 Long term (current) use of anticoagulants; Z79.4 Long term (current) use of insulin; Z79.899 Other long term (current) drug therapy; Z88.1 Allergy status to other antibiotic agents
CPT/HCPCS: 96367; 96375; 96413; 96415; 96416; 96417; J0640; J1100; J1642; J2405; J7050; J7070; J9190; J9263

== ENCOUNTER 2018-05-17 11:25 | Day surgery (SDC) | payer OTHER ==
[2018-05-17] MEDS ORDERED: Sodium Chloride 0.9% 30 ML ONE (11:39)
[2018-05-17] MEDS ORDERED: Dexamethasone Sod Phosphate 10 MG, Ondansetron 2MG/ML MDV 10 MG in Sodium Chloride 0.9%... IVPB SCH (12:00)
[2018-05-17] MEDS ORDERED: Leucovorin Calcium 50 MG in Dextrose 5% in Water 50 ML IVPB SCH (12:00)
[2018-05-17] MEDS ORDERED: DEXTROSE 5% IVPB SCH (12:15)
[2018-05-17] MEDS ORDERED: Oxaliplatin 200 MG in Dextrose 5% in Water 500 ML IVPB SCH (12:15)
[2018-05-17] MEDS ORDERED: WATER IVPB SCH (12:15)
[2018-05-17] MEDS ORDERED: FLUOROURACIL IVPB SCH (12:15)
[2018-05-17 13:19] VITALS: BP 119/57; TEMP 98.6
== END 2018-05-17 16:21 | disposition home or self-care (01) ==
LOC: ONC/OP 11:25
PROVIDERS: ATTEND Internal Medicine Medical Oncology
DX: Z51.11 Encounter for antineoplastic chemotherapy (principal); C18.6 Malignant neoplasm of descending colon; E11.9 Type 2 diabetes mellitus without complications; J45.909 Unspecified asthma, uncomplicated; I10 Essential (primary) hypertension; E66.9 Obesity, unspecified; Z68.41 Body mass index [BMI] 40.0-44.9, adult; F41.8 Other specified anxiety disorders; Z79.01 Long term (current) use of anticoagulants; Z79.4 Long term (current) use of insulin; Z79.899 Other long term (current) drug therapy; Z88.1 Allergy status to other antibiotic agents
CPT/HCPCS: 96367; 96375; 96413; 96415; 96416; 96417; J0640; J2405; J7050; J7070; J9190; J9263

== ENCOUNTER 2018-05-30 09:18 | Inpatient (IN) | payer OTHER ==
[2018-05-30] MEDS ORDERED: Ondansetron PF 4 MG/2 ML Vial IVP PRN (10:00)
[2018-05-30] MEDS ORDERED: Ondansetron ODT 4 MG TAB SL PRN (10:00)
[2018-05-30] MEDS ORDERED: Piperacillin/Tazobactam 4.5 GM VIAL ONE (10:04)
[2018-05-30 10:15] LABS: #Eosinphils 0.3 thou/uL (0.0-0.7); #Lymphocytes 1.5 thou/uL (1.20-3.40); #Monocytes 0.7 thou/uL (0.11-0.59); #Neutrophils 6.3 thou/uL (1.40-6.50); %Basophils 0.1 % (0.0-1.0); %Lymphocytes 17.2 % (21.0-51.0); %Monocytes 7.5 % (0.0-10.0); %Neutrophils 72.2 % (42.0-75.0); Hemoglobin 8.1 g/dL (12.0-16.0); Mean Corpuscular HGB CONC 33.5 g/dL (32.0-36.0); Mean Corpuscular Hemoglobin 29.4 pg (27.0-31.0); Mean Corpuscular Volume 87.6 fL (78.0-98.0); Mean Platelet Volume 9.6 fL (7.4-10.4); Platelet Count 172 thou/uL (130-400); RBC Distribution Width 16.4 % (11.5-14.5); Red Blood Cell (RBC) Count 2.75 mill/uL (4.20-5.40); White Blood Cell (WBC) Count 8.8 thou/uL (4.8-10.8)
[2018-05-30 10:35] LABS: CRP (Inflammatory) 20.83 mg/dL (= or < 0.5)
[2018-05-30 10:41] LABS: ALT (SGPT) Less than 7 U/L (8-55); AST (SGOT) 11 U/L (5-34); Albumin 3.3 g/dL (3.5-5.0); Alkaline Phosphatase 162 U/L (40-150); Anion Gap 15 mmol/L (10-20); BUN (Urea Nitrogen) 36 mg/dL (9.8-20.1); Bilirubin, Total 0.4 mg/dL (0.2-1.2); Calc. Creatinine Clearance 0 mL/min (70-130); Calcium 9.4 mg/dL (7.8-10.44); Carbon Dioxide 21 mmol/L (22-29); Chloride 104 mmol/L (98-107); Estimated GFR-MDRD 26; Globulin 4.9 g/dL (2.4-3.5); Glucose 204 mg/dL (70-105); Potassium 3.7 mmol/L (3.5-5.1); Protein, Total 8.2 g/dL (6.0-8.3); Sodium 136 mmol/L (136-145)
--- NOTE | 2018-05-30 10:51 | RAD ---
RIGHT ANKLE THREE VIEWS: History: 57-year-old female with history of wound to right foot. Patient is diabetic. Concern for osteomyeliti s. Comparison: Left foot three views, 04-14-17. FINDINGS: There is generalized soft tissue swelling of the lower leg and ankle, some more marked medially, with some prominent vascular calcification. Extensive amputation changes of the foot including the 4th an d 5th metatarsal removal. There is evidence for some abnormal gas involving the plantar surface of th e foot at the level of the cuboid bone which may represent an ulcer crater, is approximately 1 cm in diameter with some smaller gas foci extending somewhat more cranially within the lateral soft tissues superficially. This certainly could be consistent with some gas forming infection. No significant ne w bony erosive or destructive changes. Calcaneal plantar and Achilles enthesophytes. Arthrosis change s of the ankle joint. IMPRESSION: Somewhat rounded globular area of gas density in the lateral plantar aspect of the foot with some sma ller foci of gas extending somewhat cranially superficially from this larger focus, evidence for soft tissue infection. Extensive amputation changes including the 4th and 5th metatarsals. Arthrosis and degenerative changes with generalized soft tissue swelling. If there remains clinical concern for ost eomyelitis, follow up MRI study might be considered. POS: OFF
[2018-05-30 13:04] LABS: Bilirubin Negative (Negative); Blood, Urine Negative (Negative); Clarity CLOUDY (Clear); Glucose, Urine (Dipstick) Negative (Negative); Leukocyte Small (Negative); Nitrite Negative (Negative); Protein, Urine (Dipstick) 100 mg/dL (Neg-Trace); Specific Gravity, Urine 1.015 (1.002-1.036); Urobilinogen 0.2 mg/dL (0.2-1.0); pH, Urine 5.5 (5.0-9.0)
[2018-05-30 13:06] LABS: Bacteria/HPF None Seen HPF (None Seen); Hyaline Casts/LPF 7-10 HYALINE CAST LPF (0-3 Hyaline); Pathc Cast-AUWi Flag 1.74 (0-2.49); Yeast-AUWi Flag 189.9 (0-25.0)
[2018-05-30 13:21] LABS: Yeast-All Forms 1+ HPF (None Seen)
[2018-05-30] MEDS ORDERED: Piperacillin/Tazobactam 4.5 GM in Sodium Chloride 0.9% 100 ML IVPB SCH (18:00)
[2018-05-30 18:21] VITALS: BMI 51.4
[2018-05-30] MEDS ORDERED: Sodium Chloride 0.9% 1,000 ML IV SCH (18:30)
[2018-05-30] MEDS ORDERED: Acetaminophen 325 MG TAB PO PRN (20:29)
[2018-05-30] MEDS ORDERED: Senokot S 8.6-50 MG TAB PO PRN (20:29)
[2018-05-30] MEDS ORDERED: Dextrose 5% in Water 1,000 ML IV PRN (20:41)
[2018-05-30] MEDS ORDERED: Dextrose 50% Abboject 50 ML SYRINGE SLOW IVP PRN (20:41)
[2018-05-30] MEDS: HYDROcodone/Acetaminophen 5/325 mg Tablet PO PRN (21:16)
[2018-05-30] MEDS: Metoprolol Tartrate 25 MG TAB PO SCH (21:17)
[2018-05-31] MEDS: HYDROcodone/Acetaminophen 5/325 mg Tablet PO PRN (03:02)
--- NOTE | 2018-05-31 03:03 | HP ---
PRIMARY CARE PHYSICIAN: Dr. Silva. ONCOLOGIST: Dr. Jeong GENERAL SURGEON: Dr. Lowe. CHIEF COMPLAINT/REASON FOR ADMISSION: "My right foot is getting hot and starting to hurt." HISTORY OF PRESENT ILLNESS: Ms. Lockhart is a pleasant 57-year-old female, with a medical history of prior deep venous thrombosis, on chronic Xarelto therapy; adenocarcinoma of the descending colon, stage IIIB, diagnosed September 2017, presently on chemotherapy; chronic anemia with hemoglobin in the 8.0 range; obesity; type 2 diabetes; essential hypertension. She presents on this occasion to the emergency department with worsening pain and swelling overlying the lateral portion of her right foot. She has in the past undergone amputation of right 4th and 5th digits under the care of Dr. Lowe. She has a chronic callus overlying the amputation site, and has had an open nickel-sized wound in this area for many months. This has been treated conservatively. However, over the last 2 to 3 days, she noticed increasing swelling, purulent discharge, opening/dehiscence of previous wound to greater size. Additionally, she endorses subjective fever at home. She tried Motrin for the fever. Denies any trauma to the foot. Due to progression of symptoms, as well as pain with walking, she presented to the emergency department. Emergency department findings notable for a white blood cell count of 8.8, CRP of 20.83, and a sedimentation rate of 60. Hospitalist admission requested. At the time of my evaluation this evening, she endorses pain, 3/10 over the lateral aspect of the right foot. No nausea, no vomiting. No chills or subjective fever this afternoon. She received a dose of Zosyn in the emergency department. Blood cultures were sent from the ED. PAST MEDICAL HISTORY: 1. Adenocarcinoma of the ascending colon, stage IIIB, scheduled for chemotherapy tomorrow in fact. She has been tolerating her chemotherapy regimen well. Per outpatient records, receiving adjuvant chemotherapy with FOLFOX. 2. Type 2 diabetes, with diabetic peripheral neuropathy. 3. Essential hypertension. 4. History of deep venous thrombosis, x2 prior episodes, on chronic Xarelto therapy, previously on Coumadin. 5. Chronic right foot ulcer, as above. 6. Anxiety/depression. 7. Anemia of chronic disease. 8. Obesity. PAST SURGICAL HISTORY: 1. x2. 2. Tubal ligation. 3. Laparoscopic cholecystectomy in 2013. 4. Incisional hernia repair in 2016. 5. Right 4th and 5th toe amputations in 2014. 6. MediPort placement, November 2017. 7. Left hemicolectomy, September 2017. ALLERGIES: NO KNOWN DRUG ALLERGIES. HOME MEDICATION LIST: 1. Xarelto 20 mg p.o. once daily. 2. Humulin 70/30 at 50 units subcutaneously twice daily. 3. Ferrous sulfate 325 mg p.o. once daily. 4. Zofran 4 mg p.o. q.4 hours p.r.n. nausea. 5. Metoprolol tartrate 12.5 mg p.o. twice daily. 6. Quinapril 5 mg p.o. daily. SOCIAL HISTORY: Mrs. Lockhart does not smoke, does not use alcohol. She is and has 2 sons. No illicit drug use. Code status is full. FAMILY HISTORY: Positive for coronary artery disease, diabetes, and hypertension in first-degree relatives. REVIEW OF SYSTEMS: Full review of systems reviewed, addressed, negative except otherwise as mentioned. PHYSICAL EXAMINATION: CURRENT VITAL SIGNS: Blood pressure elevated at 181/82, temperature 97.5, pulse 75, saturating 98% on room air. Repeat blood pressure 119/67. GENERAL: She is awake and alert. She is oriented to person, place, and time. She is a fair history sleep tech. HEENT: Eyes are without conjunctival injection or scleral icterus. Oropharynx is clear. No erythema. No exudate. NECK: Supple. Full range of motion. HEART: Regular rate and rhythm without distinct murmurs/rubs/gallops. LUNGS: Fair aeration bilaterally. ABDOMEN: Soft, nontender, and nondistended. Abdominal scars present secondary to prior hemicolectomy. EXTREMITIES: Trace edema present bilaterally. SKIN: Skin overlying lateral aspect of right foot with silver dollar size ulceration, with purulent discharge present, foul smelling. Onychomycosis present. VASCULAR: Dorsalis pedis pulses are present, 2+ bilaterally. NEUROLOGIC: She is able to move all extremities bilaterally to command. She does have decreased sensation in hands and feet bilaterally compatible with diabetic polyneuropathy. LABORATORY DATA/DATA REVIEW: White blood cell count 8.8, hemoglobin 8.1, hematocrit 24.1, and platelet count of 172. Sedimentation rate is 60. Serum sodium 136, potassium 3.7, carbon dioxide 21, BUN 36, creatinine 1.9, glucose 204. CRP is 20. Blood cultures were sent. Urinalysis was also sent with multiple epithelial cells noted. Case discussed by phone with Dr. Gonzalez in the emergency department. Plain x-rays, lateral aspect foot, somewhat round and globular area density in lateral aspect of foot with small foci of gas extending cranially superficially, evidence for soft tissue infection. Prior amputation changes noted. IMPRESSION: 1. Diabetic foot infection, right lower extremity, in the context of diabetic neuropathy. 2. Comorbidity of adenocarcinoma of the descending colon, stage IIIB, presently on FOLFOX regimen. 3. Anemia, chronic, stable. 4. History of deep venous thrombosis, on chronic anticoagulation with Xarelto. 5. Type 2 diabetes, with diabetic peripheral neuropathy. PLAN/RECOMMENDATIONS: 1. Infectious disease - blood cultures drawn from the emergency department. Continue Zosyn. We will request nurses to access her MediPort. General Surgery consultation with Dr. Lowe regarding debridement. I have not ordered an MRI at this point in time. We will await surgical opinion in this regard. Depending on resection required, this could be curative if margins negative for infection. Consultation with Dr. Garcia for longer-term planning, once additional data has returned. Fortunately, this patient's vascular supply is intact, she has palpable dorsalis pedis pulses. Certainly, comorbidities include history of prior deep venous thromboses as well as ongoing chemotherapy at this time. 2. Hematology/oncology-hold on chemotherapy that was previously scheduled for 05/31/2018. 3. DVT prophylaxis-place Xarelto on hold, may need surgical intervention, resume pending course. 4. Endocrine-continue home insulin regimen, add insulin correctional per sliding scale. 5. Anemia-her current labs are stable and within her own personal normal range. Given her age, comorbidities, she is at high risk. Expect hospital stay to cross at least 2 midnights. Admit to full inpatient status, further recommendations pending hospital course. Job ID: [id number] [facility]
[2018-05-31 06:16] LABS: #Eosinphils 0.3 thou/uL (0.0-0.7); #Lymphocytes 1.4 thou/uL (1.20-3.40); #Monocytes 0.4 thou/uL (0.11-0.59); #Neutrophils 2.8 thou/uL (1.40-6.50); %Basophils 0.6 % (0.0-1.0); %Eosinophils 5.6 % (0.0-10.0); %Lymphocytes 28.4 % (21.0-51.0); %Monocytes 8.6 % (0.0-10.0); %Neutrophils 56.8 % (42.0-75.0); Hemoglobin 8.3 g/dL (12.0-16.0); Mean Corpuscular HGB CONC 33.3 g/dL (32.0-36.0); Mean Corpuscular Hemoglobin 29.4 pg (27.0-31.0); Mean Corpuscular Volume 88.4 fL (78.0-98.0); Mean Platelet Volume 8.8 fL (7.4-10.4); Platelet Count 173 thou/uL (130-400); RBC Distribution Width 16.5 % (11.5-14.5); Red Blood Cell (RBC) Count 2.82 mill/uL (4.20-5.40); White Blood Cell (WBC) Count 4.9 thou/uL (4.8-10.8)
[2018-05-31 06:36] LABS: Anion Gap 10 mmol/L (10-20); BUN (Urea Nitrogen) 28 mg/dL (9.8-20.1); Calc. Creatinine Clearance 80 mL/min (70-130); Calcium 8.6 mg/dL (7.8-10.44); Carbon Dioxide 24 mmol/L (22-29); Chloride 108 mmol/L (98-107); Estimated GFR-MDRD 34; Glucose 268 mg/dL (70-105); Sodium 138 mmol/L (136-145)
[2018-05-31] MEDS ORDERED: Sodium Chloride 0.9% 1,000 ML IV SCH (07:09)
--- NOTE | 2018-05-31 07:54 | HP ---
HISTORY OF PRESENT ILLNESS: Nayana Lockhart is a 57-year-old female, well known to me. She underwent a T3 N2a M0 left colon resection 10/18/2017, laparoscopic mobilization of splenic flexure, transverse colon, descending colon, conversion to open operation due to morbid obesity and has completed all, but two of her chemotherapy. Chemotherapy is canceled today when she was admitted to the hospital for a right diabetic foot infection. She takes insulin at home. She has had previous amputation of the right 4th and 5th toes and metatarsals 12/18/2014 for diabetic infection. This healed. She has had palpable pedal pulses. On this admission, x-rays of the foot revealed gas in the soft tissues extending up towards the ankle. She has severe infection with purulent discharge and necrotic tissue in the proximal lateral right foot. Plan is to incise, drain, culture, debride, possible amputate below the knee. She understands these issues and consents. ALLERGIES: NYSTATIN. MEDICATIONS: 1. Xarelto 20 mg a day. 2. Insulin 70/30 b.i.d. 3. Ferrous sulfate 325 a day. 4. Metoprolol 12.5 b.i.d. 5. Quinapril 5 mg daily. 6. Lasix 20 mg a day. 7. Pepcid 20 mg a day. 8. Vitamin D3 daily. PAST SURGICAL HISTORY: Amputation of 4th and 5th toes and metatarsals date noted above. , cholecystectomy, cardiac catheterization 2003, incarcerated umbilical hernia, omentum, mesh repair 07/02/2016 with closure of fascia and Ventralex 15 cm round reinforcement, mesh repair and large hernia incarcerated 12/18/2014, amputation of right 4th and 5th toes, metatarsals, palpable pulses. Wound VAC applied. 10/15/2017, Dr. Zaidi performed normal EGD and colonoscopy, finding a descending colon mass. On 10/18/2017, laparoscopic-assisted left colectomy with subsequent MediPort placement for a T3 N2a M0 left colon cancer, undergoing chemotherapy, has two more chemotherapy treatments left and the current one postponed for this admission. PAST MEDICAL HISTORY: Morbid obesity, left colon cancer, insulin-dependent diabetes mellitus, history of deep venous thrombosis on Xarelto therapy, chronic left colon cancer stage IIIB, T3 N2a M0 colon cancer, hypertension, anxiety, depression, and obesity. SOCIAL HISTORY: Tobacco, none. Alcohol, none. She lives with her two sons. Full code. REVIEW OF SYSTEMS: Noncontributory. PHYSICAL EXAMINATION: VITAL SIGNS: Height 5 feet, 2 pounds, weight 281 pounds, 51 BMI, 97.4, 63, and 160/93. HEAD, EARS, EYES, NOSE, AND THROAT: Unremarkable. LUNGS: Clear to auscultation. CARDIAC: Regular rate and rhythm without murmur or gallop. ABDOMEN: Soft. Well-healed incisions. EXTREMITIES: Unremarkable. Palpable pulses. Right foot prior amputation right 4th and 5th toes and metatarsals with open wound proximal lateral foot towards the ankle with purulent discharge, necrotic tissue and a large wound that tracks up towards the ankle. Palpable pedal pulses. LABORATORY DATA: Sodium 138, potassium 4.0, chloride 108, BUN 28, creatinine 1.58, GFR 34, glucose 282. Hemoglobin 8.3, white count 4.9. ASSESSMENT AND PLAN: 1. Severe diabetic infection right foot with gas tracking up the ankle. We will plan incision, drainage, debridement, it is possible that she may need amputation. Risks of infection, bleeding, reoperation explained. She consents. She last took Xarelto yesterday. She has chronic anemia. We will type and cross her for two units of blood. Plan operation today as indicated. She understands risks and benefits, and consents. 2. Left colon cancer, undergoing chemotherapy, hold chemotherapy the day of course. 3. Insulin-dependent diabetes mellitus. Check hemoglobin A1c. Continue tight glucose control. 4. Hypertension. 5. Metabolic syndrome. 6. Morbid obesity. Job ID: [id number]
[2018-05-31] MEDS: Metoprolol Tartrate 25 MG TAB PO SCH ×2 (08:08→21:12)
[2018-05-31 08:27] LABS: Hemoglobin A1c 11.1 % (4.0-6.0)
[2018-05-31] MEDS: Ferrous Sulfate 325 MG TAB PO SCH (09:00)
[2018-05-31] MEDS: Famotidine 20 MG TAB PO SCH (09:00)
[2018-05-31] MEDS ORDERED: Fentanyl 100 MCG/2 ML VIAL ONE ×3 (11:13→14:10)
[2018-05-31] MEDS ORDERED: CEFAZOLIN 2 GM/50 ML BAG ONE (12:02)
[2018-05-31] MEDS ORDERED: Piperacillin/Tazobactam 3.375 GM VIAL ONE (12:32)
[2018-05-31] MEDS ORDERED: Promethazine HCl 25 MG/ML VIAL IM PRN ×2 (13:31→13:55)
[2018-05-31] MEDS ORDERED: Promethazine HCl 25 MG/ML VIAL SLOW IVP PRN (13:31)
[2018-05-31] MEDS ORDERED: Ondansetron HCl/PF 4 MG/2 ML Vial IVP PRN (13:31)
[2018-05-31] MEDS ORDERED: traMADol HCl 50 MG TAB PO PRN ×2 (13:42)
[2018-05-31] MEDS ORDERED: diphenhydrAMINE 50 MG/ML VIAL IVP PRN (13:55)
[2018-05-31] MEDS ORDERED: Zolpidem Tartrate 5 MG TAB PO PRN (13:55)
[2018-05-31] MEDS ORDERED: diphenhydrAMINE 25 MG CAP PO PRN (13:55)
[2018-05-31] MEDS ORDERED: Ondansetron PF 4 MG/2 ML Vial IVP PRN (13:55)
[2018-05-31] MEDS ORDERED: diphenhydrAMINE 50 MG/ML VIAL IM PRN (13:55)
[2018-05-31] MEDS ORDERED: fentaNYL Citrate/PF 2,000 MCG in Sodium Chloride 0.9% 60 ML IV PRN (13:55)
[2018-05-31] MEDS ORDERED: Naloxone HCl 0.4 mg/ml Vial IV PRN (13:55)
[2018-05-31] MEDS ORDERED: Communication Order-Pharmacy FS SCH (14:00)
[2018-05-31] MEDS ORDERED: PROPOFOL 200 MG/20 ML VIAL ONE (15:15)
[2018-05-31] MEDS ORDERED: Rocuronium Bromide 10 MG/ML (10ML VIAL) ONE (15:15)
[2018-05-31] MEDS ORDERED: Glycopyrrolate 0.2 MG/ML 5 ML SYRINGE ONE (15:15)
[2018-05-31] MEDS ORDERED: Ondansetron PF 4 MG/2 ML Vial ONE (15:15)
[2018-05-31] MEDS ORDERED: PHENYLEPHRINE-NS 100 MCG/ML 10 ML SYRINGE ONE (15:15)
[2018-05-31] MEDS ORDERED: Lidocaine 1% PF 5 ML VIAL ONE (15:15)
[2018-05-31] MEDS ORDERED: ePHEDrine/0.9% NaCl/PF SYRINGE 50 mg/10 ml ONE (15:15)
[2018-05-31] MEDS: HumuLIN 70/30 (300 UNITS/3 ML VIAL) SC SCH ×2 (15:33→18:20)
[2018-05-31] MEDS: Sodium Chloride 0.9% 1,000 ML IV SCH ×2 (15:34→21:10)
[2018-05-31] MEDS: Acetaminophen 500 MG TAB PO PRN (17:06)
[2018-05-31 18:51] LABS: #Eosinphils 0.1 thou/uL (0.0-0.7); #Lymphocytes 0.9 thou/uL (1.20-3.40); #Monocytes 0.5 thou/uL (0.11-0.59); #Neutrophils 3.7 thou/uL (1.40-6.50); %Basophils 0.7 % (0.0-1.0); %Eosinophils 1.8 % (0.0-10.0); %Lymphocytes 17.4 % (21.0-51.0); %Neutrophils 70.1 % (42.0-75.0); Mean Corpuscular HGB CONC 33.3 g/dL (32.0-36.0); Mean Corpuscular Hemoglobin 29.8 pg (27.0-31.0); Mean Corpuscular Volume 89.3 fL (78.0-98.0); Mean Platelet Volume 8.4 fL (7.4-10.4); Platelet Count 199 thou/uL (130-400); RBC Distribution Width 15.8 % (11.5-14.5); Red Blood Cell (RBC) Count 2.68 mill/uL (4.20-5.40); White Blood Cell (WBC) Count 5.2 thou/uL (4.8-10.8)
--- NOTE | 2018-05-31 19:07 | OP ---
DATE OF PROCEDURE: 05/31/2018 PREOPERATIVE DIAGNOSES: Diabetic infection, right foot; metabolic syndrome; morbid obesity; diabetes mellitus; she is undergoing chemotherapy for colon cancer; and anemia preoperatively chronic. POSTOPERATIVE DIAGNOSES: Diabetic infection, right foot; metabolic syndrome; morbid obesity; diabetes mellitus; she is undergoing chemotherapy for colon cancer; and anemia preoperatively chronic. PROCEDURES PERFORMED: Debridement of right foot conversion to right below-knee amputation. ANESTHESIA: General anesthesia. ESTIMATED BLOOD LOSS: 700 mL. BLOOD TRANSFUSION: 1 unit. DESCRIPTION OF PROCEDURE: The patient was taken to the operating room, where under general anesthesia, right lower extremity foot and ankle prepared with Betadine and draped in routine fashion. I first explored the wound and the infection was too extensive and we then discarded these instruments and sequestered the foot wound with impermeable stockinette, Angieban, after prepping the right leg above the knee with ChloraPrep. Incision was made for a long posterior flap for right below-knee amputation. Incision was carried down through the skin, subcutaneous tissue, fascia, and muscle bundles divided with cautery. Vascular bundles between clamps and ligated with 2-0 silk ties. The tibia transected with a Gigli saw and bevelling the anterior edge to cephalad, smoothened the edges with a rasp. Fibula transected with a bone cutter inch above the cut edge of the tibia. Good hemostasis was obtained with cautery and 2-0 Vicryl. Wound irrigated, irrigant evacuated. Hemostasis was assured. Fascia approximated with [id number] suture of 2-0 Vicryl. Skin with snow. Sterile dressing applied. Job ID: [id number]
[2018-05-31] MEDS: HumaLOG 300 UNITS/3 ML VIAL SC PRN (21:15)
--- NOTE | 2018-05-31 21:43 | PDOC.PN ---
- Subjective Encounter Start Date: 05/31/18 Encounter Start Time: 19:00 Patient seen and examined for diabetic foot infection. Pain over the surgical site. No new complaints. No overnight events - Objective Resuscitation Status - Order Detail: 05/30/18 20:29 Resuscitation Status Routine Resuscitation Status: FULL: Full Resuscitation MAR Reviewed: Yes Vital Signs & Weight: Vital Signs (12 hours) Temp Pulse Resp BP Pulse Ox 05/31/18 21:13 90 108/62 05/31/18 15:05 97.7 F 82 18 117/55 L 99 05/31/18 09:45 97.9 F 62 20 133/80 100 Weight Weight 281 lb Result Diagrams: 06/01/18 07:54 06/01/18 07:54 Additional Labs: Accuchecks 05/31/18 05/31/18 05/31/18 21:09 16:24 09:37 POC Glucose 319 H 296 H 240 H 05/31/18 04:56 POC Glucose 282 H Radiology Reviewed by me: Yes (Foot XR - soft tissue gas) Phys Exam - Physical Examination Constitutional: NAD Respiratory: no wheezing, no rhonchi Cardiovascular: RRR, no rub Gastrointestinal: soft, non-tender, positive bowel sounds Musculoskeletal: no edema Neurological: moves all 4 limbs Dx/Plan (1) Type 2 diabetes mellitus with diabetic foot infection Code(s): E11.628 - TYPE 2 DIABETES MELLITUS WITH OTHER SKIN COMPLICATIONS; L08.9 - LOCAL INFECTION OF THE SKIN AND SUBCUTANEOUS TISSUE, UNSP Status: Acute (2) Morbid obesity with BMI of 50.0-59.9, adult Code(s): E66.01 - MORBID (SEVERE) OBESITY DUE TO EXCESS CALORIES; Z68.43 - BODY MASS INDEX (BMI) 50-59.9, ADULT Status: Chronic (3) History of colon cancer Code(s): Z85.038 - PERSONAL HISTORY OF MALIGNANT NEOPLASM OF LARGE INTESTINE Status: Chronic (4) H/O deep venous thrombosis Code(s): Z86.718 - PERSONAL HISTORY OF OTHER VENOUS THROMBOSIS AND EMBOLISM Status: Chronic (5) Hypertension Code(s): I10 - ESSENTIAL (PRIMARY) HYPERTENSION Status: Chronic (6) Chronic anemia Code(s): D64.9 - ANEMIA, UNSPECIFIED Status: Acute (7) other issues per previous notes - Plan continue antibiotics, DVT proph w/lovenox, DVT proph w/SCDs Cont Atbx -: s/p amputation -: Cont current meds as below -: AM lab Review of Systems - Review of Systems Respiratory: negative: Cough, Dry, Shortness of Breath, Hemoptysis, SOB with Excertion, Pleuritic Pain, Sputum, Wheezing Cardiovascular: negative: chest pain, palpitations, orthopnea, paroxysmal nocturnal dyspnea, edema, light headedness, other - Medications/Allergies Allergies/Adverse Reactions: Allergies Allergy/AdvReac Type Severity Reaction Status Date / Time nystatin Allergy Severe Rash Verified 05/30/18 18:05 Medications: Current Medications Acetaminophen (Tylenol) 650 mg PO Q4H PRN PRN Reason: Headache/Fever/Mild Pain (1-3) Acetaminophen (Tylenol) 1,000 mg PO Q6H PRN PRN Reason: Moderate to Severe Pain (6-10) Last Admin: 05/31/18 17:06 Dose: 1,000 mg Dextrose/Water (Dextrose 50%) 25 gm SLOW IVP PRN PRN PRN Reason: Hypoglycemia Diphenhydramine HCl (Benadryl) 25 mg IVP Q3H PRN PRN Reason: Itching Diphenhydramine HCl (Benadryl) 25 mg PO Q3H PRN PRN Reason: Itching Diphenhydramine HCl (Benadryl) 25 mg IM Q3H PRN PRN Reason: Itching Enoxaparin Sodium (Lovenox) 40 mg SC 2100 DEVAN Famotidine (Pepcid) 20 mg PO DAILY [facility] Last Admin: 05/31/18 09:00 Dose: Not Given Ferrous Sulfate (Feosol) 325 mg PO QAM-[facility] Last Admin: 05/31/18 09:00 Dose: Not Given Glucagon (Glucagon) 1 mg IM PRN PRN PRN Reason: Hypoglycemia Dextrose/Water (D5w) 1,000 mls @ 0 mls/hr IV .Q0M PRN PRN Reason: Hypoglycemia Sodium Chloride (Normal Saline 0.9%) 1,000 mls @ 70 mls/hr IV .[id number] [facility] Last Admin: 05/31/18 21:10 Dose: 1,000 mls Fentanyl Citrate 2,000 mcg/ (Sodium Chloride) 100 mls @ 0 mls/hr IV INF PRN PRN Reason: Pain Insulin Human Isoph/Insulin Regular (Humulin 70/30) 50 units SC BID-[facility] Last Admin: 05/31/18 18:20 Dose: 50 unit Insulin Human Lispro (Humalog) 0 units SC .MODERATE SLIDING SC PRN PRN Reason: Moderate Correctional Scale Last Admin: 05/31/18 21:15 Dose: 8 unit Metoprolol Tartrate (Lopressor) 12.5 mg PO BID [facility] Last Admin: 05/31/18 21:12 Dose: 12.5 mg Miscellaneous Information (Communication Order-Pharmacy) 1 each FS ONE [facility] Stop: 05/31/18 23:00 Naloxone HCl (Narcan) 0.2 mg IV Q5MIN PRN PRN Reason: Opiate Reversal Ondansetron HCl (Zofran) 4 mg IVP Q6H PRN PRN Reason: Nausea/Vomiting Polyethylene Glycol (Miralax) 17 gm PO DAILY [facility] Promethazine HCl (Phenergan) 12.5 mg IM Q4H PRN PRN Reason: Nausea/Vomiting Quinapril HCl (Accupril) 5 mg PO DAILY [facility] Last Admin: 05/31/18 09:00 Dose: Not Given Senna/Docusate Sodium (Senokot S) 2 tab PO BID PRN PRN Reason: Constipation Sodium Chloride (Flush - Normal Saline) 10 ml IVF Q12HR [facility] Last Admin: 05/31/18 21:12 Dose: 10 ml Sodium Chloride (Flush - Normal Saline) 10 ml IVF PRN PRN PRN Reason: Saline Flush Zolpidem Tartrate (Ambien) 5 mg PO HSPRN PRN PRN Reason: Insomnia
--- NOTE | 2018-06-01 00:41 | CON ---
DATE OF CONSULTATION: 05/31/2018 REASON FOR CONSULTATION: Right foot ulcer with inflammatory changes. HISTORY OF PRESENT ILLNESS: A 57-year-old with a history of type 2 diabetes mellitus as well as stage IIIB colon cancer on chemotherapy and prior DVT on Xarelto, who developed an ulcer with inflammatory changes lateral aspect of the right mid foot and hindfoot region. The patient had ankle x-ray on admission, which demonstrated gas density in the lateral plantar aspect of the foot extending somewhat cranially from this larger focus and extensive amputation changes of fourth and fifth metatarsals. The patient just had BKA amputation right side and she is currently complaining of phantom pain in the right lower extremity. No headaches or chronic visual impairment. No sore throat. No chest pain or dyspnea. No abdominal pain. No genitourinary symptoms. PAST MEDICAL HISTORY: Stage III colon cancer with partial colectomy undergoing chemotherapy, intertriginous eruption which has healed for the most part, type 2 diabetes, hypertension, prior amputation right foot fourth and fifth metatarsals and digits. SOCIAL HISTORY: Never smoker. FAMILY HISTORY: Coronary artery disease. ALLERGIES: NONE. CURRENT MEDICATIONS: 1. Dextrose. 2. Benadryl. 3. Lovenox. 4. Fentanyl. 5. Glucagon. 6. Insulin. 7. Metoprolol. 8. Maalox. 9. Naloxone. 10. Ondansetron. 11. Accupril. 12. Ambien. PHYSICAL EXAMINATION: VITAL SIGNS: T-max 97.9, blood pressure 117/55, pulse 82, respirations 18, and O2 saturation 99%. SKIN: Shows the prior skin ulcer round-shaped with an area of blistering with underlying yellow necrotic tissue wrapping around towards the plantar aspect of the mid foot region associated with surrounding erythema. There is marked pain on palpation in the area. HEENT: The ocular movements are conjugate. The patient has no [place] teeth remaining in place. NECK: Supple. LUNGS: Symmetric. Clear breath sounds. HEART: S1 and S2. Regular rate. No S3 or S4. ABDOMEN: Soft, not distended or tender. Previously noted intertriginous eruption has improved markedly, still 2 or 3 sites that are still open with a shallow area of ulceration. EXTREMITIES: Pulses are 1+ in dorsalis pedis on the left side. NEUROLOGIC: She is awake, follows commands. LABORATORY DATA: White cell count 8.8 and 4.9, hemoglobin 8.3, platelets 173. Sodium 138, creatinine 1.58, bilirubin 0.4, AST 11, ALT less than 7, CRP 20.83, alkaline phosphatase 162, albumin 3.3, globulin 4.9. Urinalysis with 7 to 10 wbc's. Cultures pending from the foot. Two sets of venous blood cultures negative thus far. ASSESSMENT: 1. Stage III colon cancer, on chemotherapy. 2. Aggressive inflammatory process, right lateral mid foot and hindfoot region associated with pressure ulceration, status post below-knee amputation. DISCUSSION: The amputation has obviously very large clear margin from the inflammatory process as long as she remains with negative blood cultures that pretty much settles the infectious nature of her process and no more antimicrobial therapy would be required. If the blood cultures turn positive, then we will may have to change the recommendation according to the organism isolated. Job ID: [id number]
[2018-06-01] MEDS ORDERED: Sodium Chloride 0.9% 1,000 ML IV SCH (07:45)
[2018-06-01] MEDS: Famotidine 20 MG TAB PO SCH (07:55)
[2018-06-01] MEDS: Ferrous Sulfate 325 MG TAB PO SCH (07:56)
[2018-06-01] MEDS: Metoprolol Tartrate 25 MG TAB PO SCH ×2 (07:56→22:11)
[2018-06-01] MEDS: Polyethylene Glycol 3350 17 GM Packet PO SCH (07:57)
[2018-06-01 08:24] LABS: Anion Gap 11 mmol/L (10-20); BUN (Urea Nitrogen) 25 mg/dL (9.8-20.1); Calc. Creatinine Clearance 84 mL/min (70-130); Calcium 8.3 mg/dL (7.8-10.44); Carbon Dioxide 22 mmol/L (22-29); Chloride 107 mmol/L (98-107); Estimated GFR-MDRD 36; Glucose 98 mg/dL (70-105); Magnesium 1.7 mg/dL (1.6-2.6); Potassium 3.7 mmol/L (3.5-5.1); Sodium 136 mmol/L (136-145)
[2018-06-01 08:26] LABS: #Eosinphils 0.3 thou/uL (0.0-0.7); #Lymphocytes 2.1 thou/uL (1.20-3.40); #Monocytes 0.9 thou/uL (0.11-0.59); #Neutrophils 3.7 thou/uL (1.40-6.50); %Basophils 0.5 % (0.0-1.0); %Eosinophils 3.6 % (0.0-10.0); %Lymphocytes 29.5 % (21.0-51.0); %Monocytes 13.1 % (0.0-10.0); %Neutrophils 53.3 % (42.0-75.0); Hemoglobin 7.7 g/dL (12.0-16.0); Mean Corpuscular HGB CONC 32.4 g/dL (32.0-36.0); Mean Corpuscular Hemoglobin 29.3 pg (27.0-31.0); Mean Corpuscular Volume 90.4 fL (78.0-98.0); Mean Platelet Volume 7.7 fL (7.4-10.4); Platelet Count 217 thou/uL (130-400); RBC Distribution Width 16.1 % (11.5-14.5); Red Blood Cell (RBC) Count 2.62 mill/uL (4.20-5.40)
[2018-06-01] MEDS: HumuLIN 70/30 (300 UNITS/3 ML VIAL) SC SCH (09:00)
[2018-06-01] MEDS: Acetaminophen 500 MG TAB PO PRN (09:05)
--- NOTE | 2018-06-01 12:08 | CON ---
DATE OF CONSULTATION: REASON FOR CONSULTATION: Colon cancer. HISTORY OF PRESENT ILLNESS: Ms. Lockhart is a pleasant 57-year-old female with type 2 diabetes and stage IIIB adenocarcinoma of the descending colon. She is currently undergoing treatment with adjuvant chemotherapy, it was started in December of 2017. She has completed 10 of 12 cycles of FOLFOX 6. She has been dealing with a right lower extremity diabetic foot ulcer. X-ray showed gas distention. Dr. Lowe saw the patient and performed a right BKA. The patient is resting comfortably. She is using her fentanyl SENIOR HYDROGEOLOGIST for discomfort. We were asked to see the patient regarding her colon cancer. PAST MEDICAL HISTORY: 1. Stage IIIB adenocarcinoma of the colon. 2. Diabetes mellitus, type 2. 3. Morbid obesity. 4. Hypertension. 5. Asthma. 6. Gallstones. 7. Anxiety and depression. 8. Chronic anemia. PAST SURGICAL HISTORY: 1. x2. 2. Tubal ligation. 3. Laparoscopic cholecystectomy. 4. Hernia repair. 5. DVT. 6. Left hemicolectomy. 7. Toe amputation. ALLERGIES: NO KNOWN DRUG ALLERGIES. HOME MEDICATIONS: 1. Insulin b.i.d. 2. Metoprolol tartrate 12.5 mg b.i.d. 3. Xarelto 20 mg daily. 4. Tylenol No. 3 p.r.n. 5. Quinapril 5 mg daily. 6. Furosemide b.i.d. 7. Colace b.i.d. 8. Citalopram 20 mg daily. FAMILY HISTORY: Negative for colon cancer. SOCIAL HISTORY: She is a , has two children. Lives with her son. No alcohol, tobacco, or illicit drug use. REVIEW OF SYSTEMS: 10-point review of systems is negative except for noted in HPI. PHYSICAL EXAMINATION: VITAL SIGNS: Temperature is 98.4, pulse is 82, respiratory rate 20, blood pressure is 142/80, and she is 100% on room air. GENERAL: Well-developed, well-nourished female, in no acute distress. HEENT: Normocephalic and atraumatic. Pupils are equal and reactive to light. NECK: Supple. CV: Regular rate and rhythm. LUNGS: Clear. ABDOMEN: Obese and nontender. Bowel sounds are positive. EXTREMITIES: She has a right BKA with stump elevated in a dressing. SKIN: No rash. HEMATOLOGIC: No petechiae or purpura. NEUROLOGIC: Nonfocal. PSYCH: The patient is alert, oriented, and appropriate. LABORATORY DATA: Pertinent labs and x-rays; Current WBCs 7.0, hemoglobin 7.7, hematocrit 23.7, and platelet count 217,000, 53% neutrophils, 29% lymphocytes. Sodium 136, potassium 3.7, chloride 107, CO2 is 22, BUN is 25, creatinine 1.51. Hemoglobin A1c is 11.1. Calcium is 8.3, magnesium 1.7. ASSESSMENT: 1. Stage IIIB adenocarcinoma of the colon. 2. Poorly controlled diabetes mellitus. 3. Diabetic foot ulcer and infection, status post below-knee amputation. 4. Recent deep venous thrombosis, on chronic anticoagulation. DISCUSSION: The patient's anticoagulation was held for her surgical procedure and should be resumed once cleared by Dr. Lowe. Her chemotherapy will be held until she has recovered from the surgery and completed rehab. She has two cycles of FOLFOX left to complete. She has a chronic anemia. I would recommend transfusing for hemoglobin less than 7. Thank you for the consult. We will sign off. Call if needed. Job ID: [id number] [id number]
[2018-06-01] MEDS ORDERED: HumaLOG 300 UNITS/3 ML VIAL SC PRN (12:52)
[2018-06-01] MEDS: HumaLOG 300 UNITS/3 ML VIAL SC PRN ×2 (14:03→17:48)
[2018-06-01] MEDS: Acetaminophen 500 MG TAB PO SCH (17:47)
--- NOTE | 2018-06-01 18:36 | PRG ---
DATE OF SERVICE: 06/01/2018 SUBJECTIVE: Nayana Lockhart is doing well today. The patient underwent yesterday 05/31/2018 amputation [id number] in right foot for an extensive diabetic infection in the right foot. She has metabolic syndrome, morbid obesity, diabetes mellitus. She is currently undergoing chemotherapy for colon cancer status post left colon resection. The patient's pain is well controlled with a DEMOGRAPHER. OBJECTIVE: VITAL SIGNS: Temperature 98.5 degrees, pulse 76, blood pressure 97/58. LUNGS: Clear to auscultation. CARDIAC: Regular rate and rhythm. No murmur or gallop. ABDOMEN: Soft, nontender. EXTREMITIES: BKA wound dressing is dry. LABORATORY DATA: White count is 7, hemoglobin is 7.7. BUN 25, creatinine 1.5, sodium 136. Accu-Cheks 156 ASSESSMENT AND PLAN: Doing well, status post BKA. The patient should be up in a chair. Physical Therapy is working with her in mobility transfers. I do not know if she has upper body strength given her morbid obesity. To ambulate with a walker. We will ask rehab to see her. She could transfer to rehab tomorrow to continue therapy. Antibiotics will be discontinued today. DEMOGRAPHER will be discontinued tomorrow. Job ID: [id number]
[2018-06-01] MEDS ORDERED: traMADol HCl 50 MG TAB PO PRN (19:25)
[2018-06-01] MEDS ORDERED: Enoxaparin Sodium 40 MG/0.4 ML SYRINGE SC SCH (21:00)
[2018-06-01] MEDS: Gabapentin 300 MG CAP PO SCH (22:11)
[2018-06-01] MEDS: NPH, Human Insulin Isophane 300 UNIT/3 ML VIAL SC SCH (22:12)
--- NOTE | 2018-06-01 23:07 | PDOC.PN ---
- Subjective Encounter Start Date: 06/01/18 Encounter Start Time: 14:00 Patient seen and examined for diabetic foot infection s/p amputation. Pain controlled. No fever/chills. No new complaints. No overnight events - Objective Resuscitation Status - Order Detail: 05/30/18 20:29 Resuscitation Status Routine Resuscitation Status: FULL: Full Resuscitation MAR Reviewed: Yes Vital Signs & Weight: Vital Signs (12 hours) Temp Pulse Resp BP Pulse Ox 06/01/18 17:16 98.5 F 76 18 97/58 L 97 Weight Weight 281 lb I&O: 05/31/18 06/01/18 06/02/18 06:59 06:59 06:59 Intake Total 1700 Balance 1700 Result Diagrams: 06/01/18 07:54 06/01/18 07:54 Additional Labs: Accuchecks 06/01/18 06/01/18 06/01/18 20:04 16:36 11:33 POC Glucose 256 H 224 H 156 H 06/01/18 05:37 POC Glucose 93 Phys Exam - Physical Examination Constitutional: NAD Respiratory: no wheezing, no rhonchi Cardiovascular: RRR, no rub Gastrointestinal: soft, positive bowel sounds Dx/Plan (1) Type 2 diabetes mellitus with diabetic foot infection Code(s): E11.628 - TYPE 2 DIABETES MELLITUS WITH OTHER SKIN COMPLICATIONS; L08.9 - LOCAL INFECTION OF THE SKIN AND SUBCUTANEOUS TISSUE, UNSP Status: Acute Comment: s/p R BKA (2) Morbid obesity with BMI of 50.0-59.9, adult Code(s): E66.01 - MORBID (SEVERE) OBESITY DUE TO EXCESS CALORIES; Z68.43 - BODY MASS INDEX (BMI) 50-59.9, ADULT Status: Chronic (3) History of colon cancer Code(s): Z85.038 - PERSONAL HISTORY OF MALIGNANT NEOPLASM OF LARGE INTESTINE Status: Chronic (4) H/O deep venous thrombosis Code(s): Z86.718 - PERSONAL HISTORY OF OTHER VENOUS THROMBOSIS AND EMBOLISM Status: Chronic (5) Hypertension Code(s): I10 - ESSENTIAL (PRIMARY) HYPERTENSION Status: Chronic (6) Chronic anemia Code(s): D64.9 - ANEMIA, UNSPECIFIED Status: Acute (7) Acute kidney injury Code(s): N17.9 - ACUTE KIDNEY FAILURE, UNSPECIFIED Status: Acute Comment: on CKD 3 (8) other issues per previous notes - Plan DVT proph w/lovenox, DVT proph w/SCDs Change Insulin to NPH 15 units BID -: Cont sliding scale -: On CREW DISPATCHER -: Rehab vs SNF eval -: Cont other meds as below Review of Systems - Review of Systems Respiratory: negative: Cough, Dry, Shortness of Breath, Hemoptysis, SOB with Excertion, Pleuritic Pain, Sputum, Wheezing Cardiovascular: negative: chest pain, palpitations, orthopnea, paroxysmal nocturnal dyspnea, edema, light headedness, other Gastrointestinal: negative: Nausea, Vomiting, Abdominal Pain, Diarrhea, Constipation, Melena, Hematochezia, Other - Medications/Allergies Allergies/Adverse Reactions: Allergies Allergy/AdvReac Type Severity Reaction Status Date / Time nystatin Allergy Severe Rash Verified 05/30/18 18:05 Medications: Current Medications Acetaminophen (Tylenol) 1,000 mg PO Q6H PRN PRN Reason: Moderate to Severe Pain (6-10) Last Admin: 06/01/18 09:05 Dose: 1,000 mg Acetaminophen (Tylenol) 1,000 mg PO Q6HR [facility] Last Admin: 06/01/18 17:47 Dose: 1,000 mg Dextrose/Water (Dextrose 50%) 25 gm SLOW IVP PRN PRN PRN Reason: Hypoglycemia Diphenhydramine HCl (Benadryl) 25 mg IVP Q3H PRN PRN Reason: Itching Diphenhydramine HCl (Benadryl) 25 mg PO Q3H PRN PRN Reason: Itching Diphenhydramine HCl (Benadryl) 25 mg IM Q3H PRN PRN Reason: Itching Enoxaparin Sodium (Lovenox) 40 mg SC 2100 [facility] Last Admin: 06/01/18 22:12 Dose: 40 mg Famotidine (Pepcid) 20 mg PO DAILY [facility] Last Admin: 06/01/18 07:55 Dose: 20 mg Ferrous Sulfate (Feosol) 325 mg PO QAM-[facility] Last Admin: 06/01/18 07:56 Dose: 325 mg Gabapentin (Neurontin) 300 mg PO BID [facility] Last Admin: 06/01/18 22:11 Dose: 300 mg Glucagon (Glucagon) 1 mg IM PRN PRN PRN Reason: Hypoglycemia Dextrose/Water (D5w) 1,000 mls @ 0 mls/hr IV .Q0M PRN PRN Reason: Hypoglycemia Fentanyl Citrate 2,000 mcg/ (Sodium Chloride) 100 mls @ 0 mls/hr IV INF PRN PRN Reason: Pain Last Admin: 06/01/18 12:08 Dose: 100 mls Sodium Chloride (Normal Saline 0.9%) 1,000 mls @ 0 mls/hr IV .Q0M [facility] Last Admin: 06/01/18 16:27 Dose: 1,000 mls Insulin Human Lispro (Humalog) 0 units SC .MODERATE SLIDING SC PRN PRN Reason: Moderate Correctional Scale Last Admin: 06/01/18 17:48 Dose: 4 unit Insulin Human Lispro (Humalog) 0 units SC .BEDTIME SLIDING SC PRN PRN Reason: Bedtime Correctional Scale Insulin Human NPH (Humulin N) 15 unit SC BID [facility] Last Admin: 06/01/18 22:12 Dose: 15 unit Metoprolol Tartrate (Lopressor) 12.5 mg PO BID [facility] Last Admin: 06/01/18 22:11 Dose: 12.5 mg Naloxone HCl (Narcan) 0.2 mg IV Q5MIN PRN PRN Reason: Opiate Reversal Ondansetron HCl (Zofran) 4 mg IVP Q6H PRN PRN Reason: Nausea/Vomiting Polyethylene Glycol (Miralax) 17 gm PO DAILY [facility] Last Admin: 06/01/18 07:57 Dose: Not Given Promethazine HCl (Phenergan) 12.5 mg IM Q4H PRN PRN Reason: Nausea/Vomiting Quinapril HCl (Accupril) 5 mg PO DAILY [facility] Last Admin: 06/01/18 07:56 Dose: 5 mg Senna/Docusate Sodium (Senokot S) 2 tab PO BID PRN PRN Reason: Constipation Sodium Chloride (Flush - Normal Saline) 10 ml IVF Q12HR [facility] Last Admin: 06/01/18 22:13 Dose: Not Given Sodium Chloride (Flush - Normal Saline) 10 ml IVF PRN PRN PRN Reason: Saline Flush Tramadol HCl (Ultram) 50 mg PO Q6H PRN PRN Reason: Mild-Moderate Pain (1-5) Tramadol HCl (Ultram) 100 mg PO Q6H PRN PRN Reason: Moderate to Severe Pain (6-10) Zolpidem Tartrate (Ambien) 5 mg PO HSPRN PRN PRN Reason: Insomnia
[2018-06-02] MEDS: Acetaminophen 500 MG TAB PO SCH ×4 (00:34→17:39)
[2018-06-02] MEDS: HumaLOG 300 UNITS/3 ML VIAL SC PRN ×3 (05:41→17:40)
[2018-06-02 07:59] LABS: Anion Gap 24 mmol/L (10-20); BUN (Urea Nitrogen) 77 mg/dL (9.8-20.1); Calc. Creatinine Clearance 20 mL/min (70-130); Calcium 9.4 mg/dL (7.8-10.44); Carbon Dioxide 18 mmol/L (22-29); Chloride 99 mmol/L (98-107); Estimated GFR-MDRD 7; Glucose 110 mg/dL (70-105); Potassium 4.1 mmol/L (3.5-5.1); Sodium 137 mmol/L (136-145)
[2018-06-02] MEDS: Polyethylene Glycol 3350 17 GM Packet PO SCH (08:29)
[2018-06-02] MEDS: traMADol HCl 50 MG TAB PO PRN ×2 (08:31→14:35)
[2018-06-02] MEDS: Famotidine 20 MG TAB PO SCH (08:32)
[2018-06-02] MEDS: Ferrous Sulfate 325 MG TAB PO SCH (08:32)
[2018-06-02] MEDS: Metoprolol Tartrate 25 MG TAB PO SCH (08:32)
[2018-06-02] MEDS: Gabapentin 300 MG CAP PO SCH ×2 (08:33→21:02)
[2018-06-02] MEDS: NPH, Human Insulin Isophane 300 UNIT/3 ML VIAL SC SCH ×2 (08:33→21:02)
[2018-06-02] MEDS ORDERED: Sodium Chloride 0.9% 500 ML IV SCH (10:30)
--- NOTE | 2018-06-02 12:03 | PRG ---
DATE OF SERVICE: 06/02/2018 Nayana Lockhart is doing well today. Her pain is fairly well controlled. I have reminded her that she will have some pain, but we cannot give her too many narcotics or analgesics to suppress her . Her obesity does compromise of mobility. She has Medicaid pending. Plan is that she would be transferred to rehab when accepted. From a Surgical standpoint, she can be transferred to rehab at any time. I have encouraged her to prevent knee contracture BKA stump by keeping a pillows or blankets beneath the BKA stump below the knee joint to promote extension. This will facilitate better prosthesis function in the future. The patient's LOCAL DRIVER has been discontinued. Oral analgesics ordered. She should wash the wound with soap water, and bath or shower daily and apply antibiotic ointment and Telfa and stump pairer inspector. At this point, I will see her as needed this hospitalization. She would be transferred to rehab at any time. Dr. Gonzalez is covering this weekend. Call, if necessary. The patient should follow up in my office in 2 to 3 weeks to have her snow removed. Job ID: [id number]
[2018-06-02] MEDS ORDERED: Meclizine HCl 25 MG TAB PO PRN (13:41)
[2018-06-02] MEDS ORDERED: Sodium Bicarbonate 75 MEQ in Sodium Chloride 0.45% 1,000 ML IV SCH (18:45)
[2018-06-02] MEDS: Heparin 5,000 UNITS/ML VIAL SC SCH (21:02)
--- NOTE | 2018-06-02 23:03 | PDOC.PN ---
- Subjective Encounter Start Date: 06/02/18 Encounter Start Time: 13:30 Patient seen and examined for diabetic foot infection. Pain controlled. No new complaints. No overnight events - Objective Resuscitation Status - Order Detail: 05/30/18 20:29 Resuscitation Status Routine Resuscitation Status: FULL: Full Resuscitation MAR Reviewed: Yes Vital Signs & Weight: Vital Signs (12 hours) Temp Pulse Resp BP Pulse Ox 06/02/18 20:00 98.5 F 69 20 111/53 L 98 Weight Weight 281 lb I&O: 06/01/18 06/02/18 06/03/18 06:59 06:59 06:59 Intake Total 1700 1989 Balance 1700 1989 Result Diagrams: 06/03/18 06:29 06/03/18 06:29 Additional Labs: Accuchecks 06/02/18 06/02/18 06/02/18 20:39 15:50 11:18 POC Glucose 231 H 166 H 201 H 06/02/18 05:39 POC Glucose 265 H Phys Exam - Physical Examination Constitutional: NAD Respiratory: no wheezing, no rhonchi Cardiovascular: RRR, no rub Gastrointestinal: soft, non-tender, positive bowel sounds Musculoskeletal: no edema Neurological: moves all 4 limbs Dx/Plan (1) Acute kidney injury Code(s): N17.9 - ACUTE KIDNEY FAILURE, UNSPECIFIED Status: Acute Comment: on CKD 3 (2) Type 2 diabetes mellitus with diabetic foot infection Code(s): E11.628 - TYPE 2 DIABETES MELLITUS WITH OTHER SKIN COMPLICATIONS; L08.9 - LOCAL INFECTION OF THE SKIN AND SUBCUTANEOUS TISSUE, UNSP Status: Acute Comment: s/p R BKA (3) Morbid obesity with BMI of 50.0-59.9, adult Code(s): E66.01 - MORBID (SEVERE) OBESITY DUE TO EXCESS CALORIES; Z68.43 - BODY MASS INDEX (BMI) 50-59.9, ADULT Status: Chronic (4) History of colon cancer Code(s): Z85.038 - PERSONAL HISTORY OF MALIGNANT NEOPLASM OF LARGE INTESTINE Status: Chronic (5) H/O deep venous thrombosis Code(s): Z86.718 - PERSONAL HISTORY OF OTHER VENOUS THROMBOSIS AND EMBOLISM Status: Chronic (6) Hypertension Code(s): I10 - ESSENTIAL (PRIMARY) HYPERTENSION Status: Chronic (7) Chronic anemia Code(s): D64.9 - ANEMIA, UNSPECIFIED Status: Chronic (8) other issues per previous notes - Plan cont current plan of care, DVT proph w/SCDs Consult Nephrology for HERMAN -: Renal ultrasound -: IVF -: AM labs -: Cont other meds as below Review of Systems - Review of Systems Respiratory: negative: Cough, Dry, Shortness of Breath, Hemoptysis, SOB with Excertion, Pleuritic Pain, Sputum, Wheezing Cardiovascular: negative: chest pain, palpitations, orthopnea, paroxysmal nocturnal dyspnea, edema, light headedness, other Gastrointestinal: negative: Nausea, Vomiting, Abdominal Pain, Diarrhea, Constipation, Melena, Hematochezia, Other - Medications/Allergies Allergies/Adverse Reactions: Allergies Allergy/AdvReac Type Severity Reaction Status Date / Time nystatin Allergy Severe Rash Verified 05/30/18 18:05 Medications: Current Medications Acetaminophen (Tylenol) 1,000 mg PO Q6H PRN PRN Reason: Moderate to Severe Pain (6-10) Last Admin: 06/01/18 09:05 Dose: 1,000 mg Acetaminophen (Tylenol) 1,000 mg PO Q6HR [facility] Last Admin: 06/02/18 17:39 Dose: 1,000 mg Dextrose/Water (Dextrose 50%) 25 gm SLOW IVP PRN PRN PRN Reason: Hypoglycemia Famotidine (Pepcid) 20 mg PO DAILY [facility] Last Admin: 06/02/18 08:32 Dose: 20 mg Ferrous Sulfate (Feosol) 325 mg PO QAM-WM [facility] Last Admin: 06/02/18 08:32 Dose: 325 mg Gabapentin (Neurontin) 300 mg PO BID [facility] Last Admin: 06/02/18 21:02 Dose: 300 mg Glucagon (Glucagon) 1 mg IM PRN PRN PRN Reason: Hypoglycemia Heparin Sodium (Porcine) (Heparin) 5,000 units SC BID [facility] Last Admin: 06/02/18 21:02 Dose: 5,000 units Dextrose/Water (D5w) 1,000 mls @ 0 mls/hr IV .Q0M PRN PRN Reason: Hypoglycemia Sodium Bicarbonate 75 meq/ (Sodium Chloride) 1,075 mls @ 75 mls/hr IV .[id number] [facility] Last Admin: 06/02/18 21:02 Dose: 1,075 mls Insulin Human Lispro (Humalog) 0 units SC .MODERATE SLIDING SC PRN PRN Reason: Moderate Correctional Scale Last Admin: 06/02/18 17:40 Dose: 2 unit Insulin Human Lispro (Humalog) 0 units SC .BEDTIME SLIDING SC PRN PRN Reason: Bedtime Correctional Scale Insulin Human NPH (Humulin N) 15 unit SC BID [facility] Last Admin: 06/02/18 21:02 Dose: 15 unit Meclizine HCl (Antivert) 25 mg PO Q8H PRN PRN Reason: Dizziness Neomycin/Polymyxin/Bacitracin (Triple Antibiotic) 2 gm TOP DAILY [facility] Polyethylene Glycol (Miralax) 17 gm PO DAILY [facility] Last Admin: 06/02/18 08:29 Dose: Not Given Senna/Docusate Sodium (Senokot S) 2 tab PO BID PRN PRN Reason: Constipation Sodium Chloride (Flush - Normal Saline) 10 ml IVF Q12HR [facility] Last Admin: 06/02/18 21:02 Dose: 10 ml Sodium Chloride (Flush - Normal Saline) 10 ml IVF PRN PRN PRN Reason: Saline Flush Tramadol HCl (Ultram) 50 mg PO Q6H PRN PRN Reason: Mild-Moderate Pain (1-5) Tramadol HCl (Ultram) 100 mg PO Q6H PRN PRN Reason: Moderate to Severe Pain (6-10) Last Admin: 06/02/18 14:35 Dose: 100 mg
[2018-06-03] MEDS: Acetaminophen 500 MG TAB PO SCH ×5 (00:24→23:32)
[2018-06-03] MEDS: HumaLOG 300 UNITS/3 ML VIAL SC PRN ×2 (06:03→12:13)
[2018-06-03 07:05] LABS: Hemoglobin 6.4 g/dL (12.0-16.0); Platelet Count 212 thou/uL (130-400)
[2018-06-03 07:21] LABS: Albumin 2.3 g/dL (3.5-5.0); Anion Gap 9 mmol/L (10-20); BUN (Urea Nitrogen) 16 mg/dL (9.8-20.1); BUN/Creatinine Ratio 14.29; Calc. Creatinine Clearance 113 mL/min (70-130); Carbon Dioxide 24 mmol/L (22-29); Chloride 109 mmol/L (98-107); Estimated GFR-MDRD 50; Glucose 146 mg/dL (70-105); Phosphorus 3.6 mg/dL (2.3-4.7); Potassium 3.6 mmol/L (3.5-5.1); Sodium 138 mmol/L (136-145)
[2018-06-03] MEDS: Ferrous Sulfate 325 MG TAB PO SCH (08:48)
[2018-06-03] MEDS: Famotidine 20 MG TAB PO SCH (08:48)
[2018-06-03] MEDS: Gabapentin 300 MG CAP PO SCH ×2 (08:48→20:10)
[2018-06-03] MEDS: Triple Antibiotic Oint 1 GM Packet TOP SCH (08:49)
[2018-06-03] MEDS: Heparin 5,000 UNITS/ML VIAL SC SCH ×2 (08:49→10:33)
[2018-06-03] MEDS: NPH, Human Insulin Isophane 300 UNIT/3 ML VIAL SC SCH ×2 (08:49→20:14)
[2018-06-03] MEDS: Polyethylene Glycol 3350 17 GM Packet PO SCH (08:50)
--- NOTE | 2018-06-03 09:11 | ULT ---
RENAL ULTRASOUND: DATE: 06/03/2018. COMPARISON: None. HISTORY: Acute kidney injury. TECHNIQUE: Multiplanar, langston scale sonographic imaging of kidneys and urinary bladder obtained. FINDINGS: Detailed assessment of the kidneys is limited secondary to body habitus. The right kidney measures 11.2 x 5.9 x 6.0 cm. Cortical thickness is in the 1.3 cm range. No obviou s stone, mass lesion, or hydronephrosis. The left kidney measured 11.1 x 5.6 x 5.3 cm. Detailed assessment of the left kidney is quite limite d secondary to shadowing and body habitus. No obvious hydronephrosis. Urinary bladder volume was 11 6 cc. IMPRESSION: Grossly unremarkable significantly limited assessment of the kidneys, particularly the left kidney. POS: YASSINE
[2018-06-03] MEDS: traMADol HCl 50 MG TAB PO PRN (12:57)
[2018-06-03 13:31] LABS: Creatinine, Urine 45.74 mg/dL (47-110)
--- NOTE | 2018-06-03 14:22 | PDOC.PN ---
- Subjective Encounter Start Date: 06/03/18 Encounter Start Time: 11:45 Patient seen and examined for diabetic foot infection. c/o Pain over the surgical site. No new complaints. No overnight events - Objective Resuscitation Status - Order Detail: 05/30/18 20:29 Resuscitation Status Routine Resuscitation Status: FULL: Full Resuscitation MAR Reviewed: Yes Vital Signs & Weight: Vital Signs (12 hours) Temp Pulse Resp BP BP Pulse Ox 06/03/18 07:13 97.8 F 65 18 113/57 L 100 06/03/18 04:00 97.4 F L 66 20 134/78 100 Weight Weight 281 lb I&O: 06/02/18 06/03/18 06/04/18 06:59 06:59 06:59 Intake Total 1700 3370 Balance 1700 3370 Result Diagrams: 06/03/18 06:29 06/03/18 06:29 Additional Labs: Accuchecks 06/03/18 06/03/18 06/02/18 11:05 05:30 20:39 POC Glucose 311 H 286 H 231 H 06/02/18 15:50 POC Glucose 166 H Radiology Reviewed by me: No (Renal USG -neg) Phys Exam - Physical Examination Constitutional: NAD Respiratory: no wheezing, no rhonchi Cardiovascular: RRR, no rub Gastrointestinal: soft, non-tender, positive bowel sounds Musculoskeletal: no edema Neurological: moves all 4 limbs Psychiatric: A&O x 3 Dx/Plan (1) Acute kidney injury Code(s): N17.9 - ACUTE KIDNEY FAILURE, UNSPECIFIED Status: Acute Comment: on CKD 3 (2) Type 2 diabetes mellitus with diabetic foot infection Code(s): E11.628 - TYPE 2 DIABETES MELLITUS WITH OTHER SKIN COMPLICATIONS; L08.9 - LOCAL INFECTION OF THE SKIN AND SUBCUTANEOUS TISSUE, UNSP Status: Acute Comment: s/p R BKA (3) Morbid obesity with BMI of 50.0-59.9, adult Code(s): E66.01 - MORBID (SEVERE) OBESITY DUE TO EXCESS CALORIES; Z68.43 - BODY MASS INDEX (BMI) 50-59.9, ADULT Status: Chronic (4) History of colon cancer Code(s): Z85.038 - PERSONAL HISTORY OF MALIGNANT NEOPLASM OF LARGE INTESTINE Status: Chronic (5) H/O deep venous thrombosis Code(s): Z86.718 - PERSONAL HISTORY OF OTHER VENOUS THROMBOSIS AND EMBOLISM Status: Chronic (6) Hypertension Code(s): I10 - ESSENTIAL (PRIMARY) HYPERTENSION Status: Chronic (7) Chronic anemia Code(s): D64.9 - ANEMIA, UNSPECIFIED Status: Chronic Comment: with ?acute blood loss from surgery (8) other issues per previous notes - Plan DVT proph w/SCDs (Not on Heparin due to anemia) Transfuse 1 unit PRBC -: Renal function improving ( Prob lab error) -: AM labs -: DC to Rehab in 24-48 hr if stable -: Cont other meds as below Review of Systems - Review of Systems Constitutional: negative: fever, chills, sweats, weakness, malaise, other Cardiovascular: negative: chest pain, palpitations, orthopnea, paroxysmal nocturnal dyspnea, edema, light headedness, other Gastrointestinal: negative: Nausea, Vomiting, Abdominal Pain, Diarrhea, Constipation, Melena, Hematochezia, Other Genitourinary: negative: Dysuria, Frequency, Incontinence, Hematuria, Retention , Other - Medications/Allergies Allergies/Adverse Reactions: Allergies Allergy/AdvReac Type Severity Reaction Status Date / Time nystatin Allergy Severe Rash Verified 05/30/18 18:05 Medications: Current Medications Acetaminophen (Tylenol) 1,000 mg PO Q6H PRN PRN Reason: Moderate to Severe Pain (6-10) Last Admin: 06/01/18 09:05 Dose: 1,000 mg Acetaminophen (Tylenol) 1,000 mg PO Q6HR [facility] Last Admin: 06/03/18 12:14 Dose: 1,000 mg Dextrose/Water (Dextrose 50%) 25 gm SLOW IVP PRN PRN PRN Reason: Hypoglycemia Famotidine (Pepcid) 20 mg PO DAILY [facility] Last Admin: 06/03/18 08:48 Dose: 20 mg Ferrous Sulfate (Feosol) 325 mg PO QAM-WM [facility] Last Admin: 06/03/18 08:48 Dose: 325 mg Gabapentin (Neurontin) 300 mg PO BID [facility] Last Admin: 06/03/18 08:48 Dose: 300 mg Glucagon (Glucagon) 1 mg IM PRN PRN PRN Reason: Hypoglycemia Dextrose/Water (D5w) 1,000 mls @ 0 mls/hr IV .Q0M PRN PRN Reason: Hypoglycemia Insulin Human Lispro (Humalog) 0 units SC .MODERATE SLIDING SC PRN PRN Reason: Moderate Correctional Scale Last Admin: 06/03/18 12:13 Dose: 8 unit Insulin Human Lispro (Humalog) 0 units SC .BEDTIME SLIDING SC PRN PRN Reason: Bedtime Correctional Scale Insulin Human NPH (Humulin N) 15 unit SC BID [facility] Last Admin: 06/03/18 08:49 Dose: 15 unit Meclizine HCl (Antivert) 25 mg PO Q8H PRN PRN Reason: Dizziness Neomycin/Polymyxin/Bacitracin (Triple Antibiotic) 2 gm TOP DAILY [facility] Last Admin: 06/03/18 08:49 Dose: 2 gm Polyethylene Glycol (Miralax) 17 gm PO DAILY [facility] Last Admin: 06/03/18 08:50 Dose: Not Given Senna/Docusate Sodium (Senokot S) 2 tab PO BID PRN PRN Reason: Constipation Sodium Chloride (Flush - Normal Saline) 10 ml IVF Q12HR [facility] Last Admin: 06/03/18 08:49 Dose: 10 ml Sodium Chloride (Flush - Normal Saline) 10 ml IVF PRN PRN PRN Reason: Saline Flush Tramadol HCl (Ultram) 50 mg PO Q6H PRN PRN Reason: Mild-Moderate Pain (1-5) Tramadol HCl (Ultram) 100 mg PO Q6H PRN PRN Reason: Moderate to Severe Pain (6-10) Last Admin: 06/03/18 12:57 Dose: 100 mg
[2018-06-04] MEDS: Acetaminophen 500 MG TAB PO SCH ×4 (04:54→23:22)
[2018-06-04] MEDS: Famotidine 20 MG TAB PO SCH (04:54)
[2018-06-04] MEDS: HumaLOG 300 UNITS/3 ML VIAL SC PRN ×3 (05:26→17:41)
[2018-06-04 07:44] LABS: Hemoglobin 7.8 g/dL (12.0-16.0); Platelet Count 287 thou/uL (130-400)
[2018-06-04 08:07] LABS: Albumin 2.6 g/dL (3.5-5.0); Anion Gap 9 mmol/L (10-20); BUN (Urea Nitrogen) 13 mg/dL (9.8-20.1); BUN/Creatinine Ratio 12.62; Calc. Creatinine Clearance 123 mL/min (70-130); Calcium 8.5 mg/dL (7.8-10.44); Carbon Dioxide 23 mmol/L (22-29); Chloride 111 mmol/L (98-107); Estimated GFR-MDRD 55; Glucose 153 mg/dL (70-105); Phosphorus 3.1 mg/dL (2.3-4.7); Potassium 3.8 mmol/L (3.5-5.1); Sodium 139 mmol/L (136-145)
[2018-06-04] MEDS: NPH, Human Insulin Isophane 300 UNIT/3 ML VIAL SC SCH ×2 (08:48→20:49)
[2018-06-04] MEDS: Ferrous Sulfate 325 MG TAB PO SCH (08:48)
[2018-06-04] MEDS: Gabapentin 300 MG CAP PO SCH ×2 (08:48→20:49)
[2018-06-04] MEDS: Triple Antibiotic Oint 1 GM Packet TOP SCH (08:48)
[2018-06-04] MEDS: Polyethylene Glycol 3350 17 GM Packet PO SCH (08:50)
[2018-06-04] MEDS: traMADol HCl 50 MG TAB PO PRN ×3 (08:54→22:33)
--- NOTE | 2018-06-04 17:00 | PDOC.PN ---
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 Some pain at knee and stump -: but moving the extremity in bed. - Objective Resuscitation Status - Order Detail: 05/30/18 20:29 Resuscitation Status Routine Resuscitation Status: FULL: Full Resuscitation MAR Reviewed: Yes Vital Signs & Weight: Vital Signs (12 hours) Temp Pulse Resp BP Pulse Ox 06/04/18 08:00 98.7 F 06/04/18 07:43 97.9 F 67 18 139/76 99 Weight Weight 281 lb I&O: 06/03/18 06/04/18 06/05/18 06:59 06:59 06:59 Intake Total 3370 2750 480 Balance 3370 2750 480 Result Diagrams: 06/04/18 07:11 06/04/18 07:11 Additional Labs: Accuchecks 06/04/18 06/04/18 06/03/18 11:15 05:27 20:12 POC Glucose 224 H 201 H 119 H 06/03/18 16:42 POC Glucose 90 Microbiology 05/31/18 12:40 Foot - Right Bacterial Culture - Final 05/31/18 12:40 Foot - Right Anaerobic Culture - Final Streptococcus agalactiae Gp. B Anaerobic Gram Negative Jordan Anaerobic cocci 05/31/18 07:15 Foot Bacterial Culture - Final Streptococcus agalactiae Gp. B 05/30/18 12:47 Urine clean catch Urine Culture - Final 05/30/18 10:01 Venous blood - Right Arm Blood Culture - Final NO GROWTH IN 5 DAYS 05/30/18 09:49 Venous blood - Left Arm Blood Culture - Final NO GROWTH IN 5 DAYS Phys Exam - Physical Examination Constitutional: NAD HEENT: PERRLA, sclera anicteric, oral pharynx no lesions Neck: no nodes, no JVD, supple, full ROM Respiratory: no wheezing, no rales, no rhonchi, clear to auscultation bilateral S1, S2 Cardiovascular: RRR, no significant murmur, no rub, gallop +obese Gastrointestinal: soft, non-tender, no distention, positive bowel sounds R BKA stump intact with tissue compression Musculoskeletal: pulses present Neurological: normal sensation, moves all 4 limbs Psychiatric: A&O x 3 Skin: normal turgor, cap refill <2 seconds Dx/Plan (1) Acute kidney injury Code(s): N17.9 - ACUTE KIDNEY FAILURE, UNSPECIFIED Status: Acute Comment: on CKD 3, improved, serial monitoring, avoid nephrotoxic meds and limit contrast (2) Type 2 diabetes mellitus with diabetic foot infection Code(s): E11.628 - TYPE 2 DIABETES MELLITUS WITH OTHER SKIN COMPLICATIONS; L08.9 - LOCAL INFECTION OF THE SKIN AND SUBCUTANEOUS TISSUE, UNSP Status: Acute Comment: s/p R BKA POD #4, pain control, mobilization, PT (3) Chronic anemia Code(s): D64.9 - ANEMIA, UNSPECIFIED Status: Chronic Comment: with ?acute blood loss from surgery, s/p 2u PRBC's, stable H/H currently, likely component of CKD (4) Morbid obesity with BMI of 50.0-59.9, adult Code(s): E66.01 - MORBID (SEVERE) OBESITY DUE TO EXCESS CALORIES; Z68.43 - BODY MASS INDEX (BMI) 50-59.9, ADULT Status: Chronic Comment: Weight loss (5) Stage 3 chronic kidney disease Code(s): N18.3 - CHRONIC KIDNEY DISEASE, STAGE 3 (MODERATE) Status: Chronic Comment: stable - Plan PT/OT, mental health social worker Stable currently -: Continue PT/OT for mobilization -: Rehab evaluation -: Pain control -: Resume Xarelto in 48h * AM lab: BMP, H/H
[2018-06-05] MEDS: Acetaminophen 500 MG TAB PO SCH ×4 (04:59→23:27)
[2018-06-05 06:53] LABS: Hemoglobin 7.7 g/dL (12.0-16.0); Platelet Count 286 thou/uL (130-400)
[2018-06-05 07:16] LABS: Albumin 2.4 g/dL (3.5-5.0); Anion Gap 7 mmol/L (10-20); BUN (Urea Nitrogen) 10 mg/dL (9.8-20.1); BUN/Creatinine Ratio 10.87; Calc. Creatinine Clearance 137 mL/min (70-130); Calcium 8.6 mg/dL (7.8-10.44); Carbon Dioxide 27 mmol/L (22-29); Chloride 111 mmol/L (98-107); Estimated GFR-MDRD 63; Glucose 127 mg/dL (70-105); Phosphorus 3.4 mg/dL (2.3-4.7); Potassium 4.2 mmol/L (3.5-5.1); Sodium 141 mmol/L (136-145)
--- NOTE | 2018-06-05 07:56 | PRG ---
DATE OF SERVICE: 06/04/2018 SUBJECTIVE: The patient is seen and examined. She is feeling better. OBJECTIVE: VITAL SIGNS: The patient is noted with the following vital signs; afebrile, temperature 97.6, pulse 66, respiratory rate of 16, O2 saturations are 98%, and blood pressure 109/65. HEENT: Unremarkable. CARDIOVASCULAR: First and second heart sounds were heard. RESPIRATORY: Clear to auscultation. DIGESTIVE: Revealed a benign abdomen. EXTREMITIES: No peripheral edema. SKIN: No new gross rash. LYMPHATICS: No peripheral lymphadenopathy. LABORATORY INVESTIGATION: Showed a hemoglobin of 6.4, creatinine of 1.12. IMPRESSION: 1. Acute kidney injury, which is hemodynamically mediated, seems to have much improved. 2. Acute blood loss anemia. PLAN: 1. Continue current renal supportive measures. IV fluid can be discontinued at this point. 2. Anemia management will defer that to the primary team. 3. Further management will be dependent on the clinical course. Job ID: [id number]
[2018-06-05] MEDS: Ferrous Sulfate 325 MG TAB PO SCH (08:28)
[2018-06-05] MEDS: Triple Antibiotic Oint 1 GM Packet TOP SCH (08:28)
[2018-06-05] MEDS: Gabapentin 300 MG CAP PO SCH ×2 (08:28→20:12)
[2018-06-05] MEDS: Famotidine 20 MG TAB PO SCH (08:29)
[2018-06-05] MEDS: NPH, Human Insulin Isophane 300 UNIT/3 ML VIAL SC SCH ×2 (08:29→20:12)
--- NOTE | 2018-06-05 08:29 | CON ---
DATE OF CONSULTATION: CONSULTING PHYSICIAN: Sri Larios MD REQUESTING PHYSICIAN: Dr. Rich. REASON FOR CONSULTATION: Acute kidney injury. IMPRESSION: Acute on chronic kidney disease, query cause. This is likely to be hemodynamically mediated in the context of hypotension in a patient who is known to be hypertensive. PLAN: 1. Hemodynamic support. We will recommend avoiding antihypertensive medication and allow the patient's blood pressure to improve. 2. Gentle hydration to optimize hemodynamics. 3. Renally dose all medications for low GFR. 4. Avoid any potential nephrotoxic agents. 5. Renal ultrasound. 6. Further management to be dependent on the clinical course. No emergent indication for renal replacement therapy. HISTORY: This is a 57-year-old female patient with type 2 diabetes; stage IIIB colon carcinoma, status post chemotherapy. The patient presented here with right foot ulcer, for which the patient did undergo BKA. The patient on presentation noted with systolic blood pressure in the 180 range; however, over the course of hospitalization, it has been noted with labile hemodynamics with blood pressure dropping down to as low as 95. Today laboratory investigation revealed a creatinine of 6.36 with a presenting creatinine of 1.96. As a result of these findings, decision has been taken to involve Renal in the management of this case. PAST MEDICAL HISTORY: Significant for type 2 diabetes, peripheral vascular disease, diabetic foot ulcer, adenocarcinoma of the colon, hypertension, obesity, anxiety, and depression. MEDICATIONS: Reviewed as documented on [employer]. ALLERGIES: NO KNOWN DRUG ALLERGIES. SOCIAL HISTORY: No alcohol. No tobacco. No illicit drug use. FAMILY HISTORY: Significant for heart disease and diabetes. REVIEW OF SYSTEMS: As documented in the body of history, all the other systems were reviewed and found not to be significantly related to presenting illness. PHYSICAL EXAMINATION: GENERAL: On examination, the patient was found not to be in any obvious distress. VITAL SIGNS: Noted with the following vital signs; afebrile at temperature 98.5, pulse 76, respiratory rate of 18, O2 saturations are 97% with blood pressure 95/59. HEENT: Examination unremarkable. Moist oral mucosa. NECK: Supple. No conjunctival injection or icterus. CARDIOVASCULAR SYSTEM: First and second heart sounds were heard. RESPIRATORY SYSTEM: Clear to auscultation. DIGESTIVE SYSTEM: Revealed obese abdomen. EXTREMITIES: No peripheral edema. SKIN: No new gross rash. LYMPHATICS: No peripheral lymphadenopathy. SUMMARY: A 57-year-old female patient who presented here with diabetic foot ulcer, did undergo surgery, now experiencing acute on chronic kidney disease, likely hemodynamically mediated. Thank you for this consultation. We will follow with you. Job ID: [id number]
[2018-06-05] MEDS: Polyethylene Glycol 3350 17 GM Packet PO SCH (08:30)
--- NOTE | 2018-06-05 09:52 | CON ---
DATE OF CONSULTATION: SUBJECTIVE: The patient is seen and examined, noted with the following vital signs. OBJECTIVE: VITAL SIGNS: Afebrile. Temperature 98, pulse 70, respiratory rate of 18, O2 saturation of 99%, and blood pressure 131/73. HEENT: Unremarkable. CARDIOVASCULAR SYSTEM: First and second heart sounds were heard. RESPIRATORY SYSTEM: Clear to auscultation. DIGESTIVE SYSTEM: Revealed a benign abdomen. EXTREMITIES: No peripheral edema. SKIN: No new gross rash. LABORATORY INVESTIGATION: Showed a creatinine down to 1.03, hemoglobin of 7.8. IMPRESSION: Acute kidney injury, hemodynamically mediated, which is resolved. PLAN: Continue current renal supportive measures. We will sign off at this point, call back for any further need. Job ID: [id number]
--- NOTE | 2018-06-05 09:58 | PRG ---
DATE OF SERVICE: 06/05/2018 Nayana Lockhart is doing well today. Right rrled-qrx-[id number] amputation stump looks good. Placement is pending. We will continue to wash the stump with soap and water, apply antibiotic ointment, Telfa, and a stump water softener service supervisor. I would recommend she see me in the office in 2 weeks postoperative for staple removal. I will see her as needed this hospitalization. Please call if necessary. Job ID: [id number]
[2018-06-05] MEDS: traMADol HCl 50 MG TAB PO PRN ×2 (10:25→17:01)
[2018-06-05] MEDS: HumaLOG 300 UNITS/3 ML VIAL SC PRN ×2 (11:40→16:58)
--- NOTE | 2018-06-05 14:04 | PDOC.PN ---
- Subjective Encounter Start Date: 06/05/18 Encounter Start Time: 14:00 Subjective: f/u for R BKA secondary to osteomyelitis POD #5. Overall doing ok and -: exercising the RLE in bed. - Objective Resuscitation Status - Order Detail: 05/30/18 20:29 Resuscitation Status Routine Resuscitation Status: FULL: Full Resuscitation MAR Reviewed: Yes Vital Signs & Weight: Vital Signs (12 hours) Temp Pulse Resp BP Pulse Ox 06/05/18 08:21 98.5 F 70 20 154/71 H 100 06/05/18 08:00 98.5 F Weight Weight 281 lb I&O: 06/04/18 06/05/18 06/06/18 06:59 06:59 06:59 Intake Total 2750 2440 480 Output Total 300 Balance 2750 2140 480 Result Diagrams: 06/05/18 06:12 06/05/18 06:12 Additional Labs: Accuchecks 06/05/18 06/05/18 06/04/18 11:12 05:34 20:03 POC Glucose 178 H 139 H 184 H 06/04/18 16:35 POC Glucose 184 H Microbiology 05/31/18 12:40 Foot - Right Bacterial Culture - Final 05/31/18 12:40 Foot - Right Anaerobic Culture - Final Streptococcus agalactiae Gp. B Anaerobic Gram Negative Jordan Anaerobic cocci 05/31/18 07:15 Foot Bacterial Culture - Final Streptococcus agalactiae Gp. B 05/30/18 12:47 Urine clean catch Urine Culture - Final 05/30/18 10:01 Venous blood - Right Arm Blood Culture - Final NO GROWTH IN 5 DAYS 05/30/18 09:49 Venous blood - Left Arm Blood Culture - Final NO GROWTH IN 5 DAYS Laboratory Tests 06/03/18 06/04/18 06:29 07:11 Hgb 6.4 L 7.8 L Phys Exam - Physical Examination Constitutional: NAD HEENT: PERRLA, sclera anicteric, oral pharynx no lesions Neck: no nodes, no JVD, supple, full ROM Respiratory: no wheezing, no rales, no rhonchi, clear to auscultation bilateral S1, S2 Cardiovascular: RRR, no significant murmur, no rub, gallop Gastrointestinal: soft, non-tender, no distention, positive bowel sounds RLE stump intact Musculoskeletal: pulses present, edema present Neurological: normal sensation, moves all 4 limbs Psychiatric: normal affect, A&O x 3 Skin: normal turgor, cap refill <2 seconds Dx/Plan (1) Acute kidney injury Code(s): N17.9 - ACUTE KIDNEY FAILURE, UNSPECIFIED Status: Acute Comment: on CKD 3, improved, serial monitoring, avoid nephrotoxic meds and limit contrast (2) Type 2 diabetes mellitus with diabetic foot infection Code(s): E11.628 - TYPE 2 DIABETES MELLITUS WITH OTHER SKIN COMPLICATIONS; L08.9 - LOCAL INFECTION OF THE SKIN AND SUBCUTANEOUS TISSUE, UNSP Status: Acute Comment: s/p R BKA POD #5, pain control, mobilization, PT (3) Chronic anemia Code(s): D64.9 - ANEMIA, UNSPECIFIED Status: Chronic Comment: ?acute blood loss from surgery, s/p 2u PRBC's, stable H/H currently, likely component of CKD (4) Morbid obesity with BMI of 50.0-59.9, adult Code(s): E66.01 - MORBID (SEVERE) OBESITY DUE TO EXCESS CALORIES; Z68.43 - BODY MASS INDEX (BMI) 50-59.9, ADULT Status: Chronic Comment: Weight loss options (5) Stage 3 chronic kidney disease Code(s): N18.3 - CHRONIC KIDNEY DISEASE, STAGE 3 (MODERATE) Status: Chronic Comment: stable - Plan plan discussed w/ family, PT/OT, nursing home social worker, out of bed/ambulate Stable currently -: OOB with PT -: Pain control as clinically indicated -: Resume Xarelto in am -: Rehab approval pending * AM lab: BMP, H/H
[2018-06-06] MEDS: Acetaminophen 500 MG TAB PO SCH ×3 (05:55→15:49)
[2018-06-06 07:44] LABS: Hemoglobin 7.9 g/dL (12.0-16.0); Platelet Count 276 thou/uL (130-400)
[2018-06-06 07:53] LABS: Albumin 2.4 g/dL (3.5-5.0); Anion Gap 9 mmol/L (10-20); BUN (Urea Nitrogen) 8 mg/dL (9.8-20.1); BUN/Creatinine Ratio 8.99; Calc. Creatinine Clearance 142 mL/min (70-130); Calcium 8.6 mg/dL (7.8-10.44); Carbon Dioxide 26 mmol/L (22-29); Chloride 108 mmol/L (98-107); Estimated GFR-MDRD 66; Glucose 117 mg/dL (70-105); Phosphorus 3.7 mg/dL (2.3-4.7); Potassium 3.7 mmol/L (3.5-5.1); Sodium 139 mmol/L (136-145)
[2018-06-06] MEDS: traMADol HCl 50 MG TAB PO PRN (07:55)
[2018-06-06] MEDS: Triple Antibiotic Oint 1 GM Packet TOP SCH (07:57)
[2018-06-06] MEDS: Gabapentin 300 MG CAP PO SCH (07:57)
[2018-06-06] MEDS: Ferrous Sulfate 325 MG TAB PO SCH (07:58)
[2018-06-06] MEDS: Famotidine 20 MG TAB PO SCH (07:58)
[2018-06-06] MEDS: NPH, Human Insulin Isophane 300 UNIT/3 ML VIAL SC SCH (07:59)
[2018-06-06] MEDS: Polyethylene Glycol 3350 17 GM Packet PO SCH (07:59)
[2018-06-06] MEDS ORDERED: Rivaroxaban 10 MG TAB PO SCH (09:00)
[2018-06-06] MEDS: Acetaminophen 500 MG TAB PO PRN (14:40)
[2018-06-06 15:10] VITALS: BP 154/72; TEMP 98.6
--- NOTE | 2018-06-07 05:40 | DIS ---
DATE OF ADMISSION: 05/30/2018 DATE OF DISCHARGE: 06/06/2018 DISCHARGE DIAGNOSES: 1. Right lower extremity diabetic foot infection with osteomyelitis. 2. Status post debridement of the right foot ulcer converting to right riyhw-wzk-nsvn amputation, 05/31/2018. 3. Acute kidney injury on chronic kidney injury, stage 3. 4. Acute blood loss anemia secondary to postsurgical blood loss status post 2 units of packed red blood cells. 5. Adenocarcinoma of the descending colon, stage IIIB, on current FOLFOX. 6. Diabetes mellitus type 2, insulin-requiring with peripheral neuropathy/nephropathy. 7. Morbid obesity. CONSULTATIONS: 1. Dr. Lowe with General Surgery Service. 2. Dr. Garcia with Medical Oncology Service. PERTINENT LAB AND X-RAY FINDINGS: Creatinine ranged between 0.89 to 6.36. Estimated GFR ranged between 7 to 66. Hemoglobin A1c 11.1. Lactic acid level 1.7. CRP 20.83. CBC showed a white blood cell count ranging between 4.9 to 8.8, hemoglobin ranged between 6.4 to 8.3. Blood cultures x2 dated 05/30/2018 showed no growth at 5 days. Urine culture dated 05/30/2018 showed [id number] to [id number] colonies of mixed skin francisco. Right foot bacterial culture positive for Streptococcus agalactiae group B and anaerobic cocci. Three views of the right ankle dated 05/30/2018 showed gas density in the lateral plantar aspect of the foot extending cranially and superficially. Arthrosis and degenerative changes noted. Right foot pathology dated 05/31/2018 showed ischemic ulcerations with gangrene. Bilateral renal ultrasound dated 06/03/2018 showed unremarkable exam. HOSPITAL COURSE: The patient was initially admitted after presenting with right foot pain and redness. The patient underwent general evaluation including plain radiographs of the right foot showing evidence of gas in the soft tissues. The patient also with significant history of diabetes mellitus type 2, insulin-requiring with peripheral neuropathy. The patient previously had undergone amputation of the right 4th and 5th digits secondary to osteomyelitis and chronic wound infection. The patient was evaluated by the General Surgery Service, undergoing debridement of the right foot wound. Intraoperatively, the decision was made to proceed with right qxdwo-hlt-xwha amputation due to poor vasculature distally. The patient underwent right nvwvp-pbk-ezac amputation and was monitored postoperatively on the medical floor. The patient received local wound care for incision care as well as compression wraps for the stump. The patient was also treated for acute kidney injury with modification to her current medication regimen and avoidance of nephrotoxic agents. The patient's creatinine improved and stabilized to baseline function prior to discharge with recommendations to discontinue CAMILLA inhibitors. Due to the patient's recent right cmzhn-inf-scxq amputation and comorbid status, the patient was deemed appropriate candidate for ongoing inpatient rehabilitation for wound care as well as physical and occupational therapy given limited mobility status and high risk for falls. I have examined the patient at the time of discharge and discussed followup instructions. The patient verbalized understanding and agreement and ready for discharge to inpatient rehabilitation on 06/06/2018. DISCHARGE MEDICATIONS: 1. Vitamin D3 74842 units p.o. daily. 2. Metoprolol tartrate 12.5 mg p.o. b.i.d. 3. Zofran 4 mg p.o. q.8 hours p.r.n. 4. Xarelto 20 mg p.o. daily. 5. Ferrous sulfate 325 mg p.o. daily. 6. Triple antibiotic ointment 1 application topically daily. 7. NPH insulin 15 units subcutaneously b.i.d. 8. MiraLAX 17 g p.o. daily p.r.n. 9. Tramadol 50 mg 1 to 2 tablets p.o. q.6 hours p.r.n. pain. FOLLOW UP: The patient may follow up with Dr. Josy Silva after discharge from inpatient rehabilitation. The patient to follow up with Dr. William Lowe in 2-3 weeks after discharge. CONDITION ON DISCHARGE: Stable. ACTIVITY: Ad-rosey. DIET: ADA and heart healthy. CODE STATUS: Full. SPECIAL INSTRUCTIONS: 1. Recommend local wound care to the right lower extremity stump. 2. Fall risk precautions. DISPOSITION: [facility] Inpatient Rehabilitation 06/06/2018. Total time in preparing discharge 36 minutes. Job ID: [id number]
--- NOTE | 2018-06-07 11:57 | PQF ---
CLINICAL DOCUMENTATION IMPROVEMENT CLARIFICATION FORM: ICD-10 Updated PLEASE DO AN ADDENDUM TO THE PROGRESS NOTE WITH ANY DOCUMENTATION UPDATES OR ADDITIONS AND CARRY THROUGH TO DC SUMMARY. THANK YOU. DATE: 06/07/18 ATTN: Dr. Lowe Please exercise your independent, professional judgment in responding to the clarification form. Clinical indicators are provided on the bottom of this form for your review Please check appropriate box(s): [ ] High (proximal) [y ] Mid [ ] Low (distal) [ ] Other diagnosis [ ] Unable to determine For continuity of documentation, please document condition throughout progress notes and discharge summary. Thank You. CLINICAL INDICATORS - SIGNS / SYMPTOMS / LABS Operative note 05/31/2018: Incision was made for a long posterior flap for right below-knee amputation. Incision was carried down through the skin , subcutaneous tissue, fascia, and muscle bundles divided with cautery. The tibia transected with a Gigli saw and bevelling the anterior edge to cephalad, smoothened the edges with a rasp.Fibula transected with a bone cutter inch above the cut edge of the tibia. RISK FACTORS Operative Note 05/31: Diabetic infection, r foot: metabolic syndrome: morbid obesity: diabetes mellitus: she is undergoing chemotherapy for colon cancer, and anemia preoperatively chronic TREATMENTS: Operative note 05/31/2018: Debridement of right foot conversion to right below- knee amputation Thank you, Jil (This form is maintained as a part of the permanent medical record) 2014 [employer]. All Rights Reserved Jil Mendez RN, BSN [email or web address] Office: [phone] [facility]
== END 2018-06-06 18:47 | DRG 617 ==
LOC: ERS 09:18 → ERHOLD 11:00 → T4-A 17:54
PROVIDERS: ADMIT Internal Medicine; ATTEND Internal Medicine
PROC: 0Y6H0Z2 Detachment at Right Lower Leg, Mid, Open Approach (ICD-10-PCS; principal; 2018-05-31)
PROC: 30233N1 Transfusion of Nonautologous Red Blood Cells into Peripheral Vein, Percutaneous Approach (ICD-10-PCS; 2018-06-03)
DX: E11.621 Type 2 diabetes mellitus with foot ulcer (principal); L97.414 Non-pressure chronic ulcer of right heel and midfoot with necrosis of bone; C18.6 Malignant neoplasm of descending colon; Z68.43 Body mass index [BMI] 50.0-59.9, adult; M86.9 Osteomyelitis, unspecified; D62 Acute posthemorrhagic anemia; E11.69 Type 2 diabetes mellitus with other specified complication; E11.42 Type 2 diabetes mellitus with diabetic polyneuropathy; N17.9 Acute kidney failure, unspecified; T87.81 Dehiscence of amputation stump; Z79.4 Long term (current) use of insulin; Z89.421 Acquired absence of other right toe(s); Z79.01 Long term (current) use of anticoagulants; E66.01 Morbid (severe) obesity due to excess calories; F32.9 Major depressive disorder, single episode, unspecified; F41.9 Anxiety disorder, unspecified; D63.0 Anemia in neoplastic disease; E88.81 Metabolic syndrome and other insulin resistance; Z90.49 Acquired absence of other specified parts of digestive tract; E11.22 Type 2 diabetes mellitus with diabetic chronic kidney disease; I12.9 Hypertensive chronic kidney disease with stage 1 through stage 4 chronic kidney disease, or unspecified chronic kidney disease; E86.0 Dehydration; E11.65 Type 2 diabetes mellitus with hyperglycemia; Z86.718 Personal history of other venous thrombosis and embolism; N18.3 Chronic kidney disease, stage 3 (moderate); B95.1 Streptococcus, group B, as the cause of diseases classified elsewhere
CPT/HCPCS: 36415; 36416; 36430; 76770; 80048; 80053; 80069; 81003; 81015; 82010; 82570; 83036; 83605; 83690; 83735; 84156; 85014; 85018; 85025; 85049; 85652; 86140; 86850; 86900; 86901; 87040; 87070; 87077; 87086; 87205; 88307; 93005; 93010; 96361; 96365; 96366; 96367; J0131; J1642; J1644; J1650; J1815; J2001; J2405; J2543; J2704; J3010; J3370; J7050; L8440; P9016

== ENCOUNTER 2019-01-18 19:48 | Emergency (ER) | payer OTHER, SELFPAY ==
[2019-01-18 20:18] LABS: #Eosinphils 0.6 thou/uL (0.0-0.7); #Lymphocytes 1.7 thou/uL (1.20-3.40); #Monocytes 0.4 thou/uL (0.11-0.59); #Neutrophils 5.7 thou/uL (1.40-6.50); %Basophils 0.5 % (0.0-1.0); %Eosinophils 6.7 % (0.0-10.0); %Lymphocytes 20.3 % (21.0-51.0); %Monocytes 4.4 % (0.0-10.0); %Neutrophils 68.1 % (42.0-75.0); Hemoglobin 10.3 g/dL (12.0-16.0); Mean Corpuscular HGB CONC 35.5 g/dL (32.0-36.0); Mean Corpuscular Hemoglobin 30.9 pg (27.0-31.0); Mean Corpuscular Volume 86.9 fL (78.0-98.0); Mean Platelet Volume 7.9 fL (7.4-10.4); Platelet Count 227 thou/uL (130-400); RBC Distribution Width 13.1 % (11.5-14.5); Red Blood Cell (RBC) Count 3.34 mill/uL (4.20-5.40); White Blood Cell (WBC) Count 8.4 thou/uL (4.8-10.8)
[2019-01-18 20:39] LABS: ALT (SGPT) 8 U/L (8-55); AST (SGOT) 13 U/L (5-34); Albumin 3.8 g/dL (3.5-5.0); Alkaline Phosphatase 108 U/L (40-150); Anion Gap 9 mmol/L (10-20); BUN (Urea Nitrogen) 16 mg/dL (9.8-20.1); Bilirubin, Total 0.4 mg/dL (0.2-1.2); Calc. Creatinine Clearance 0 mL/min (70-130); Calcium 9.2 mg/dL (7.8-10.44); Carbon Dioxide 25 mmol/L (22-29); Chloride 107 mmol/L (98-107); Estimated GFR-MDRD 64; Globulin 3.9 g/dL (2.4-3.5); Glucose 60 mg/dL (70-105); Lipase 8 U/L (8-78); Potassium 3.3 mmol/L (3.5-5.1); Protein, Total 7.7 g/dL (6.0-8.3); Sodium 138 mmol/L (136-145)
[2019-01-18 20:55] LABS: Bilirubin Negative (Negative); Blood, Urine 2+ (Negative); Clarity Clear (Clear); Glucose, Urine (Dipstick) Normal (Negative); Leukocyte Negative Leu/uL (Negative); Nitrite Negative (Negative); Protein, Urine (Dipstick) 200 mg/dL (Neg-Trace); RBC/HPF Greater than 50 HPF (0-3); Squamous Epithelial 0-3 HPF (0-3); Urobilinogen Normal mg/dL (Less than 2)
[2019-01-18 21:04] LABS: Bacteria/HPF Rare-Few HPF (None Seen)
--- NOTE | 2019-01-18 21:24 | CT ---
CT ABDOMEN NONCONTRAST CT PELVIS NONCONTRAST: (Urolithiasis protocol) DATE: 01/18/2019 HISTORY: 58 year old female with left-sided abdominal and back pain radiating to left hip. Diarrhea. COMPARISON: 02/19/2018. TECHNIQUE: IV injection of iodinated contrast media: None Oral contrast media: None FINDINGS: Other than for urolithiasis, the lack of IV and oral contrast limits the evaluation. The previously demonstrated conglomeration of left para-aortic retroperitoneal lymph nodes in aggrega te previously measuring approximately 4.5 x 3.5 x 9.5 cm currently measures 4.5 x 4 x 14 cm. There is mild surrounding fat stranding. It has a retroaortic portion that reaches slightly to the right of midline. The upper edge of this mass reaches the L1-2 level, superior to the level of the left renal artery and left renal vein. The inferior extent reaches the bifurcation of the left common lalo c artery into the external and internal iliac arteries. There is now a large 6 x 5 x 6.5 cm soft tissue density mass in the deep left lower quadrant of the a bdominal cavity, close to the anterolateral surface of the iliac component of the retroperitoneal lymphadenopathy described above, and located either in the mesentery or adjacent retroperitoneum. Thi s also has mild surrounding fat stranding. At the ventral inferior aspect of the abdominal pannus, again demonstrated are multiple nondilated sm all bowel loops and soft tissue thickening of the pseudohernia midline and bilateral paramedian lower abdominal wall hanging inferiorly over the symphysis pubis at the abdominal pannus. There is fa t stranding associated with this, but this is milder than it was previously. No small bowel dilation. Anastomotic suture line in region of sigmoid colon. Decompressed urinary bladder. Multiple bilateral parapelvic renal cysts makes it difficult to evaluate for hydronephrosis. Probably no hydronephrosis. No renal calculus, ureteral calculus, or bladder calculus. No abdominal aortic aneury sm. Within the limitations of a noncontrast scan, no major abnormality identified involving liver, spleen, adrenals, or pancreas. Lung bases are clear. No pneumoperitoneum or ascites. High-grade facet DJD at lower lumbar spine, including severe. High-grade DJD of bilateral SI joints. Grade 1 spondylolisthesis at L4-5. High-grade bilateral neural foraminal stenosis at lower lumbar spine. No c ompression fracture. IMPRESSION: 1) interval growth of now large conglomeration of left para-aortic malignant retroperitoneal lymphade nopathy. 2) interval development of a large, detached malignant neoplastic mass in the deep aspect of the left lower quadrant of the abdominal cavity. 3) lumbar spondylosis including severe facet osteoarthrosis. 4) high-grade osteoarthrosis of bilateral sacroiliac joints.
--- NOTE | 2019-01-18 21:29 | RAD ---
Radiograph right knee 4 views: DATE: 01/18/2019 HISTORY: 58-year-old female status post acute traumatic injury to right knee FINDINGS: Amputations at proximal fibular metadiaphysis, where there are sharp, pointed bone spurs; and at the proximal tibial metadiaphysis, where the amputation margin is smooth. Diffuse osteopenia. Moderate DJD at patellofemoral, medial, and lateral compartments. Diffuse osteopenia. No acute fracture or jason nt effusion. IMPRESSION: 1.) Status post axwqw-fpd-issy amputation. 2. Moderate tricompartmental osteoarthrosis. 3. No acute fracture.
[2019-01-18] MEDS ORDERED: Ketorolac Tromethamine 30 MG/ML VIAL ONE (23:03)
== END 2019-01-19 00:03 | disposition home or self-care (01) ==
LOC: ERS 19:48
DX: R10.9 Unspecified abdominal pain (principal); M79.81 Nontraumatic hematoma of soft tissue; E11.40 Type 2 diabetes mellitus with diabetic neuropathy, unspecified; E78.5 Hyperlipidemia, unspecified; I10 Essential (primary) hypertension; J45.909 Unspecified asthma, uncomplicated; Z79.4 Long term (current) use of insulin
CPT/HCPCS: 36415; 51701; 74176; 80053; 81003; 81015; 83690; 85025; 93005; 96374; A4353; J1885

== ENCOUNTER 2019-02-08 07:58 | Outpatient (CLI) | payer OTHER ==
--- NOTE | 2019-02-08 11:14 | CT ---
EXAM: CT chest, abdomen, and pelvis with contrast: HISTORY: Colon cancer. COMPARISON: Noncontrast CT abdomen and pelvis on 01/18/[address] abdomen and pelvis on 8. FINDINGS: CT THORAX: Lungs: A pleural-based nodular density and associated linear density are seen in the right upper lobe inferiorly. This nodular density abuts the pleura laterally and abuts the minor fissure. No additional pulmonary nodule or mass is seen. Pleura: No pleural effusion. Lymph nodes: No lymphadenopathy. Mediastinum: A left subclavian Mediport catheter is noted in place with the tip at the junction of th e left brachiocephalic and proximal SVC. Chest wall: No abnormalities CT ABDOMEN AND PELVIS: Liver: Within normal limits. Gallbladder: Surgically absent.\ Pancreas: Fatty replaced, but no pancreatic lesion is appreciated. Spleen: Within normal limits. Adrenal glands: Within normal limits. Kidneys: Bilateral parapelvic renal cysts are again seen which are unchanged from prior study and are also stable dating back to a study on 03/02/2014. A subcentimeter too small to characterize hypodense lesion is seen in the superior pole left kidney. Urinary Bladder: The urinary bladder is unremarkable. Reproductive organs: Within normal limits for patient's age. Bowel: Postsurgical changes in the region of the sigmoid colon are noted with anastomotic sutures pre sent. Small amount of retained fecal material seen in the colon. Loops of small bowel are normal in caliber. Adenopathy:Again noted are enlarged and conglomerated left para-aortic lymph nodes extending from the level of the lowermost left adrenal gland to the level of the proximal left common iliac artery. These enlarged lymph nodes in aggregate measure approximately 14 cm craniocaudal x 4.9 cm transverse x 4.8 cm AP in maximal dimension. The conglomeration of lymphadenopathy in similar dimensions on study on 01/18/2019 measures 13.8 cm x 4.7 cm x 4 cm in similar dimensions. Previously described large soft tissue mass in the left lower quadrant is again seen and overall frank lar to the prior study with measurement of 8.1 cm craniocaudal x 6.4 cm AP x 5.9 cm transverse with previous measurement of 6.6 cm x 6 cm x 5.2 cm. There is an enlarged aortocaval lymph node as well as enlarged precaval lymph nodes present. The enla rged aortocaval lymph node measures 2.9 cm x 2.9 cm in greatest axial dimensions and is similar in size to the prior study. Precaval lymph nodes are also similar to the prior exam. Peritoneum: No free fluid or fluid collection is seen. No free intraperitoneal gas is identified. Abdominal wall: There is suggestion of a midline surgical defect in the infraumbilical location. Just superior to this region is a ventral abdominal hernia with associated skin thickening similar to the prior exam. Areas of fat necrosis are seen within the lower right anterior abdominal wall subcuta neous adipose layer. Osseous structures: Degenerative changes are again seen in the spine. No suspicious lytic or scleroti c osseous lesions are identified. IMPRESSION: 1. Lymphadenopathy with large conglomeration of lymph nodes in a left paraortic location as well as an enlarged left lower quadrant mass which also may represent an enlarged lymph node. This lymph node does demonstrate low-density area centrally which could be related to necrosis. These lymph node s measure slightly larger in size compared to the recent exam. 2. Stable enlarged aortocaval and precaval lymph nodes. 3. Postcholecystectomy changes. 4. Pleural-based nodular density right upper lobe which could be related to focal area of nodular ple ural thickening or intrapleural lymph node. No additional pulmonary nodule or mass is seen in the lungs bilaterally. 5. Post cholecystectomy changes. Transcribed Date/Time: 02/08/2019 11:53 AM
== END 2019-02-08 07:59 | disposition home or self-care (01) ==
LOC: CT 07:58
PROVIDERS: ATTEND Internal Medicine Hematology & Oncology
DX: C18.6 Malignant neoplasm of descending colon (principal); R59.0 Localized enlarged lymph nodes; R91.8 Other nonspecific abnormal finding of lung field; Z90.49 Acquired absence of other specified parts of digestive tract
CPT/HCPCS: 71260; 74177

== ENCOUNTER 2019-02-13 08:08 | Day surgery (SDC) | payer OTHER ==
[2019-02-13 08:39] LABS: #Basophils 0.1 thou/uL (0.0-0.2); #Eosinphils 0.3 thou/uL (0.0-0.7); #Lymphocytes 1.5 thou/uL (1.20-3.40); #Monocytes 0.4 thou/uL (0.11-0.59); #Neutrophils 6.2 thou/uL (1.40-6.50); %Basophils 0.8 % (0.0-1.0); %Eosinophils 3.6 % (0.0-10.0); %Lymphocytes 17.3 % (21.0-51.0); %Monocytes 4.6 % (0.0-10.0); %Neutrophils 73.8 % (42.0-75.0); Hemoglobin 9.9 g/dL (12.0-16.0); Mean Corpuscular HGB CONC 33.6 g/dL (32.0-36.0); Mean Corpuscular Hemoglobin 29.4 pg (27.0-31.0); Mean Corpuscular Volume 87.4 fL (78.0-98.0); Mean Platelet Volume 7.5 fL (7.4-10.4); Platelet Count 218 thou/uL (130-400); RBC Distribution Width 13.1 % (11.5-14.5); Red Blood Cell (RBC) Count 3.36 mill/uL (4.20-5.40); White Blood Cell (WBC) Count 8.4 thou/uL (4.8-10.8)
[2019-02-13 08:47] LABS: INR-International Normal Ratio 1.1; Prothrombin Time 14.2 SEC (12.0-14.7)
[2019-02-13] MEDS ORDERED: Sodium Chloride 0.9% 10 ML ONE (09:34)
[2019-02-13] MEDS ORDERED: Sodium Bicarbonate 2.5 MEQ/5 ML VIAL ONE (09:56)
[2019-02-13] MEDS ORDERED: Midazolam HCl 2 mg/2 ml Vial ONE (09:57)
[2019-02-13] MEDS ORDERED: Fentanyl 100 MCG/2 ML VIAL ONE (09:57)
[2019-02-13 11:11] VITALS: BMI 48.5
--- NOTE | 2019-02-13 12:08 | CT ---
CT-guided biopsy left retroperitoneal mass Conscious sedation: At least 30 minutes were spent with the patient for conscious sedation. HISTORY: Retroperitoneal and intra-abdominal mass. FINDINGS: After explaining the procedure and answering all questions, limited CT imaging was performe d with the patient prone. Sterile technique, buffered local anesthesia, CT guidance, conscious sedation, and a left posterior approach were used to carefully advance the tip of a 19-gauge trocar n eedle to the level of the large left lower retroperitoneal mass. Position was confirmed with CT. A total of 3 20-gauge core biopsy specimens were obtained and submitted to Dr. Coto who confirmed spe cimen adequacy. Needle was removed. No evidence of complication. Patient tolerated the procedure well and was eventua lly dismissed in good condition. IMPRESSION: Successful left retroperitoneal mass biopsy. Pathology is pending.
== END 2019-02-13 12:00 | disposition home or self-care (01) ==
LOC: RAD 08:08
PROVIDERS: ATTEND Internal Medicine Hematology & Oncology
DX: C77.2 Secondary and unspecified malignant neoplasm of intra-abdominal lymph nodes (principal); C18.6 Malignant neoplasm of descending colon; E11.9 Type 2 diabetes mellitus without complications; E66.01 Morbid (severe) obesity due to excess calories; F41.9 Anxiety disorder, unspecified; F32.9 Major depressive disorder, single episode, unspecified; J45.909 Unspecified asthma, uncomplicated; D64.9 Anemia, unspecified; Z68.42 Body mass index [BMI] 45.0-49.9, adult; Z79.01 Long term (current) use of anticoagulants; Z88.8 Allergy status to other drugs, medicaments and biological substances
CPT/HCPCS: 36415; 49180; 77002; 85025; 85610; 85730; 88305; 88333; 88334; 88341; 88342; J1642; J2250; J3010

== ENCOUNTER 2019-03-14 13:42 | Observation (INO) | payer OTHER ==
[2019-03-14] MEDS ORDERED: Ondansetron PF 4 MG/2 ML Vial ONE (14:34)
[2019-03-14 14:49] LABS: #Eosinphils 0.3 thou/uL (0.0-0.7); #Lymphocytes 1.5 thou/uL (1.20-3.40); #Monocytes 0.3 thou/uL (0.11-0.59); #Neutrophils 4.4 thou/uL (1.40-6.50); %Basophils 0.7 % (0.0-1.0); %Eosinophils 4.3 % (0.0-10.0); %Lymphocytes 23.2 % (21.0-51.0); %Monocytes 3.9 % (0.0-10.0); %Neutrophils 67.8 % (42.0-75.0); Hemoglobin 9.3 g/dL (12.0-16.0); Mean Corpuscular HGB CONC 34.2 g/dL (32.0-36.0); Mean Corpuscular Hemoglobin 28.6 pg (27.0-31.0); Mean Corpuscular Volume 83.8 fL (78.0-98.0); Platelet Count 322 thou/uL (130-400); Red Blood Cell (RBC) Count 3.23 mill/uL (4.20-5.40); White Blood Cell (WBC) Count 6.5 thou/uL (4.8-10.8)
[2019-03-14 15:14] LABS: ALT (SGPT) 8 U/L (8-55); AST (SGOT) 17 U/L (5-34); Albumin 3.6 g/dL (3.5-5.0); Alkaline Phosphatase 119 U/L (40-110); Anion Gap 14 mmol/L (10-20); BUN (Urea Nitrogen) 10 mg/dL (9.8-20.1); Bilirubin, Total 0.3 mg/dL (0.2-1.2); Calc. Creatinine Clearance 0 mL/min (70-130); Calcium 9.6 mg/dL (7.8-10.44); Carbon Dioxide 22 mmol/L (22-29); Chloride 105 mmol/L (98-107); Estimated GFR-MDRD 66; Glucose 197 mg/dL (70-105); Protein, Total 8.6 g/dL (6.0-8.3); Sodium 136 mmol/L (136-145)
[2019-03-14 15:26] LABS: Bilirubin Negative (Negative); Blood, Urine Negative (Negative); Clarity Clear (Clear); Glucose, Urine (Dipstick) Normal (Negative); Leukocyte Negative Leu/uL (Negative); Nitrite Negative (Negative); Protein, Urine (Dipstick) 70 mg/dL (Neg-Trace); RBC/HPF 0-3 HPF (0-3); Squamous Epithelial 0-3 HPF (0-3); Urobilinogen Normal mg/dL (Less than 2); WBC/HPF 0-3 HPF (0-3)
[2019-03-14 15:35] LABS: Bacteria/HPF None Seen HPF (None Seen)
[2019-03-14] MEDS ORDERED: Acetaminophen 500 MG TAB ONE (16:11)
--- NOTE | 2019-03-14 16:32 | CT ---
EXAM: Abdomen and pelvic CT scan with contrast: HISTORY: Metastatic disease. Pain COMPARISON: 02/08/2019 FINDINGS: The visualized lung bases are clear. Liver: Unremarkable. Gallbladder: Surgically absent Pancreas: Atrophic, stable appearing Spleen: Unremarkable. Adrenal glands: Unremarkable. Kidneys: Stable appearing without interval acute renal pathology Bowel: Limited assessment without enteric contrast. No acute bowel obstruction. Mild inflammation abo ut bowel of left lower quadrant, adjacent known mesenteric mass. This may relate to enteritis or possibly neoplastic infiltration. Urinary Bladder: Grossly unremarkable Mass/Adenopathy: Enlarging necrotic mass of left lower quadrant, 7.7 cm in maximum diameter. Mass pre viously measured 5.9 x 6.3 cm. Retroperitoneal necrotic adenopathy, where previously measured at 4.8 x 4.7 cm, currently measures 5.3 x 5.4 cm. Free Air: No free air. Ascites: No ascites. Osseous structures: No acute osseous abnormalities. IMPRESSION: Enlarging metastatic lesions of the abdomen/pelvis. Slight inflammation of bowel adjacent to enlarging mass, with the left lower quadrant which could eit her relate to acute infectious/inflammatory process, or possibly tumoral infiltration. Findings discussed via telephone with the patient's ER physician Rambo Gonzalez M.D. Transcribed Date/Time: 03/14/2019 4:39 PM
[2019-03-14] MEDS ORDERED: Ketorolac Tromethamine 30 MG/ML VIAL ONE (16:42)
[2019-03-14] MEDS ORDERED: Morphine 4 MG/ML VIAL ONE (16:42)
[2019-03-14] MEDS ORDERED: Dextrose 5% in Water 1,000 ML IV PRN (20:40)
[2019-03-14] MEDS ORDERED: HumaLOG 300 UNITS/3 ML VIAL SC PRN (20:40)
[2019-03-14] MEDS ORDERED: Ondansetron PF 4 MG/2 ML Vial IVP PRN (20:40)
[2019-03-14] MEDS ORDERED: hydrALAZINE 20 MG/ML VIAL SLOW IVP PRN (20:40)
[2019-03-14] MEDS ORDERED: Acetaminophen 325 MG TAB PO PRN (20:40)
[2019-03-14] MEDS ORDERED: Dextrose 50% Abboject 50 ML SYRINGE SLOW IVP PRN (20:40)
[2019-03-14] MEDS ORDERED: Ondansetron ODT 4 MG TAB PO PRN (20:40)
[2019-03-14 21:10] VITALS: BMI 43.6
[2019-03-14] MEDS: Insulin Glargine 15 UNITS in Pre-Filled Syringe 1 EACH SC SCH (21:34)
[2019-03-14] MEDS: Metoprolol Tartrate 25 MG TAB PO SCH (21:40)
[2019-03-14] MEDS: Famotidine 20 MG TAB PO SCH (21:41)
[2019-03-14] MEDS: Morphine ER 15 MG TAB PO SCH (21:41)
[2019-03-14] MEDS: HYDROcodone/Acetaminophen 5/325 mg Tablet PO PRN (23:32)
--- NOTE | 2019-03-15 02:03 | HP ---
PRIMARY CARE PHYSICIAN: Dr. Silva. CHIEF COMPLAINT: Severe abdominal pain. HISTORY OF PRESENT ILLNESS: Ms. Lockhart is a very pleasant 58-year-old female, who has a history of stage IV colon cancer. She also has a history of diabetes and hypertension. She was in her usual state of health until a few weeks ago when she says she started having pain in her lower abdomen that extended into her belly button area. She says it was a stabbing-like pain and was constant. She says it was 10/10, but she could rate it 15, she would. She says that she had been given hydrocodone by her cancer specialist, but the hydrocodone has not been working. She also says she has been severely constipated and says that she did not have a bowel movement for over a month. She says she would have just a little small pellet-like bowel movement until yesterday when she had a very large bowel movement, but this was after she took some prune juice. She denies any vomiting, but has had some nausea. No hematemesis and no melena. She came to the ER due to this severe pain and a CT scan of the abdomen and pelvis was done, which showed enlarging metastatic lesions in the abdomen and pelvis, but there was no evidence of any obstruction and she is being admitted for pain control. REVIEW OF SYSTEMS: All systems were reviewed and are negative except for that mentioned in the history of present illness. PAST MEDICAL HISTORY: Significant for stage IV colon cancer, diabetes mellitus type 2, hypertension, obesity, and anxiety as well as depression. PAST SURGICAL HISTORY: She has had amputation of her fourth and fifth toes and then had to have a right BKA. She has had a , cardiac catheterization, cholecystectomy, incarcerated hernia repair, colectomy, and MediPort placed. SOCIAL HISTORY: She is . She is a nonsmoker and nondrinker. She would like to be a full code. FAMILY HISTORY: Significant for coronary artery disease, diabetes, and hypertension. CURRENT MEDICATIONS: Her current medications are taken from the ER records and include: 1. Novolin 70/30 of 40 units twice a day. 2. Lasix 20 mg daily. 3. Metoprolol 12.5 mg twice a day. 4. Hydrocodone 5/325 one to two tablets q.6 as needed. 5. Stool softener daily. 6. Gas-X and Nitrostat. PHYSICAL EXAMINATION: GENERAL: She is alert and oriented. She appears to be in no acute distress. She is well developed and well nourished. VITAL SIGNS: Blood pressure was 144/64, heart rate 77, respiratory rate of 16, temperature is 97.9. HEENT: Pupils are equal, round, and reactive. Extraocular muscles are intact. Sclerae anicteric. Throat, there is no erythema, no exudate. NECK: No adenopathy. No bruits. LUNGS: Clear to auscultation. There is no wheezing, no rales, no rhonchi. CARDIOVASCULAR: She has a normal S1 and S2. There is no S3 or S4. No murmurs, clicks or rubs. ABDOMEN: Obese and soft. She does have left mid to lower quadrant tenderness. There is no rebound, no guarding. She has positive bowel sounds. EXTREMITIES: She has no clubbing or cyanosis. No edema. She has right BKA. However, there is no skin breakdown. On the left lower extremity, she has some chronic venous stasis changes and hammertoe deformities on the left foot. NEUROLOGIC: Grossly nonfocal. SKIN AND INTEGUMENT: She has some chronic venous stasis changes and hyperpigmentation of the foot and lower extremities. LABORATORY RESULTS: White blood cell count 6.5, hemoglobin 9.3, hematocrit is 27.1, and platelet count is 322. Sodium 136, potassium 5.0, chloride is 105, CO2 is 22, BUN of 10, creatinine 0.88, glucose is 197, alkaline phosphatase is 119. Urinalysis is negative. ASSESSMENT: This is a pleasant 58-year-old female, who comes in to the hospital with an intractable pain related to her colon cancer. CT scan shows an enlarging intraabdominal and peritoneal masses. No mention of any obstruction. She will be placed in observation. We will start MS [place] tonight, as well as continue [place] for breakthrough pain. We will put her on bowel regimen to help prevent severe constipation and we will also consult her oncologist in the a.m. 1. Diabetes mellitus. We will ask to continue her novel 70/30, as well as sliding scale insulin. 2. Hypertension. Continue metoprolol, as well as p.r.n. medicines for blood pressure. She will be placed on deep venous thrombosis prophylaxis. Job ID: [id number]
[2019-03-15] MEDS: HYDROcodone/Acetaminophen 5/325 mg Tablet PO PRN (03:58)
[2019-03-15 07:21] LABS: #Basophils 0.1 thou/uL (0.0-0.2); #Eosinphils 0.4 thou/uL (0.0-0.7); #Monocytes 0.3 thou/uL (0.11-0.59); #Neutrophils 3.4 thou/uL (1.40-6.50); %Basophils 0.9 % (0.0-1.0); %Lymphocytes 32.6 % (21.0-51.0); %Monocytes 4.5 % (0.0-10.0); Hemoglobin 8.4 g/dL (12.0-16.0); Mean Corpuscular HGB CONC 34.2 g/dL (32.0-36.0); Mean Corpuscular Hemoglobin 29.1 pg (27.0-31.0); Mean Corpuscular Volume 85.1 fL (78.0-98.0); Mean Platelet Volume 7.4 fL (7.4-10.4); Platelet Count 245 thou/uL (130-400); RBC Distribution Width 12.9 % (11.5-14.5); White Blood Cell (WBC) Count 6.1 thou/uL (4.8-10.8)
[2019-03-15 07:38] LABS: Anion Gap 10 mmol/L (10-20); BUN (Urea Nitrogen) 7 mg/dL (9.8-20.1); Calc. Creatinine Clearance 125 mL/min (70-130); Calcium 8.6 mg/dL (7.8-10.44); Carbon Dioxide 24 mmol/L (22-29); Chloride 106 mmol/L (98-107); Estimated GFR-MDRD 62; Glucose 145 mg/dL (70-105); Potassium 3.6 mmol/L (3.5-5.1); Sodium 136 mmol/L (136-145)
[2019-03-15] MEDS: Morphine ER 15 MG TAB PO SCH (08:36)
[2019-03-15] MEDS: Metoprolol Tartrate 25 MG TAB PO SCH ×2 (08:36→21:29)
[2019-03-15] MEDS: Enoxaparin Sodium 40 MG/0.4 ML SYRINGE SC SCH (08:38)
[2019-03-15] MEDS: Famotidine 20 MG TAB PO SCH ×2 (08:38→21:35)
[2019-03-15] MEDS: Insulin Glargine 15 UNITS in Pre-Filled Syringe 1 EACH SC SCH ×2 (08:41→21:28)
[2019-03-15] MEDS ORDERED: FLU VACC QS2019-20(6MOS UP)/PF 60 MCG/0.5 ML SYRINGE IM ONE (09:00)
[2019-03-15] MEDS ORDERED: Morphine ER 15 MG TAB PO SCH (10:15)
[2019-03-15] MEDS: HumaLOG 300 UNITS/3 ML VIAL SC PRN ×2 (11:47→17:28)
--- NOTE | 2019-03-15 11:47 | CON ---
DATE OF CONSULTATION: REASON FOR CONSULT: Colon cancer. HISTORY OF PRESENT ILLNESS: Ms. Lockhart is a 58-year-old female with stage IV colon cancer, diabetes, and left BKA. She was originally treated for stage IIIB adenocarcinoma in 2017. She had recurrent disease in her left lower quadrant noted this past January. She had CT scanning in April that showed a conglomerated left periaortic lymph nodes measuring 14 x 4.9 x 4.8 cm. There was also a large left lower quadrant soft tissue mass measuring 8.1 x 6.9 x 5.9 cm. She had enlarged aortocaval lymph nodes measuring 2.9 x 2.9 cm. She was re-biopsied and it confirmed metastatic colon cancer. The patient is in the process of being approved for chemotherapy. Fortunately, she has the transportation issues and is underfunded. We are waiting for approval for chemotherapy from the hospital. In the interim, she has had worsening abdominal discomfort and constipation. She has been on [place] with no improvement. She did have a bowel movement a couple of days ago after taking prune juice. She presented yesterday to the emergency room for continued abdominal pain. A CT scan of her abdomen and pelvis was performed, which showed enlarging metastatic lesions. She was started on MS Contin and [place] with minimal pain relief. We were asked to see the patient regarding her cancer. PAST MEDICAL HISTORY: 1. Stage IV colon cancer. 2. Diabetes mellitus. 3. Right BKA. 4. History of DVT, on Xarelto. 5. Obesity. 6. Hypertension. 7. Asthma. 8. Anxiety and depression. PAST SURGICAL HISTORY: x2, tubal ligation, lap lorena, hernia repair, right BKA. ALLERGIES: NO KNOWN DRUG ALLERGIES. HOME MEDICATIONS: 1. Iron. 2. Lasix. 3. Insulin. 4. Metoprolol. 5. MiraLAX. 6. Quinapril. 7. [place]. FAMILY HISTORY: None. SOCIAL HISTORY: . Has 2 children. She currently lives alone, but is moving with a son soon. No alcohol, tobacco, or illicit drug use. REVIEW OF SYSTEMS: Positive for abdominal discomfort and constipation. Otherwise, negative. PHYSICAL EXAMINATION: VITAL SIGNS: Temperature is 97.9, pulse is 63, respiratory rate 22, blood pressure is 140/61, she is 97% on room air. GENERAL: Well-developed, well-nourished female, in no acute distress. HEENT: Normocephalic, atraumatic. Pupils are equal and reactive to light. NECK: Supple. CARDIOVASCULAR: Regular rate and rhythm. LUNGS: Clear anterior. ABDOMEN: Obese, nontender. Bowel sounds are positive. EXTREMITIES: Right BKA. SKIN: No rash. HEMATOLOGICAL: No petechiae or purpura. NEUROLOGIC: Nonfocal. PSYCHIATRIC: She is alert and oriented. PERTINENT LABORATORY DATA AND X-RAYS: Current WBCs are 6.1, hemoglobin 8.4, hematocrit 24.7, platelet count is 245,000. Sodium is 136, potassium 3.6, chloride is 106, CO2 is 24, BUN is 7, creatinine 0.93, calcium is 8.6, bilirubin 0.3, AST 17, ALT is 8, alkaline phosphatase is 119. Troponin is negative. Serum total protein 8.6, albumin 3.6, globulin 5. Urine is negative for bacteria. Radiology per HPI. ASSESSMENT: 1. Stage IV colon cancer. 2. Intractable abdominal discomfort secondary to #1. 3. Constipation. 4. Anemia, chronic. DISCUSSION: A case has been discussed with Dr. Jeong. Unfortunately, the patient has multiple social issues including transportation difficulties and history of noncompliance. She also has funding issues and is currently pending financial approval for insurance. This is a 3 day regimen. This requires multiple trips for treatment. Discussed at length with the patient her ability to complete chemo versus focusing on comfort care with hospice. It is difficult to assess whether she understands the gravity of her disease and that all care is palliative. She does currently wish to focus on comfort care. I will have palliative care to discuss with her to ensure that she understands her choices. I will ask [facility] to see her to discuss what they can provide for her. I do feel like hospice is her best option at this point. We will increase her MS Contin and her [place] to hopefully achieve pain control and add bowel regimen for constipation. Thank you for the consult. Job ID: [id number]
--- NOTE | 2019-03-15 12:21 | PDOC.PALCO ---
Palliative Care Consult - Consult Details Requesting Physician: Greg Butler ACNLinh Reason for Consult: goals of care, complex decision-making - Pertinent HPI 58 year old female with IV colon cancer. Presented to the emergency room with abdominal pain starting "a few days ago but can not remember" and has gotten worse. CT in the emergency room identified metastatic disease with no evidence of obstruction. Admitted to oncology for further evaluation/management - Pertinent PMH Diabetes II, Hypertension, COlon Cancer IV, Anxiety/Depression, right BKA - Social History Smoking Status: Never smoker Smoking: no tobacco exposure Alcohol Use: none Drug Use History: none Living Situation: other (Was independent but said she will be living with her son) - Medications MAR Reviewed: Yes - Allergies Allergies/Adverse Reactions: Allergies Allergy/AdvReac Type Severity Reaction Status Date / Time nystatin Allergy Severe Rash Verified 05/30/18 18:05 - Subjective Awake, alert. States abdominal pain is a 4/10 - generalized to abdomen, non specific, non radiating primarily to lower left abdomen. Complains of constipation. Denies nausea, vomiting. ROS: 10 point review otherwise negative with the exception of above mentioned. - Objective Vital Signs: Vital Signs - Most Recent Temp Pulse Resp BP Pulse Ox 97.9 F 63 22 H 140/61 97 03/15/19 08:37 03/15/19 08:37 03/15/19 08:37 03/15/19 08:37 03/15/19 08:37 Palliative Performance Scale: 40 - Physical Exam Constitutional: confusion Deviation from normal: Obese, HEENT: moist MMs, sclera anicteric, EOMI Respiratory: clear to auscultation bilateral, unlabored breathing Cardiovascular: RRR, no significant murmur Gastrointestinal: soft, positive bowel sounds Deviation from normal: No guarding with palpation Musculoskeletal: no edema, no cyanosis Deviation from normal: right bka, contractures to left toes Neurological: moves all 4 limbs Psychiatric: A&O x 3 Deviation from normal: flight of ideas Deviation from normal: dry flaky skin to left foot and holt - Problem List (1) Palliative care encounter Code(s): Z51.5 - ENCOUNTER FOR PALLIATIVE CARE Current Visit: Yes Status: Acute (2) Colonic mass Code(s): K63.9 - DISEASE OF INTESTINE, UNSPECIFIED Current Visit: No Status : Acute (3) History of colon cancer Code(s): Z85.038 - PERSONAL HISTORY OF MALIGNANT NEOPLASM OF LARGE INTESTINE Current Visit: No Status: Chronic (4) Morbid obesity with BMI of 45.0-49.9, adult Code(s): E66.01 - MORBID (SEVERE) OBESITY DUE TO EXCESS CALORIES; Z68.42 - BODY MASS INDEX (BMI) 45.0-49.9, ADULT Current Visit: No Status: Chronic (5) Abdominal pain Code(s): R10.9 - UNSPECIFIED ABDOMINAL PAIN Current Visit: No Status: Resolved - Plan/Recommendations Plan: Initiated contact with patient. Greg Butler had initiated conversation for hospice. *Continue to educate in relation to hospice *[facility] to follow up and discuss MPOA and resuscitation status *Education in relation to disease process and progression of cancer and comfort measures. *Palliative Care RN to continue to follow [60] minutes spent on this encounter with >50% of the time in counseling and coordination of care. Thank you for this very appropriate consult.
--- NOTE | 2019-03-15 12:36 | PDOC.HOSPP ---
- Subjective Encounter Date: 03/15/19 Encounter Time: 12:34 Subjective: Mr. Lockhart was seen today in follow-up of advanced colon cancer. She has severe abdominal pain. She has gotten partial relief with MS -Contin. - Objective Vital Signs & Weight: Vital Signs (12 hours) Temp Pulse Resp BP Pulse Ox 03/15/19 08:37 97.9 F 63 22 H 140/61 97 03/15/19 03:00 98.0 F 58 L 16 129/62 96 Weight Weight 262 lb 5 oz I&O: 03/14/19 03/15/19 03/16/19 06:59 06:59 06:59 Intake Total 360 Balance 360 Result Diagrams: 03/15/19 07:08 03/15/19 07:08 Additional Labs: Accuchecks 03/15/19 03/15/19 03/14/19 11:06 05:03 21:08 POC Glucose 210 H 153 H 148 H Hospitalist ROS - Medication Medications: Active Medications Generic Name Dose Route Start Last Admin Trade Name Freq PRN Reason Stop Dose Admin Hydrocodone Bitart/Acetaminophen 1 tab 03/14/19 20:40 03/15/19 03:58 [place] 5/325 PO 1 tab Q4H PRN Administration Moderate Pain (4-6) Enoxaparin Sodium 40 mg 03/15/19 09:00 03/15/19 08:38 Lovenox SC 40 mg 0900 DEVAN Administration Famotidine 20 mg 03/14/19 21:00 03/15/19 08:38 Pepcid PO 20 mg BID DEVAN Administration Insulin Glargine 15 units/ 0.15 mls @ 0 mls/hr 03/14/19 21:00 03/14/19 21:34 Miscellaneous Medication SC Not Given HS DEVAN Insulin Glargine 15 units/ 0.15 mls @ 0 mls/hr 03/15/19 09:00 03/15/19 08:41 Miscellaneous Medication SC 0.15 mls QAM DEVAN Administration Insulin Human Lispro 0 units 03/14/19 20:40 03/15/19 11:47 Humalog SC 4 unit .MODERATE SLIDING SC PRN Administration Moderate Correctional Scale Metoprolol Tartrate 12.5 mg 03/14/19 21:00 03/15/19 08:36 Lopressor PO 12.5 mg BID DEVAN Administration - Exam Eye: PERRL, anicteric sclera Heart: RRR, no murmur, no gallops, no rubs, normal peripheral pulses Respiratory: CTAB, no wheezes, no rales, no ronchi, normal chest expansion Gastrointestinal: soft, normal bowel sounds, no palpable masses, no hepatomegaly , tender to palpation Extremities: no cyanosis, no edema Hosp A/P (1) Colon cancer Code(s): C18.9 - MALIGNANT NEOPLASM OF COLON, UNSPECIFIED Status: Acute (2) Diabetes type 2, controlled Code(s): E11.9 - TYPE 2 DIABETES MELLITUS WITHOUT COMPLICATIONS Status: Chronic (3) Hypertension Code(s): I10 - ESSENTIAL (PRIMARY) HYPERTENSION Status: Chronic - Plan * Intractable abdominal pain from colon cancer- will continue to titrate the MS -Contin * Continue [place] for break through pain * DM- blood glucose is stable * She has beenseen by Oncology- and Hospice has been recommended
[2019-03-15] MEDS: HYDROcodone/Acetaminophen 10/325 mg Tablet PO PRN (14:25)
[2019-03-15] MEDS ORDERED: Melatonin 3 MG TAB PO PRN (21:25)
[2019-03-15] MEDS ORDERED: diphenhydrAMINE 25 MG CAP PO SCH (21:30)
[2019-03-15] MEDS: Docusate 100 MG CAP PO SCH (21:36)
[2019-03-15] MEDS: Morphine ER 30 MG TAB PO SCH (21:42)
[2019-03-16] MEDS ORDERED: Sodium Chloride 0.9% 500 ML IV SCH (00:30)
[2019-03-16 00:39] LABS: Hemoglobin 8.5 g/dL (12.0-16.0)
[2019-03-16 00:56] LABS: Anion Gap 13 mmol/L (10-20); BUN (Urea Nitrogen) 11 mg/dL (9.8-20.1); Calc. Creatinine Clearance 115 mL/min (70-130); Calcium 8.4 mg/dL (7.8-10.44); Carbon Dioxide 20 mmol/L (22-29); Chloride 109 mmol/L (98-107); Estimated GFR-MDRD 56; Glucose 156 mg/dL (70-105); Potassium 3.7 mmol/L (3.5-5.1); Sodium 138 mmol/L (136-145)
[2019-03-16] MEDS: HumaLOG 300 UNITS/3 ML VIAL SC PRN (06:49)
[2019-03-16 08:19] VITALS: TEMP 97.8
[2019-03-16] MEDS: Enoxaparin Sodium 40 MG/0.4 ML SYRINGE SC SCH (08:19)
[2019-03-16] MEDS: Docusate 100 MG CAP PO SCH (08:19)
[2019-03-16] MEDS: Famotidine 20 MG TAB PO SCH (08:19)
[2019-03-16] MEDS: Morphine ER 30 MG TAB PO SCH (08:19)
[2019-03-16] MEDS: Metoprolol Tartrate 25 MG TAB PO SCH (08:20)
[2019-03-16] MEDS ORDERED: Polyethylene Glycol 3350 17 GM Packet PO SCH (09:00)
[2019-03-16] MEDS: Insulin Glargine 15 UNITS in Pre-Filled Syringe 1 EACH SC SCH (11:16)
[2019-03-16 12:06] VITALS: BP 120/58
--- NOTE | 2019-03-16 13:41 | PDOC.HOSPP ---
- Subjective Encounter Date: 03/16/19 Encounter Time: 13:39 Subjective: Ms. Lockhart was seen today in follow-up of stage 4 colon cancer. She says the pain is a bit better today. She has agreed on Hospice care. - Objective Vital Signs & Weight: Vital Signs (12 hours) Temp Pulse Resp BP BP Pulse Ox 03/16/19 12:00 120/58 L 03/16/19 08:00 97.8 F 61 20 122/58 L 94 L 03/16/19 04:00 98.3 F 61 16 114/56 L 94 L 03/16/19 03:08 112/55 L 03/16/19 02:10 106/53 L Weight Weight 262 lb 5 oz I&O: 03/15/19 03/16/19 03/17/19 06:59 06:59 06:59 Intake Total 360 1830 Balance 360 1830 Result Diagrams: 03/16/19 00:23 03/16/19 00:23 Additional Labs: Accuchecks 03/16/19 03/16/19 03/15/19 11:13 06:24 20:01 POC Glucose 146 H 154 H 115 H 03/15/19 17:06 POC Glucose 160 H Hospitalist ROS - Medication Medications: Active Medications Generic Name Dose Route Start Last Admin Trade Name Freq PRN Reason Stop Dose Admin Hydrocodone Bitart/Acetaminophen 1 tab 03/14/19 20:40 03/15/19 03:58 [place] 5/325 PO 1 tab Q4H PRN Administration Moderate Pain (4-6) Hydrocodone Bitart/Acetaminophen 2 tab 03/15/19 10:07 03/15/19 14:25 [place] 10/325 PO 2 tab Q4H PRN Administration Severe Pain (7-10) Docusate Sodium 100 mg 03/15/19 21:00 03/16/19 08:19 Colace PO 100 mg BID DEVAN Administration Enoxaparin Sodium 40 mg 03/15/19 09:00 03/16/19 08:19 Lovenox SC 40 mg 0900 DEVAN Administration Famotidine 20 mg 03/14/19 21:00 03/16/19 08:19 Pepcid PO 20 mg BID DEVAN Administration Insulin Glargine 15 units/ 0.15 mls @ 0 mls/hr 03/14/19 21:00 03/15/19 21:28 Miscellaneous Medication SC Not Given HS DEVAN Insulin Glargine 15 units/ 0.15 mls @ 0 mls/hr 03/15/19 09:00 03/16/19 11:16 Miscellaneous Medication SC 0.15 mls QAM DEVAN Administration Insulin Human Lispro 0 units 03/14/19 20:40 03/16/19 06:49 Humalog SC 2 unit .MODERATE SLIDING SC PRN Administration Moderate Correctional Scale Melatonin 3 mg 03/15/19 21:25 03/15/19 21:36 Melatonin PO 3 mg HS PRN Administration Insomnia Metoprolol Tartrate 12.5 mg 03/14/19 21:00 03/16/19 08:20 Lopressor PO 12.5 mg BID DEVAN Administration Morphine Sulfate 30 mg 03/15/19 21:00 03/16/19 08:19 Ms Contin PO 30 mg Q12HR DEVAN Administration Polyethylene Glycol 17 gm 03/16/19 09:00 03/16/19 08:19 Miralax PO 17 gm DAILY DEVAN Administration - Exam Eye: PERRL, anicteric sclera Heart: RRR, no murmur, no gallops, no rubs, normal peripheral pulses Respiratory: CTAB, no wheezes, no rales, no ronchi, normal chest expansion Gastrointestinal: soft, non-distended, normal bowel sounds Extremities: no cyanosis, no clubbing, 1+ LE edema Hosp A/P (1) Colon cancer Code(s): C18.9 - MALIGNANT NEOPLASM OF COLON, UNSPECIFIED Status: Acute (2) Diabetes type 2, controlled Code(s): E11.9 - TYPE 2 DIABETES MELLITUS WITHOUT COMPLICATIONS Status: Chronic (3) Hypertension Code(s): I10 - ESSENTIAL (PRIMARY) HYPERTENSION Status: Chronic - Plan * Intractable abdominal pain from colon cancer- continue to titrate MS Contin * Continue [place] for break through pain * DM- blood glucose is stable * Plan is to go home with Hospice today
[2019-03-16] MEDS: HYDROcodone/Acetaminophen 10/325 mg Tablet PO PRN (15:45)
--- NOTE | 2019-03-17 23:31 | DIS ---
DATE OF ADMISSION: 03/14/2019 DATE OF DISCHARGE: 03/16/2019 PRIMARY CARE PHYSICIAN: Dr. Silva. DISCHARGE DISPOSITION: Home with home hospice. DISCHARGE DIAGNOSES: 1. Intractable cancer pain. 2. Stage IV colon cancer. 3. Diabetes mellitus, type 2. 4. Hypertension. 5. Obesity. 6. Generalized anxiety. DISCHARGE MEDICATIONS: Include; 1. MS Contin 30 mg twice daily. 2. [place] 5/325 q.4 hours as needed for breakthrough pain. 3. Iron sulfate 325 mg daily. 4. Nitrostat 0.4 sublingual p.r.n. 5. Metoprolol 12.5 mg twice a day. 6. Insulin 70/30, 40 units in the a.m. and 30 in the evening. 7. Lasix 20 mg daily. 8. Docusate sodium 100 mg twice daily. 9. MiraLAX 17 g as needed. PROCEDURES DONE DURING THE ADMISSION: The patient had a CT scan of the abdomen, which demonstrated an enlarging metastatic lesions in the abdomen and pelvis, slight inflammation of the adjacent enlarging mass and possible tumor infiltration. CODE STATUS: DNAR. ALLERGIES: TO [place]. HOSPITAL COURSE: Ms. Lockhart is a very pleasant 58-year-old female, who came to the hospital due to uncontrolled abdominal pain. This was due to advancing stage IV colon cancer. She was not getting adequate pain relief with her current medication regimen. She was admitted to Oncology and started on MS Contin with good results. She was seen by her oncologist, who felt that this time her cancer had advanced to the point where chemotherapy would no longer be of any benefit. She was seen by the Hospice Team and then discharged home on home hospice. Job ID: [id number]
== END 2019-03-16 17:10 | disposition home or self-care (01) ==
LOC: ERS 13:42 → ONC 16:51
PROVIDERS: ADMIT Internal Medicine; ATTEND Internal Medicine
DX: G89.3 Neoplasm related pain (acute) (chronic) (principal); C18.9 Malignant neoplasm of colon, unspecified; C77.2 Secondary and unspecified malignant neoplasm of intra-abdominal lymph nodes; C79.89 Secondary malignant neoplasm of other specified sites; R10.30 Lower abdominal pain, unspecified; E11.9 Type 2 diabetes mellitus without complications; I10 Essential (primary) hypertension; F41.9 Anxiety disorder, unspecified; F32.9 Major depressive disorder, single episode, unspecified; J45.909 Unspecified asthma, uncomplicated; K59.00 Constipation, unspecified; D64.9 Anemia, unspecified; F41.1 Generalized anxiety disorder; E66.01 Morbid (severe) obesity due to excess calories; Z68.41 Body mass index [BMI] 40.0-44.9, adult; Z66 Do not resuscitate; Z86.718 Personal history of other venous thrombosis and embolism; Z79.4 Long term (current) use of insulin; Z79.899 Other long term (current) drug therapy; Z88.1 Allergy status to other antibiotic agents; Z51.5 Encounter for palliative care
CPT/HCPCS: 36415; 36416; 51701; 74177; 80048; 80053; 81003; 81015; 84484; 85014; 85018; 85025; 93005; 96361; 96372; 96374; 96375; A4353; G0378; J1650; J1815; J1885; J2270; J2405; Q0163; Q9966